=== PATIENT | female | born 1970 | race Caucasian/White ===

== ENCOUNTER 2016-11-02 13:53 | Emergency (ER) | payer OTHER ==
[2016-11-02] MEDS ORDERED: ASPIRIN 81 MG CHEW PO STA (14:34)
[2016-11-02] MEDS ORDERED: NITROGLYCERIN OINT 1 INCH/GM PACKET TOPICAL STA (14:34)
--- NOTE | 2016-11-02 14:38 | ED ---
Chest Pain HPI - General Chief Complaint: Chest Pain Stated Complaint: chest pain Time Seen by Provider: 11/02/16 14:24 Source: patient Mode of arrival: wheelchair Limitations: no limitations - History of Present Illness Initial Comments: This 46-year-old white female presents complaining of some left sided chest pain. It is described as a pressure type sensation. It initially started in her posterior thorax on the left side and seemed to radiate anteriorly. She denies any shortness of breath, palpitations, or diaphoresis. She states that she took 2 sublingual nitroglycerin and it significantly decreased the pain. She relates a history of having similar incidents periodically over the last year and a half. The last time she had it was approximately 10 days ago. She' s been thoroughly worked up for this in the past at [facility]. She has been there many times for her symptoms. They did not find a cause for it. She did have a stress test approximately 3 months ago and this was her second stress test. She's never had a heart catheterization. She sees Dr. Scott from cardiology. She has not appointment with him this next Saturday. She complains of some diffuse left leg pain over the last month or so. She has a history of previous blood clot in her leg after gallbladder surgery. She is not on any blood thinners currently. She denies any other complaints or modifying factors. - Related Data Home Medications Medication Instructions Recorded Confirmed Albuterol Sulfate [Ventolin Hfa] 1 - 2 puff INHALATION RT-Q6H PRN 11/02/1611/02 Aspirin EC [Ecotrin Low Dose] 81 mg PO DAILY 11/02/16 11/02/16 Atenolol [Tenormin] 25 mg PO HS 11/02/16 11/02/16 Esomeprazole Magnesium [NexIUM] 40 mg PO DAILY 11/02/16 11/02/16 Ibuprofen [Motrin] 400 mg PO Q6HR PRN 11/02/16 11/02/16 Nitroglycerin Sl Tabs [Nitrostat] 0.4 mg SUBLINGUAL Q5M PRN 11/02/16 11/02/16 Ranitidine HCl [Zantac] 75 mg PO DAILY 11/02/16 11/02/16 Allergies Allergy/AdvReac Type Severity Reaction Status Date / Time morphine AdvReac Rapid Verified 11/02/16 14:25 Heart Rate Review of Systems ROS Statement: Those systems with pertinent positive or pertinent negative responses have been documented in the HPI. ROS Other: All systems not noted in ROS Statement are negative. Past Medical History Past Medical History: Chest Pain / Angina, COPD, Hypertension Additional Past Medical History / Comment(s): obesity History of Any Multi-Drug Resistant Organisms: None Reported Past Surgical History: Section, Cholecystectomy, Hernia Repair Past Psychological History: Anxiety Smoking Status: Former smoker Past Alcohol Use History: None Reported Past Drug Use History: None Reported General Exam - General Exam Comments Initial Comments: GENERAL: The patient is well nourished and well hydrated. VITAL SIGNS: Heart rate, blood pressure, respiratory rate reviewed as recorded in nurse's notes. EYES: Pupils are round and reactive. Extraocular movements are intact. No conjunctival / lid redness or swelling. ENT: No external evidence of injury, swelling, or ecchymosis. Airway is patent. Throat is clear. NECK: Nontender. No swelling or evidence of injury. No subcutaneous emphysema. Trachea is midline. No thyroid mass. HEART: Regular rate and rhythm. Good peripheral pulses. LUNGS/CHEST: Breath sounds clear and equal bilaterally. No rales, rhonchi, or wheezes. No ecchymosis, subcutaneous emphysema, or tenderness. ABDOMEN: Abdomen soft without tenderness. No palpable masses or organomegaly. No peritoneal signs. No abdominal wall swelling or ecchymosis. EXTREMITIES: No extremity tenderness. Normal muscle tone and function. No thoracolumbar tenderness. NEUROLOGIC: Sensation is grossly intact. Cranial nerve exam reveals face is symmetrical, tongue is midline, speech is clear. SKIN: No abrasions or ecchymosis is noted. No induration or masses noted. PSYCHIATRIC: Alert and oriented. Appropriate behavior and judgment. Limitations: no limitations Course Vital Signs 11/02/16 11/02/16 11/02/16 13:56 14:15 15:26 Temperature 97.9 F 98.6 F 97.7 F Pulse Rate 78 75 78 Respiratory 18 16 17 Rate Blood Pressure 129/70 132/65 120/69 O2 Sat by Pulse 98 100 95 Oximetry 11/02/16 16:28 Temperature 98.1 F Pulse Rate 82 Respiratory 17 Rate Blood Pressure 110/62 O2 Sat by Pulse 96 Oximetry Chest Pain [facility] - MDM The patient is seen and examined. All diagnostics were reviewed. An IV is established she is placed on a cardiac cath tech. The EKG shows a normal sinus rhythm at a rate of 72. There is no acute ST-T wave changes noted. The [place] interval is 194, QRS duration is 92, and QTC intervals 429. She does receive aspirin as well as Nitropaste. The cardiac profile labs are all essentially within normal limits. The d-dimer was negative. Her lower extremity venous Doppler studies are negative for DVT. The chest x-ray does not show any acute processes. She is in no distress on recheck. It is felt as though she benefit from admission to the hospital. She refuses. She relates that she just had a negative stress test 3 months ago and she has an appointment with her operations engineer on Saturday. Risks and benefits are discussed and ultimately detail but she would still want to leave without any further inpatient workup or treatment. The exact cause of her symptoms are not definitively determined but the possibility of acute coronary syndrome still is possible that she leaves against my advice in regards to inpatient workup. Disposition Clinical Impression: Chest pain, Left leg pain Disposition: HOME SELF-CARE Condition: Good Instructions: Chest Pain (ED) Referrals: Karyn Esteban MD [Primary Care Provider] - 1-2 days Suma Scott MD [STAFF PHYSICIAN] - 11/06/16 Time of Disposition: 17:28
[2016-11-02 15:10] LABS: Basophils % (A) 0 %; CH 24.4; CHCM 30.6; Eosinophils # (A) 0.2 k/uL (0-0.7); Eosinophils % (A) 3 %; HCT 37.2 % (34.0-46.0); HDW 2.92; HGB 11.4 gm/dL (11.4-16.0); Hypochromasia Moderate; Luc # (Auto) 0.18; Luc % (Auto) 3; Lymphocytes # (A) 1.8 k/uL (1.0-4.8); Lymphocytes % (A) 26 %; MCH 24.5 pg (25.0-35.0); MCHC 30.7 g/dL (31.0-37.0); MCV 79.7 fL (80.0-100.0); Mean Platelet Volume 7.1; Monocytes # (A) 0.3 k/uL (0-1.0); Monocytes % (A) 4 %; Neutrophils # (A) 4.3 k/uL (1.3-7.7); Neutrophils % (A) 63 %; RBC 4.67 m/uL (3.80-5.40); RDW 15.3 % (11.5-15.5); WBC 6.8 k/uL (3.8-10.6); WBC (Perox) 7.24
[2016-11-02 15:19] LABS: ALT 45 U/L (9-52); AST 35 U/L (14-36); Alkaline Phosphatase 101 U/L (38-126); Anion Gap 8 mmol/L; Blood Urea Nitrogen 14 mg/dL (7-17); Carbon Dioxide 24 mmol/L (22-30); Chloride 106 mmol/L (98-107); Glucose 85 mg/dL (74-99); Magnesium 1.7 mg/dL (1.6-2.3); Non-African American GFR(MDRD) >60 (>60 ml/min/1.73 sqM); Potassium 4.4 mmol/L (3.5-5.1); Sodium 138 mmol/L (137-145); Total Bilirubin 0.4 mg/dL (0.2-1.3); Total Protein 6.8 g/dL (6.3-8.2)
[2016-11-02 15:23] LABS: Partial Thromboplastin Time 23.5 sec (22.0-30.0); Prothrombin Time 10.2 sec (9.0-12.0)
[2016-11-02 15:31] LABS: Creatine Kinase 131 U/L (30-135)
--- NOTE | 2016-11-02 15:34 | XR ---
EXAMINATION TYPE: XR chest 2V DATE OF EXAM: 11/02/2016 COMPARISON: CXR from 08-17-2011. HISTORY: Chest pain today. TECHNIQUE: Frontal and lateral views of the chest are obtained. FINDINGS: Low lung volumes are present. There is no focal air space opacity, pleural effusion, or pn eumothorax seen. The cardiac silhouette size is within normal limits. The osseous structures are i ntact. IMPRESSION: No acute cardiopulmonary process.
[2016-11-02 15:43] LABS: Creatine Kinase MB 1.3 ng/mL (0.0-2.4); Troponin I <0.012 ng/mL (0.000-0.034)
[2016-11-02] MEDS ORDERED: ACETAMINOPHEN TAB 500 MG TAB PO STA (16:33)
--- NOTE | 2016-11-02 16:39 | US ---
EXAMINATION TYPE: US venous doppler duplex LE BI DATE OF EXAM: 11/02/2016 4:13 PM COMPARISON: NONE CLINICAL HISTORY: Pain. Left leg pain x 1 month, bilateral ankle swelling x 1 month, hx of DVT 10 ye ars ago but doesn't remember which leg, no blood thinners SIDE PERFORMED: Bilateral TECHNIQUE: The lower extremity deep venous system is examined utilizing real time linear array sonog jennifer with graded compression, doppler sonography and color-flow sonography. VESSELS IMAGED: External Iliac Vein (EIV) Common Femoral Vein Deep Femoral Vein Greater Saphenous Vein * Femoral Vein Popliteal Vein Small Saphenous Vein * Proximal Calf Veins (* superficial vessels) Right Leg: Appears negative for acute DVT Left Leg: Appears negative for acute DVT IMPRESSION: Negative exam. No evidence of deep venous thrombosis in both legs.
[2016-11-02 17:28] VITALS: BP 117/59; PULSE 78; RESP 16; TEMP 97.6
== END 2016-11-02 17:55 | disposition home or self-care (01) ==
LOC: EC 13:53
DX: R07.9 Chest pain, unspecified (principal); M79.605 Pain in left leg; I10 Essential (primary) hypertension; Z87.891 Personal history of nicotine dependence; Z88.5 Allergy status to narcotic agent; Z79.82 Long term (current) use of aspirin; Z79.899 Other long term (current) drug therapy
CPT/HCPCS: 36415; 71020; 80053; 82550; 82553; 83735; 84484; 85025; 85379; 85610; 85730; 93005; 93970; 99285

== ENCOUNTER 2018-07-16 09:30 | Observation (INO) | payer OTHER ==
[2018-07-16] MEDS ORDERED: ASPIRIN 81 MG PO STA (10:23)
[2018-07-16] MEDS ORDERED: NITROGLYCERIN OINT 1 INCH/GM PACKET TOPICAL STA (10:23)
--- NOTE | 2018-07-16 10:26 | ED ---
General Adult HPI - General Chief complaint: Chest Pain Stated complaint: Chest discomfort Time Seen by Provider: 07/16/18 09:37 Source: patient, RN notes reviewed Mode of arrival: ambulatory Limitations: no limitations - History of Present Illness Initial comments: Patient is a pleasant 48-year-old female presenting to the emergency Department with complaints of chest discomfort. Onset of symptoms was around 910 this morning. Patient did take one of her nitroglycerin with resolution of symptoms. Patient is currently symptom-free. Patient states discomfort was 5/ 10. Patient has a difficult time describing her discomfort. No associated dyspnea, nausea, or diaphoresis. Discomfort was mid sternal. No radiation. Patient has had similar symptoms previously and has been diagnosed with angina. Last stress test was around 1 year ago. Patient adds she also feels like her heart rate was going high. Patient does have chronic history of tachycardia and has been evaluated for that as well. - Related Data Home Medications Medication Instructions Recorded Confirmed Aspirin EC [Ecotrin Low Dose] 81 mg PO DAILY 11/02/16 07/16/18 Atenolol [Tenormin] 25 mg PO DAILY 11/02/16 07/16/18 Nitroglycerin Sl Tabs [Nitrostat] 0.4 mg SUBLINGUAL Q5M PRN 11/02/16 07/16/18 Esomeprazole Magnesium [NexIUM] 20 mg PO DAILY 07/16/18 07/16/18 Ferrous Sulfate [Feosol] 325 mg PO DAILY 07/16/18 07/16/18 HYDROcodone/APAP 5-325MG [[place] 1 tab PO DAILY PRN 07/16/18 07/16/18 5-325] Naproxen Sodium 440 mg PO DAILY PRN 07/16/18 07/16/18 Ranitidine HCl [Zantac] 150 mg PO DAILY PRN 07/16/18 07/16/18 Allergies Allergy/AdvReac Type Severity Reaction Status Date / Time morphine AdvReac Rapid Verified 07/16/18 10:07 Heart Rate Review of Systems ROS Statement: Those systems with pertinent positive or pertinent negative responses have been documented in the HPI. ROS Other: All systems not noted in ROS Statement are negative. Constitutional: Denies: fever Eyes: Denies: eye pain ENT: Denies: ear pain Respiratory: Denies: cough, dyspnea Cardiovascular: Reports: as per HPI, chest pain, palpitations Endocrine: Denies: fatigue Gastrointestinal: Denies: abdominal pain Genitourinary: Denies: dysuria Musculoskeletal: Denies: back pain Skin: Denies: rash Neurological: Denies: weakness Past Medical History Past Medical History: Chest Pain / Angina, COPD, Hypertension Additional Past Medical History / Comment(s): obesity History of Any Multi-Drug Resistant Organisms: None Reported Past Surgical History: Section, Cholecystectomy, Hernia Repair Past Psychological History: Anxiety Smoking Status: Former smoker Past Alcohol Use History: None Reported Past Drug Use History: None Reported General Exam Limitations: no limitations General appearance: alert, in no apparent distress Head exam: Present: atraumatic Eye exam: Present: normal appearance Neck exam: Present: normal inspection Respiratory exam: Present: normal lung sounds bilaterally Cardiovascular Exam: Present: regular rate, normal rhythm Expanded Peripheral pulses: 2+: Radial (R), Radial (L), Posterior Tibialis (R), Posterior Tibialis (L), Dorsalis Pedis (R), Dorsalis Pedis (L) GI/Abdominal exam: Present: soft. Absent: tenderness Extremities exam: Present: normal inspection. Absent: pedal edema, calf tenderness Neurological exam: Present: alert Psychiatric exam: Present: normal affect, normal mood Skin exam: Present: normal color Course Vital Signs 07/16/18 09:33 Temperature 98.4 F Pulse Rate 117 H Respiratory 18 Rate Blood Pressure 136/76 O2 Sat by Pulse 98 Oximetry - Reevaluation(s) Reevaluation #1: 07/16/18 10:26 park maintenance technician: Normal sinus rhythm at 90. Patient was placed on manager cardiac cath for chest discomfort and palpitations and to evaluate for arrhythmias. EKG Findings - EKG Comments: EKG Findings:: Sinus tachycardia 102. [place] 182. QRS 82. QT 344. QTC 448. Normal axis. Normal QRS. No acute ST change. Medical Decision Making - Medical Decision Making Patient reevaluated and resting comfortably in bed. Patient symptom-free. Patient updated on results and plan. Dr. Casanova has been paged for admission for Dr. Raygoza. - Lab Data Result diagrams: 07/16/18 10:20 07/16/18 10:20 Lab Results 07/16/18 07/16/18 07/16/18 Range/Units 10:20 10:20 10:20 WBC 5.2 (3.8-10.6) k/uL RBC 4.62 (3.80-5.40) m/uL Hgb 9.0 L (11.4-16.0) gm/dL Hct 31.3 L (34.0-46.0) % MCV 67.8 L (80.0-100.0) fL MCH 19.5 L (25.0-35.0) pg MCHC 28.8 L (31.0-37.0) g/dL RDW 17.2 H (11.5-15.5) % Plt Count 410 (150-450) k/uL Neutrophils % 68 % Lymphocytes % 22 % Monocytes % 5 % Eosinophils % 3 % Basophils % 1 % Neutrophils # 3.5 (1.3-7.7) k/uL Lymphocytes # 1.2 (1.0-4.8) k/uL Monocytes # 0.2 (0-1.0) k/uL Eosinophils # 0.1 (0-0.7) k/uL Basophils # 0.0 (0-0.2) k/uL Hypochromasia Marked Anisocytosis Slight Microcytosis Marked PT 10.3 (9.0-12.0) sec INR 1.0 (<1.2) APTT 19.9 L (22.0-30.0) sec D-Dimer 0.41 (<0.60) mg/L FEU Sodium 139 (137-145) mmol/L Potassium 4.3 (3.5-5.1) mmol/L Chloride 106 (98-107) mmol/L Carbon Dioxide 26 (22-30) mmol/L Anion Gap 7 mmol/L BUN 11 (7-17) mg/dL Creatinine 0.72 (0.52-1.04) mg/dL Est GFR (CKD-EPI)AfAm >90 (>60 ml/min/1.73 sqM) Est GFR (CKD-EPI)NonAf >90 (>60 ml/min/1.73 sqM) Glucose 101 H (74-99) mg/dL Calcium 9.2 (8.4-10.2) mg/dL Magnesium 1.7 (1.6-2.3) mg/dL Total Bilirubin 0.4 (0.2-1.3) mg/dL AST 22 (14-36) U/L ALT 33 (9-52) U/L Alkaline Phosphatase 98 (38-126) U/L Troponin I (0.000-0.034) ng/mL NT-Pro-B Natriuret Pep pg/mL Total Protein 7.2 (6.3-8.2) g/dL Albumin 4.1 (3.5-5.0) g/dL 07/16/18 07/16/18 Range/Units 10:20 10:20 WBC (3.8-10.6) k/uL RBC (3.80-5.40) m/uL Hgb (11.4-16.0) gm/dL Hct (34.0-46.0) % MCV (80.0-100.0) fL MCH (25.0-35.0) pg MCHC (31.0-37.0) g/dL RDW (11.5-15.5) % Plt Count (150-450) k/uL Neutrophils % % Lymphocytes % % Monocytes % % Eosinophils % % Basophils % % Neutrophils # (1.3-7.7) k/uL Lymphocytes # (1.0-4.8) k/uL Monocytes # (0-1.0) k/uL Eosinophils # (0-0.7) k/uL Basophils # (0-0.2) k/uL Hypochromasia Anisocytosis Microcytosis PT (9.0-12.0) sec INR (<1.2) APTT (22.0-30.0) sec D-Dimer (<0.60) mg/L FEU Sodium (137-145) mmol/L Potassium (3.5-5.1) mmol/L Chloride (98-107) mmol/L Carbon Dioxide (22-30) mmol/L Anion Gap mmol/L BUN (7-17) mg/dL Creatinine (0.52-1.04) mg/dL Est GFR (CKD-EPI)AfAm (>60 ml/min/1.73 sqM) Est GFR (CKD-EPI)NonAf (>60 ml/min/1.73 sqM) Glucose (74-99) mg/dL Calcium (8.4-10.2) mg/dL Magnesium (1.6-2.3) mg/dL Total Bilirubin (0.2-1.3) mg/dL AST (14-36) U/L ALT (9-52) U/L Alkaline Phosphatase (38-126) U/L Troponin I <0.012 (0.000-0.034) ng/mL NT-Pro-B Natriuret Pep 56 pg/mL Total Protein (6.3-8.2) g/dL Albumin (3.5-5.0) g/dL - Radiology Data Interpreted by me: Chest x-ray reveals no acute process. Disposition Clinical Impression: Chest pain Disposition: ADMITTED IP TO THIS HOSP Is patient prescribed a controlled substance at d/c from ED?: No Referrals: Arya Raygzoa DO [Primary Care Provider] - 1-2 days Decision Time: 11:39
[2018-07-16 10:33] LABS: Anisocytosis Slight; Basophils % (A) 1 %; Eosinophils # (A) 0.1 k/uL (0-0.7); Eosinophils % (A) 3 %; HCT 31.3 % (34.0-46.0); Hypochromasia Marked; Lymphocytes # (A) 1.2 k/uL (1.0-4.8); Lymphocytes % (A) 22 %; MCH 19.5 pg (25.0-35.0); MCHC 28.8 g/dL (31.0-37.0); MCV 67.8 fL (80.0-100.0); Microcytosis Marked; Monocytes # (A) 0.2 k/uL (0-1.0); Monocytes % (A) 5 %; Neutrophils # (A) 3.5 k/uL (1.3-7.7); Neutrophils % (A) 68 %; Platelet Count 410 k/uL (150-450); RBC 4.62 m/uL (3.80-5.40); RDW 17.2 % (11.5-15.5); WBC 5.2 k/uL (3.8-10.6)
[2018-07-16 10:50] LABS: ALT 33 U/L (9-52); AST 22 U/L (14-36); Albumin 4.1 g/dL (3.5-5.0); Alkaline Phosphatase 98 U/L (38-126); Anion Gap 7 mmol/L; Blood Urea Nitrogen 11 mg/dL (7-17); Calcium 9.2 mg/dL (8.4-10.2); Carbon Dioxide 26 mmol/L (22-30); Chloride 106 mmol/L (98-107); Glucose 101 mg/dL (74-99); Magnesium 1.7 mg/dL (1.6-2.3); Potassium 4.3 mmol/L (3.5-5.1); Sodium 139 mmol/L (137-145); Total Bilirubin 0.4 mg/dL (0.2-1.3); Total Protein 7.2 g/dL (6.3-8.2)
[2018-07-16 10:54] LABS: D-Dimer 0.41 mg/L FEU (<0.60); Prothrombin Time 10.3 sec (9.0-12.0)
[2018-07-16 10:58] LABS: Partial Thromboplastin Time 19.9 sec (22.0-30.0)
[2018-07-16] MEDS ORDERED: LORazepam 1 MG TAB PO STA (11:30)
[2018-07-16] MEDS ORDERED: NITROGLYCERIN SL TABS 0.4 MG TAB SUBLINGUAL PRN ×2 (11:38→21:20)
--- NOTE | 2018-07-16 11:44 | XR ---
EXAMINATION TYPE: XR chest 2V DATE OF EXAM: 07/16/2018 COMPARISON: Prior chest x-ray 11/02/2016 HISTORY: Chest pain and tachycardia TECHNIQUE: Frontal and lateral views of the chest are obtained. FINDINGS: There is no focal air space opacity, pleural effusion, or pneumothorax seen. The cardiac silhouette size is within normal limits. The osseous structures are intact. There are cardiac leads . Eventration of right hemidiaphragm. IMPRESSION: No acute cardiopulmonary process.
--- NOTE | 2018-07-16 13:56 | P.CRDCN ---
History of Present Illness History of present illness: This is a pleasant 48-year-old female past medical history significant for hypertension, dyslipidemia, asthma, gastroesophageal reflux and morbid obesity. She follows in the office with Dr. Gimenez. She has no history of known coronary artery disease. We have been asked to see her in consultation for symptoms of chest discomfort. She states this morning while she was talking on the phone with her friend they were having a somewhat stressful conversation and she started feeling a tightness in her chest in the midsternal region radiating up into the neck into her jaw. This lasted approximately 3-4 minutes. She has been told in the past that she has angina and he has a prescription for sublingual nitroglycerin. She took one tablet and her pain seemed to subside. She denies radiation down the arm or into the back. She states while she was having the chest discomfort she felt her heart was racing. She states it was fast and hard but felt regular. She denies associated shortness of breath, dizziness, nausea, vomiting or diaphoresis. EKG reveals sinus mechanism with no acute ST or T wave abnormalities noted. Chest x-ray is negative for an acute cardiopulmonary process. Cardiac enzymes negative 1, creatinine 0.72, NT proBNP 56, the be VC 5.2, hemoglobin 9, platelets 410, d-dimer 0.41, sodium 139, potassium 4.3, magnesium 1.7. Current cardiac medications include aspirin 81 mg daily and atenolol 25 mg daily. Most recent stress test performed in the office July 2016 with a dobutamine stress echocardiogram that was negative for stress-induced ischemia. At the time of my exam: CONSTITUTIONAL: Denies fever. Denies chills. EYES: Denies blurred vision. Denies vision changes. Denies eye pain. EARS, NOSE, MOUTH & THROAT: Denies headache. Denies sore throat. Denies ear pain. CARDIOVASCULAR: Denies chest pain. Denies shortness of breath. Denies orthopnea. Denies PND. Denies palpitations. RESPIRATORY: Denies cough. GASTROINTESTINAL: Denies abdominal pain. Denies diarrhea. Denies constipation. Denies nausea. Denies vomiting. MUSCULOSKELETAL: Denies myalgias. INTEGUMENTARY: Denies pruitis. Denies rash. NEUROLOGIC: Denies numbness. Denies tingling. Denies weakness. PSYCHIATRIC: Denies anxiety. Denies depression. ENDOCRINE: Denies fatigue. Denies weight change. Denies polydipsia. Denies polyurina. GENITOURINARY: Denies burning, hematuria or urgency with micturation. HEMATOLOGIC: Denies history of anemia. Denies bleeding. Blood pressure 169/105 heart rate 96 afebrile maintaining oxygen saturation on room air GENERAL: This is a 48-year-old female in no apparent distress at the time of my examination. Obese. HEENT: Head is atraumatic, normocephalic. Pupils are equal, round. Sclerae anicteric. Conjunctivae are clear. Mucous membranes of the mouth are moist. Neck is supple. There is no jugular venous distention. No carotid bruit is heard. LUNGS: Clear to auscultation no wheezes, rales or rhonchi. No chest wall tenderness is noted on palpation or with deep breathing. HEART: Regular rate and rhythm without murmurs, rubs or gallops. S1 and S2 heard. ABDOMEN: Soft, nontender. Bowel sounds are heard. No organomegaly noted. EXTREMITIES: No evidence of peripheral edema and no calf tenderness noted. VASCULAR: Radial and dorsalis pedis pulses palpated, no evidence of clubbing. NEUROLOGIC: Patient is awake, alert and oriented x3. ASSESSMENT Chest pain, atypical for angina. Hypertension, uncontrolled Morbid obesity, BMI 53 PLAN Continue to obtain serial cardiac enzymes to rule out an acute coronary event. Obtain 2-D echocardiogram and Doppler study to assess cardiac structure and function. Check TSH and lipid panel. Initiate on lisinopril 5 mg daily. NPO after midnight for possible stress testing in the morning. Further recommendations to follow based on clinical course. Thank you kindly for this consultation. Nurse Practitioner note has been reviewed, I agree with a documented findings and plan of care. Patient was seen and examined. Past Medical History Past Medical History: Asthma, Chest Pain / Angina, COPD, GERD/Reflux, Hyperlipidemia, Hypertension, Pneumonia Additional Past Medical History / Comment(s): Bronchitis, severe GERD, esophageal spasms, problems with abdominal pain/cramps/constipation and diarrhea , diverticular disease, fatigued for 5-6 yrs, anemia, UTI, urinary incontinence at times, arthritis multiple joints, chronic back and neck pain, bilateral leg sciatica, fatty liver, being checked for thyroid disease, menorrhagia, pt states she had one physician tell her she was "pre" diabetic. History of Any Multi-Drug Resistant Organisms: None Reported Past Surgical History: Section, Cholecystectomy, Hernia Repair Additional Past Surgical History / Comment(s): EGD, umbilical hernia repair, wisdom teeth extractions. Past Anesthesia/Blood Transfusion Reactions: Postoperative Nausea & Vomiting ( PONV) Additional Past Anesthesia/Blood Transfusion Reaction / Comment(s): Difficulty waking. Smoking Status: Former smoker - Past Family History Father Additional Family Medical History / Comment(s): Pt was adopted and does not know natural father's medical hx. Mother Additional Family Medical History / Comment(s): Pt is adopted and does not know natural mother's medical hx. Brother(s) Family Medical History: Myocardial Infarction (NM) Additional Family Medical History / Comment(s): Pt does know that her half brother had a NM at the age of 45yrs. Medications and Allergies Home Medications Medication Instructions Recorded Confirmed Type Aspirin EC [Ecotrin Low Dose] 81 mg PO DAILY 11/02/16 07/16/18 History Atenolol [Tenormin] 25 mg PO DAILY 11/02/16 07/16/18 History Nitroglycerin Sl Tabs [Nitrostat] 0.4 mg SUBLINGUAL Q5M PRN 11/02/16 07/16/18 History Esomeprazole Magnesium [NexIUM] 20 mg PO DAILY 07/16/18 07/16/18 History Ferrous Sulfate [Feosol] 325 mg PO DAILY 07/16/18 07/16/18 History HYDROcodone/APAP 5-325MG [[place] 1 tab PO DAILY PRN 07/16/18 07/16/18 History 5-325] Naproxen Sodium 440 mg PO DAILY PRN 07/16/18 07/16/18 History Ranitidine HCl [Zantac] 150 mg PO DAILY PRN 07/16/18 07/16/18 History Allergies Allergy/AdvReac Type Severity Reaction Status Date / Time morphine AdvReac Rapid Verified 07/16/18 10:07 Heart Rate Physical Exam Vitals: Vital Signs Temp Pulse Pulse Resp BP BP Pulse Ox 07/16/18 12:39 96 07/16/18 12:05 98.6 F 96 18 169/105 100 07/16/18 11:30 86 136/90 100 07/16/18 10:00 103 H 132/81 97 07/16/18 09:51 107 H 97 07/16/18 09:33 98.4 F 117 H 18 136/76 98 Intake and Output 07/15/18 07/16/18 07/16/18 22:59 06:59 14:59 Other: # Voids 1 Weight 140.614 kg Results 07/16/18 10:20 07/16/18 10:20 Cardiac Enzymes 07/16/18 07/16/18 Range/Units 10:20 10:20 AST 22 (14-36) U/L Troponin I <0.012 (0.000-0.034) ng/mL Coagulation 07/16/18 Range/Units 10:20 PT 10.3 (9.0-12.0) sec APTT 19.9 L (22.0-30.0) sec CBC 07/16/18 Range/Units 10:20 WBC 5.2 (3.8-10.6) k/uL RBC 4.62 (3.80-5.40) m/uL Hgb 9.0 L (11.4-16.0) gm/dL Hct 31.3 L (34.0-46.0) % Plt Count 410 (150-450) k/uL Comprehensive Metabolic Panel 07/16/18 Range/Units 10:20 Sodium 139 (137-145) mmol/L Potassium 4.3 (3.5-5.1) mmol/L Chloride 106 (98-107) mmol/L Carbon Dioxide 26 (22-30) mmol/L BUN 11 (7-17) mg/dL Creatinine 0.72 (0.52-1.04) mg/dL Glucose 101 H (74-99) mg/dL Calcium 9.2 (8.4-10.2) mg/dL AST 22 (14-36) U/L ALT 33 (9-52) U/L Alkaline Phosphatase 98 (38-126) U/L Total Protein 7.2 (6.3-8.2) g/dL Albumin 4.1 (3.5-5.0) g/dL Current Medications Generic Name Dose Route Start Last Admin Trade Name Freq PRN Reason Stop Dose Admin Aspirin 325 mg 07/17/18 09:00 Aspirin PO DAILY JUDITH Nitroglycerin 1 inch 07/16/18 18:00 Nitro-Bid Oint TOPICAL Q6HR JUDITH Nitroglycerin 0.4 mg 07/16/18 11:38 Nitrostat SUBLINGUAL Q5M PRN Chest Pain Sodium Chloride 10 ml 07/16/18 21:00 Saline Flush IV BID [facility] Intake and Output 07/15/18 07/16/18 07/16/18 22:59 06:59 14:59 Other: # Voids 1 Weight 140.614 kg Patient Weight 07/17/18 06:59 Weight 140.614 kg 07/16/18 10:20 07/16/18 10:20
[2018-07-16] MEDS ORDERED: LISINOPRIL 5 MG TAB PO SCH (14:00)
[2018-07-16] MEDS ORDERED: NITROGLYCERIN OINT 1 INCH/GM PACKET TOPICAL SCH (18:00)
--- NOTE | 2018-07-16 18:40 | ECHOF ---
Referral Reason:cp, htn MEASUREMENTS -------- HEIGHT: 162.6 cm WEIGHT: 140.6 kg BP: IVSd: 1.7 cm (0.6 - 1.1) LVIDd: 3.8 cm (3.9 - 5.3) LVPWd: 1.7 cm (0.6 - 1.1) IVSs: 2.0 cm LVIDs: 2.4 cm LVPWs: 1.6 cm LA Diam: 5.0 cm (2.7 - 3.8) Ao Diam: 3.0 cm (2.0 - 3.7) AV Cusp: 1.9 cm (1.5 - 2.6) LA Diam: 3.2 cm (2.7 - 3.8) MV EXCURSION: 20.824 mm (> 18.000) MV EF SLOPE: 97 mm/s (70 - 150) EPSS: 1.1 cm MV E Gus: 0.69 m/s MV DecT: 247 ms MV A Gus: 1.35 m/s MV E/A Ratio: 0.51 RAP: 5.00 mmHg RVSP: 16.42 mmHg FINDINGS -------- Sinus rhythm. Morbid Obesity The left ventricular size is normal. There is severe concentric left ventricular hypertrophy. Ove rall left ventricular systolic function is normal with, an EF between 55 - 60 %. The right ventricle is normal in size. The left atrium is moderately dilated. The right atrial size is normal. The aortic valve is trileaflet, and appears structurally normal. No aortic stenosis or regurgitation. Mild mitral regurgitation is present. No regurgitation noted There is no evidence of pulmonary hypertension. The right ventricular syst olic pressure, as measured by Doppler, is 16.42mmHg. The pulmonic valve was not well visualized. The aortic root size is normal. There is no pericardial effusion. CONCLUSIONS -------- 1. Morbid Obesity 2. The left ventricular size is normal. 3. There is severe concentric left ventricular hypertrophy. 4. Overall left ventricular systolic function is normal with, an EF between 55 - 60 %. 5. The right ventricle is normal in size. 6. The left atrium is moderately dilated. 7. The right atrial size is normal. 8. The aortic valve is trileaflet, and appears structurally normal. No aortic stenosis or regurgitati on. 9. Mild mitral regurgitation is present. 10. No regurgitation noted 11. There is no evidence of pulmonary hypertension. 12. The right ventricular systolic pressure, as measured by Doppler, is 16.42mmHg. 13. The pulmonic valve was not well visualized. 14. The aortic root size is normal. 15. There is no pericardial effusion. FLORIST: Elizabeth Man RDCS
[2018-07-16] MEDS ORDERED: FAMOTIDINE 20 MG TAB PO PRN (21:20)
[2018-07-16] MEDS ORDERED: NAPROXEN 250 MG TAB PO PRN (21:20)
[2018-07-16] MEDS ORDERED: HYDROcodone/APAP 5-325MG 1 EACH TAB PO PRN (21:20)
--- NOTE | 2018-07-16 22:26 | HP ---
HISTORY AND PHYSICAL DATE OF ADMISSION AND SERVICE: 07/16/2018 PRESENTING COMPLAINT: Chest pain. HISTORY OF PRESENTING COMPLAINT: This is a pleasant 48-year-old patient of Dr. Raygoza. She also follows with container crane operator Dr. Gimenez. Patient has been having episodes of chest pain on and off for the last 3 years of different frequencies. Patient gets pain across the chest which can be rather severe and sometimes very painful, sometimes going to the back. It is unclear if the nitroglycerin really helps the pain. There is no associated shortness of breath, dizziness, lightheadedness, perspiration. Patient had a stress test a year ago that was negative. Patient has also severe GERD. Patient has not had a cardiac catheterization. Patient yet again presents with one of the above episodes precipitating her admission. She does follow with Dr. Gimenez from Cardiology, who is planning a stress test. Patient's pain is variable in nature and can come on on its own and sometimes go away on its own. The duration is also variable. It does not go to the neck or arm, but sometimes to the back. REVIEW OF SYSTEMS: CONSTITUTIONAL: None. HEENT: None. RESPIRATORY: None. CARDIOVASCULAR: As above. GASTROINTESTINAL: Heartburn. GENITOURINARY: None. MUSCULOSKELETAL: Some pain in the joints. DERMATOLOGICAL: None. HEMATOLOGICAL: None. LYMPHATICS: None. PSYCHIATRY: None. NEUROLOGICAL: None. PAST MEDICAL HISTORY: 1. Asthma. 2. COPD. 3. GERD. 4. Hyperlipidemia. 5. Hypertension. 6. Severe GERD. 7. Questionable esophageal spasms. 8. Diverticular disease. 9. Urinary incontinence. 10.Arthritis in multiple joints. 11.Chronic back and neck pain. 12.Bilateral leg sciatica. 13.Fatty liver. 14.Menorrhagia. PAST SURGICAL HISTORY: 1. . 2. Cholecystectomy. 3. Hernia repair. 4. EGD. 5. Umbilical hernia repair. PSYCH HISTORY: Anxiety, panic attack. SOCIAL HISTORY: . Lives with her spouse and 15-year-old son. Unemployed. Does not drive. Patient smoked for close to 30 years, 3 packs a day; stopped 2 years ago. No alcohol. FAMILY HISTORY: Patient is adopted. HOME MEDICATIONS: 1. Zantac 150 mg p.o. daily p.r.n. 2. Nitrostat 0.4 sublingually q.5 p.r.n. 3. Naproxen 440 mg p.o. daily p.r.n. 4. [place] 5 one tablet p.o. daily p.r.n. 5. Iron 325 p.o. daily. 6. Nexium 20 mg p.o. daily. 7. Tenormin 25 mg p.o. daily. 8. Aspirin 81 mg p.o. daily. ALLERGIES: MORPHINE. PHYSICAL EXAMINATION: VITAL SIGNS: Temperature 98.3, pulse 109, respiration 15, blood pressure 122/61, pulse ox 98% on room air. GENERAL APPEARANCE: Well built; BMI 53.2. Sitting up, awake. EYES: Pupils equal. Conjunctivae normal. HEENT: External appearance of nose and ears normal. Oral cavity normal. NECK: JVD not raised. Mass not palpable. RESPIRATORY: Effort normal. Lungs are clear. CARDIOVASCULAR: First and second sounds normal. No edema. ABDOMEN: Soft, non-tender. Liver and spleen not palpable. LYMPHATIC: No lymph node palpable in neck or axillae. PSYCHIATRY: Alert and oriented x3. Mood and affect normal. NEUROLOGICAL: Pupils equal. Cranial nerves grossly intact. Power and sensation grossly intact. INVESTIGATIONS: White count 5.2, hemoglobin 9.0. MCV 67.8, potassium 4.3. BUN and creatinine are normal. Troponin x2 negative. EKG tracing, personally reviewed by me, shows normal sinus rhythm. Chest x-ray film, personally reviewed by me, shows slight elevation of right diaphragm. Lung youngblood are clear. Two-D echocardiogram shows EF of 55% to 60%, severe concentric left ventricular hypertrophy. PHYSICAL EXAMINATION: Temperature 98.3, pulse 109, respiration 15, blood pressure 120/61, pulse ox 98% on room air. GENERAL APPEARANCE: Well built; BMI 53.2. Sitting up, awake. EYES: Pupils equal. Conjunctivae normal. HEENT: External appearance of nose and ears normal. Oral cavity normal. NECK: JVD not raised. Mass not palpable. RESPIRATORY: Effort normal. LUNGS: Fair air entry. CARDIOVASCULAR: First and second sounds normal. No edema. ABDOMEN: Soft, non-tender. Liver and spleen not palpable. PSYCHIATRY: Alert and oriented x3. Mood and affect normal. NEUROLOGICAL: Pupils equal. Cranial nerves grossly intact. Power and sensation grossly intact. ASSESSMENT: 1. Episodes of recurrent chest pain in a patient with known severe gastroesophageal reflux disease. Patient may have underlying esophageal spasm. Also cannot rule out coronary vasospasm and underlying coronary artery disease. To put the matter at rest, patient should have a cardiac catheterization, which would be more definitive. 2. Severe gastroesophageal reflux disease in a patient who also takes non-steroidal anti-inflammatories. 3. Chronic obstructive pulmonary disease in an ex-smoker. 4. Hyperlipidemia. 5. Essential hypertension. 6. Colonic diverticulosis. 7. Chronic urinary stress incontinence. 8. Primary osteoarthritis in multiple joints. 9. Hepatic steatosis. 10.Morbid obesity; body mass index 53.2. 11.Anxiety not otherwise specified. PLAN: Home medications are resumed. Cardiology is being consulted. They are considering a stress test. Will increase patient's Nexium to 20 mg twice a day. Will also add Tums around the clock 3 times a day. Patient should see a dietitian and lose weight. Patient also, because of microcytic anemia, should get an EGD done. Will consult GI for the same. Cardiology was also consulted. MMODL / IJN: [id number] /
[2018-07-16 22:53] LABS: Cholesterol 170 mg/dL (<200); HDL Cholesterol 44 mg/dL (40-60); LDL Cholesterol,Calculated 99 mg/dL (0-99); Triglycerides 134 mg/dL (<150)
[2018-07-17] MEDS ORDERED: PANTOPRAZOLE 40 MG TABLET PO SCH (07:30)
[2018-07-17 07:40] VITALS: RESP 18
--- NOTE | 2018-07-17 07:55 | P.PN ---
Progress Note - Text Progress Note Date: 07/17/18 This is a pleasant 48-year-old female patient who was admitted to the hospital with a chest discomfort and ruled out for acute coronary event. She also does have sinus tachycardia. In the past she was started on verapamil and that was not well tolerated because of constipation. For some reason she was started on atenolol and she does not seems to be doing good on it as well. On follow-up with her today, she denies having any chest pain or chest discomfort. I discussed with her the need to rule out any severe underlying coronary artery disease. She does not want to have any stress test or coronary angiogram and she is interested in having coronary CTA which will be scheduled as an outpatient. Meanwhile I am going to DC the atenolol and start the patient on Cardizem CD. From the cardiac standpoint, if she is chest pain-free, she might be able to be discharged home.
[2018-07-17] MEDS ORDERED: ATENOLOL 25 MG TAB PO SCH (09:00)
[2018-07-17] MEDS ORDERED: ASPIRIN 325 MG TAB PO SCH (09:00)
[2018-07-17] MEDS ORDERED: ASPIRIN 81 MG PO SCH ×2 (09:00)
[2018-07-17] MEDS ORDERED: DILTIAZEM CD 120 MG CAP.ER.24H PO SCH (09:00)
[2018-07-17 12:29] VITALS: BP 124/82; PULSE 98; TEMP 98.6
--- NOTE | 2018-07-20 08:34 | DS ---
DISCHARGE SUMMARY DATE OF ADMISSION: July 16, 2018 DATE OF DISCHARGE: July 17, 2018. FINAL DIAGNOSES: 1. Recurrent chest pain probably from severe gastroesophageal reflux disease. 2. Possible esophageal spasm from severe gastroesophageal reflux disease. 3. Chronic obstructive pulmonary disease in an ex-smoker. 4. Hyperlipidemia. 5. Essential hypertension. 6. Colonic diverticulosis. 7. Chronic urinary stress incontinence. 8. Primary osteoarthritis multiple joints. 9. Hepatic steatosis. 10.Morbid obesity BMI 53.2. 11.Anxiety not otherwise specified. 12.Underlying coronary artery disease to be ruled out as an outpatient. 13.Chest pain could be also be from coronary vasospasms. HOSPITAL COURSE: This patient presented with recurrent chest pain. Patient has known severe GERD, does not want to have a cardiac cath. Dr. Gimenez is planning to do a coronary CT angiogram as an outpatient. I am also setting up patient to see Gastroenterology. The patient was seen by Dr. Gimenez from Cardiology. He is going to arrange for a coronary CTA. The patient is started on Cardizem CD and atenolol was discontinued. The patient is feeling better at the time of discharge. PHYSICAL EXAMINATION: VITAL SIGNS: Temperature 98.6, pulse 98, respiratory 18, blood pressure 124/82, pulse ox 98% on room air. Lungs are clear. Cardiovascular: 1st and 2nd sounds normal. INVESTIGATIONS: White count 5.2, hemoglobin 9, troponin negative. LDL 99. TSH normal. CONSULTATION: Dr. Gimenez from Cardiology. DISCHARGE MEDICATIONS: 1. Aspirin 81 mg a day. 2. Nitrostat 0.4 sublingual q.5 p.r.n. 3. Iron 325 p.o. daily. 4. [place] 5 one tablet p.o. daily p.r.n. 5. Naproxen 440 mg p.o. daily p.r.n. 6. Cardizem CD 120 mg daily. 7. Nexium 20 mg b.i.d. 8. Atenolol has been discontinued. FOLLOWUP: Follow up with Dr. Raygoza in 3 days. Follow up with Dr. Gimenez in 1 week. Follow up with Dr. Cody Gan in [address] Raygoza. MMODL / IJN: [id number] /
== END 2018-07-17 14:45 | disposition home or self-care (01) ==
LOC: EC 09:30 → 1SOBS 11:39
PROVIDERS: ADMIT Hospitalist; ATTEND Hospitalist
DX: R07.89 Other chest pain (principal); K21.9 Gastro-esophageal reflux disease without esophagitis; J44.9 Chronic obstructive pulmonary disease, unspecified; E78.5 Hyperlipidemia, unspecified; I10 Essential (primary) hypertension; G89.29 Other chronic pain; M54.2 Cervicalgia; M54.9 Dorsalgia, unspecified; R00.0 Tachycardia, unspecified; K76.0 Fatty (change of) liver, not elsewhere classified; K57.30 Diverticulosis of large intestine without perforation or abscess without bleeding; M54.32 Sciatica, left side; M54.31 Sciatica, right side; I20.9 Angina pectoris, unspecified; F41.0 Panic disorder [episodic paroxysmal anxiety]; N39.3 Stress incontinence (female) (male); M15.9 Polyosteoarthritis, unspecified; D50.9 Iron deficiency anemia, unspecified; K22.4 Dyskinesia of esophagus; Z90.49 Acquired absence of other specified parts of digestive tract; Z87.891 Personal history of nicotine dependence; Z79.899 Other long term (current) drug therapy; Z79.82 Long term (current) use of aspirin; Z88.5 Allergy status to narcotic agent; E66.01 Morbid (severe) obesity due to excess calories; Z68.43 Body mass index [BMI] 50.0-59.9, adult; Z87.01 Personal history of pneumonia (recurrent); Z87.440 Personal history of urinary (tract) infections; Z87.09 Personal history of other diseases of the respiratory system; Z82.49 Family history of ischemic heart disease and other diseases of the circulatory system
CPT/HCPCS: 99285; 36415; 93005; 93306; 85379; 83880; 80061; 80053; 84443; 83735; 84484; 85025; 85610; 85730; 71046; G0378 ×2

== ENCOUNTER 2018-09-26 08:48 | Emergency (ER) | payer OTHER ==
[2018-09-26 08:52] VITALS: BP 137/75; PULSE 103; RESP 20; TEMP 98.2
--- NOTE | 2018-09-26 09:14 | ED ---
Chest Pain HPI - General Chief Complaint: Chest Pain Stated Complaint: Chest pain Time Seen by Provider: 09/26/18 08:56 Source: patient Mode of arrival: ambulatory Limitations: no limitations - History of Present Illness Initial Comments: The patient was brought in by wheelchair and ambulated out she left without explanation without being seen by me. - Related Data Home Medications Medication Instructions Recorded Confirmed Aspirin EC [Ecotrin Low Dose] 81 mg PO DAILY 11/02/16 07/16/18 Nitroglycerin Sl Tabs [Nitrostat] 0.4 mg SUBLINGUAL Q5M PRN 11/02/16 07/16/18 Ferrous Sulfate [Iron (65 MG 325 mg PO DAILY 07/16/18 07/16/18 Elemental)] HYDROcodone/APAP 5-325MG [[place] 1 tab PO DAILY PRN 07/16/18 07/16/18 5-325] Naproxen Sodium 440 mg PO DAILY PRN 07/16/18 07/16/18 Previous Rx's Medication Instructions Recorded Diltiazem Cd [Cardizem CD] 120 mg PO DAILY #30 cap.er.24h 07/17/18 Esomeprazole Magnesium [NexIUM] 20 mg PO BID #60 capsule. 07/17/18 Allergies Allergy/AdvReac Type Severity Reaction Status Date / Time morphine AdvReac Rapid Verified 09/26/18 08:51 Heart Rate Review of Systems ROS Statement: Those systems with pertinent positive or pertinent negative responses have been documented in the HPI. ROS Other: All systems not noted in ROS Statement are negative. Past Medical History Past Medical History: Asthma, Chest Pain / Angina, COPD, GERD/Reflux, Hyperlipidemia, Hypertension, Pneumonia Additional Past Medical History / Comment(s): Bronchitis, severe GERD, esop hageal spasms, problems with abdominal pain/cramps/constipation and diarrhea, diverticular disease, fatigued for 5-6 yrs, anemia, UTI, urinary incontinence at times, arthritis multiple joints, chronic back and neck pain, bilateral leg sciatica, fatty liver, being checked for thyroid disease, menorrhagia, pt states she had one physician tell her she was "pre" diabetic. History of Any Multi-Drug Resistant Organisms: None Reported Past Surgical History: Section, Cholecystectomy, Hernia Repair Additional Past Surgical History / Comment(s): EGD, umbilical hernia repair, wisdom teeth extractions. Past Anesthesia/Blood Transfusion Reactions: Postoperative Nausea & Vomiting (PONV) Additional Past Anesthesia/Blood Transfusion Reaction / Comment(s): Difficulty waking. Past Psychological History: Anxiety, Panic Disorder Smoking Status: Former smoker Past Alcohol Use History: None Reported Past Drug Use History: None Reported - Past Family History Father Additional Family Medical History / Comment(s): Pt was adopted and does not know natural father's medical hx. Mother Additional Family Medical History / Comment(s): Pt is adopted and does not know natural mother's medical hx. Brother(s) Family Medical History: Myocardial Infarction ([place]) Additional Family Medical History / Comment(s): Pt does know that her half brother had a DE at the age of 45yrs. General Exam Limitations: no limitations Course Vital Signs 09/26/18 08:50 Temperature 98.2 F Pulse Rate 103 H Respiratory 20 Rate Blood Pressure 137/75 O2 Sat by Pulse 99 Oximetry Disposition Clinical Impression: Chest pain Disposition: Left W/O Being Seen by Phys Condition: Stable Referrals: Arya Raygoza DO [Primary Care Provider] - 1-2 days
== END 2018-09-26 09:05 | disposition left against medical advice (07) ==
LOC: EC 08:48
DX: R07.9 Chest pain, unspecified (principal); Z53.21 Procedure and treatment not carried out due to patient leaving prior to being seen by health care provider
CPT/HCPCS: 99499

== ENCOUNTER 2021-07-10 23:40 | Inpatient (IN) | payer BC ==
[2021-07-11] MEDS ORDERED: SODIUM CHLORIDE 0.9% 1,000 ML IV STA (00:07)
--- NOTE | 2021-07-11 00:08 | ED ---
Arrhythmia/Palpitations HPI - General Chief Complaint: Arrhythmia/Palpitations Stated Complaint: High Heart rate Time Seen by Provider: 07/11/21 00:06 Source: patient, RN notes reviewed, old records reviewed Mode of arrival: wheelchair Limitations: no limitations - History of Present Illness Initial Comments: This is a 51-year-old female DF for evaluation. Patient's presentation today for evaluation of elevated heart rate. Patient does have significantly elevated heart rate here in the ER is feeling palpitations. Otherwise patient has no travel history no sick contacts no fevers no other complaints. Patient has no recent change in medications. No recent drug or alcohol use. Patient states she's having symptoms episodically for most of her life. She's been evaluated before multiple times for cause of these symptoms unable to find a cause but has felt palpitations and tachycardia multiple times. MD Complaint: rapid heart beat, "heart racing", palpitations -: year(s) Context: occurred during rest, occurred during exertion Arrhythmia History: other (none) Associated Symptoms: shortness of breath, anxiety Treatments Prior to Arrival: other (none) - Related Data Home Medications Medication Instructions Recorded Confirmed Aspirin EC [Ecotrin Low Dose] 81 mg PO DAILY 11/02/16 07/16/18 Nitroglycerin Sl Tabs [Nitrostat] 0.4 mg SUBLINGUAL Q5M PRN 11/02/16 07/16/18 Ferrous Sulfate [Iron (65 MG 325 mg PO DAILY 07/16/18 07/16/18 Elemental)] HYDROcodone/APAP 5-325MG [[place] 1 tab PO DAILY PRN 07/16/18 07/16/18 5-325] Naproxen Sodium 440 mg PO DAILY PRN 07/16/18 07/16/18 Previous Rx's Medication Instructions Recorded Diltiazem Cd [Cardizem CD] 120 mg PO DAILY #30 cap.er.24h 07/17/18 Esomeprazole Magnesium [NexIUM] 20 mg PO BID #60 capsule. 07/17/18 Allergies Allergy/AdvReac Type Severity Reaction Status Date / Time morphine AdvReac Rapid Verified 07/10/21 23:52 Heart Rate Review of Systems ROS Statement: Those systems with pertinent positive or pertinent negative responses have been documented in the HPI. ROS Other: All systems not noted in ROS Statement are negative. Past Medical History Past Medical History: Asthma, Chest Pain / Angina, COPD, GERD/Reflux, Hyperlipidemia, Hypertension, Pneumonia Additional Past Medical History / Comment(s): Bronchitis, severe GERD, esophageal spasms, problems with abdominal pain/cramps/constipation and diarrhea, diverticular disease, fatigued for 5-6 yrs, anemia, UTI, urinary incontinence at times, arthritis multiple joints, chronic back and neck pain, bilateral leg sciatica, fatty liver, being checked for thyroid disease, menorrhagia, pt states she had one physician tell her she was "pre" diabetic., immunocompromised ([place]). History of Any Multi-Drug Resistant Organisms: None Reported Past Surgical History: Section, Cholecystectomy, Hernia Repair Additional Past Surgical History / Comment(s): EGD, umbilical hernia repair, wisdom teeth extractions. Past Anesthesia/Blood Transfusion Reactions: Postoperative Nausea & Vomiting (PONV) Additional Past Anesthesia/Blood Transfusion Reaction / Comment(s): Difficulty waking. Past Psychological History: Anxiety, Panic Disorder Smoking Status: Never smoker Past Alcohol Use History: None Reported Past Drug Use History: None Reported - Past Family History Father Additional Family Medical History / Comment(s): Pt was adopted and does not know natural father's medical hx. Mother Additional Family Medical History / Comment(s): Pt is adopted and does not know natural mother's medical hx. Brother(s) Family Medical History: Myocardial Infarction ([place]) Additional Family Medical History / Comment(s): Pt does know that her half brother had a AL at the age of 45yrs. General Exam General appearance: alert, in no apparent distress, anxious Head exam: Present: atraumatic, normocephalic, normal inspection Eye exam: Present: normal appearance, PERRL, EOMI. Absent: scleral icterus, conjunctival injection, periorbital swelling ENT exam: Present: normal exam, mucous membranes moist Neck exam: Present: normal inspection. Absent: tenderness, meningismus, lymphadenopathy Respiratory exam: Present: normal lung sounds bilaterally. Absent: respiratory distress, wheezes, rales, rhonchi, stridor Cardiovascular Exam: Present: tachycardia, irregular rhythm, normal heart sounds. Absent: systolic murmur, diastolic murmur, rubs, gallop, clicks GI/Abdominal exam: Present: soft, normal bowel sounds. Absent: distended, tenderness, guarding, rebound, rigid Extremities exam: Present: normal inspection, full ROM, normal capillary refill. Absent: tenderness, pedal edema, joint swelling, calf tenderness Back exam: Present: normal inspection Neurological exam: Present: alert, oriented X3, CN II-XII intact Psychiatric exam: Present: normal affect, normal mood Skin exam: Present: warm, dry, intact, normal color. Absent: rash Course Vital Signs 07/10/21 07/11/21 23:48 00:58 Temperature 98.6 F Pulse Rate 98 Respiratory 18 15 Rate Blood Pressure 135/99 113/73 O2 Sat by Pulse 98 97 Oximetry - Reevaluation(s) Reevaluation #1: 07/11/21 00:25 Medical record is reviewed Reevaluation #2: 07/11/21 00:25 Patient does have heart rates in the 140s Reevaluation #3: 07/11/21 03:24 Patient symptoms are significantly improved Reevaluation #4: 07/11/21 03:24 Patient continues to feel well - Consultations Consultation #1: Spoke with sound physicians who agree to admit the patient EKG Findings - EKG Comments: EKG Findings:: EKG is A. fib with RVR 104 QRS 94 QTC 381 - EKG Results: EKG: interpreted by ERMD (Repeat EKG shows a flutter rate of 72 QRS 92 QTC 391) Medical Decision Making - Medical Decision Making 51 female to the ED co palpitations, found to be in significant Atrial Fib w RVR, a she has not feeling well. Patient has significant lightheadedness and dizziness at times especially with exertion but heart rate is significantly improved here in the ER. Patient has no other complaints no fevers or travel history no sick contacts - Lab Data Result diagrams: 07/11/21 00:22 07/11/21 00:22 Lab Results 07/11/21 07/11/21 07/11/21 Range/Units 00: 00: 00:22 WBC 6.9 (3.8-10.6) k/uL RBC 4.86 (3.80-5.40) m/uL Hgb 9.0 L (11.4-16.0) gm/dL Hct 33.3 L (34.0-46.0) % MCV 68.5 L (80.0-100.0) fL MCH 18.4 L (25.0-35.0) pg MCHC 26.9 L (31.0-37.0) g/dL RDW 18.2 H (11.5-15.5) % Plt Count 377 (150-450) k/uL MPV 6.7 Neutrophils % 64 % Lymphocytes % 25 % Monocytes % 6 % Eosinophils % 3 % Basophils % 1 % Neutrophils # 4.4 (1.3-7.7) k/uL Lymphocytes # 1.7 (1.0-4.8) k/uL Monocytes # 0.4 (0-1.0) k/uL Eosinophils # 0.2 (0-0.7) k/uL Basophils # 0.1 (0-0.2) k/uL Hypochromasia Marked Anisocytosis Slight Microcytosis Marked PT 10.6 (9.0-12.0) sec INR 1.0 (<1.2) APTT 24.0 (22.0-30.0) sec Sodium 137 (137-145) mmol/L Potassium 4.6 (3.5-5.1) mmol/L Chloride 103 (98-107) mmol/L Carbon Dioxide 24 (22-30) mmol/L Anion Gap 10 mmol/L BUN 15 (7-17) mg/dL Creatinine 0.53 (0.52-1.04) mg/dL Est GFR (CKD-EPI)AfAm >90 (>60 ml/min/1.73 sqM) Est GFR (CKD-EPI)NonAf >90 (>60 ml/min/1.73 sqM) Glucose 120 H (74-99) mg/dL Calcium 9.0 (8.4-10.2) mg/dL Phosphorus 3.5 (2.5-4.5) mg/dL Magnesium 1.7 (1.6-2.3) mg/dL Total Bilirubin 0.6 (0.2-1.3) mg/dL AST 48 H (14-36) U/L ALT 21 (4-34) U/L Alkaline Phosphatase 92 (38-126) U/L Troponin I (0.000-0.034) ng/mL Total Protein 8.0 (6.3-8.2) g/dL Albumin 4.3 (3.5-5.0) g/dL TSH 6.100 H (0.465-4.680) mIU/L Urine Color Urine Appearance (Clear) Urine pH (5.0-8.0) Ur Specific [place] (1.001-1.035) Urine Protein (Negative) Urine Glucose (UA) (Negative) Urine Ketones (Negative) Urine Blood (Negative) Urine Nitrite (Negative) Urine Bilirubin (Negative) Urine Urobilinogen (<2.0) mg/dL Ur Leukocyte Esterase (Negative) 07/11/21 07/11/21 Range/Units 00:22 01:00 WBC (3.8-10.6) k/uL RBC (3.80-5.40) m/uL Hgb (11.4-16.0) gm/dL Hct (34.0-46.0) % MCV (80.0-100.0) fL MCH (25.0-35.0) pg MCHC (31.0-37.0) g/dL RDW (11.5-15.5) % Plt Count (150-450) k/uL MPV Neutrophils % % Lymphocytes % % Monocytes % % Eosinophils % % Basophils % % Neutrophils # (1.3-7.7) k/uL Lymphocytes # (1.0-4.8) k/uL Monocytes # (0-1.0) k/uL Eosinophils # (0-0.7) k/uL Basophils # (0-0.2) k/uL Hypochromasia Anisocytosis Microcytosis PT (9.0-12.0) sec INR (<1.2) APTT (22.0-30.0) sec Sodium (137-145) mmol/L Potassium (3.5-5.1) mmol/L Chloride (98-107) mmol/L Carbon Dioxide (22-30) mmol/L Anion Gap mmol/L BUN (7-17) mg/dL Creatinine (0.52-1.04) mg/dL Est GFR (CKD-EPI)AfAm (>60 ml/min/1.73 sqM) Est GFR (CKD-EPI)NonAf (>60 ml/min/1.73 sqM) Glucose (74-99) mg/dL Calcium (8.4-10.2) mg/dL Phosphorus (2.5-4.5) mg/dL Magnesium (1.6-2.3) mg/dL Total Bilirubin (0.2-1.3) mg/dL AST (14-36) U/L ALT (4-34) U/L Alkaline Phosphatase (38-126) U/L Troponin I <0.012 (0.000-0.034) ng/mL Total Protein (6.3-8.2) g/dL Albumin (3.5-5.0) g/dL TSH (0.465-4.680) mIU/L Urine Color Colorless Urine Appearance Clear (Clear) Urine pH 6.0 (5.0-8.0) Ur Specific [place] 1.002 (1.001-1.035) Urine Protein Trace H (Negative) Urine Glucose (UA) Negative (Negative) Urine Ketones Negative (Negative) Urine Blood Negative (Negative) Urine Nitrite Negative (Negative) Urine Bilirubin Negative (Negative) Urine Urobilinogen <2.0 (<2.0) mg/dL Ur Leukocyte Esterase Negative (Negative) Critical Care Time Critical Care Time: Yes Total Critical Care Time: 31 Disposition Clinical Impression: Atrial fibrillation, New onset atrial fibrillation, Atrial fibrillation with RVR, Tachycardia, Palpitations Disposition: ADMITTED IP TO THIS HOSP Condition: Good Is patient prescribed a controlled substance at d/c from ED?: No
[2021-07-11] MEDS ORDERED: DILTIAZEM DRIP BOLUS FROM BAG 1 MG SOLN IV ONE (00:25)
[2021-07-11 00:45] LABS: Anisocytosis Slight; Basophils # (A) 0.1 k/uL (0-0.2); Basophils % (A) 1 %; Eosinophils # (A) 0.2 k/uL (0-0.7); Eosinophils % (A) 3 %; HCT 33.3 % (34.0-46.0); Hypochromasia Marked; Lymphocytes # (A) 1.7 k/uL (1.0-4.8); Lymphocytes % (A) 25 %; MCH 18.4 pg (25.0-35.0); MCHC 26.9 g/dL (31.0-37.0); MCV 68.5 fL (80.0-100.0); Mean Platelet Volume 6.7; Microcytosis Marked; Monocytes # (A) 0.4 k/uL (0-1.0); Monocytes % (A) 6 %; Neutrophils # (A) 4.4 k/uL (1.3-7.7); Neutrophils % (A) 64 %; Platelet Count 377 k/uL (150-450); RBC 4.86 m/uL (3.80-5.40); RDW 18.2 % (11.5-15.5); WBC 6.9 k/uL (3.8-10.6)
[2021-07-11] MEDS ORDERED: DILTIAZEM 125 MG in SODIUM CHLORIDE 0.9% 100 ML IV SCH (00:45)
[2021-07-11 00:56] LABS: ALT 21 U/L (4-34); AST 48 U/L (14-36); African American GFR (CKD) >90 (>60 ml/min/1.73 sqM); Albumin 4.3 g/dL (3.5-5.0); Alkaline Phosphatase 92 U/L (38-126); Anion Gap 10 mmol/L; Blood Urea Nitrogen 15 mg/dL (7-17); Carbon Dioxide 24 mmol/L (22-30); Chloride 103 mmol/L (98-107); Glucose 120 mg/dL (74-99); Magnesium 1.7 mg/dL (1.6-2.3); Non-African American GFR(CKD) >90 (>60 ml/min/1.73 sqM); Phosphorus 3.5 mg/dL (2.5-4.5); Potassium 4.6 mmol/L (3.5-5.1); Sodium 137 mmol/L (137-145); Total Bilirubin 0.6 mg/dL (0.2-1.3)
[2021-07-11 00:58] LABS: Prothrombin Time 10.6 sec (9.0-12.0)
[2021-07-11 01:11] LABS: Appearance,Urine Clear (Clear); Bilirubin,Urine Negative (Negative); Blood,Urine Negative (Negative); Color,Urine Colorless; Glucose,Urine (UA) Negative (Negative); Ketones,Urine Negative (Negative); Leukocyte Esterase,Urine Negative (Negative); Nitrite,Urine Negative (Negative); Protein,Urine Trace (Negative); Specific Gravity,Urine 1.002 (1.001-1.035); Urobilinogen,Urine <2.0 mg/dL (<2.0)
[2021-07-11] MEDS ORDERED: HEPARIN SODIUM 1,000 UN/ML (10ML VL) IV ONE (01:26)
[2021-07-11] MEDS ORDERED: ASPIRIN 81 MG PO STA (01:26)
[2021-07-11] MEDS ORDERED: HEPARIN SOD,PORK IN 0.45% NACL 25,000 UNIT in 0.45% NACL 1 250ML.BAG IV SCH (01:45)
[2021-07-11] MEDS ORDERED: NALOXONE 0.4 MG/ML 1 ML VIAL IVP PRN (03:19)
--- NOTE | 2021-07-11 03:23 | P.HPIM ---
History of Present Illness H&P Date: 07/11/21 The patient is a 51-year-old female with a PMH of COPD, hypertension, hyperlipidemia who presents to the emergency room with complaints of sudden onset of palpitations. The patient reports that she was in her usual state of health when she suddenly developed severe palpitations around 10 PM last night. She reports associated shortness of breath and nausea. Denied experiencing chest discomfort, diaphoresis, or dizziness. Reports a long-standing history of palpitations for which she has undergone multiple events/Holter monitors which were all unremarkable as per the patient. Denies ever being on a blood thinner ever being diagnosed with A. fib. EKG emergency room revealed A. fib with RVR at 104 bpm. Laboratory evaluation remarkable for hemoglobin of 9.0 (at baseline), troponin less than 0.012, TSH 6.1, lactic acid 1.2. Review of systems: Pertinent positives and negatives as discussed in HPI, a complete review of systems was performed and all other systems are negative. Physical examination: General: non toxic, no distress, appears older than stated age, morbidly obese Derm: no unusual rashes/lesions no unusual ecchymoses, warm, dry Head: atraumatic, normocephalic, symmetric Eyes: EOMI, no lid lag, anicteric sclera, pupils equal round reactive to light ENT: Nose and ears atraumatic, no thrush, no pharyngeal erythema Neck: No thyromegaly, no cervical lymphadenopathy, trachea midline, supple Mouth: no lip lesion, mucus membranes moist Cardiovascular: Irregularly irregular, no murmur, positive posterior tibial pulse bilateral, no edema, capillary refill less than 2 seconds Lungs: CTA bilateral, no rhonchi, no rales , no accessory muscle use Abdominal: soft, nontender to palpation, no guarding, no appreciable organomegaly, normal bowel sounds Ext: no gross muscle atrophy, muscle strength 5 out of 5 in all 4 extremities grossly, no contractures, Neuro: CN II-XI grossly intact, light touch intact all 4 extremities, finger to nose within normal limits, Psych: Alert, oriented, appropriate affect Assessment/plan New-onset A. fib with RVR -Continue Cardizem infusion -Continue with heparin infusion -Echocardiogram -Cardiac monitoring -Cardiology consult Chronic conditions: Hypertension, hyperlipidemia, COPD -Continue with home meds DVT prophylaxis -Heparin infusion The patient is admitted with an anticipated less than 2 midnight stay for evaluation of afib. CODE STATUS: Full Code Discussed with: Patient Anticipated discharge date: in am Anticipated discharge place: Home Past Medical History Past Medical History: Asthma, Chest Pain / Angina, COPD, GERD/Reflux, Hyperlipidemia, Hypertension, Pneumonia Additional Past Medical History / Comment(s): Bronchitis, severe GERD, esophageal spasms, problems with abdominal pain/cramps/constipation and diarrhea, diverticular disease, fatigued for 5-6 yrs, anemia, UTI, urinary incontinence at times, arthritis multiple joints, chronic back and neck pain, bilateral leg sciatica, fatty liver, being checked for thyroid disease, menorrhagia, pt states she had one physician tell her she was "pre" diabetic., immunocompromised (Lupas). History of Any Multi-Drug Resistant Organisms: None Reported Past Surgical History: Section, Cholecystectomy, Hernia Repair Additional Past Surgical History / Comment(s): EGD, umbilical hernia repair, wisdom teeth extractions. Past Anesthesia/Blood Transfusion Reactions: Postoperative Nausea & Vomiting (PONV) Additional Past Anesthesia/Blood Transfusion Reaction / Comment(s): Difficulty waking. Past Psychological History: Anxiety, Panic Disorder Smoking Status: Never smoker Past Alcohol Use History: None Reported Past Drug Use History: None Reported - Past Family History Father Additional Family Medical History / Comment(s): Pt was adopted and does not know natural father's medical hx. Mother Additional Family Medical History / Comment(s): Pt is adopted and does not know natural mother's medical hx. Brother(s) Family Medical History: Myocardial Infarction ([place]) Additional Family Medical History / Comment(s): Pt does know that her half brother had a [place] at the age of 45yrs. Medications and Allergies Home Medications Medication Instructions Recorded Confirmed Type Aspirin EC [Ecotrin Low Dose] 81 mg PO DAILY 11/02/16 07/16/18 History Nitroglycerin Sl Tabs [Nitrostat] 0.4 mg SUBLINGUAL Q5M PRN 11/02/16 07/16/18 History Ferrous Sulfate [Iron (65 MG 325 mg PO DAILY 07/16/18 07/16/18 History Elemental)] HYDROcodone/APAP 5-325MG [[place] 1 tab PO DAILY PRN 07/16/18 07/16/18 History 5-325] Naproxen Sodium 440 mg PO DAILY PRN 07/16/18 07/16/18 History Diltiazem Cd [Cardizem CD] 120 mg PO DAILY #30 cap.er.24h 07/17/18 Rx Esomeprazole Magnesium [NexIUM] 20 mg PO BID #60 capsule. 07/17/18 Rx Allergies Allergy/AdvReac Type Severity Reaction Status Date / Time morphine AdvReac Rapid Verified 07/10/21 23:52 Heart Rate Physical Exam Vitals: Vital Signs Temp Pulse Resp BP Pulse Ox 07/11/21 00:58 15 113/73 97 07/10/21 23:48 98.6 F 98 18 135/99 98 Intake and Output 07/10/21 07/10/21 07/11/21 14:59 22:59 06:59 Intake Total 0.5 Balance 0.5 Intake: Intake, IV Titration 0.5 Amount Diltiazem 125 mg In 0.5 Sodium Chloride 0.9% 100 ml @ 5 MG/HR 5 mls/hr IV .Q24H [facility] Rx#:[id number] Other: Weight 145.15 kg Results CBC & Chem 7: 07/11/21 00:22 07/11/21 00:22 Labs: Abnormal Lab Results - Last 24 Hours (Table) 07/11/21 07/11/21 07/11/21 Range/Units 00:22 00:22 01:00 Hgb 9.0 L (11.4-16.0) gm/dL Hct 33.3 L (34.0-46.0) % MCV 68.5 L (80.0-100.0) fL MCH 18.4 L (25.0-35.0) pg MCHC 26.9 L (31.0-37.0) g/dL RDW 18.2 H (11.5-15.5) % Glucose 120 H (74-99) mg/dL AST 48 H (14-36) U/L TSH 6.100 H (0.465-4.680) mIU/L Urine Protein Trace H (Negative)
[2021-07-11] MEDS ORDERED: DILTIAZEM ORAL 30 MG TAB PO ONE (03:30)
[2021-07-11] MEDS: SODIUM CHLORIDE 0.9% 1,000 ML IV SCH ×3 (03:47→19:26)
[2021-07-11] MEDS ORDERED: HYDROcodone/APAP 5-325MG 1 EACH TAB PO PRN (07:53)
[2021-07-11] MEDS: DILTIAZEM ORAL 60 MG TAB PO SCH ×3 (08:31→22:38)
[2021-07-11 08:57] LABS: Mean Platelet Volume 8.2; Platelet Count 317 k/uL (150-450)
[2021-07-11] MEDS ORDERED: HEPARIN SODIUM 1,000 UN/ML (10ML VL) IVP STA (09:44)
[2021-07-11 09:51] LABS: Anisocytosis Slight; Basophils % (A) 0 %; Eosinophils # (A) 0.1 k/uL (0-0.7); Eosinophils % (A) 2 %; HCT 30.8 % (34.0-46.0); HGB 8.4 gm/dL (11.4-16.0); Hypochromasia Marked; Lymphocytes % (A) 19 %; MCH 18.9 pg (25.0-35.0); MCHC 27.4 g/dL (31.0-37.0); MCV 69.2 fL (80.0-100.0); Mean Platelet Volume 7.3; Microcytosis Marked; Monocytes # (A) 0.2 k/uL (0-1.0); Monocytes % (A) 4 %; Neutrophils # (A) 3.8 k/uL (1.3-7.7); Neutrophils % (A) 72 %; Platelet Count 320 k/uL (150-450); RBC 4.45 m/uL (3.80-5.40); RDW 18.2 % (11.5-15.5); WBC 5.2 k/uL (3.8-10.6)
--- NOTE | 2021-07-11 09:54 | P.CRDCN ---
History of Present Illness History of present illness: HISTORY OF PRESENTING ILLNESS This is a pleasant 51-year-old female past medical history significant for hypertension, COPD, hyperlipidemia, sciatica, anxiety, former smoker, Lupus, anemia. History of palpitations. She follows in the office with Dr. Hubbard at [facility]. She has also seen Dr. Gimenez in 11/2019. We have been asked to see in consultation for atrial fibrillation. Patient presents emergency department with complaints of palpitations that started at 10:30 PM last night while patient was watching TV. She had an acute episode of chest palpitations and fluttering. She associated mild shortness of breath. She presents to emergency department for further evaluation. She denies any chest pain, lightheadedness, dizziness, syncope or near syncope. She denies any symptoms of orthopnea or PND. She denies any history of bleeding, GI bleed, gastric ulcers. She denies any history of diabetes, stroke, [place], coronary artery disease. She denies any tobacco use, alcohol use or illicit drug use. She states she has been anemic for some time but has not able to follow up with the specialist she's been referred to due to cost. She states she follow up with Dr. Hubbard at [facility] and 2020 and had an echocardiogram completed which she was told that it was normal. On admission patient was started on IV heparin drip and IV Cardizem drip. She converted to sinus mechanism heart rate in the 70s DIAGNOSTICS EKG on admission revealed atrial fibrillation, heart rate 104, T wave inversion in lead III, no acute ST ST-T wave abnormalities. Prior EKG in 2019 patient was in sinus rhythm. Most recent echocardiogram 07/2018 revealed EF 5560 percent, mild mitral regurgitation Telemetry tracings indicate sinus mechanism, heart rate in the 70s Laboratory reviewed, hemoglobin 9.0, platelets 377, sodium 137, potassium 4.6, BUN 15, serum creatinine 0.5, magnesium 1.7, troponin negative 3, TSH 6.1 Current home medications include metoprolol 50 mg twice a day REVIEW OF SYSTEMS At the time of my exam: CONSTITUTIONAL: Denies fever or chills. CARDIOVASCULAR: Denies chest pain, shortness of breath, orthopnea, PND or palpitations. RESPIRATORY: Denies cough. GASTROINTESTINAL: Denies abdominal pain, diarrhea, constipation, nausea or vomiting. MUSCULOSKELETAL: Denies myalgias. NEUROLOGIC: Denies numbness, tingling, headacbe or weakness. ENDOCRINE: Denies fatigue, weight change, polydipsia or polyurina. GENITOURINARY: Denies burning, hematuria or urgency with micturation. HEMATOLOGIC: Denies history of anemia or bleeding. PHYSICAL EXAMINATION Vitals 124/69, heart rate 76, afebrile, saturations 90% on room air CONSTITUTIONAL: No apparent distress. HEENT: Head is normocephalic. Pupils are equal, round. Sclerae anicteric. Mucous membranes of the mouth are moist. No JVD. No carotid bruit. CHEST EXAMINATION: Lungs are clear to auscultation. No chest wall tenderness is noted on palpation or with deep breathing. HEART EXAMINATION: Regular rate and rhythm. S1, S2 heard. No murmurs, gallops or rub. ABDOMEN: Soft, nontender. Positive bowel sounds. EXTREMITIES: 2+ peripheral pulses, no lower extremity edema and no calf tenderness. SKIN: warm, dry NEUROLOGIC EXAMINATION: Patient is awake, alert and oriented x3. ASSESSMENT Paroxysmal atrial fibrillation [id number] score 2 History of hypertension Microcytic anemia History of lupus History of COPD History of dyslipidemia History of sciatica History of anxiety Former smoker PLAN Stop IV Cardizem Continue PO Cardizem 60mg TID and metoprolol tartrate 50mg BID Start Flecainide 100mg BID Continue cardiac telemetry Recommend anemia workup, patient will require custodial anticoagulation Continue heparin drip for now, check cost of Eliquis 5mg BID Obtain 2D echocardiogram Further recommendations based on clinical course Nurse practitioner note has been reviewed by physician. Signing provider agrees with the documented findings, assessment, and plan of care. Past Medical History Past Medical History: Asthma, Chest Pain / Angina, COPD, GERD/Reflux, Hyperlipidemia, Hypertension, Pneumonia Additional Past Medical History / Comment(s): Bronchitis, severe GERD, esophageal spasms, problems with abdominal pain/cramps/constipation and diarrhea, diverticular disease, fatigued for 5-6 yrs, anemia, UTI, urinary incontinence at times, arthritis multiple joints, chronic back and neck pain, bilateral leg sciatica, fatty liver, being checked for thyroid disease, menorrhagia, pt states she had one physician tell her she was "pre" diabetic., immunocompromised (Lupas). History of Any Multi-Drug Resistant Organisms: None Reported Past Surgical History: Section, Cholecystectomy, Hernia Repair Additional Past Surgical History / Comment(s): EGD, umbilical hernia repair, wisdom teeth extractions. Past Anesthesia/Blood Transfusion Reactions: Postoperative Nausea & Vomiting (PONV) Additional Past Anesthesia/Blood Transfusion Reaction / Comment(s): Difficulty waking. Past Psychological History: Anxiety, Panic Disorder Smoking Status: Never smoker Past Alcohol Use History: None Reported Past Drug Use History: None Reported - Past Family History Father Additional Family Medical History / Comment(s): Pt was adopted and does not know natural father's medical hx. Mother Additional Family Medical History / Comment(s): Pt is adopted and does not know natural mother's medical hx. Brother(s) Family Medical History: Myocardial Infarction ([place]) Additional Family Medical History / Comment(s): Pt does know that her half brother had a [place] at the age of 45yrs. Medications and Allergies Home Medications Medication Instructions Recorded Confirmed Type HYDROcodone/APAP 5-325MG [[place] 1 tab PO DAILY PRN 07/16/18 07/11/21 History 5-325] Naproxen Sodium 440 mg PO DAILY PRN 07/16/18 07/11/21 History Apixaban [Eliquis] 5 mg PO BID 30 Days #60 tab 07/11/21 Rx Clotrimazole [Lotrimin AF] 1 applic TOPICAL DAILY PRN 07/11/21 07/11/21 History Esomeprazole Magnesium [NexIUM] 40 mg PO HS 07/11/21 07/11/21 History Hydrocortisone Cream 1 applic TOPICAL BID PRN 07/11/21 07/11/21 History [Hydrocortisone 1% Cream] Metoprolol Tartrate [Lopressor] 50 mg PO BID 07/11/21 07/11/21 History Allergies Allergy/AdvReac Type Severity Reaction Status Date / Time Sulfa (Sulfonamide Allergy See Verified 07/11/21 06:47 Antibiotics) comments morphine AdvReac Rapid Verified 07/10/21 23:52 Heart Rate Physical Exam Vitals: Vital Signs Temp Pulse Resp BP Pulse Ox 07/11/21 06:00 97.8 F 71 19 122/58 07/11/21 04:00 114 H 27 H 142/81 07/11/21 03:50 82 19 142/81 07/11/21 03:40 68 23 149/81 95 07/11/21 03:30 80 23 141/98 97 07/11/21 03:20 85 38 H 141/98 96 07/11/21 03:10 87 28 H 139/95 100 07/11/21 02:50 80 19 135/94 94 L 07/11/21 02:40 92 19 126/77 97 07/11/21 02:30 86 20 145/95 96 07/11/21 02:00 87 22 133/87 07/11/21 01:40 71 22 133/87 96 07/11/21 01:20 84 22 146/78 96 07/11/21 01:10 70 22 142/85 96 07/11/21 01:00 84 22 113/73 07/11/21 00:58 15 113/73 97 07/11/21 00:20 152 H 14 07/11/21 00:15 28 H 07/10/21 23:48 98.6 F 98 18 135/99 98 Intake and Output 07/10/21 07/11/21 07/11/21 22:59 06:59 14:59 Intake Total 10.833 Balance 10.833 Intake: Intake, IV Titration 10.833 Amount Diltiazem 125 mg In 10.833 Sodium Chloride 0.9% 100 ml @ 5 MG/HR 5 mls/hr IV .Q24H [facility] Rx#:[id number] Other: Weight 145.15 kg Results 07/11/21 08:44 07/11/21 00:22 Cardiac Enzymes 07/11/21 07/11/21 07/11/21 Range/Units 00:22 00:22 03:14 AST 48 H (14-36) U/L Troponin I <0.012 <0.012 (0.000-0.034) ng/mL Coagulation 07/11/21 Range/Units 00:22 PT 10.6 (9.0-12.0) sec APTT 24.0 (22.0-30.0) sec CBC 07/11/21 Range/Units 00:22 WBC 6.9 (3.8-10.6) k/uL RBC 4.86 (3.80-5.40) m/uL Hgb 9.0 L (11.4-16.0) gm/dL Hct 33.3 L (34.0-46.0) % Plt Count 377 (150-450) k/uL Comprehensive Metabolic Panel 07/11/21 Range/Units 00:22 Sodium 137 (137-145) mmol/L Potassium 4.6 (3.5-5.1) mmol/L Chloride 103 (98-107) mmol/L Carbon Dioxide 24 (22-30) mmol/L BUN 15 (7-17) mg/dL Creatinine 0.53 (0.52-1.04) mg/dL Glucose 120 H (74-99) mg/dL Calcium 9.0 (8.4-10.2) mg/dL AST 48 H (14-36) U/L ALT 21 (4-34) U/L Alkaline Phosphatase 92 (38-126) U/L Total Protein 8.0 (6.3-8.2) g/dL Albumin 4.3 (3.5-5.0) g/dL Current Medications Generic Name Dose Route Start Last Admin Trade Name Freq PRN Reason Stop Dose Admin Aspirin 325 mg 07/12/21 09:00 Aspirin 325 Mg Tab PO DAILY [facility] Diltiazem HCl 60 mg 07/11/21 09:00 Diltiazem Oral 60 Mg Tab PO TID [facility] Diltiazem HCl 125 mg/ Sodium 125 mls @ 5 mls/hr 07/11/21 00:45 07/11/21 03:43 Chloride IV 0 mg/hr .Q24H [facility] 0 mls/hr Infusion 5 MG/HR Sodium Chloride 1,000 mls @ 100 mls/hr 07/11/21 01:30 07/11/21 03:47 Saline 0.9% IV 100 mls/hr .Q10H [facility] Administration Heparin Sodium/Sodium Chloride 250 mls @ 9.986 mls/hr 07/11/21 01:45 07/11/21 02:20 25,000 unit/ Sodium Chloride IV 6.88 units/kg/hr .Q24H [facility] 9.986 mls/hr Administration Protocol 6.88 UNITS/KG/HR Naloxone HCl 0.2 mg 07/11/21 03:19 Naloxone 0.4 Mg/Ml 1 Ml Vial IVP Q2M PRN Opioid Reversal Intake and Output 07/10/21 07/11/21 07/11/21 22:59 06:59 14:59 Intake Total 10.833 Balance 10.833 Intake: Intake, IV Titration 10.833 Amount Diltiazem 125 mg In 10.833 Sodium Chloride 0.9% 100 ml @ 5 MG/HR 5 mls/hr IV .Q24H [facility] Rx#:[id number] Other: Weight 145.15 kg 07/11/21 00:22 07/11/21 00:22
[2021-07-11] MEDS: FLECAINIDE 50 MG TAB PO SCH ×2 (10:03→20:42)
[2021-07-11] MEDS: METOPROLOL TARTRATE 50 MG TAB PO SCH ×2 (10:03→20:43)
[2021-07-11] MEDS ORDERED: HEPARIN SODIUM 1,000 UN/ML (10ML VL) IV STA (10:05)
[2021-07-11 12:40] LABS: T4, Free (Free Thyroxine) 1.01 ng/dL (0.800-1.800)
--- NOTE | 2021-07-11 13:56 | P.PN ---
<Marlon Piper - Last Filed: 07/11/21 13:40> Subjective Progress Note Date: 07/11/21 Hospital course: Patient is a very pleasant 51-year-old female with a past medical history of COPD, hypertension, hyperlipidemia, iron deficiency anemia and obesity. She presented to the emergency department with a chief complaint of palpitations. She was seen and fully evaluated. Blood work consistent with iron deficiency anemia with hemoglobin of 9.0 with baseline hemoglobin of 8.1. TSH elevated at 6.1 with normal free T4 of 1.010 and free T3 of 3.00. EKG completed revealed atrial fibrillation with a rapid ventricular rate of 104 bpm and repeat EKG revealed atrial flutter with a controlled ventricular rate at 72 bpm. Patient was initially given Cardizem bolus followed by infusion and started on heparin infusion for anticoagulation. Rate was controlled and patient transitioned over to oral Cardizem 60 mg 3 times a day in addition to her daily medication regimen of metoprolol 50 mg twice daily. She was seen and evaluated by cardiology. Cardiology added on flecainide 100 mg twice a day and transitioned patient over to oral anticoagulation with Eliquis. Echocardiogram has been completed pending results. Physical exam: Vital signs reviewed and stable. General: Nontoxic, no distress and appears stated age. Derm: Skin warm and dry, normal coloration for ethnicity. Head: Atraumatic, normocephalic and symmetric. Eyes: EOMs intact, no lid lag, and anicteric sclera Mouth: no lip lesions, mucus membranes moist Cardiovascular: regular rate and rhythm with normal S1S2, no murmur, positive posterior tibial pulses bilaterally, and cap refill < 2 seconds. Lungs: Respirations even, regular, and unlabored on room air. Lungs CTA bilaterally, no rhonchi, no rales, no wheezing, and no accessory muscle usage. Abdominal: soft, nontender to palpation, no guarding, no appreciable organomeg desire Ext: ROM intact. No gross muscle atrophy, no edema, no contractures Neuro: Speech clear, face symmetrical and CN II-XII grossly intact with no noted focal neuro deficits Psych: Alert and oriented to person, place, time, and situation. Appropriate and pleasant affect. Assessment and Plan of Care: New-onset atrial fibrillation with RVR -Continue daily medication regimen with Cardizem 60 mg 3 times daily, metoprolol 50 mg twice daily, and flecainide 100 mg twice Daily. -Continue oral anticoagulation with Eliquis. -Continuous telemetry monitoring -Echocardiogram pending Iron deficiency anemia -Hemoglobin stable at 8.4. Baseline 8.1. -Ferritin and TIBC ordered and pending results. -We will continue to monitor. Hypertension -Monitor vital signs and continue daily medication regimen. Hyperlipidemia -Continue daily medication regimen CODE STATUS: Full code DVT prophylaxis: Eliquis Discussed with: pt and RN Anticipated discharge date: tomorrow morning. Anticipated discharge place: home A total of 35 minutes was spent on the care of this complex patient more than 50% of the time was spent in counseling and care coordination. Objective - Vital Signs Vital signs: Vital Signs Temp 97.8 F 07/11/21 06:00 Pulse 76 07/11/21 08:32 Resp 18 07/11/21 08:32 BP 124/69 07/11/21 08:32 Pulse Ox 98 07/11/21 08:32 Intake & Output 07/10/21 07/11/21 07/11/21 18:59 06:59 18:59 Intake Total 10.833 Balance 10.833 Weight 145.15 kg Intake: Intake, IV Titration 10.833 Amount Diltiazem 125 mg In 10.833 Sodium Chloride 0.9% 100 ml @ 5 MG/HR 5 mls/hr IV .Q24H [facility] Rx#:[id number] - Labs CBC & Chem 7: 07/11/21 09:32 07/11/21 00:22 Labs: Abnormal Lab Results - Last 24 Hours (Table) 07/11/21 07/11/21 07/11/21 Range/Units 00:22 00:22 01:00 Hgb 9.0 L (11.4-16.0) gm/dL Hct 33.3 L (34.0-46.0) % MCV 68.5 L (80.0-100.0) fL MCH 18.4 L (25.0-35.0) pg MCHC 26.9 L (31.0-37.0) g/dL RDW 18.2 H (11.5-15.5) % Glucose 120 H (74-99) mg/dL AST 48 H (14-36) U/L TSH 6.100 H (0.465-4.680) mIU/L Urine Protein Trace H (Negative) <MarianGisel Mayco - Last Filed: 07/11/21 19:14> Subjective Marlon Piper NP rendered care for this patient independently, reviewed the findings and plan as documented in the note above. I did not physically speak with or examine the patient on this date. Iron studies reviewed. Severe iron deficiency anemia with T-Stat less then 10. We will start IV iron 1 tonight and then again in a.m. Will need a formal outpatient evaluation regarding causes of iron deficiency anemia. The patient has not had a colonoscopy she will need to follow-up for colonoscopy. If any signs of postmenopausal bleeding will need follow-up with PHYSICIAN PRESIDENT. We'll discuss with [facility]UT[facility]. Objective - Vital Signs Vital signs: Vital Signs Temp 98.3 F 07/11/21 18:30 Pulse 63 07/11/21 18:30 Resp 20 07/11/21 18:30 BP 116/69 07/11/21 18:30 Pulse Ox 97 07/11/21 18:30 Intake & Output 07/11/21 07/11/21 07/12/21 06:59 18:59 06:59 Intake Total 10.833 152.619 Balance 10.833 152.619 Weight 145.15 kg 145.15 kg Intake: Intake, IV Titration 10.833 152.619 Amount Diltiazem 125 mg In 10.833 Sodium Chloride 0.9% 100 ml @ 5 MG/HR 5 mls/hr IV .Q24H [facility] Rx#:[id number] Heparin Sod,Pork in 0.45% 152.619 NaCl 25,000 unit In 0.45 % NaCl 1 250ml.bag @ 6.88 UNITS/KG/HR 9.986 mls/hr IV .Q24H [facility] Rx#: [id number] - Labs CBC & Chem 7: 07/11/21 09:32 07/11/21 00:22 Labs: Abnormal Lab Results - Last 24 Hours (Table) 07/11/21 07/11/21 07/11/21 Range/Units 00:22 00:22 01:00 Hgb 9.0 L (11.4-16.0) gm/dL Hct 33.3 L (34.0-46.0) % MCV 68.5 L (80.0-100.0) fL MCH 18.4 L (25.0-35.0) pg MCHC 26.9 L (31.0-37.0) g/dL RDW 18.2 H (11.5-15.5) % Glucose 120 H (74-99) mg/dL Iron (50-170) ug/dL TIBC (228-460) ug/dL % Saturation (12.00-45.00) AST 48 H (14-36) U/L TSH 6.100 H (0.465-4.680) mIU/L Urine Protein Trace H (Negative) 07/11/21 07/11/21 Range/Units 09:32 09:32 Hgb 8.4 L (11.4-16.0) gm/dL Hct 30.8 L (34.0-46.0) % MCV 69.2 L (80.0-100.0) fL MCH 18.9 L (25.0-35.0) pg MCHC 27.4 L (31.0-37.0) g/dL RDW 18.2 H (11.5-15.5) % Glucose (74-99) mg/dL Iron 13 L (50-170) ug/dL TIBC 486 H (228-460) ug/dL % Saturation 2.61 L (12.00-45.00) AST (14-36) U/L TSH (0.465-4.680) mIU/L Urine Protein (Negative)
[2021-07-11] MEDS: ACETAMINOPHEN TAB 325 MG TAB PO PRN ×2 (15:04→21:00)
[2021-07-11 16:40] LABS: % Iron Saturation 2.61 (12.00-45.00)
[2021-07-11] MEDS ORDERED: HEPARIN SODIUM 1,000 UN/ML (10ML VL) IV PRN (17:27)
[2021-07-11] MEDS: PANTOPRAZOLE 40 MG TABLET PO SCH (20:43)
[2021-07-11] MEDS: APIXABAN 5 MG TAB PO SCH (20:44)
[2021-07-11] MEDS: SODIUM FERRIC GLUCONAT-SUCROSE 125 MG in SODIUM CHLORIDE 0.9% 100 ML IVPB SCH (20:45)
[2021-07-11] MEDS ORDERED: MELATONIN 5 MG TABLET PO PRN (23:01)
[2021-07-12] MEDS: APIXABAN 5 MG TAB PO SCH (07:40)
[2021-07-12] MEDS: METOPROLOL TARTRATE 50 MG TAB PO SCH ×2 (07:41→21:13)
[2021-07-12] MEDS: DILTIAZEM ORAL 60 MG TAB PO SCH (07:41)
[2021-07-12] MEDS: FLECAINIDE 50 MG TAB PO SCH ×2 (07:41→21:13)
[2021-07-12] MEDS ORDERED: ASPIRIN 325 MG TAB PO SCH (09:00)
[2021-07-12 09:42] LABS: Chol/HDL Ratio 3.27 Ratio; LDL Cholesterol,Calculated 72.1 mg/dL (0.0-131.0)
[2021-07-12 09:50] LABS: Basophils # (A) 0.04 X 10*3/uL (0.00-0.10); Basophils % (A) 0.9 %; Eosinophils # (A) 0.15 X 10*3/uL (0.04-0.35); Eosinophils % (A) 3.5 %; HCT 27.9 % (37.2-46.3); Immature Grans, Automated 0.5 %; Lymphocytes # (A) 1.21 X 10*3/uL (0.90-5.00); Lymphocytes % (A) 27.9 %; MCH 17.8 pg (27.0-32.0); MCHC 25.1 g/dL (32.0-37.0); MCV 70.8 fL (80.0-97.0); Monocytes # (A) 0.36 X 10*3/uL (0.20-1.00); Monocytes % (A) 8.3 %; NRBC Per 100 WBC 0 /100 WBCS (0.0-0.0); Neutrophils # (A) 2.56 X 10*3/uL (1.80-7.70); Neutrophils % (A) 58.9 %; Platelet Count 294 X 10*3/uL (140-440); RBC 3.94 X 10*6/uL (4.10-5.20); RDW 20.4 % (11.5-14.5); WBC 4.34 X 10*3/uL (4.50-10.00)
[2021-07-12] MEDS: SODIUM FERRIC GLUCONAT-SUCROSE 125 MG in SODIUM CHLORIDE 0.9% 100 ML IVPB SCH (11:19)
--- NOTE | 2021-07-12 11:31 | P.PN ---
Subjective HISTORY OF PRESENTING ILLNESS This is a pleasant 51-year-old female past medical history significant for hypertension, COPD, hyperlipidemia, sciatica, anxiety, former smoker, Lupus, anemia. History of palpitations. She follows in the office with Dr. Hubbard at [facility]. She has also seen Dr. Gimenez in 11/2019. We have been asked to see in consultation for atrial fibrillation. Patient presents emergency department with complaints of palpitations that started at 10:30 PM last night while patient was watching TV. She had an acute episode of chest palpitations and fluttering. She associated mild shortness of breath. She presents to em ergency department for further evaluation. She was found to be in atrial fibrillation HR 100s. On admission patient was started on IV heparin drip and IV Cardizem drip. She converted to sinus mechanism heart rate in the 70s Patient seen and examined at bedside, no acute distress. She denies any p alpitations chest pain or shortness of breath. Telemetry reviewed patient is maintaining sinus mechanism heart rate 5560s. Overnight patient with heart rate of 52 and blood pressure 107/68 and her Cardizem was held. She is currently in sinus mechanism heart rate in the 60s. Echocardiogram revealed a normal ejection fraction. Yesterday she was started on Eliquis 5 mg twice a day, flecainide 100 mg twice a day, and Cardizem 60 mg TID, also on her home metoprolol tartrate 50mg BID Labs, WBC 4.3, Hgb decreased to 7.0 from 8.4 yesterday. Plt 294 , iron 13, TIBC 486, PHYSICAL EXAMINATION Vitals reviewed GENERAL: Well-appearing, well-nourished and in no acute distress. NECK: Supple without JVD or thyromegaly. LUNGS: Breath sounds clear to auscultation bilaterally. Respiration equal and unlabored. No wheezes, rales or rhonchi. HEART: Regular rate and rhythm without murmurs, rubs or gallops. S1 and S2 heard. EXTREMITIES: Normal range of motion, no edema. No clubbing or cyanosis. Per ipheral pulses intact. ASSESSMENT Paroxysmal atrial fibrillation [id number] score 2 History of hypertension Microcytic anemia History of lupus History of COPD History of dyslipidemia History of sciatica History of anxiety Former smoker PLAN Discontinue cardizem Continue metoprolol tartrate and Flecainide From a cardiology perspective, patient is stable, possible discharge today however due to drop in hemoglobin, Eliquis will be placed on hold today due to drop in hemoglobin and plan for possible GI consult per primary Eliquis is unfortunately $500/month, patient will receive a free month, and most likely need to be transition to coumadin in the outpatient setting pending anemia workup Further recommendations based on clinical course Nurse practitioner note has been reviewed by physician. Signing provider agrees with the documented findings, assessment, and plan of care. Objective - Vital Signs Vital signs: Vital Signs Temp 97.6 F 07/12/21 06:00 Pulse 61 07/12/21 07:36 Resp 20 07/12/21 06:00 BP 119/74 07/12/21 06:00 Pulse Ox 93 L 07/12/21 06:00 Intake & Output 07/11/21 07/12/21 07/12/21 18:59 06:59 18:59 Intake Total 152.619 48.52 118 Balance 152.619 48.52 118 Weight 145.15 kg Intake: Intake, IV Titration 152.619 48.52 Amount Heparin Sod,Pork in 0.45% 152.619 48.52 NaCl 25,000 unit In 0.45 % NaCl 1 250ml.bag @ 6.88 UNITS/KG/HR 9.986 mls/hr IV .Q24H [facility] Rx#: [id number] Oral 118 Other: # Voids 1 - Labs CBC & Chem 7: 07/12/21 06:23 07/11/21 00:22 Labs: Abnormal Lab Results - Last 24 Hours (Table) 07/11/21 07/12/21 Range/Units 09:32 06:23 WBC 4.34 L (4.50-10.00) X 10*3/uL RBC 3.94 L (4.10-5.20) X 10*6/uL Hgb 7.0 L (12.0-15.0) g/dL Hct 27.9 L (37.2-46.3) % MCV 70.8 L (80.0-97.0) fL MCH 17.8 L (27.0-32.0) pg MCHC 25.1 L (32.0-37.0) g/dL RDW 20.4 H (11.5-14.5) % Iron 13 L (50-170) ug/dL TIBC 486 H (228-460) ug/dL % Saturation 2.61 L (12.00-45.00)
--- NOTE | 2021-07-12 12:36 | P.PN ---
Subjective Progress Note Date: 07/12/21 Hospital course: Patient is a very pleasant 51-year-old female with a past medical history of COPD, hypertension, hyperlipidemia, iron deficiency anemia and obesity. She presented to the emergency department with a chief complaint of palpitations. She was seen and fully evaluated. Blood work consistent with iron deficiency anemia with hemoglobin of 9.0 with baseline hemoglobin of 8.1. TSH elevated at 6.1 with normal free T4 of 1.010 and free T3 of 3.00. EKG completed revealed atrial fibrillation with a rapid ventricular rate of 104 bpm and repeat EKG r evealed atrial flutter with a controlled ventricular rate at 72 bpm. Patient was initially given Cardizem bolus followed by infusion and started on heparin infusion for anticoagulation. Rate was controlled and patient transitioned over to oral Cardizem 60 mg 3 times a day in addition to her daily medication regimen of metoprolol 50 mg twice daily. She was seen and evaluated by cardiology. Cardiology added on flecainide 100 mg twice a day and transitioned patient over to oral anticoagulation with Eliquis. Echocardiogram has been completed pending results/read. Anemia profile revealed iron of 13, TIBC 486, and iron saturation percentage of 2.61. Patient was started on IV iron 2 doses with plans to transition over to daily oral iron supplements. Morning labs done revealed Hemoglobin has dropped from 9.0 upon arrival down to 7.0 status post initiation of anticoagulation. Cardiology was notified and anticoagulant discontinued at this time. GI consulted to rule out GI bleed as patient also reports history of ulcers. Patient transferred from observation to inpatient status. Physical exam: Patient seen and fully evaluated at the bedside this morning. She reports feeling well this morning with no further episodes of palpitations. She denies having any headache, lightheadedness, dizziness, chest pain, shortness of breath, or experiencing any numbness/tingling/weakness in her extremities. Hemoglobin has dropped from 9.0 upon arrival down to 7.0, orders placed for admission to inpatient and GI has been consulted. Patient denies noting any active bleeding including hematemesis, hematochezia, melena, or hematuria. Patient does report history of ulcers. Vital signs reviewed and stable. General: Nontoxic, no distress and appears stated age. Morbidly obese. Derm: Skin warm and dry, normal coloration for ethnicity. Head: Atraumatic, normocephalic and symmetric. Eyes: EOMs intact, no lid lag, and anicteric sclera Mouth: no lip lesions, mucus membranes moist Cardiovascular: regular rate and rhythm with normal S1S2, no murmur, positive posterior tibial pulses bilaterally, and cap refill < 2 seconds. Lungs: Respirations even, regular, and unlabored on room air. Lungs diminished possibly secondary to body habitus, no rhonchi, no rales, no wheezing, and no accessory muscle usage. Abdominal: Obese abdomen soft, nontender to palpation, no guarding, no appreciable organomegaly Ext: ROM intact. No gross muscle atrophy, no edema, no contractures Neuro: Speech clear, face symmetrical and CN II-XII grossly intact with no noted focal neuro deficits Psych: Alert and oriented to person, place, time, and situation. Appropriate and pleasant affect. Assessment and Plan of Care: New-onset atrial fibrillation with RVR -Cardiology following, appreciate further recommendations -Continue daily medication regimen with metoprolol 50 mg twice daily and flecainide 100 mg twice Daily. -Anticoagulation discontinued secondary to drop in hemoglobin from 9.0 down to 7.0, SCDs for DVT prophylaxis pending evaluation and recommendations from GI -Continuous telemetry monitoring -Echocardiogram pending Acute on chronic anemia, suspect acute blood loss anemia secondary to GI bleed Iron deficiency anemia -Hemoglobin 7.0. -Anemia profile revealed iron of 13, TIBC 486, and iron saturation percentage of 2.61. -Patient placed on IV iron supplement with plans to transition to oral iron supplementation. -GI consulted to rule out GI bleed, appreciate further recommendations -Protonix 40 mg daily -We will continue to monitor. -Clear liquid diet pending evaluation by GI. -Monitor CBC every 6 hours and transfuse as needed for hemoglobin less than 6.5. Hypertension -Monitor vital signs and continue daily medication regimen. Hyperlipidemia -Continue daily medication regimen Morbid obesity with BMI 53.3 kg/m -Recommend outpatient weight management program upon discharge. CODE STATUS: Full code DVT prophylaxis: SCDs Discussed with: Pt, patient's and RN Anticipated discharge date: Clinical course to determine Anticipated discharge place: Home A total of 40 minutes was spent on the care of this complex patient more than 50% of the time was spent in counseling and care coordination. Objective - Vital Signs Vital signs: Vital Signs Temp 97.6 F 07/12/21 06:00 Pulse 61 07/12/21 07:36 Resp 20 07/12/21 06:00 BP 119/74 07/12/21 06:00 Pulse Ox 93 L 07/12/21 06:00 Intake & Output 07/11/21 07/12/21 07/12/21 18:59 06:59 18:59 Intake Total 152.619 48.52 Balance 152.619 48.52 Weight 145.15 kg Intake: Intake, IV Titration 152.619 48.52 Amount Heparin Sod,Pork in 0.45% 152.619 48.52 NaCl 25,000 unit In 0.45 % NaCl 1 250ml.bag @ 6.88 UNITS/KG/HR 9.986 mls/hr IV .Q24H [facility] Rx#: [id number] Other: # Voids 1 - Labs CBC & Chem 7: 07/12/21 06:23 07/11/21 00:22 Labs: Abnormal Lab Results - Last 24 Hours (Table) 07/11/21 07/12/21 Range/Units 09:32 06:23 WBC 4.34 L (4.50-10.00) X 10*3/uL RBC 3.94 L (4.10-5.20) X 10*6/uL Hgb 7.0 L (12.0-15.0) g/dL Hct 27.9 L (37.2-46.3) % MCV 70.8 L (80.0-97.0) fL MCH 17.8 L (27.0-32.0) pg MCHC 25.1 L (32.0-37.0) g/dL RDW 20.4 H (11.5-14.5) % Iron 13 L (50-170) ug/dL TIBC 486 H (228-460) ug/dL % Saturation 2.61 L (12.00-45.00)
--- NOTE | 2021-07-12 14:44 | P.CONS ---
History of Present Illness - Reason for Consult Consult date: 07/12/21 Anemia, possible GI Requesting physician: Marlon Piper - Chief Complaint heart palpitations, weakness - History of Present Illness This is [id number] female with a history of asthma, COPD, GERD, hyperlipidemia, hypertension diverticulosis, and chronic anemia who presented to the emergency room with complaints of heart palpitations, shortness of breath and weakness.she was noted to be in atrial fibrillation on admission and was started on a heparin drip. patient was noted to be anemic on admission. Cardiology has seen patient recommended anemia workup. They recommended starting Eliquis, her last dose with this morning. She had a drop in herhemoglobin to 7.0. Labs are consistent with a microcytic iron deficiency anemia. Patient states she has chronic anemia for 40 years. States she has required only one transfusion in the past. She's not had any colonoscopies in the past. States she had an EGD with Dr. Martinez she believes in 2017 at [facility] states that nothing was found to be abnormal. She states she has a lot of stomach issues including heartburn which she states is hard to control. She is currently on Nexium. States that she gets a lot of epigastric pain and diffuse abdominal pain. She's had constipation for years where she has to use suppositories and enemas as well as milk of magnesia. States she was diagnosed with diverticulitis in the 1990s again she has not had any colonoscopies in the past for follow-up. She is currently denying any nausea or vomiting. Pain is no worse than normal in her abdomen. Patient states she wants to go home and was told she was going to be discharged. At this time she is refusing any endoscopic evaluation and wants to talk with the primary care team. Review of Systems REVIEW OF SYSTEMS: CARDIOPULMONARY: No chest pain or shortness of breath. Gastrointestinal: Burning sensation in epigastric region, diffuse abdominal pain, symptoms are all chronic No nausea or vomiting. No hematemesis, coffee- ground emesis. No rectal bleeding, or melena. chronic constipation. GENITOURINARY: No dysuria or hematuria. MUSCULOSKELETAL: Reports normal range of motion., Joint pain. SKIN: No rashes. No jaundice. ENDOCRINE: No chills, fevers. No excessive weight gain or loss. No polydipsia or polyuria. PSYCHIATRIC: Unremarkable. NEUROLOGY: No change in mental status. Denies dizziness, headache. ENT: Vision unremarkable. CONSTITUTIONAL: No recent weight loss. No fever, chills, night sweats. Past Medical History Past Medical History: Asthma, Chest Pain / Angina, COPD, GERD/Reflux, Hyperlipidemia, Hypertension, Pneumonia Additional Past Medical History / Comment(s): Bronchitis, severe GERD, esophageal spasms, problems with abdominal pain/cramps/constipation and diarrhea, diverticular disease, fatigued for 5-6 yrs, anemia, UTI, urinary incontinence at times, arthritis multiple joints, chronic back and neck pain, bilateral leg sciatica, fatty liver, being checked for thyroid disease, menorrhagia, pt states she had one physician tell her she was "pre" diabetic., immunocompromised (Lupas). Lump in groin. History of Any Multi-Drug Resistant Organisms: None Reported Past Surgical History: Section, Cholecystectomy, Hernia Repair Additional Past Surgical History / Comment(s): EGD, umbilical hernia repair, wisdom teeth extractions. Past Anesthesia/Blood Transfusion Reactions: Postoperative Nausea & Vomiting (PONV) Additional Past Anesthesia/Blood Transfusion Reaction / Comm: Difficulty waking. Past Psychological History: Anxiety, Panic Disorder Additional Psychological History / Comment(s): Pt resides with her spouse and a 15 yr old son. She is unemployed. She does not drive, her spouse drives. She is otherwise independent. She states there has been increased stress d/t neighbors that she states are drug deallers/traffic and noise all night long. Smoking Status: Never smoker Past Alcohol Use History: None Reported Additional Past Alcohol Use History / Comment(s): Pt started smoking in 1985 and was a 3 ppd smoker. She quit smoking in 2016. Past Drug Use History: None Reported - Past Family History Father Additional Family Medical History / Comment(s): Pt was adopted and does not know natural father's medical hx. Mother Additional Family Medical History / Comment(s): Pt is adopted and does not know natural mother's medical hx. Brother(s) Family Medical History: Myocardial Infarction (UT) Additional Family Medical History / Comment(s): Pt does know that her half brother had a UT at the age of 45yrs. Medications and Allergies Home Medications Medication Instructions Recorded Confirmed Type HYDROcodone/APAP 5-325MG [[place] 1 tab PO DAILY PRN 07/16/18 07/11/21 History 5-325] Apixaban [Eliquis] 5 mg PO BID 30 Days #60 tab 07/11/21 Rx Clotrimazole [Lotrimin AF] 1 applic TOPICAL DAILY PRN 07/11/21 07/11/21 History Esomeprazole Magnesium [NexIUM] 40 mg PO HS 07/11/21 07/11/21 History Hydrocortisone Cream 1 applic TOPICAL BID PRN 07/11/21 07/11/21 History [Hydrocortisone 1% Cream] Metoprolol Tartrate [Lopressor] 50 mg PO BID 07/11/21 07/11/21 History Ferrous Sulfate [Feosol] 325 mg PO DAILY 30 Days #30 tab 07/12/21 Rx Flecainide [Tambocor] 100 mg PO Q12HR 30 Days #120 tab 07/12/21 Rx Allergies Allergy/AdvReac Type Severity Reaction Status Date / Time Sulfa (Sulfonamide Allergy See Verified 07/11/21 06:47 Antibiotics) comments morphine AdvReac Rapid Verified 07/10/21 23:52 Heart Rate Physical Exam Vitals: Vital Signs Temp Pulse Pulse Pulse Resp BP BP 07/12/21 07:36 61 07/12/21 06:00 97.6 F 61 20 119/74 07/12/21 01:14 97.8 F 60 18 129/74 07/11/21 22:37 52 L 107/68 07/11/21 19:28 98.4 F 64 16 112/74 07/11/21 18:30 98.3 F 63 20 116/69 07/11/21 17:38 69 18 136/99 Pulse Ox 07/12/21 07:36 07/12/21 06:00 93 L 07/12/21 01:14 94 L 07/11/21 22:37 07/11/21 19:28 95 07/11/21 18:30 97 07/11/21 17:38 98 Intake and Output 07/11/21 07/12/21 07/12/21 22:59 06:59 14:59 Intake Total 201.139 118 Balance 201.139 118 Intake: Intake, IV Titration 201.139 Amount Heparin Sod,Pork in 0.45% 201.139 NaCl 25,000 unit In 0.45 % NaCl 1 250ml.bag @ 6.88 UNITS/KG/HR 9.986 mls/hr IV .Q24H [facility] Rx#: [id number] Oral 118 Other: # Voids 1 1 General appearance: The patient is alert, oriented, appears in no acute distress. Morbidly obese. HET: Head is normocephalic and atraumatic. Conjunctiva pink. Sclera anicteric. Neck: Supple without lymphadenopathy. Trachea midline. Heart: S1 S2. Regular rate and rhythm. Lungs: Clear to auscultation. Abdomen: Soft, nontender, nondistended with bowel sounds. No guarding or rigidity. Skin: No rashes. No jaundice. Extremities: Normal skin color and turgor. No pedal edema. Neurological: No focal deficits. Alert and oriented x3. Results CBC & Chem 7: 07/12/21 06:23 07/11/21 00:22 Labs: Abnormal Lab Results - Last 24 Hours (Table) 07/11/21 07/12/21 Range/Units 09:32 06:23 WBC 4.34 L (4.50-10.00) X 10*3/uL RBC 3.94 L (4.10-5.20) X 10*6/uL Hgb 7.0 L (12.0-15.0) g/dL Hct 27.9 L (37.2-46.3) % MCV 70.8 L (80.0-97.0) fL MCH 17.8 L (27.0-32.0) pg MCHC 25.1 L (32.0-37.0) g/dL RDW 20.4 H (11.5-14.5) % Iron 13 L (50-170) ug/dL TIBC 486 H (228-460) ug/dL % Saturation 2.61 L (12.00-45.00) Assessment and Plan (1) Iron deficiency anemia Narrative/Plan: 51-year-old female who presented to the emergency room with complaints of palpitations shortness of breath and weakness found to be in new onset atrial fibrillation. She was initially treated with heparin drip and then transitioned to Eliquis. She has a history of chronic anemia and was noted to have a hemoglobin of 8.4 with a drop today to 7.0. Gastroenterology was consulted regarding her drop in hemoglobin with concerns of possible GI bleed. Iron profile was consistent with iron deficiency anemia. She was given one bag of IV iron. States she does have a long history of stomach issues with severe GERD, epigastric pain and abdominal pain along with constipation. She did undergo an EGD in [address] [facility] for which she states was normal. She has no previous history of colonoscopy however reports that she was diagnosed with diverticulitis in the . She states her pain is chronic, she denies any black stool or blood in her stool. Denies any nausea or vomiting. She denies any chronic NSAID use. Current Visit: Yes Status: Acute Code(s): D50.9 - IRON DEFICIENCY ANEMIA, UNSPECIFIED SNOMED Code(s): 53325138 (2) New onset atrial fibrillation Narrative/Plan: Being followed by cardiology Current Visit: Yes Status: Acute Code(s): I48.91 - UNSPECIFIED ATRIAL FIBRILLATION SNOMED Code(s): 08150826 Plan: 1. Continue symptomatic and supportive care 2. Hold Eliquis 3. Heart healthy diet, clear liquids tomorrow 4. Daily CBC, transfuse per protocol 5. Will schedule tentatively for EGD and colonoscopy for Saturday 6. Recommend EGD and colonoscopy for further evaluation of anemia. At this arianna e patient is refusing to wanting to go home and have outpatient endoscopic evaluation. The risks of being discharged without formal evaluation for anemia was discussed with patient and continued to recommend inpatient observation and endoscopic evaluation. Thank you for this consultation, we will continue to follow. Dr. Oumou Varma I agree with the dictator's note, documented as a scribe by Camila Welch.
[2021-07-12] MEDS: SODIUM CHLORIDE 0.9% 1,000 ML IV SCH ×2 (17:16→21:48)
[2021-07-12 18:54] LABS: HGB 7.9 g/dL (12.0-15.0); MCH 17.7 pg (27.0-32.0); MCHC 25.5 g/dL (32.0-37.0); MCV 69.4 fL (80.0-97.0); Mean Platelet Volume 9.6 fL (9.5-12.2); NRBC Per 100 WBC 0 /100 WBCS (0.0-0.0); Platelet Count 355 X 10*3/uL (140-440); RBC 4.47 X 10*6/uL (4.10-5.20); RDW 20.7 % (11.5-14.5); WBC 5.73 X 10*3/uL (4.50-10.00)
[2021-07-12 19:05] LABS: Anisocytosis Slight; HCT 31.1 % (34.0-46.0); HGB 8.4 gm/dL (11.4-16.0); Hypochromasia Marked; MCH 18.8 pg (25.0-35.0); MCHC 26.9 g/dL (31.0-37.0); MCV 69.7 fL (80.0-100.0); Mean Platelet Volume 6.8; Microcytosis Marked; Platelet Count 356 k/uL (150-450); RBC 4.47 m/uL (3.80-5.40); RDW 18.6 % (11.5-15.5); WBC 6.3 k/uL (3.8-10.6)
[2021-07-12] MEDS: PANTOPRAZOLE 40 MG TABLET PO SCH (21:12)
[2021-07-13 01:13] LABS: Anisocytosis Slight; HCT 28.4 % (34.0-46.0); HGB 7.8 gm/dL (11.4-16.0); Hypochromasia Marked; MCHC 27.3 g/dL (31.0-37.0); MCV 69.5 fL (80.0-100.0); Mean Platelet Volume 7.1; Microcytosis Marked; Platelet Count 286 k/uL (150-450); RBC 4.09 m/uL (3.80-5.40); RDW 18.5 % (11.5-15.5); WBC 5.9 k/uL (3.8-10.6)
[2021-07-13] MEDS: SODIUM CHLORIDE 0.9% 1,000 ML IV SCH ×2 (04:18→13:36)
[2021-07-13] MEDS: METOPROLOL TARTRATE 50 MG TAB PO SCH (08:56)
[2021-07-13] MEDS: FLECAINIDE 50 MG TAB PO SCH ×2 (08:56→09:10)
[2021-07-13 09:13] LABS: HGB 7.5 g/dL (12.0-15.0); MCH 17.9 pg (27.0-32.0); MCHC 25.9 g/dL (32.0-37.0); Mean Platelet Volume 10.1 fL (9.5-12.2); NRBC Per 100 WBC 0 /100 WBCS (0.0-0.0); Platelet Count 317 X 10*3/uL (140-440); RDW 20.8 % (11.5-14.5); WBC 5.27 X 10*3/uL (4.50-10.00)
[2021-07-13] MEDS: ACETAMINOPHEN TAB 325 MG TAB PO PRN (10:17)
[2021-07-13] MEDS: SODIUM FERRIC GLUCONAT-SUCROSE 125 MG in SODIUM CHLORIDE 0.9% 100 ML IVPB SCH (11:40)
--- NOTE | 2021-07-13 12:31 | P.PN ---
Subjective HISTORY OF PRESENTING ILLNESS This is a pleasant 51-year-old female past medical history significant for hypertension, COPD, hyperlipidemia, sciatica, anxiety, former smoker, Lupus, anemia. History of palpitations. She follows in the office with Dr. Hubbard at [facility]. She has also seen Dr. Gimenez in 11/2019. We have been asked to see in consultation for atrial fibrillation. Patient presents emergency department with complaints of palpitations that started at 10:30 PM last night while patient was watching TV. She had an acute episode of chest palpitations and fluttering. She associated mild shortness of breath. She presents to em ergency department for further evaluation. She was found to be in atrial fibrillation HR 100s. On admission patient was started on IV heparin drip and IV Cardizem drip. She converted to sinus mechanism heart rate in the 70s Patient seen and examined at bedside, no acute distress. She denies any p alpitations chest pain or shortness of breath. Telemetry reviewed patient is maintaining sinus mechanism heart rate 60s. Echocardiogram revealed a normal ejection fraction. She is maintained on flecainide 100 mg twice a day, metoprolol tartrate 50mg BID. Eliquis on hold due to anemia and GI workup Labs, WBC 5.2, hemoglobin 7.5, platelets 317 PHYSICAL EXAMINATION Vitals reviewed GENERAL: Well-appearing, well-nourished and in no acute distress. NECK: Supple without JVD or thyromegaly. LUNGS: Breath sounds clear to auscultation bilaterally. Respiration equal and unlabored. No wheezes, rales or rhonchi. HEART: Regular rate and rhythm without murmurs, rubs or gallops. S1 and S2 heard. EXTREMITIES: Normal range of motion, no edema. No clubbing or cyanosis. Peripheral pulses intact. ASSESSMENT Paroxysmal atrial fibrillation [id number] score 2, maintaining sinus mechanism History of hypertension Microcytic anemia History of lupus History of COPD History of dyslipidemia History of sciatica History of anxiety Former smoker PLAN Continue metoprolol tartrate and Flecainide From a cardiology perspective, patient is stable, GI is following and plan for tentatively EGD/Colonoscopy tomorrow Eliquis is unfortunately $500/month, patient will receive a free month, and most likely need to be transition to coumadin in the outpatient setting pending anemia workup Further recommendations based on clinical course Nurse practitioner note has been reviewed by physician. Ashleying provider agrees with the documented findings, assessment, and plan of care. Objective - Vital Signs Vital signs: Vital Signs Temp 97.6 F 07/13/21 08:10 Pulse 70 07/13/21 08:10 Resp 18 07/13/21 08:10 BP 133/64 07/13/21 08:10 Pulse Ox 100 07/13/21 08:10 Intake & Output 07/12/21 07/13/21 07/13/21 18:59 06:59 18:59 Intake Total 236 360 Balance 236 360 Intake: Oral 236 360 Other: Voiding Method Toilet # Voids 1 # Bowel Movements 2 - Labs CBC & Chem 7: 07/13/21 05:14 07/11/21 00:22 Labs: Abnormal Lab Results - Last 24 Hours (Table) 07/12/21 07/12/21 07/12/21 Range/Units 06:23 12:58 18:30 WBC 4.34 L (4.50-10.00) X 10*3/uL RBC 3.94 L (4.10-5.20) X 10*6/uL Hgb 7.0 L 7.9 L 8.4 L (12.0-15.0) g/dL Hct 27.9 L 31.0 L 31.1 L (37.2-46.3) % MCV 70.8 L 69.4 L 69.7 L (80.0-97.0) fL MCH 17.8 L 17.7 L 18.8 L (27.0-32.0) pg MCHC 25.1 L 25.5 L 26.9 L (32.0-37.0) g/dL RDW 20.4 H 20.7 H 18.6 H (11.5-14.5) % 07/13/21 Range/Units 00:24 WBC (4.50-10.00) X 10*3/uL RBC (4.10-5.20) X 10*6/uL Hgb 7.8 L (12.0-15.0) g/dL Hct 28.4 L (37.2-46.3) % MCV 69.5 L (80.0-97.0) fL MCH 19.0 L (27.0-32.0) pg MCHC 27.3 L (32.0-37.0) g/dL RDW 18.5 H (11.5-14.5) %
[2021-07-13] MEDS ORDERED: PEG 3350-NA SULF,BICARB,CL/KCL 4,000 ML BOTTLE PO ONE (13:00)
[2021-07-13] MEDS ORDERED: SODIUM FERRIC GLUCONAT-SUCROSE 125 MG in SODIUM CHLORIDE 0.9% 100 ML IVPB SCH (13:00)
--- NOTE | 2021-07-13 13:17 | P.PN ---
Subjective Progress Note Date: 07/13/21 Principal diagnosis: Anemia She was seen and examined today as a follow-up. Gastroenterology was consulted for anemia. Patient denied any black stool or blood in her stool. Denies any nausea or vomiting, hematemesis or coffee-ground emesis. States she has a history of chronic anemia. States she's had previous EGDs in the past Dr. Owen. She states there was no abnormal findings. She has multiple GI complaints including abdominal pain, chronic constipation, chronic GERD. Patient had a drop in her hemoglobin so gastroenterology was consulted. Today's repeat hemoglobin is 7.5. Patient has a history of atrial fibrillation and was on Eliquis which is currently on hold. Tentative plan is for EGD and colonoscopy tomorrow. She denies any pain, she is concerned with proceeding with endoscopic evaluation as an inpatient. Objective - Vital Signs Vital signs: Vital Signs Temp 98.5 F 07/13/21 02:35 Pulse 65 07/13/21 02:35 Resp 19 07/13/21 02:35 BP 102/57 07/13/21 02:35 Pulse Ox 93 L 07/13/21 02:35 Intake & Output 07/12/21 07/13/21 07/13/21 18:59 06:59 18:59 Intake Total 236 Balance 236 Intake: Oral 236 Other: Voiding Method Toilet # Voids 1 # Bowel Movements 2 - Exam General appearance: The patient is alert, oriented, appears in no acute distress. Morbidly obese HET: Head is normocephalic and atraumatic. Conjunctiva pink. Sclera anicteric. Neck: Supple without lymphadenopathy. Abdomen: Soft, epigastric tenderness, nondistended with bowel sounds. No guarding or rigidity. Extremities: Normal skin color and turgor. No pedal edema Skin: No rashes, no jaundice Neurological: No focal deficits. Alert and oriented -3. - Labs CBC & Chem 7: 07/13/21 05:14 07/11/21 00:22 Labs: Abnormal Lab Results - Last 24 Hours (Table) 07/12/21 07/12/21 07/12/21 Range/Units 06:23 12:58 18:30 WBC 4.34 L (4.50-10.00) X 10*3/uL RBC 3.94 L (4.10-5.20) X 10*6/uL Hgb 7.0 L 7.9 L 8.4 L (12.0-15.0) g/dL Hct 27.9 L 31.0 L 31.1 L (37.2-46.3) % MCV 70.8 L 69.4 L 69.7 L (80.0-97.0) fL MCH 17.8 L 17.7 L 18.8 L (27.0-32.0) pg MCHC 25.1 L 25.5 L 26.9 L (32.0-37.0) g/dL RDW 20.4 H 20.7 H 18.6 H (11.5-14.5) % 07/13/21 Range/Units 00:24 WBC (4.50-10.00) X 10*3/uL RBC (4.10-5.20) X 10*6/uL Hgb 7.8 L (12.0-15.0) g/dL Hct 28.4 L (37.2-46.3) % MCV 69.5 L (80.0-97.0) fL MCH 19.0 L (27.0-32.0) pg MCHC 27.3 L (32.0-37.0) g/dL RDW 18.5 H (11.5-14.5) % Assessment and Plan (1) Iron deficiency anemia Narrative/Plan: 51-year-old female who presented to the emergency room with complaints of palpitations shortness of breath and weakness found to be in new onset atrial fibrillation. She was initially treated with heparin drip and then transitioned to Eliquis. She has a history of chronic anemia and was noted to have a hemoglobin of 8.4 with a drop today to 7.0. Gastroenterology was consulted regarding her drop in hemoglobin with concerns of possible GI bleed. Iron profile was consistent with iron deficiency anemia. She was given one bag of IV iron. States she does have a long history of stomach issues with severe GERD, epigastric pain and abdominal pain along with constipation. She did undergo an EGD in [address] Owen [facility] for which she states was normal. She has no previous history of colonoscopy however reports that she was diagnosed with diverticulitis in the . She states her pain is chronic, she denies any black stool or blood in her stool. Denies any nausea or vomiting. She denies any chronic NSAID use. Current Visit: Yes Status: Acute Code(s): D50.9 - IRON DEFICIENCY ANEMIA, UNSPECIFIED SNOMED Code(s): 31351226 (2) New onset atrial fibrillation Narrative/Plan: Being followed by cardiologyJose on hold. Current Visit: Yes Status: Acute Code(s): I48.91 - UNSPECIFIED ATRIAL FIBRILLATION SNOMED Code(s): 28694271 Plan: 1. Continue symptomatic and supportive care 2. May resume Eliquis 3. Clear liquid diet, nothing by mouth after midnight 4. Daily CBC, transfuse per protocol 5. Patient may be discharged with outpatient follow up, recommend outpatinet EGD/Colonoscopy Thank you for this consultation, we will continue to follow. Dr. Oumou Varma I agree with the dictator's note, documented as a scribe by Camila Welch.
[2021-07-13 13:46] VITALS: BP 116/78; PULSE 60; RESP 16; TEMP 99.3
--- NOTE | 2021-07-13 16:01 | P.DS ---
Providers Date of admission: 07/12/21 11:34 Expected date of discharge: 07/13/21 Attending physician: Vicki Rome Consults: 07/11/21 01:26 Consult Physician Urgent Consulting Provider: Anu Joseph Consult Reason/Comments: NewAfib Do you want consulting provider notified?: Yes 07/12/21 11:57 Consult Physician Routine Consulting Provider: Merly Varma Consult Reason/Comments: Pt w/ hx of ulcers, low iron percentage and drop in hgb, r/o GI bleed Do you want consulting provider notified?: Yes [facility] care [facility] Course: Final diagnosis New-onset atrial fibrillation with RVR Acute on chronic anemia, suspect acute blood loss anemia secondary to GI bleed hypertension hyperlipidemia Iron deficiency anemia Morbid obesity with BMI 53.3 kg/m Full code Discharge disposition Patient is being discharged in a stable condition with guarded prognosis to home. Patient will follow-up with Dr. Marshall in the outpatient setting upon discharge. Patient is to also follow up with GI, hematology, and cardiology in the outpatient setting. Total time taken is greater than 35 minutes. Hospital Course This is a 51-year-old female who was recently admitted with heart racing and palpitations and found to be in afib with RVR, new onset. Cardiology evaluated the patient and patient was started on medications prescribed below. Patient also started on anticoagulation and was discovered to have anemia, possible GI bleed and GI was consulted. Patient has JOCELYNE and needs follow up with hematology in the outpatient setting. Ok to resume Eliquis. Patient will see cardiology as well outpatient. Possible outpatient colonoscopy. Patient would like to go home. Currently no reports of chest pain, shortness of breath, or palpitations. Patient is afebrile. No reports of nausea or vomiting and patient is tolerating diet. Patient will be discharged home today. Guarded prognosis. Ok to resume eliquis. Patient to follow up outpatient with GI, cardio, and hematology. Physical Exam: Vital signs reviewed and stable. General: Nontoxic, no distress and appears stated age. Morbidly obese. Derm: Skin warm and dry, normal coloration for ethnicity. Head: Atraumatic, normocephalic and symmetric. Eyes: EOMs intact, no lid lag, and anicteric sclera Mouth: no lip lesions, mucus membranes moist Cardiovascular: regular rate and rhythm with normal S1S2, no murmur, positive posterior tibial pulses bilaterally, and cap refill < 2 seconds. Lungs: Respirations even, regular, and unlabored on room air. Lungs diminished possibly secondary to body habitus, no rhonchi, no rales, no wheezing, and no accessory muscle usage. Abdominal: Obese abdomen soft, nontender to palpation, no guarding, no appr eciable organomegaly Ext: ROM intact. No gross muscle atrophy, no edema, no contractures Neuro: Speech clear, face symmetrical and CN II-XII grossly intact with no noted focal neuro deficits Psych: Alert and oriented to person, place, time, and situation. Appropriate and pleasant affect. Please refer to medication reconciliation sheet for a list of medications. The impression and plan of care has been dictated by Jael Glover, nurse practitioner as directed. Dr. Wild MD I have performed a history and examination and MDM of this patient, discussed the same with the dictator, and agree with the dictator's assessment and plan as written ,documented as a scribe. Based on total visit time, I have performed more than 50% of the visit. Number of minutes spent on this visit, 20 minutes. Patient Condition at Discharge: Good Plan - Discharge Summary New Discharge Prescriptions: New Apixaban [Eliquis] 5 mg PO BID 30 Days #60 tab Ferrous Sulfate [Feosol] 325 mg PO DAILY 30 Days #30 tab Flecainide [Tambocor] 100 mg PO Q12HR 30 Days #120 tab Continue HYDROcodone/APAP 5-325MG [[place] 5-325] 1 tab PO DAILY PRN PRN Reason: Pain Esomeprazole Magnesium [NexIUM] 40 mg PO HS Hydrocortisone Cream [Hydrocortisone 1% Cream] 1 applic TOPICAL BID PRN PRN Reason: itching/rash Clotrimazole [Lotrimin AF] 1 applic TOPICAL DAILY PRN PRN Reason: itch/rash Metoprolol Tartrate [Lopressor] 50 mg PO BID Discontinued Naproxen Sodium 440 mg PO DAILY PRN PRN Reason: Pain Discharge Medication List HYDROcodone/APAP 5-325MG [[place] 5-325] 1 tab PO DAILY PRN 07/16/18 [History] Apixaban [Eliquis] 5 mg PO BID 30 Days #60 tab 07/11/21 [Rx] Clotrimazole [Lotrimin AF] 1 applic TOPICAL DAILY PRN 07/11/21 [History] Esomeprazole Magnesium [NexIUM] 40 mg PO HS 07/11/21 [History] Hydrocortisone Cream [Hydrocortisone 1% Cream] 1 applic TOPICAL BID PRN 07/11/21 [History] Metoprolol Tartrate [Lopressor] 50 mg PO BID 07/11/21 [History] Ferrous Sulfate [Feosol] 325 mg PO DAILY 30 Days #30 tab 07/12/21 [Rx] Flecainide [Tambocor] 100 mg PO Q12HR 30 Days #120 tab 07/12/21 [Rx] Follow up Appointment(s)/Referral(s): Hyacinth Marshall MD [Primary Care Provider] - 1-2 days Shay Gimenez MD [STAFF PHYSICIAN] - 1 Week Merly Varma MD [STAFF PHYSICIAN] - 2 Weeks [facility] [NON-STAFF] - 1 Week Brayden Drummond MD [STAFF PHYSICIAN] - 1 Week Patient Instructions/Handouts: A-fib (Atrial Fibrillation) (DC), Iron Rich Diet (DC), Iron Deficiency Anemia (GEN) Activity/Diet/Wound Care/Special Instructions: Activity: As tolerated. Take breaks as needed. Diet: Heart healthy and carb consistent diet. Avoid salts, or foods with hidden salts such as canned or boxed foods and frozen dinners. Extra salt makes your heart work harder and traps the fluid in your body for longer. Special Instructions: Take all of your medications as directed and remember to keep all of your doctor's appointments and follow-up as needed. Your iron is extremely low, which is a concern for blood loss. It is very important for you to follow up with further testing. If you have experienced post-menopausal bleeding then you need to see a OB-BROKE WORKER and if you have not had a colonoscopy you need to follow up with a bowling ball molder and schedule an appointment for a colonoscopy as soon as possible for screening. Also recommended follow-up with hematology and resources were provided Thank you for allowing us to participate in your care, it was truly a pleasure having you for our patient!!! Discharge/Stand Alone Forms: Community Resources, Personal Mill Operator Discharge Disposition: HOME SELF-CARE
== END 2021-07-13 16:16 | disposition home or self-care (01) | DRG 309 ==
LOC: EC 23:40 → 6NMEDSUR 07-11 01:26 → OBSVTOIN 07-12 11:34
PROVIDERS: ADMIT Internal Medicine; ATTEND Internal Medicine
DX: I48.0 Paroxysmal atrial fibrillation (principal); D84.9 Immunodeficiency, unspecified; Z68.43 Body mass index [BMI] 50.0-59.9, adult; D62 Acute posthemorrhagic anemia; K92.2 Gastrointestinal hemorrhage, unspecified; I48.92 Unspecified atrial flutter; E78.5 Hyperlipidemia, unspecified; M32.9 Systemic lupus erythematosus, unspecified; I10 Essential (primary) hypertension; R73.03 Prediabetes; R00.0 Tachycardia, unspecified; E66.01 Morbid (severe) obesity due to excess calories; F41.0 Panic disorder [episodic paroxysmal anxiety]; J44.9 Chronic obstructive pulmonary disease, unspecified; K21.9 Gastro-esophageal reflux disease without esophagitis; K59.09 Other constipation; K76.0 Fatty (change of) liver, not elsewhere classified; Z79.01 Long term (current) use of anticoagulants; Z79.82 Long term (current) use of aspirin; Z79.899 Other long term (current) drug therapy; Z82.49 Family history of ischemic heart disease and other diseases of the circulatory system; Z87.891 Personal history of nicotine dependence; Z88.5 Allergy status to narcotic agent; Z88.2 Allergy status to sulfonamides; Z87.19 Personal history of other diseases of the digestive system; G89.29 Other chronic pain; Z87.440 Personal history of urinary (tract) infections; Z87.11 Personal history of peptic ulcer disease; Z90.49 Acquired absence of other specified parts of digestive tract
CPT/HCPCS: 36415; 80053; 80061; 81003; 83540; 83550; 83605; 83735; 84100; 84439; 84443; 84481; 84484; 85025; 85027; 85049; 85610; 85730; 93005; 93306; 96365; 96375; 96376; 99291

== ENCOUNTER → 2021-09-04 | Outpatient (CLI) | payer BC ==
--- NOTE | 2021-09-04 22:42 | US ---
EXAMINATION TYPE: US extremity nonvasc mass LT DATE OF EXAM: 09/04/2021 COMPARISON: NONE CLINICAL HISTORY: R22.32 SOFT TISSUE MASS LT FOREARM. Left forearm palpable/painful lump x couple yea rs Left medial forearm at patient's area of concern: appears wnl Targeted ultrasound shows normal dermal layer along with subcutaneous fat below this and deeper muscl e fibers. No suspicious solid or cystic mass or abnormal fluid collection is seen. Patent vessel docu mented by technologist. IMPRESSION: Unremarkable study.
== END | disposition home or self-care (01) ==
LOC: RADUSWWP 15:32
PROVIDERS: ATTEND Internal Medicine
DX: R22.32 Localized swelling, mass and lump, left upper limb (principal)

== ENCOUNTER → 2022-01-29 | Outpatient (CLI) | payer BC ==
--- NOTE | 2022-01-29 20:18 | CT ---
EXAMINATION TYPE: CT upper extremity LT wo con CT DLP: 842.1 mGycm, Automated exposure control for dose reduction was used. DATE OF EXAM: 01/29/2022 5:25 PM COMPARISON: Ultrasound 09/04/2021 CLINICAL INDICATION:Female, 51 years old with history of D17.20 Lipoma of Upper Arm, Lipoma of Upper Arm TECHNIQUE: Axial images were obtained of the left upper extremity . Additional coronal and sagittal reformatted images and soft tissue and bone window were obtained for review. 3-D reconstruction was c reated on a separate workstation. Contrast used: None Oral contrast used: None FINDINGS: There is no evidence of fracture, subluxation, or dislocation. No significant soft tissue swelling o r joint effusion is identified. No focal muscular atrophy or edema is identified. No radiopaque forei gn body identified. There is subtle septated fat lobule in the medial aspect of the forearm measuring 4.4 x 2.9 x 3.8 cm . IMPRESSION: 1. Proximal left forearm subtle lipoma within the subcutaneous tissues measuring up to 4.4 cm in the cubital fossa. 2. No evidence of fracture.
--- NOTE | 2022-01-29 20:28 | CTL ---
EXAMINATION TYPE: CT Low Dose Lung DATE OF EXAM ORDERED: 01/29/2022 HISTORY: Lung cancer screening CT DLP: 132.[address] CTDI: 4.0 mGy Automated exposure control for dose reduction was used. SCREENING VISIT: Initial screening visit COMPARISON: None TECHNIQUE: Low dose computed tomography scan was performed through the chest at 1 mm thick sections a nd reconstructed images in multiple planes at 1 mm and [address] DIAGNOSTIC QUALITY: Satisfactory FINDINGS: LUNG NODULES: None. LUNGS: COPD: Severity: Mild Fibrosis: Severity: None Lymph nodes: None Other findings: None RIGHT PLEURAL SPACE: Effusion: None Calcification: None Thickening: None Pneumothorax: None LEFT PLEURAL SPACE: Effusion: None Calcification: None Thickening: None Pneumothorax: None HEART: Heart Size: Normal Coronary Calcification: None Pericardial Effusion: None OTHER FINDINGS: Upper abdomen: None Bony thorax: None Supraclavicular region: None Other: The gallbladder surgically absent. Focal eventration of the left diaphragm containing fat. IMPRESSION: 1. No clinically significant pulmonary nodules. 2. Mild emphysema changes. CT LUNG RAD AND CT CHEST RECOMMENDATION: Lung-Rad 1 Negative: Continue annual screening with LDCT in 12 months. S Modifier (other clinically significant findings): None
--- NOTE | 2022-01-30 09:25 | US ---
EXAMINATION TYPE: US thyroid st tissue head/neck DATE OF EXAM: 01/29/2022 COMPARISON: NONE CLINICAL HISTORY: E03.8 SUBCLINICAL HYPOTHYROIDISM. hypothyroidism. Patient states she feels lump GLAND SIZE: Right Lobe: 4.3 x 1.8 x 1.7 cm Overall Parenchyma: heterogenous Left Lobe: 4.2 x 1.8 x 1.6 cm Overall Parenchyma: heterogeneous Isthmus Thickness: 0.6 cm NODULES RIGHT: # of nodules measured on right: 0 LEFT: # of nodules measured on left: 1 1. 0.6 X 0.6 x 0.5 cm, mid mid, solid or almost completely solid, hypoechoic nodule, which is wider than tall, with smooth margins, without echogenic foci. ISTHMUS: # of nodules measured in the isthmus: 0 Bilateral neck scanned, no evidence of lymphadenopathy. The gland shows heterogeneous echotexture. IMPRESSION: There may be an underlying thyroiditis. 2017 ACR TI-RADS LEVEL: TR 3 *Highest TI-RADS level nodule reported
== END | disposition home or self-care (01) ==
LOC: RADCTMAIN 15:55
PROVIDERS: ATTEND Internal Medicine
DX: Z12.2 Encounter for screening for malignant neoplasm of respiratory organs (principal); J43.9 Emphysema, unspecified; E03.8 Other specified hypothyroidism; D17.22 Benign lipomatous neoplasm of skin and subcutaneous tissue of left arm
CPT/HCPCS: 71271; 76536

== ENCOUNTER → 2022-04-06 | Outpatient (CLI) | payer BC ==
--- NOTE | 2022-04-06 11:22 | XR ---
EXAMINATION TYPE: XR wrist complete RT DATE OF EXAM: 04/06/2022 COMPARISON: NONE HISTORY: Pain TECHNIQUE: Four views submitted. FINDINGS: The osseous structures are intact. The joint spaces are preserved and there is no acute fracture or dislocation. IMPRESSION: 1. No definite acute fracture or dislocation. If symptoms persist follow up exam in 7-10 days recomm ended.
--- NOTE | 2022-04-06 11:27 | FL ---
EXAMINATION TYPE: FL sniff test without CXR DATE OF EXAM: 04/06/2022 Comparison: Low-dose CT chest 01/29/2022 Clinical History: 51-year-old female shortness of breath, J98.6 DISORDERS OF DIAPHRAGM Total fluoroscopy time: 1 minute 3 seconds. Total images: 16. Findings: Real-time fluoroscopy is performed during normal white breathing, deep inspiration/expiration, a snif fing maneuver. And baseline, there is asymmetric elevation of the right hemidiaphragm. During quiet breathing, there is slight delay in initiation of movement of the right hemidiaphragm bu t with overall symmetric direction of movement and excursion. During deep inspirations, we again note a slight delay in initiation of movement of right hemidiaphra gm. During sniffing maneuver, there is either no movement or a single initial episode of paradoxical move ment of the right hemidiaphragm. Impression: Asymmetrically elevated right hemidiaphragm. Sniffing maneuver shows no movement and one episode of p aradoxical movement of the right hemidiaphragm. Findings compatible with right hemidiaphragmatic pare sis.
--- NOTE | 2022-04-06 11:43 | XR ---
EXAMINATION TYPE: XR knee 4V bilateral DATE OF EXAM: 04/06/2022 11:31 AM INDICATION: Patient age:Female; 51 years old; Reason for study: W19.XXXA; pain COMPARISON: None. TECHNIQUE: The Bilateral knee(s) was examined in Frontal, lateral and oblique projections. FINDINGS: Osteophyte formation of the patellas as well as the tibial plateaus. There is mild joint sp rula narrowing most pronounced in the medial aspect of the knees. No evidence of fracture. Soft tissue s are grossly unremarkable. No joint effusion visualized. IMPRESSION: 1. No acute osseous pathology. 2. Mild tricompartmental osteoarthritic changes.
== END | disposition home or self-care (01) ==
LOC: RADFLMAIN 10:29
PROVIDERS: ATTEND Internal Medicine Critical Care Medicine
DX: J98.6 Disorders of diaphragm (principal)
CPT/HCPCS: 76000

== ENCOUNTER 2022-07-30 14:02 | Emergency (ER) | payer BC ==
[2022-07-30 14:14] VITALS: BP 203/122; PULSE 66; RESP 20; TEMP 97.8
--- NOTE | 2022-07-30 14:43 | ED ---
Recheck HPI - General Chief Complaint: Recheck/Abnormal Lab/Rx Stated Complaint: High BP Time Seen by Provider: 07/30/22 14:43 Source: patient, RN notes reviewed Mode of arrival: ambulatory Limitations: no limitations - History of Present Illness Initial Comments: This is a 52-year-old female who presents to the emergency Department with concerns of elevated blood pressure. She is being treated for hypertension and taking medications as prescribed. Denies any chest pain, shortness of breath, headaches, or dizziness. MD Complaint: other (Elevated BP) - Related Data Home Medications Medication Instructions Recorded Confirmed HYDROcodone/APAP 5-325MG [[place] 1 tab PO DAILY PRN 07/16/18 07/11/21 5-325] Clotrimazole [Lotrimin AF] 1 applic TOPICAL DAILY PRN 07/11/21 07/11/21 Esomeprazole Magnesium [NexIUM] 40 mg PO HS 07/11/21 07/11/21 Hydrocortisone Cream 1 applic TOPICAL BID PRN 07/11/21 07/11/21 [Hydrocortisone 1% Cream] Metoprolol Tartrate [Lopressor] 50 mg PO BID 07/11/21 07/11/21 Previous Rx's Medication Instructions Recorded Apixaban [Eliquis] 5 mg PO BID 30 Days #60 tab 07/11/21 Ferrous Sulfate [Feosol] 325 mg PO DAILY 30 Days #30 tab 07/12/21 Flecainide [Tambocor] 100 mg PO Q12HR 30 Days #120 tab 07/12/21 Allergies Allergy/AdvReac Type Severity Reaction Status Date / Time Sulfa (Sulfonamide Allergy See Verified 07/30/22 14:13 Antibiotics) comments morphine AdvReac Rapid Verified 07/30/22 14:13 Heart Rate Review of Systems ROS Statement: Those systems with pertinent positive or pertinent negative responses have been documented in the HPI. ROS Other: All systems not noted in ROS Statement are negative. Past Medical History Past Medical History: Asthma, Chest Pain / Angina, COPD, GERD/Reflux, Hyperlipidemia, Hypertension, Pneumonia Additional Past Medical History / Comment(s): Bronchitis, severe GERD, esophageal spasms, problems with abdominal pain/cramps/constipation and diarrhea, diverticular disease, fatigued for 5-6 yrs, anemia, UTI, urinary incontinence at times, arthritis multiple joints, chronic back and neck pain, bilateral leg sciatica, fatty liver, being checked for thyroid disease, menorrhagia, pt states she had one physician tell her she was "pre" diabetic., immunocompromised (Lupas). Lump in groin. History of Any Multi-Drug Resistant Organisms: None Reported Past Surgical History: Section, Cholecystectomy, Hernia Repair Additional Past Surgical History / Comment(s): EGD, umbilical hernia repair, wisdom teeth extractions. Past Anesthesia/Blood Transfusion Reactions: Postoperative Nausea & Vomiting (PONV) Additional Past Anesthesia/Blood Transfusion Reaction / Comment(s): Difficulty waking. Past Psychological History: Anxiety, Panic Disorder Smoking Status: Never smoker Past Alcohol Use History: None Reported Past Drug Use History: None Reported - Past Family History Father Additional Family Medical History / Comment(s): Pt was adopted and does not know natural father's medical hx. Mother Additional Family Medical History / Comment(s): Pt is adopted and does not know natural mother's medical hx. Brother(s) Family Medical History: Myocardial Infarction (MA) Additional Family Medical History / Comment(s): Pt does know that her half brother had a MA at the age of 45yrs. General Exam - General Exam Comments Initial Comments: Visual Physical Exam Vital signs reviewed General: Well-appearing, nontoxic, no acute distress. Head: Normocephalic, atraumatic Eyes: PERRLA, EOMI ENT: Airway patent Chest: Nonlabored breathing Skin: No visual rash, normal skin tone Neuro: Alert and oriented 3 Musculoskeletal: No gross abnormalities Limitations: no limitations Course Vital Signs 07/30/22 14:11 Temperature 97.8 F Pulse Rate 66 Respiratory 20 Rate Blood Pressure 203/122 O2 Sat by Pulse 97 Oximetry Medical Decision Making - Medical Decision Making Patient eloped from the emergency department prior to completion and review of the ordered testing. - Lab Data Lab Results 07/30/22 Range/Units 14:31 Urine Color Yellow Urine Appearance Clear (Clear) Urine pH 6.0 (5.0-8.0) Ur Specific [place] 1.011 (1.001-1.035) Urine Protein Trace H (Negative) Urine Glucose (UA) Negative (Negative) Urine Ketones Negative (Negative) Urine Blood Large H (Negative) Urine Nitrite Negative (Negative) Urine Bilirubin Negative (Negative) Urine Urobilinogen <2.0 (<2.0) mg/dL Ur Leukocyte Esterase Negative (Negative) Urine RBC >182 H (0-5) /hpf Urine WBC 1 (0-5) /hpf Ur Squamous Epith Cells 2 (0-4) /hpf Urine Mucus Rare H (None) /hpf Disposition Clinical Impression: Hypertension Disposition: Left Against Medical Advice Referrals: None,Stated [Primary Care Provider] - 1-2 days
[2022-07-30 15:03] LABS: Appearance,Urine Clear (Clear); Bilirubin,Urine Negative (Negative); Blood,Urine Large (Negative); Color,Urine Yellow; Glucose,Urine (UA) Negative (Negative); Ketones,Urine Negative (Negative); Leukocyte Esterase,Urine Negative (Negative); Mucus,Urine Rare /hpf; Nitrite,Urine Negative (Negative); Protein,Urine Trace (Negative); RBC,Urine >182 /hpf (0-5); Specific Gravity,Urine 1.011 (1.001-1.035); Squamous Epithelial Cell,Urine 2 /hpf (0-4); Urobilinogen,Urine <2.0 mg/dL (<2.0); WBC,Urine 1 /hpf (0-5)
== END 2022-07-30 16:05 | disposition left against medical advice (07) ==
LOC: EC 14:02
DX: I10 Essential (primary) hypertension (principal); J44.9 Chronic obstructive pulmonary disease, unspecified; K21.9 Gastro-esophageal reflux disease without esophagitis; E11.9 Type 2 diabetes mellitus without complications; F41.9 Anxiety disorder, unspecified; Z88.2 Allergy status to sulfonamides; Z88.5 Allergy status to narcotic agent; Z79.899 Other long term (current) drug therapy; Z53.29 Procedure and treatment not carried out because of patient's decision for other reasons
CPT/HCPCS: 81001; 99283

== ENCOUNTER 2022-07-31 08:12 | Emergency (ER) | payer BC ==
[2022-07-31 08:22] VITALS: RESP 18; TEMP 98
[2022-07-31 09:02] LABS: Basophils % (A) 1 %; Eosinophils # (A) 0.1 k/uL (0-0.7); Eosinophils % (A) 3 %; HCT 45.9 % (34.0-46.0); HGB 15.5 gm/dL (11.4-16.0); Lymphocytes # (A) 0.8 k/uL (1.0-4.8); Lymphocytes % (A) 18 %; MCH 29.2 pg (25.0-35.0); MCHC 33.8 g/dL (31.0-37.0); MCV 86.4 fL (80.0-100.0); Mean Platelet Volume 7.9; Monocytes # (A) 0.2 k/uL (0-1.0); Monocytes % (A) 5 %; Neutrophils # (A) 3.2 k/uL (1.3-7.7); Neutrophils % (A) 72 %; Platelet Count 211 k/uL (150-450); RBC 5.31 m/uL (3.80-5.40); WBC 4.5 k/uL (3.8-10.6)
[2022-07-31] MEDS ORDERED: amLODIPine 5 MG TAB PO STA ×2 (09:04→11:09)
[2022-07-31] MEDS ORDERED: METOPROLOL TARTRATE 25 MG TAB PO STA (09:04)
--- NOTE | 2022-07-31 09:07 | ED ---
General Adult HPI - General Chief complaint: Recheck/Abnormal Lab/Rx Stated complaint: high blood pressure Time Seen by Provider: 07/31/22 08:49 Source: patient, family, RN notes reviewed Mode of arrival: ambulatory Limitations: no limitations - History of Present Illness Initial comments: Patient is a pleasant 52-year-old female presenting to the emergency department with concerns for high blood pressure. Patient does have history of high blood pressure. Patient states frequently her blood pressure runs high in the past week has been approximately 160/100. No chest pain or dyspnea. Patient has tried to follow-up with cardiology however they have not made changes. Patient is on flexion night as well as Lopressor 25 twice a day. Patient did have some mild leg swelling last week, none since that time. No calf pain. no palpitations. Patient did not take her blood pressure medicine this morning. - Related Data Home Medications Medication Instructions Recorded Confirmed Albuterol Sulfate [Albuterol 2 puff INHALATION RT-Q4H PRN 07/31/22 07/31/22 Sulfate Hfa] Esomeprazole Magnesium [NexIUM] 40 mg PO DAILY 07/31/22 07/31/22 Flecainide Acetate [Tambocor] 100 mg PO BID 07/31/22 07/31/22 Fluticasone/Umeclidin/Vilanter 1 puff INHALATION RT-DAILY PRN 07/31/22 07/31/22 [Trelegy Ellipta 200-62.5-25] HYDROcodone/APAP 10-325MG [Gardiner 1 tab PO DAILY 07/31/22 07/31/22 10-325] Ibuprofen [Advil] 400 mg PO Q8H PRN 07/31/22 07/31/22 Iron Infusion(Unknown) 1 dose IVPB DIRECTED 07/31/22 07/31/22 Magnesium Hydroxide [Milk of 2,400 mg PO DAILY PRN 07/31/22 07/31/22 Magnesia] Metoprolol Tartrate [Lopressor] 25 mg PO BID 07/31/22 07/31/22 Naproxen Sodium [Aleve] 440 mg PO DAILY PRN 07/31/22 07/31/22 Psyllium Husk [Fiber Capsule] 0.4 gm PO DAILY PRN 07/31/22 07/31/22 polyethylene glycoL 3350 [Miralax] 17 gm PO DAILY PRN 07/31/22 07/31/22 Previous Rx's Medication Instructions Recorded amLODIPine [Norvasc] 5 mg PO DAILY #7 tab 07/31/22 Allergies Allergy/AdvReac Type Severity Reaction Status Date / Time Sulfa (Sulfonamide Allergy See Verified 07/31/22 09:55 Antibiotics) comments morphine AdvReac Rapid Verified 07/31/22 09:53 Heart Rate Review of Systems ROS Statement: Those systems with pertinent positive or pertinent negative responses have been documented in the HPI. ROS Other: All systems not noted in ROS Statement are negative. Constitutional: Denies: fever Eyes: Denies: eye pain ENT: Denies: ear pain Respiratory: Denies: cough, dyspnea Cardiovascular: Reports: as per HPI Endocrine: Denies: fatigue Gastrointestinal: Denies: abdominal pain Genitourinary: Denies: dysuria Musculoskeletal: Denies: back pain Past Medical History Past Medical History: Asthma, Chest Pain / Angina, COPD, GERD/Reflux, Hyperlipidemia, Hypertension, Pneumonia Additional Past Medical History / Comment(s): Bronchitis, severe GERD, esophageal spasms, problems with abdominal pain/cramps/constipation and diarrhea, diverticular disease, fatigued for 5-6 yrs, anemia, UTI, urinary incontinence at times, arthritis multiple joints, chronic back and neck pain, bilateral leg sciatica, fatty liver, being checked for thyroid disease, men orrhagia, pt states she had one physician tell her she was "pre" diabetic., immunocompromised (Lup[place]). Lump in groin. paralyzed diaphram. History of Any Multi-Drug Resistant Organisms: None Reported Past Surgical History: Section, Cholecystectomy, Hernia Repair Additional Past Surgical History / Comment(s): EGD, umbilical hernia repair, wisdom teeth extractions. Past Anesthesia/Blood Transfusion Reactions: Postoperative Nausea & Vomiting (PONV) Additional Past Anesthesia/Blood Transfusion Reaction / Comment(s): Difficulty waking. Past Psychological History: Anxiety, Panic Disorder Smoking Status: Never smoker Past Alcohol Use History: None Reported Past Drug Use History: None Reported - Past Family History Father Additional Family Medical History / Comment(s): Pt was adopted and does not know natural father's medical hx. Mother Additional Family Medical History / Comment(s): Pt is adopted and does not know natural mother's medical hx. Brother(s) Family Medical History: Myocardial Infarction ([place]) Additional Family Medical History / Comment(s): Pt does know that her half brother had a [place] at the age of 45yrs. General Exam Limitations: no limitations General appearance: alert, in no apparent distress Head exam: Present: normocephalic Neck exam: Present: normal inspection Respiratory exam: Present: normal lung sounds bilaterally Cardiovascular Exam: Present: regular rate, normal rhythm Extremities exam: Present: normal inspection. Absent: pedal edema, calf tenderness Neurological exam: Present: alert Psychiatric exam: Present: normal affect, normal mood Skin exam: Present: normal color Course Vital Signs 07/31/22 07/31/22 07/31/22 08:19 09:35 10:23 Temperature 98 F Pulse Rate 74 Respiratory 18 Rate Blood Pressure 183/123 170/108 156/95 O2 Sat by Pulse 98 Oximetry EKG Findings - EKG Results: EKG: interpreted by ERMD, sinus rhythm, normal axis, normal QRS, normal ST/T Medical Decision Making - Medical Decision Making Was pt. sent in by a medical professional or institution (, PA, ENRICHMENT TEACHER, urgent care, hospital, or prison...) When possible be specific @ -No Did you speak to anyone other than the patient for history (EMS, parent, family, police, friend...)? What history was obtained from this source @ -No Did you review nursing and triage notes (agree or disagree)? Why? @ -I reviewed and agree with nursing and triage notes Were old charts reviewed (outside hosp., previous admission, EMS record, old EKG, old radiological studies, urgent care reports/EKG's, prison records)? Report findings @ -No old charts were reviewed Differential Diagnosis (chest pain, altered mental status, abdominal pain women, abdominal pain men, vaginal bleeding, weakness, fever, dyspnea, syncope, headache, dizziness, GI bleed, back pain, seizure, CVA, palpatations, mental health)? @ -not applicable EKG interpreted by me (3pts min.). @ -As above X-rays interpreted by me (1pt min.). @ -None done CT interpreted by me (1pt min.). @ -None done U/S interpreted by me (1pt. min.). @ -None done What testing was considered but not performed or refused? (CT, X-rays, U/S, labs )? Why? @ -None What meds were considered but not given or refused? Why? @ -None Did you discuss the management of the patient with other professionals (professionals i.e. , PA, ENRICHMENT TEACHER, lab, RT, psych nurse, aids social worker, coat tailor, teacher, parking enforcement officer, case sealer)? Give summary @ -No Was smoking cessation discussed for >3mins.? @ -No Was critical care preformed (if so, how long)? @ -No Were there social determinants of health that impacted care today? How? (Homelessness, low income, unemployed, alcoholism, drug addiction, transportation, low edu. Level, literacy, decrease access to med. care, retirement, rehab)? @ -No Was there de-escalation of care discussed even if they declined (Discuss DNR or withdrawal of care, Hospice)? DNR status @ -No What co-morbidities impacted this encounter? (DM, HTN, Smoking, COPD, CAD, Cancer, CVA, ARF, Chemo, Hep., AIDS, mental health diagnosis, sleep apnea, morbid obesity)? @ -None Was patient admitted / discharged? Hospital course, mention meds given and route, prescriptions, significant lab abnormalities, going to OR and other pertinent info. @ -Patient reevaluated. Blood pressure has somewhat improved. Patient would like to go home. Patient will be given an additional small dose of Norvasc as well as prescription for when necessary Norvasc. Patient is advised to have close follow-up with both cardiology as well as primary care physician. She will have to establish primary care physician through her insurance based off what she tells me. Undiagnosed new problem with uncertain prognosis? @ -No Drug Therapy requiring intensive monitoring for toxicity (Heparin, Nitro, Insulin, Cardizem)? @ -No Were any procedures done? @ -No Diagnosis/symptom? @ -Hypertensive urgency] Acute, or Chronic, or Acute on Chronic? @ -Acute Uncomplicated (without systemic symptoms) or Complicated (systemic symptoms)? @ -default Side effects of treatment? @ -No Exacerbation, Progression, or Severe Exacerbation? @ -No Poses a threat to life or bodily function? How? (Chest pain, [place], [place], pneumonia, PE, COPD, DKA, ARF, appy, cholecystitis, CVA, Diverticulitis, Homicidal, Suicidal, threat to staff... and all critical care pts) @ -No - Lab Data Result diagrams: 07/31/22 08:40 07/31/22 08:40 Lab Results 07/31/22 07/31/22 Range/Units 08:40 08:40 WBC 4.5 (3.8-10.6) k/uL RBC 5.31 (3.80-5.40) m/uL Hgb 15.5 (11.4-16.0) gm/dL Hct 45.9 (34.0-46.0) % MCV 86.4 (80.0-100.0) fL MCH 29.2 (25.0-35.0) pg MCHC 33.8 (31.0-37.0) g/dL RDW 13.0 (11.5-15.5) % Plt Count 211 (150-450) k/uL MPV 7.9 Neutrophils % 72 % Lymphocytes % 18 % Monocytes % 5 % Eosinophils % 3 % Basophils % 1 % Neutrophils # 3.2 (1.3-7.7) k/uL Lymphocytes # 0.8 L (1.0-4.8) k/uL Monocytes # 0.2 (0-1.0) k/uL Eosinophils # 0.1 (0-0.7) k/uL Basophils # 0.0 (0-0.2) k/uL Sodium 138 (137-145) mmol/L Potassium 4.0 (3.5-5.1) mmol/L Chloride 102 (98-107) mmol/L Carbon Dioxide 27 (22-30) mmol/L Anion Gap 9 mmol/L BUN 10 (7-17) mg/dL Creatinine 0.47 L (0.52-1.04) mg/dL Est GFR (CKD-EPI)AfAm >90 (>60 ml/min/1.73 sqM) Est GFR (CKD-EPI)NonAf >90 (>60 ml/min/1.73 sqM) Glucose 105 H (74-99) mg/dL Calcium 9.2 (8.4-10.2) mg/dL Total Bilirubin 1.0 (0.2-1.3) mg/dL AST 44 H (14-36) U/L ALT 42 H (4-34) U/L Alkaline Phosphatase 98 (38-126) U/L Total Protein 7.6 (6.3-8.2) g/dL Albumin 4.3 (3.5-5.0) g/dL Disposition Clinical Impression: Hypertensive urgency Disposition: HOME SELF-CARE Condition: Stable Instructions (If sedation given, give patient instructions): Hypertension (ED) Additional Instructions: Prescription sent to pharmacy. Please use additional dose of Norvasc and blood pressure is greater than 185/90 despite other medications one hour previously. Return for increased blood pressure, change or worsening symptoms or any other concerns. Please do follow-up with your primary care physician in the next one to 2 days for recheck. Please also follow-up with cardiology in the next couple days for recheck. Prescriptions: amLODIPine [Norvasc] 5 mg PO DAILY #7 tab Is patient prescribed a controlled substance at d/c from ED?: No Referrals: Millie Bella MD [STAFF PHYSICIAN] - 1-2 days Time of Disposition: 11:13
[2022-07-31 09:15] LABS: ALT 42 U/L (4-34); AST 44 U/L (14-36); African American GFR (CKD) >90 (>60 ml/min/1.73 sqM); Albumin 4.3 g/dL (3.5-5.0); Alkaline Phosphatase 98 U/L (38-126); Anion Gap 9 mmol/L; Blood Urea Nitrogen 10 mg/dL (7-17); Calcium 9.2 mg/dL (8.4-10.2); Carbon Dioxide 27 mmol/L (22-30); Chloride 102 mmol/L (98-107); Glucose 105 mg/dL (74-99); Non-African American GFR(CKD) >90 (>60 ml/min/1.73 sqM); Sodium 138 mmol/L (137-145); Total Protein 7.6 g/dL (6.3-8.2)
[2022-07-31] MEDS ORDERED: amLODIPine 2.5 MG TAB PO STA (11:11)
[2022-07-31 11:41] VITALS: BP 159/87
[2022-07-31 11:51] VITALS: PULSE 66
== END 2022-07-31 11:51 | disposition home or self-care (01) ==
LOC: EC 08:12
DX: I16.0 Hypertensive urgency (principal); E11.9 Type 2 diabetes mellitus without complications; E78.5 Hyperlipidemia, unspecified; I10 Essential (primary) hypertension; J44.9 Chronic obstructive pulmonary disease, unspecified; K21.9 Gastro-esophageal reflux disease without esophagitis; Z79.1 Long term (current) use of non-steroidal anti-inflammatories (NSAID); Z79.899 Other long term (current) drug therapy; Z88.1 Allergy status to other antibiotic agents; Z88.2 Allergy status to sulfonamides; Z88.5 Allergy status to narcotic agent
CPT/HCPCS: 36415; 80053; 85025; 93005; 99284

== ENCOUNTER → 2022-08-24 | Outpatient (CLI) | payer BC ==
--- NOTE | 2022-08-25 10:00 | CA ---
Transthoracic Echo Report Name: Sherri Benson Age: 52 Gender: F : 1970 Exam Date: 08/24/2022 14:52 Exam Location: [facility] Ht (in): 65 Wt (lb): 340 Ordering Physician: Alana Vega DO Attending/Referring Phys: Alana Vega DO Radio Commentator Shelby Gray RDCS Procedure CPT: Indications: R06.00 Cardiac Hx: Technical Quality: Fair Contrast 1: Total Dose (mL): Contrast 2: Total Dose (mL): MEASUREMENTS (Male / Female) Normal Values 2D ECHO LV Diastolic Diameter PLAX 4.1 cm 4.2 - 5.9 / 3.9 - 5.3 cm LV Systolic Diameter PLAX 2.4 cm IVS Diastolic Thickness 1.4 cm 0.6 - 1.0 / 0.6 - 0.9 cm LVPW Diastolic Thickness 1.2 cm 0.6 - 1.0 / 0.6 - 0.9 cm LV Relative Wall Thickness 0.6 RV Internal Dim ED PLAX 4.0 cm LA Volume 77.7 cm??? 18 - 58 / 22 - 52 cm??? M-MODE Aortic Root Diameter MM 3.5 cm LA Systolic Diameter MM 5.1 cm LA Ao Ratio MM 1.5 AV Cusp Separation MM 1.6 cm DOPPLER AV Peak Velocity 132.9 cm/s AV Peak Gradient 7.1 mmHg AV Mean Velocity 95.2 cm/s AV Mean Gradient 4.0 mmHg AV Velocity Time Integral 26.8 cm LVOT Peak Velocity 107.7 cm/s LVOT Peak Gradient 4.6 mmHg LVOT Velocity Time Integral 22.1 cm MV Area PHT 5.1 cm??? Mitral E Point Velocity 107.3 cm/s Mitral A Point Velocity 118.1 cm/s Mitral E to A Ratio 0.9 MV Deceleration Time 149.8 ms MV E' Velocity 6.4 cm/s Mitral E to MV E' Ratio 16.8 TR Peak Velocity 150.9 cm/s TR Peak Gradient 9.1 mmHg Right Ventricular Systolic Press 14.1 mmHg FINDINGS Left Ventricle Moderately increased left ventricular wall thickness. Left ventricular cavity size normal. Normal left ventricular systolic function with no obvious regional wall motion abnormalities. Left ventricular ejection fraction is estimated at 50-55 %. Right Ventricle Moderate right ventricular dilatation. Right ventricular systolic pressure within normal limits. Right Atrium Normal right atrial size. Left Atrium Severely increased left atrial volume. Mildly increased left atrial area. Mitral Valve Structurally normal mitral valve. Mild mitral regurgitation. Aortic Valve No aortic valve stenosis or regurgitation. Tricuspid Valve Structurally normal tricuspid valve. Mild tricuspid regurgitation. Pulmonic Valve Structurally normal pulmonic valve. Pericardium No pericardial effusion. Aorta Normal size aortic root and proximal ascending aorta. CONCLUSIONS Moderate increased left ventricular wall thickness Left ventricular ejection fraction 50-55% Moderately dilated left atrium Mild mitral regurgitation Mild tricuspid regurgitation No pericardial effusion Previewed by: Dr. Case Montelongo DO (Electronically Signed) Final Date: 25 August 2022 10:00
== END | disposition home or self-care (01) ==
LOC: RADECHMAIN 14:44
PROVIDERS: ATTEND Internal Medicine Critical Care Medicine
DX: I08.1 Rheumatic disorders of both mitral and tricuspid valves (principal); R06.00 Dyspnea, unspecified
CPT/HCPCS: 93306

== ENCOUNTER → 2022-08-24 | Outpatient (CLI) | payer BC ==
[2022-08-25 01:55] LABS: Basophils # (A) 0.06 X 10*3/uL (0.00-0.10); Eosinophils # (A) 0.16 X 10*3/uL (0.04-0.35); Eosinophils % (A) 2.6 %; HCT 48.4 % (37.2-46.3); HGB 15.7 g/dL (12.0-15.0); Immature Grans, Automated 0.3 %; Lymphocytes # (A) 1.36 X 10*3/uL (0.90-5.00); Lymphocytes % (A) 21.9 %; MCH 28.4 pg (27.0-32.0); MCHC 32.4 g/dL (32.0-37.0); MCV 87.7 fL (80.0-97.0); Mean Platelet Volume 10.4 fL (9.5-12.2); Monocytes # (A) 0.39 X 10*3/uL (0.20-1.00); Monocytes % (A) 6.3 %; NRBC Per 100 WBC 0 /100 WBCS (0.0-0.0); Neutrophils # (A) 4.21 X 10*3/uL (1.80-7.70); Neutrophils % (A) 67.9 %; Platelet Count 247 X 10*3/uL (140-440); RBC 5.52 X 10*6/uL (4.10-5.20); RDW 13.4 % (11.5-14.5)
[2022-08-25 02:28] LABS: Immunoglobulin E 3.62 IU/mL (0.00-114.00)
== END | disposition home or self-care (01) ==
LOC: LABWHC1 15:22
PROVIDERS: ATTEND Internal Medicine Critical Care Medicine
DX: J44.9 Chronic obstructive pulmonary disease, unspecified (principal)
CPT/HCPCS: 36415; 82103; 82785; 85025

== ENCOUNTER 2022-09-18 12:16 | Emergency (ER) | payer BC ==
[2022-09-18 12:51] LABS: Basophils % (A) 1 %; Eosinophils # (A) 0.1 k/uL (0-0.7); Eosinophils % (A) 2 %; HGB 15.5 gm/dL (11.4-16.0); Lymphocytes % (A) 14 %; MCH 28.7 pg (25.0-35.0); MCHC 33.8 g/dL (31.0-37.0); MCV 85.1 fL (80.0-100.0); Mean Platelet Volume 8.1; Monocytes # (A) 0.2 k/uL (0-1.0); Monocytes % (A) 3 %; Neutrophils # (A) 5.5 k/uL (1.3-7.7); Neutrophils % (A) 79 %; Platelet Count 246 k/uL (150-450); RBC 5.41 m/uL (3.80-5.40); RDW 13.7 % (11.5-15.5)
[2022-09-18 13:01] LABS: ALT 35 U/L (4-34); AST 41 U/L (14-36); African American GFR (CKD) >90 (>60 ml/min/1.73 sqM); Albumin 4.3 g/dL (3.5-5.0); Alkaline Phosphatase 108 U/L (38-126); Anion Gap 9 mmol/L; Blood Urea Nitrogen 10 mg/dL (7-17); Calcium 9.1 mg/dL (8.4-10.2); Carbon Dioxide 27 mmol/L (22-30); Chloride 100 mmol/L (98-107); Glucose 101 mg/dL (74-99); Non-African American GFR(CKD) >90 (>60 ml/min/1.73 sqM); Potassium 4.2 mmol/L (3.5-5.1); Sodium 136 mmol/L (137-145); Total Bilirubin 0.9 mg/dL (0.2-1.3); Total Protein 7.7 g/dL (6.3-8.2)
[2022-09-18 13:08] LABS: Appearance,Urine Clear (Clear); Bilirubin,Urine Negative (Negative); Blood,Urine Negative (Negative); Color,Urine Colorless; Glucose,Urine (UA) Negative (Negative); Ketones,Urine Negative (Negative); Leukocyte Esterase,Urine Negative (Negative); Nitrite,Urine Negative (Negative); Protein,Urine Negative (Negative); Specific Gravity,Urine 1.002 (1.001-1.035); Urobilinogen,Urine <2.0 mg/dL (<2.0)
[2022-09-18 13:21] LABS: Partial Thromboplastin Time 27.8 sec (22.0-30.0)
[2022-09-18] MEDS ORDERED: SODIUM CHLORIDE 0.9% 500 ML 500 ML IV STA (13:35)
[2022-09-18 14:05] LABS: Magnesium 1.8 mg/dL (1.6-2.3)
--- NOTE | 2022-09-18 14:09 | ED ---
General Adult HPI - General Chief complaint: Weakness Stated complaint: Hypertension Time Seen by Provider: 09/18/22 13:15 Source: patient, EMS, RN notes reviewed, old records reviewed Mode of arrival: EMS Limitations: no limitations - History of Present Illness Initial comments: This is a 52-year-old female who presents to the emergency department comp laining of multiple complaints. I asked her what was wrong patient states she's been sick her whole life. And she states for the last 3 years she's been feeling weak and tired. Patient states she stopped seeing her primary medical care doctor 6 months ago. Patient states she went and saw an flask maker they told her that she was supposed to take Synthroid which she has not taken any Synthroid. Patient comes in today because she's feeling weaker and just doesn't feel well. Patient states she hasn't felt well in years. Patient states her heart rate got down to 52 today so that was concerning to her as well. Patient states her blood pressure was high it was 147/94. Patient also states she feels dehydrated so she drank a lot of water today. Patient also states she had some burning in urination. - Related Data Home Medications Medication Instructions Recorded Confirmed Albuterol Sulfate [Albuterol 2 puff INHALATION RT-Q4H PRN 07/31/22 07/31/22 Sulfate Hfa] Esomeprazole Magnesium [NexIUM] 40 mg PO DAILY 07/31/22 07/31/22 Flecainide Acetate [Tambocor] 100 mg PO BID 07/31/22 07/31/22 Fluticasone/Umeclidin/Vilanter 1 puff INHALATION RT-DAILY PRN 07/31/22 07/31/22 [Trelegy Ellipta 200-62.5-25] HYDROcodone/APAP 10-325MG [Mystic 1 tab PO DAILY 07/31/22 07/31/22 10-325] Ibuprofen [Advil] 400 mg PO Q8H PRN 07/31/22 07/31/22 Iron Infusion(Unknown) 1 dose IVPB DIRECTED 07/31/22 07/31/22 Magnesium Hydroxide [Milk of 2,400 mg PO DAILY PRN 07/31/22 07/31/22 Magnesia] Metoprolol Tartrate [Lopressor] 25 mg PO BID 07/31/22 07/31/22 Naproxen Sodium [Aleve] 440 mg PO DAILY PRN 07/31/22 07/31/22 Psyllium Husk [Fiber Capsule] 0.4 gm PO DAILY PRN 07/31/22 07/31/22 polyethylene glycoL 3350 [Miralax] 17 gm PO DAILY PRN 07/31/22 07/31/22 Previous Rx's Medication Instructions Recorded amLODIPine [Norvasc] 5 mg PO DAILY #7 tab 07/31/22 Allergies Allergy/AdvReac Type Severity Reaction Status Date / Time Sulfa (Sulfonamide Allergy See Verified 07/31/22 09:55 Antibiotics) comments morphine AdvReac Rapid Verified 07/31/22 09:53 Heart Rate Review of Systems ROS Statement: Those systems with pertinent positive or pertinent negative responses have been documented in the HPI. ROS Other: All systems not noted in ROS Statement are negative. Past Medical History Past Medical History: Asthma, Chest Pain / Angina, COPD, GERD/Reflux, Hyperlipidemia, Hypertension, Pneumonia Additional Past Medical History / Comment(s): Bronchitis, severe GERD, esophageal spasms, problems with abdominal pain/cramps/constipation and diarrhea, diverticular disease, fatigued for 5-6 yrs, anemia, UTI, urinary in continence at times, arthritis multiple joints, chronic back and neck pain, bilateral leg sciatica, fatty liver, being checked for thyroid disease, menorrhagia, pt states she had one physician tell her she was "pre" diabetic., immunocompromised (Lup[place]). Lump in groin. paralyzed diaphram. History of Any Multi-Drug Resistant Organisms: None Reported Past Surgical History: Section, Cholecystectomy, Hernia Repair Additional Past Surgical History / Comment(s): EGD, umbilical hernia repair, wisdom teeth extractions. Past Anesthesia/Blood Transfusion Reactions: Postoperative Nausea & Vomiting (PONV) Additional Past Anesthesia/Blood Transfusion Reaction / Comment(s): Difficulty waking. Past Psychological History: Anxiety, Panic Disorder Smoking Status: Never smoker Past Alcohol Use History: None Reported Past Drug Use History: None Reported - Past Family History Father Additional Family Medical History / Comment(s): Pt was adopted and does not know natural father's medical hx. Mother Additional Family Medical History / Comment(s): Pt is adopted and does not know natural mother's medical hx. Brother(s) Family Medical History: Myocardial Infarction ([place]) Additional Family Medical History / Comment(s): Pt does know that her half brother had a OH at the age of 45yrs. General Exam - General Exam Comments Initial Comments: GENERAL: Patient is well-developed and well-nourished. Patient is nontoxic and well- hydrated and is in no acute distress ENT: Neck is soft and supple. No significant lymphadenopathy is noted. Oropharynx is clear. Moist mucous membranes. Neck has full range of motion without eliciting any pain. EYES: The sclera were anicteric and conjunctiva were pink and moist. Extraocular movements were intact and pupils were equal round and reactive to light. Eyelids were unremarkable. PULMONARY: Unlabored respirations. Good breath sounds bilaterally. No audible rales rhonchi or wheezing was noted. CARDIOVASCULAR: There is a regular rate and rhythm without any murmurs gallops or rubs. ABDOMEN: Soft and nontender with normal bowel sounds. SKIN: Skin is clear with no lesions or rashes and otherwise unremarkable. NEUROLOGIC: Patient is alert and oriented x3. Cranial nerves II through XII are grossly intact. Motor and sensory are also intact. Normal speech, volume and content. Symmetrical smile. MUSCULOSKELETAL: Normal extremities with adequate strength and full range of motion. LYMPHATICS: No significant lymphadenopathy is noted PSYCHIATRIC: Normal psychiatric evaluation. Limitations: no limitations Course Vital Signs 09/18/22 12:26 Temperature 98.2 F Pulse Rate 75 Respiratory 20 Rate Blood Pressure 149/90 O2 Sat by Pulse 100 Oximetry Medical Decision Making - Medical Decision Making I interpreted EKG shows a sinus rhythm at 66 bpm FL interval is 253 QRS is 107 QT interval 436 QTC is 417. Patient's EKG shows no ST segment elevation or de pression Was pt. sent in by a medical professional or institution (, PA, GAS CONTROLLER, urgent care, hospital, or [facility]...) When possible be specific @ -No Did you speak to anyone other than the patient for history (EMS, parent, family, police, friend...)? What history was obtained from this source @ -No Did you review nursing and triage notes (agree or disagree)? Why? @ -I reviewed and agree with nursing and triage notes Were old charts reviewed (outside hosp., previous admission, EMS record, old EKG, old radiological studies, urgent care reports/EKG's, [facility] records)? Report findings @ -I reviewed prior lab work in prior charts of this patient. Differential Diagnosis (chest pain, altered mental status, abdominal pain women, abdominal pain men, vaginal bleeding, weakness, fever, dyspnea, syncope, headache, dizziness, GI bleed, back pain, seizure, CVA, palpatations, mental health, musculoskeletal)? @ -Differential Weakness: Hypoglycemia, shock, sepsis, hyponatremia, anemia, infection, OH, ETOH, adverse medicine reaction, overdose, stroke, this is not meant to be an all-inclusive li st. EKG interpreted by me (3pts min.). @ -As above X-rays interpreted by me (1pt min.). @ -Chest x-ray is interpreted by myself. Chest x-ray shows no acute abnormality. CT interpreted by me (1pt min.). @ -None done U/S interpreted by me (1pt. min.). @ -None done What testing was considered but not performed or refused? (CT, X-rays, U/S, labs)? Why? @ -None What meds were considered but not given or refused? Why? @ -None Did you discuss the management of the patient with other professionals (professionals i.e. , PA, GAS CONTROLLER, lab, RT, psych nurse, child welfare social worker, dish technician, teacher, probation officer, case monitor)? Give summary @ -No Was smoking cessation discussed for >3mins.? @ -No Was critical care preformed (if so, how long)? @ -No Were there social determinants of health that impacted care today? How? (Homelessness, low income, unemployed, alcoholism, drug addiction, transportation, low edu. Level, literacy, decrease access to med. care, senior care, rehab)? @ -No Was there de-escalation of care discussed even if they declined (Discuss DNR or withdrawal of care, Hospice)? DNR status @ -No What co-morbidities impacted this encounter? (DM, HTN, Smoking, COPD, CAD, Cancer, CVA, ARF, Chemo, Hep., AIDS, mental health diagnosis, sleep apnea, morbid obesity)? @ -None Was patient admitted / discharged? Hospital course, mention meds given and route, prescriptions, significant lab abnormalities, going to OR and other pertinent info. @ -Patient continued to feel tired in the emergency department however she states this is a 3 year episode. Patient states that it was a little worse over the last couple of days. It is no time did she seem in any distress and she is able to move around quite easily in bed. Patient was informed of all of her lab results and she was willing to go home and follow-up with Dr. Romero Undiagnosed new problem with uncertain prognosis? @ -No Drug Therapy requiring intensive monitoring for toxicity (Heparin, Nitro, Insulin, Cardizem)? @ -No Were any procedures done? @ -No Diagnosis/symptom? @ -Weakness Acute, or Chronic, or Acute on Chronic? @ -Acute Uncomplicated (without systemic symptoms) or Complicated (systemic symptoms)? @ -Uncomplicated Side effects of treatment? @ -No Exacerbation, Progression, or Severe Exacerbation? @ -No Poses a threat to life or bodily function? How? (Chest pain, [place], [place], pneumonia, PE, COPD, DKA, ARF, appy, cholecystitis, CVA, Diverticulitis, Homicidal, Suicidal, threat to staff... and all critical care pts) @ -No - Lab Data Result diagrams: 09/18/22 12:43 09/18/22 12:42 Lab Results 09/18/22 09/18/22 09/18/22 Range/Units 12:42 12:42 12:42 WBC (3.8-10.6) k/uL RBC (3.80-5.40) m/uL Hgb (11.4-16.0) gm/dL Hct (34.0-46.0) % MCV (80.0-100.0) fL MCH (25.0-35.0) pg MCHC (31.0-37.0) g/dL RDW (11.5-15.5) % Plt Count (150-450) k/uL MPV Neutrophils % % Lymphocytes % % Monocytes % % Eosinophils % % Basophils % % Neutrophils # (1.3-7.7) k/uL Lymphocytes # (1.0-4.8) k/uL Monocytes # (0-1.0) k/uL Eosinophils # (0-0.7) k/uL Basophils # (0-0.2) k/uL PT 11.0 (9.0-12.0) sec INR 1.0 (<1.2) APTT 27.8 (22.0-30.0) sec Sodium 136 L (137-145) mmol/L Potassium 4.2 (3.5-5.1) mmol/L Chloride 100 (98-107) mmol/L Carbon Dioxide 27 (22-30) mmol/L Anion Gap 9 mmol/L BUN 10 (7-17) mg/dL Creatinine 0.45 L (0.52-1.04) mg/dL Est GFR (CKD-EPI)AfAm >90 (>60 ml/min/1.73 sqM) Est GFR (CKD-EPI)NonAf >90 (>60 ml/min/1.73 sqM) Glucose 101 H (74-99) mg/dL Plasma Lactic Acid Tono 1.1 (0.7-2.0) mmol/L Calcium 9.1 (8.4-10.2) mg/dL Magnesium (1.6-2.3) mg/dL Total Bilirubin 0.9 (0.2-1.3) mg/dL AST 41 H (14-36) U/L ALT 35 H (4-34) U/L Alkaline Phosphatase 108 (38-126) U/L Troponin I (0.000-0.034) ng/mL Total Protein 7.7 (6.3-8.2) g/dL Albumin 4.3 (3.5-5.0) g/dL TSH (0.465-4.680) mIU/L Urine Color Urine Appearance (Clear) Urine pH (5.0-8.0) Ur Specific [place] (1.001-1.035) Urine Protein (Negative) Urine Glucose (UA) (Negative) Urine Ketones (Negative) Urine Blood (Negative) Urine Nitrite (Negative) Urine Bilirubin (Negative) Urine Urobilinogen (<2.0) mg/dL Ur Leukocyte Esterase (Negative) 09/18/22 09/18/22 09/18/22 Range/Units 12:42 12:43 12:43 WBC 7.0 (3.8-10.6) k/uL RBC 5.41 H (3.80-5.40) m/uL Hgb 15.5 (11.4-16.0) gm/dL Hct 46.0 (34.0-46.0) % MCV 85.1 (80.0-100.0) fL MCH 28.7 (25.0-35.0) pg MCHC 33.8 (31.0-37.0) g/dL RDW 13.7 (11.5-15.5) % Plt Count 246 (150-450) k/uL MPV 8.1 Neutrophils % 79 % Lymphocytes % 14 % Monocytes % 3 % Eosinophils % 2 % Basophils % 1 % Neutrophils # 5.5 (1.3-7.7) k/uL Lymphocytes # 1.0 (1.0-4.8) k/uL Monocytes # 0.2 (0-1.0) k/uL Eosinophils # 0.1 (0-0.7) k/uL Basophils # 0.0 (0-0.2) k/uL PT (9.0-12.0) sec INR (<1.2) APTT (22.0-30.0) sec Sodium (137-145) mmol/L Potassium (3.5-5.1) mmol/L Chloride (98-107) mmol/L Carbon Dioxide (22-30) mmol/L Anion Gap mmol/L BUN (7-17) mg/dL Creatinine (0.52-1.04) mg/dL Est GFR (CKD-EPI)AfAm (>60 ml/min/1.73 sqM) Est GFR (CKD-EPI)NonAf (>60 ml/min/1.73 sqM) Glucose (74-99) mg/dL Plasma Lactic Acid Tono (0.7-2.0) mmol/L Calcium (8.4-10.2) mg/dL Magnesium (1.6-2.3) mg/dL Total Bilirubin (0.2-1.3) mg/dL AST (14-36) U/L ALT (4-34) U/L Alkaline Phosphatase (38-126) U/L Troponin I <0.012 (0.000-0.034) ng/mL Total Protein (6.3-8.2) g/dL Albumin (3.5-5.0) g/dL TSH (0.465-4.680) mIU/L Urine Color Colorless Urine Appearance Clear (Clear) Urine pH 6.0 (5.0-8.0) Ur Specific [place] 1.002 (1.001-1.035) Urine Protein Negative (Negative) Urine Glucose (UA) Negative (Negative) Urine Ketones Negative (Negative) Urine Blood Negative (Negative) Urine Nitrite Negative (Negative) Urine Bilirubin Negative (Negative) Urine Urobilinogen <2.0 (<2.0) mg/dL Ur Leukocyte Esterase Negative (Negative) 09/18/22 Range/Units 13:53 WBC (3.8-10.6) k/uL RBC (3.80-5.40) m/uL Hgb (11.4-16.0) gm/dL Hct (34.0-46.0) % MCV (80.0-100.0) fL MCH (25.0-35.0) pg MCHC (31.0-37.0) g/dL RDW (11.5-15.5) % Plt Count (150-450) k/uL MPV Neutrophils % % Lymphocytes % % Monocytes % % Eosinophils % % Basophils % % Neutrophils # (1.3-7.7) k/uL Lymphocytes # (1.0-4.8) k/uL Monocytes # (0-1.0) k/uL Eosinophils # (0-0.7) k/uL Basophils # (0-0.2) k/uL PT (9.0-12.0) sec INR (<1.2) APTT (22.0-30.0) sec Sodium (137-145) mmol/L Potassium (3.5-5.1) mmol/L Chloride (98-107) mmol/L Carbon Dioxide (22-30) mmol/L Anion Gap mmol/L BUN (7-17) mg/dL Creatinine (0.52-1.04) mg/dL Est GFR (CKD-EPI)AfAm (>60 ml/min/1.73 sqM) Est GFR (CKD-EPI)NonAf (>60 ml/min/1.73 sqM) Glucose (74-99) mg/dL Plasma Lactic Acid Tono (0.7-2.0) mmol/L Calcium (8.4-10.2) mg/dL Magnesium 1.8 (1.6-2.3) mg/dL Total Bilirubin (0.2-1.3) mg/dL AST (14-36) U/L ALT (4-34) U/L Alkaline Phosphatase (38-126) U/L Troponin I (0.000-0.034) ng/mL Total Protein (6.3-8.2) g/dL Albumin (3.5-5.0) g/dL TSH 3.360 (0.465-4.680) mIU/L Urine Color Urine Appearance (Clear) Urine pH (5.0-8.0) Ur Specific [place] (1.001-1.035) Urine Protein (Negative) Urine Glucose (UA) (Negative) Urine Ketones (Negative) Urine Blood (Negative) Urine Nitrite (Negative) Urine Bilirubin (Negative) Urine Urobilinogen (<2.0) mg/dL Ur Leukocyte Esterase (Negative) Disposition Clinical Impression: Weakness Disposition: HOME SELF-CARE Condition: Good Is patient prescribed a controlled substance at d/c from ED?: No Referrals: None,Stated [Primary Care Provider] - 1-2 days Forms: Area PCPs Time of Disposition: 14:48
--- NOTE | 2022-09-18 14:15 | XR ---
EXAMINATION TYPE: XR chest 2V DATE OF EXAM: 09/18/2022 2:07 PM COMPARISON: Chest radiographs from 07/16/2018, suggestive test 04/06/2022 TECHNIQUE: XR chest 2V Frontal and lateral views of the chest. CLINICAL INDICATION:Female, 52 years old with history of Weakness; FINDINGS: Lungs/Pleura: There is no evidence of pleural effusion, focal consolidation, or pneumothorax. Elevat ed right hemidiaphragm compatible with known right hemidiaphragmatic paralysis. Pulmonary vascularity: Unremarkable. Heart/mediastinum: Cardiomediastinal silhouette is unremarkable. Musculoskeletal: No acute osseous pathology. IMPRESSION: Chronic changes without evidence for acute process.
[2022-09-18 15:20] VITALS: BP 132/90; PULSE 75; RESP 12; TEMP 98
== END 2022-09-18 15:20 | disposition home or self-care (01) ==
LOC: EC 12:16
DX: R53.1 Weakness (principal); I10 Essential (primary) hypertension; E11.9 Type 2 diabetes mellitus without complications; E78.5 Hyperlipidemia, unspecified; J44.9 Chronic obstructive pulmonary disease, unspecified; K21.9 Gastro-esophageal reflux disease without esophagitis; F41.9 Anxiety disorder, unspecified; Z79.899 Other long term (current) drug therapy; Z88.1 Allergy status to other antibiotic agents; Z88.2 Allergy status to sulfonamides; Z88.5 Allergy status to narcotic agent; Z90.49 Acquired absence of other specified parts of digestive tract
CPT/HCPCS: 36415; 71046; 80053; 81003; 83605; 83735; 84443; 84484; 85025; 85610; 85730; 93005; 96360; 99285

== ENCOUNTER 2023-03-27 11:42 | Emergency (ER) | payer BC ==
[2023-03-27 11:57] VITALS: BP 146/87; PULSE 63; TEMP 98.7
[2023-03-27 12:15] LABS: Appearance,Urine Clear (Clear); Bilirubin,Urine Negative (Negative); Blood,Urine Negative (Negative); Color,Urine Colorless; Glucose,Urine (UA) Negative (Negative); Ketones,Urine Negative (Negative); Leukocyte Esterase,Urine Negative (Negative); Nitrite,Urine Negative (Negative); PH, Urine 5.5 (5.0-8.0); Protein,Urine Negative (Negative); Specific Gravity,Urine 1.002 (1.001-1.035); Urobilinogen,Urine <2.0 mg/dL (<2.0)
[2023-03-27] MEDS ORDERED: KETOROLAC 15 MG/ML 1 ML VIAL IVP STA (12:30)
--- NOTE | 2023-03-27 12:59 | ED ---
Abdominal Pain HPI - General Chief Complaint: Abdominal Pain Stated Complaint: Abd Pain Source: patient Mode of arrival: ambulatory Limitations: no limitations - History of Present Illness Initial Comments: This 52-year-old female presents with complaint of abdominal pain. She states that it is in her mid abdominal region as well as her left lower quadrant. It is intermittent in nature. She states that it feels sharp when it comes on and is fairly severe. It started this past evening. She was just here 2 months ago for acute diverticulitis but states that her current symptomatology is somewhat different. She has had constipation problems chronically noted has been s omewhat worse over the past one week. She's taken medications for her constipation and also states that she has to take herself of regularly congested so a couple days ago. She denies any urinary symptomatology. She does note occasional blood but is unsure if this is related to her periods versus hematuria. She denies any fevers or chills. She has had occasional mild nausea but no vomiting. No flank pain. She does relate a history of previous umbilical hernia which was repaired in 2005 with mesh. No other complaints or modifying factors. - Related Data Home Medications Medication Instructions Recorded Confirmed Esomeprazole Magnesium [NexIUM] 40 mg PO DAILY 07/31/22 03/27/23 Flecainide Acetate [Tambocor] 100 mg PO BID 07/31/22 03/27/23 Metoprolol Tartrate [Lopressor] 25 mg PO BID 07/31/22 03/27/23 Naproxen Sodium [Aleve] 440 mg PO DAILY PRN 07/31/22 03/27/23 Famotidine [Pepcid AC] 10 mg PO BID PRN 03/27/23 03/27/23 Fluticasone/Umeclidin/Vilanter 1 puff INHALATION RT-DAILY 03/27/23 03/27/23 [Trelegy Ellipta 100-62.5-25] HYDROcodone/APAP 10-325MG [[place] 1 tab PO DAILY PRN 03/27/23 03/27/23 10-325] Hydrocortisone Cream 1 applic TOPICAL BID PRN 03/27/23 03/27/23 [Hydrocortisone 2.5% Cream] Ketoconazole 2% Cream [Nizoral 2%] 1 applic TOPICAL DAILY PRN 03/27/23 03/27/23 amLODIPine [Norvasc] 5 mg PO BID 03/27/23 03/27/23 Previous Rx's Medication Instructions Recorded Levofloxacin [Levaquin] 500 mg PO DAILY 1 Days #10 tab 03/27/23 metroNIDAZOLE [Flagyl] 500 mg PO BID #20 tab 03/27/23 Allergies Allergy/AdvReac Type Severity Reaction Status Date / Time Sulfa (Sulfonamide Allergy See Verified 03/27/23 13:49 Antibiotics) comments morphine AdvReac Rapid Verified 03/27/23 13:49 Heart Rate Review of Systems ROS Statement: Those systems with pertinent positive or pertinent negative responses have been documented in the HPI. ROS Other: All systems not noted in ROS Statement are negative. Past Medical History Past Medical History: Asthma, Chest Pain / Angina, COPD, GERD/Reflux, Hyperlipidemia, Hypertension, Pneumonia Additional Past Medical History / Comment(s): Bronchitis, severe GERD, esophageal spasms, problems with abdominal pain/cramps/constipation and diarrhea, diverticular disease, fatigued for 5-6 yrs, anemia, UTI, urinary incontinence at times, arthritis multiple joints, chronic back and neck pain, bilateral leg sciatica, fatty liver, being checked for thyroid disease, m enorrhagia, pt states she had one physician tell her she was "pre" diabetic., immunocompromised (Lupas). Lump in groin. paralyzed diaphram. History of Any Multi-Drug Resistant Organisms: None Reported Past Surgical History: Section, Cholecystectomy, Hernia Repair Additional Past Surgical History / Comment(s): EGD, umbilical hernia repair, wisdom teeth extractions. Past Anesthesia/Blood Transfusion Reactions: Postoperative Nausea & Vomiting (PONV) Additional Past Anesthesia/Blood Transfusion Reaction / Comment(s): Difficulty waking. Past Psychological History: Anxiety, Panic Disorder Smoking Status: Never smoker Past Alcohol Use History: None Reported Past Drug Use History: None Reported - Past Family History Father Additional Family Medical History / Comment(s): Pt was adopted and does not know natural father's medical hx. Mother Additional Family Medical History / Comment(s): Pt is adopted and does not know natural mother's medical hx. Brother(s) Family Medical History: Myocardial Infarction (OR) Additional Family Medical History / Comment(s): Pt does know that her half brother had a OR at the age of 45yrs. General Exam - General Exam Comments Initial Comments: GENERAL: The patient is well nourished and well hydrated. VITAL SIGNS: Heart rate, blood pressure, respiratory rate reviewed as recorded in nurse's notes. EYES: Pupils are round and reactive. Extraocular movements are intact. No conjunctival / lid redness or swelling. ENT: No external evidence of injury, swelling, or ecchymosis. Airway is patent. Throat is clear. NECK: Nontender. No swelling or evidence of injury. No subcutaneous emphysema. Trachea is midline. No thyroid mass. HEART: Regular rate and rhythm. Good peripheral pulses. LUNGS/CHEST: Breath sounds clear and equal bilaterally. No rales, rhonchi, or wheezes. No ecchymosis, subcutaneous emphysema, or tenderness. ABDOMEN: Abdomen soft mild tenderness noted left lower abdomen and mid abdomen. No palpable masses or organomegaly. No peritoneal signs. No abdominal wall swelling or ecchymosis. EXTREMITIES: No extremity tenderness. Normal muscle tone and function. No thoracolumbar tenderness. NEUROLOGIC: Sensation is grossly intact. Cranial nerve exam reveals face is symmetrical, tongue is midline, speech is clear. SKIN: No abrasions or ecchymosis is noted. No induration or masses noted. PSYCHIATRIC: Alert and oriented. Appropriate behavior and judgment. Limitations: no limitations Course Vital Signs 03/27/23 03/27/23 11:52 15:40 Temperature 98.7 F Pulse Rate 63 Respiratory 18 22 Rate Blood Pressure 146/87 O2 Sat by Pulse 96 Oximetry Medical Decision Making - Medical Decision Making The patient was seen and examined. All diagnostics are reviewed. IV is established. Toradol is given intravenously. The laboratory does show a mild t ransaminitis but no other acute abnormalities. Computed tomography scan of the abdomen and pelvis does show evidence of acute uncomplicated diverticulitis. It also shows hepatosplenomegaly which patient is aware of. It also shows an abnormality of the uterus possibly related to either an abnormal fibroid versus other. Radiologist recommends possible MRI or other specific testing of the uterus. Patient is recommended to follow up with primary care and LEGAL NURSE CONSULTANT in regards to further evaluation of the uterine abnormality. She overall appears to be quite stable for outpatient treatment. She was just seen her a couple months ago and was treated with Augmentin for the diverticulitis. She states that it seemed to take longer to resolve with this medication as compared to prior medications. She states that she cannot take Cipro for some reason but can take Levaquin and she also was prescribed Flagyl. Close follow-up with her primary care physician is recommended. Return parameters are discussed. Follow up with her GI physician recommended for hepatosplenomegaly. Was pt. sent in by a medical professional or institution (, [facility]ZZIE, WIND SITE MANAGER, urgent care, hospital, or correction...) When possible be specific @ -No Did you speak to anyone other than the patient for history (EMS, parent, family, police, friend...)? What history was obtained from this source @ -No Did you review nursing and triage notes (agree or disagree)? Why? @ -I reviewed and agree with nursing and triage notes Were old charts reviewed (outside hosp., previous admission, EMS record, old EKG, old radiological studies, urgent care reports/EKG's, correction records)? Report findings @ -Old records were reviewed from previous ER visit 2 months ago which does show uncomplicated diverticulitis was treated on outpatient basis. Differential Diagnosis (chest pain, altered mental status, abdominal pain women, abdominal pain men, vaginal bleeding, weakness, fever, dyspnea, syncope, headache, dizziness, GI bleed, back pain, seizure, CVA, palpatations, mental health, musculoskeletal)? @ -Diverticulitis, abdominal pain, urinary tract infection, colitis EKG interpreted by me (3pts min.). @ -None done X-rays interpreted by me (1pt min.). @ -None done CT interpreted by me (1pt min.). @ -CT is interpreted by myself and radiologist and is as above. U/S interpreted by me (1pt. min.). @ -None done What testing was considered but not performed or refused? (CT, X-rays, U/S, labs)? Why? @ -None What meds were considered but not given or refused? Why? @ -Outpatient pain medications were considered but patient relates that she takes Ellerslie as needed for pain. Did you discuss the management of the patient with other professionals (professionals i.e. LIZZIE Manley, WIND SITE MANAGER, lab, RT, psych nurse, social work therapist, home care associate, teacher, fourth officer, vocational case manager)? Give summary @ -No Was smoking cessation discussed for >3mins.? @ -No Was critical care preformed (if so, how long)? @ -No Were there social determinants of health that impacted care today? How? (Homelessness, low income, unemployed, alcoholism, drug addiction, transportation, low edu. Level, literacy, decrease access to med. care, halfway, rehab)? @ -No Was there de-escalation of care discussed even if they declined (Discuss DNR or withdrawal of care, Hospice)? DNR status @ -No What co-morbidities impacted this encounter? (DM, HTN, Smoking, COPD, CAD, Cancer, CVA, ARF, Chemo, Hep., AIDS, mental health diagnosis, sleep apnea, morbi d obesity)? @ -Diverticulitis, diverticulosis Was patient admitted / discharged? Hospital course, mention meds given and route, prescriptions, significant lab abnormalities, going to OR and other pertinent info. @ -Patient was discharged home but is instructed to return if symptoms do worsen. Undiagnosed new problem with uncertain prognosis? @ -No Drug Therapy requiring intensive monitoring for toxicity (Heparin, Nitro, Insulin, Cardizem)? @ -No Were any procedures done? @ -No Diagnosis/symptom? @ -Diverticulitis, uterine abnormality, hepatosplenomegaly, abdominal pain Acute, or Chronic, or Acute on Chronic? @ -Acute Uncomplicated (without systemic symptoms) or Complicated (systemic symptoms)? @ -Uncomplicated Side effects of treatment? @ -No Exacerbation, Progression, or Severe Exacerbation? @ -No Poses a threat to life or bodily function? How? (Chest pain, USA, OR, pneumonia, PE, COPD, DKA, ARF, appy, cholecystitis, CVA, Diverticulitis, Homicidal, Suicidal, threat to staff... and all critical care pts) @ -No - Lab Data Result diagrams: 03/27/23 13:01 03/27/23 13:01 Lab Results 03/27/23 03/27/23 03/27/23 Range/Units 11:55 13:01 13:01 WBC 8.2 (3.8-10.6) k/uL RBC 5.25 (3.80-5.40) m/uL Hgb 15.4 (11.4-16.0) gm/dL Hct 45.6 (34.0-46.0) % MCV 87.0 (80.0-100.0) fL MCH 29.4 (25.0-35.0) pg MCHC 33.8 (31.0-37.0) g/dL RDW 12.9 (11.5-15.5) % Plt Count 236 (150-450) k/uL MPV 8.1 Neutrophils % 81 % Lymphocytes % 12 % Monocytes % 4 % Eosinophils % 2 % Basophils % 0 % Neutrophils # 6.6 (1.3-7.7) k/uL Lymphocytes # 1.0 (1.0-4.8) k/uL Monocytes # 0.3 (0-1.0) k/uL Eosinophils # 0.2 (0-0.7) k/uL Basophils # 0.0 (0-0.2) k/uL Sodium 137 (137-145) mmol/L Potassium 4.3 (3.5-5.1) mmol/L Chloride 102 (98-107) mmol/L Carbon Dioxide 29 (22-30) mmol/L Anion Gap 6 mmol/L BUN 12 (7-17) mg/dL Creatinine 0.51 L (0.52-1.04) mg/dL Est GFR (CKD-EPI)AfAm >90 (>60 ml/min/1.73 sqM) Est GFR (CKD-EPI)NonAf >90 (>60 ml/min/1.73 sqM) Glucose 102 H (74-99) mg/dL Calcium 9.3 (8.4-10.2) mg/dL Total Bilirubin 0.8 (0.2-1.3) mg/dL AST 40 H (14-36) U/L ALT 38 H (4-34) U/L Alkaline Phosphatase 102 (38-126) U/L Total Protein 7.6 (6.3-8.2) g/dL Albumin 4.3 (3.5-5.0) g/dL Lipase 28 (23-300) U/L TSH (0.465-4.680) mIU/L Urine Color Colorless Urine Appearance Clear (Clear) Urine pH 5.5 (5.0-8.0) Ur Specific [place] 1.002 (1.001-1.035) Urine Protein Negative (Negative) Urine Glucose (UA) Negative (Negative) Urine Ketones Negative (Negative) Urine Blood Negative (Negative) Urine Nitrite Negative (Negative) Urine Bilirubin Negative (Negative) Urine Urobilinogen <2.0 (<2.0) mg/dL Ur Leukocyte Esterase Negative (Negative) Urine HCG, Qual (Not Detectd) 03/27/23 03/27/23 Range/Units 13:01 13:17 WBC (3.8-10.6) k/uL RBC (3.80-5.40) m/uL Hgb (11.4-16.0) gm/dL Hct (34.0-46.0) % MCV (80.0-100.0) fL MCH (25.0-35.0) pg MCHC (31.0-37.0) g/dL RDW (11.5-15.5) % Plt Count (150-450) k/uL MPV Neutrophils % % Lymphocytes % % Monocytes % % Eosinophils % % Basophils % % Neutrophils # (1.3-7.7) k/uL Lymphocytes # (1.0-4.8) k/uL Monocytes # (0-1.0) k/uL Eosinophils # (0-0.7) k/uL Basophils # (0-0.2) k/uL Sodium (137-145) mmol/L Potassium (3.5-5.1) mmol/L Chloride (98-107) mmol/L Carbon Dioxide (22-30) mmol/L Anion Gap mmol/L BUN (7-17) mg/dL Creatinine (0.52-1.04) mg/dL Est GFR (CKD-EPI)AfAm (>60 ml/min/1.73 sqM) Est GFR (CKD-EPI)NonAf (>60 ml/min/1.73 sqM) Glucose (74-99) mg/dL Calcium (8.4-10.2) mg/dL Total Bilirubin (0.2-1.3) mg/dL AST (14-36) U/L ALT (4-34) U/L Alkaline Phosphatase (38-126) U/L Total Protein (6.3-8.2) g/dL Albumin (3.5-5.0) g/dL Lipase (23-300) U/L TSH 2.530 (0.465-4.680) mIU/L Urine Color Urine Appearance (Clear) Urine pH (5.0-8.0) Ur Specific [place] (1.001-1.035) Urine Protein (Negative) Urine Glucose (UA) (Negative) Urine Ketones (Negative) Urine Blood (Negative) Urine Nitrite (Negative) Urine Bilirubin (Negative) Urine Urobilinogen (<2.0) mg/dL Ur Leukocyte Esterase (Negative) Urine HCG, Qual Not Detected (Not Detectd) Disposition Clinical Impression: Abdominal pain, Diverticulitis, Uterine fibroid, Hepatomegaly, Splenomegaly Disposition: HOME SELF-CARE Condition: Good Instructions (If sedation given, give patient instructions): Diverticulitis (ED), Acute Abdominal Pain (ED), Abdominal Pain (ED) Additional Instructions: The radiologist does note evidence of a uterine abnormality and they recommend additional imaging. Please follow-up with your primary care physician for further evaluation of this and referral to LEGAL NURSE CONSULTANT. Prescriptions: metroNIDAZOLE [Flagyl] 500 mg PO BID #20 tab Levofloxacin [Levaquin] 500 mg PO DAILY 1 Days #10 tab Is patient prescribed a controlled substance at d/c from ED?: No Referrals: Yung Romero MD [Primary Care Provider] - 1-2 days Time of Disposition: 15:36
[2023-03-27 13:28] LABS: Basophils % (A) 0 %; Eosinophils # (A) 0.2 k/uL (0-0.7); Eosinophils % (A) 2 %; HCT 45.6 % (34.0-46.0); HGB 15.4 gm/dL (11.4-16.0); Lymphocytes % (A) 12 %; MCH 29.4 pg (25.0-35.0); MCHC 33.8 g/dL (31.0-37.0); Mean Platelet Volume 8.1; Monocytes # (A) 0.3 k/uL (0-1.0); Monocytes % (A) 4 %; Neutrophils # (A) 6.6 k/uL (1.3-7.7); Neutrophils % (A) 81 %; Platelet Count 236 k/uL (150-450); RBC 5.25 m/uL (3.80-5.40); RDW 12.9 % (11.5-15.5); WBC 8.2 k/uL (3.8-10.6)
[2023-03-27 13:35] LABS: ALT 38 U/L (4-34); AST 40 U/L (14-36); African American GFR (CKD) >90 (>60 ml/min/1.73 sqM); Albumin 4.3 g/dL (3.5-5.0); Alkaline Phosphatase 102 U/L (38-126); Anion Gap 6 mmol/L; Blood Urea Nitrogen 12 mg/dL (7-17); Calcium 9.3 mg/dL (8.4-10.2); Carbon Dioxide 29 mmol/L (22-30); Chloride 102 mmol/L (98-107); Glucose 102 mg/dL (74-99); Lipase 28 U/L (23-300); Non-African American GFR(CKD) >90 (>60 ml/min/1.73 sqM); Potassium 4.3 mmol/L (3.5-5.1); Sodium 137 mmol/L (137-145); Total Bilirubin 0.8 mg/dL (0.2-1.3); Total Protein 7.6 g/dL (6.3-8.2)
--- NOTE | 2023-03-27 15:19 | CT ---
EXAMINATION TYPE: CT abdomen pelvis w con DATE OF EXAM: 03/27/2023 COMPARISON: 02/03/2023 HISTORY: 52-year-old female Pt c/o unspecified abdominal pain since last night, denies n/v/d and no f ever. TECHNIQUE: Contiguous axial scanning of the abdomen and pelvis following administration of 100 ml Iso johnny 300 IV contrast. Delayed images through the kidneys and coronal/sagittal reconstructions perform ed. CT DLP: 3074.4 mGycm Automated exposure control for dose reduction was used. FINDINGS: Heart normal size without pericardial effusion. Lung bases clear without pleural effusion. Liver enlarged at 19.3 cm with diffuse low-attenuation in keeping with fatty infiltration. Portal tanisha ous system is patent. No biliary ductal dilatation. Cholecystectomy clips. Adrenal glands, kidneys, pancreas within normal limits. Spleen mildly enlarged at 14.1 cm. No dilated small bowel, free fluid, or free air. No mesenteric or retroperitoneal lymphadenopathy. Normal appendix. Mild stool burden. Left-sided colonic diverticulosis. There is focal fat stranding a long the proximal sigmoid colon with mild wall thickening, axial image 72. Bladder nondistended. Uterus anteverted. There is a large right fundal lobulation from the uterus negro suring 5.4 cm versus 5.2 cm previously. Likely a large fundal subserosal fibroid. Left ovary is visua lized. Right ovary not clearly delineated from adjacent bowel. Pelvic phlebolith. No abnormal fluid c ollections or pelvis or pelvic lymphadenopathy. Bones: Some facet arthropathy lower lumbar spine. No osseous destructive process. Detailed assessment limited due to artifact from large body habitus. IMPRESSION: 1. LEFT-SIDED COLONIC DIVERTICULOSIS. FINDINGS POSITIVE FOR ACUTE DIVERTICULITIS ALONG THE PROXIMAL S IGMOID COLON WITH MILD INFLAMMATION. NO ABSCESS OR FREE AIR. 2. A 5.4 CM LOBULATION FROM THE RIGHT UTERINE FUNDUS VERSUS 5.2 CM, PREVIOUSLY. SUSPECT A PROMINENT S UBSEROSAL UTERINE FIBROID. CONSIDER CONFIRMATION WITH A FEMALE PELVIC MRI OR ULTRASOUND ON AN OUTPATI ENT BASIS. 3. HEPATOSPLENOMEGALY (LIVER 19.3 CM AND SPLEEN 14.1 CM) WITH CONCURRENT MODERATE HEPATIC STEATOSIS.
[2023-03-27 16:02] VITALS: RESP 22
== END 2023-03-27 15:42 | disposition home or self-care (01) ==
LOC: EC 11:42
DX: D25.9 Leiomyoma of uterus, unspecified (principal); K42.9 Umbilical hernia without obstruction or gangrene; K57.32 Diverticulitis of large intestine without perforation or abscess without bleeding; K76.0 Fatty (change of) liver, not elsewhere classified; J44.89 Other specified chronic obstructive pulmonary disease; I10 Essential (primary) hypertension; E11.9 Type 2 diabetes mellitus without complications; F41.9 Anxiety disorder, unspecified; Z79.899 Other long term (current) drug therapy; Z88.5 Allergy status to narcotic agent; Z88.2 Allergy status to sulfonamides; Z90.49 Acquired absence of other specified parts of digestive tract
CPT/HCPCS: 36415; 80053; 84443; 83690; 85025; 81003; 81025; 74177; 99284; Q9967

== ENCOUNTER → 2023-06-18 | Outpatient (CLI) | payer BC ==
--- NOTE | 2023-06-18 14:48 | FL ---
EXAMINATION TYPE: FL sniff test without CXR DATE OF EXAM: 04/06/2022 Comparison: 04/06/2020 Clinical History: 51-year-old female shortness of breath, Total fluoroscopy time: 1 minute 3 seconds. Total images: 16. Findings: Real-time fluoroscopy is performed during normal white breathing, deep inspiration/expirati on, a sniffing maneuver. And baseline, there is elevated right hemidiaphragm. During quiet breathing, there is slight delay in initiation of movement of the bilateral hemidiaphragm but with overall symm etric direction of movement and excursion. During deep inspirations, we again note a slight delay in initiation of movement of bilateral hemidiaphragm greater on the right. During sniffing maneuver, the re is either no movement or a single initial episode of paradoxical movement of the bilateral hemidia phragm greater on the right. IMPRESSION: 1. There is mild bilateral symmetric reduced hemidiaphragm movement.
== END | disposition home or self-care (01) ==
LOC: RADFLMAIN 13:50
PROVIDERS: ATTEND Thoracic Surgery (Cardiothoracic Vascular Surgery)
DX: J98.6 Disorders of diaphragm (principal)
CPT/HCPCS: 76000

== ENCOUNTER → 2023-08-27 | Outpatient (CLI) | payer BC | LOC: CPPFTMAIN 15:22 | PROVIDERS: ATTEND Thoracic Surgery (Cardiothoracic Vascular Surgery) | DX: Z12.2 Encounter for screening for malignant neoplasm of respiratory organs (principal); J98.6 Disorders of diaphragm; Z87.891 Personal history of nicotine dependence; Z88.5 Allergy status to narcotic agent; Z88.2 Allergy status to sulfonamides | CPT/HCPCS: 94060; 94726; 94729 ==

== ENCOUNTER → 2023-08-27 | Outpatient (CLI) | payer BC ==
--- NOTE | 2023-08-27 22:50 | CTL ---
EXAMINATION TYPE: CT Low Dose Lung DATE OF EXAM ORDERED: 08/27/2023 HISTORY: Former smoker. Lung cancer screening CT DLP: 136.[address] CTDI: 4.3 mGy Automated exposure control for dose reduction was used. SCREENING VISIT: Subsequent COMPARISON: 01/29/2022 TECHNIQUE: Low dose computed tomography scan was performed through the chest at 1 mm thick sections a nd reconstructed images in the coronal plane at [address] DIAGNOSTIC QUALITY: Satisfactory FINDINGS: LUNG NODULES: None. LUNGS: COPD: Severity: None Fibrosis: Severity: None Lymph nodes: None Other findings: None RIGHT PLEURAL SPACE: Effusion: None Calcification: None Thickening: None Pneumothorax: None LEFT PLEURAL SPACE: Effusion: None Calcification: None Thickening: None Pneumothorax: None HEART: Heart Size: Normal Coronary calcification: None Pericardial effusion: None OTHER FINDINGS: Upper abdomen: Normal Bony thorax: Normal Supraclavicular region: Normal Other: Ascending thoracic aorta at the level the main pulmonary artery measures 3.4 cm. The main pul monary artery at the bifurcation measures 2.4 cm. IMPRESSION: No suspicious changes to suggest primary or metastatic neoplasm FOLLOW UP CT CHEST RECOMMENDATION: Follow-up low-dose CT chest one year CT LUNG RAD: Lung-Rad 1 Negative
== END | disposition home or self-care (01) ==
LOC: RADCTMAIN 15:16
PROVIDERS: ATTEND Internal Medicine
DX: Z12.2 Encounter for screening for malignant neoplasm of respiratory organs (principal); Z87.891 Personal history of nicotine dependence
CPT/HCPCS: 71271

== ENCOUNTER 2023-11-23 12:59 | Emergency (ER) | payer BC ==
[2023-11-23 13:03] VITALS: RESP 20; TEMP 98.5
--- NOTE | 2023-11-23 13:21 | ED ---
Female Urogenital HPI - General Chief complaint: Vaginal Bleeding Stated complaint: Vaginal bleeding Source: patient, RN notes reviewed, old records reviewed Mode of arrival: ambulatory Limitations: no limitations - History of Present Illness Initial comments: This is a 53-year-old female to the ER today. This patient presents today for evaluation of persistent vaginal bleeding for a long time. Patient states she has had a vaginal bleed for quite a long time now. 2 weeks at least with feelings of lightheadedness, patient does not feel syncopal or near syncopal no blood thinners MD Complaint: vaginal bleeding, pelvic pain -: week(s) (2) Location: suprapubic Severity: moderate Severity scale (1-10): 4 Consistency: constant, intermittent Worsens with: none Patient : No Associated Symptoms: vaginal bleeding, abdominal pain, weakness - Related Data Sexually active: No Home Medications Medication Instructions Recorded Confirmed Esomeprazole Magnesium [NexIUM] 40 mg PO DAILY 07/31/22 03/27/23 Flecainide Acetate [Tambocor] 100 mg PO BID 07/31/22 03/27/23 Metoprolol Tartrate [Lopressor] 25 mg PO BID 07/31/22 03/27/23 Naproxen Sodium [Aleve] 440 mg PO DAILY PRN 07/31/22 03/27/23 Famotidine [Pepcid AC] 10 mg PO BID PRN 03/27/23 03/27/23 Fluticasone/Umeclidin/Vilanter 1 puff INHALATION RT-DAILY 03/27/23 03/27/23 [Trelegy Ellipta 100-62.5-25] HYDROcodone/APAP 10-325MG [[place] 1 tab PO DAILY PRN 03/27/23 03/27/23 10-325] Hydrocortisone Cream 1 applic TOPICAL BID PRN 03/27/23 03/27/23 [Hydrocortisone 2.5% Cream] Ketoconazole 2% Cream [Nizoral 2%] 1 applic TOPICAL DAILY PRN 03/27/23 03/27/23 amLODIPine [Norvasc] 5 mg PO BID 03/27/23 03/27/23 Previous Rx's Medication Instructions Recorded Levofloxacin [Levaquin] 500 mg PO DAILY 1 Days #10 tab 03/27/23 metroNIDAZOLE [Flagyl] 500 mg PO BID #20 tab 03/27/23 Allergies Allergy/AdvReac Type Severity Reaction Status Date / Time Sulfa (Sulfonamide Allergy See Verified 11/23/23 13:03 Antibiotics) comments morphine AdvReac Rapid Verified 11/23/23 13:03 Heart Rate Review of Systems ROS Statement: Those systems with pertinent positive or pertinent negative responses have been documented in the HPI. ROS Other: All systems not noted in ROS Statement are negative. Past Medical History Past Medical History: Asthma, Chest Pain / Angina, COPD, GERD/Reflux, Hyperlipidemia, Hypertension, Pneumonia Additional Past Medical History / Comment(s): Bronchitis, severe GERD, esophageal spasms, problems with abdominal pain/cramps/constipation and diarrhea, diverticular disease, fatigued for 5-6 yrs, anemia, UTI, urinary incontinence at times, arthritis multiple joints, chronic back and neck pain, bilateral leg sciatica, fatty liver, being checked for thyroid disease, menorrhagia, pt states she had one physician tell her she was "pre" diabetic., immunocompromised ([place]). Lump in groin. paralyzed diaphram. History of Any Multi-Drug Resistant Organisms: None Reported Past Surgical History: Section, Cholecystectomy, Hernia Repair Additional Past Surgical History / Comment(s): EGD, umbilical hernia repair, wisdom teeth extractions. Past Anesthesia/Blood Transfusion Reactions: Postoperative Nausea & Vomiting (PONV) Additional Past Anesthesia/Blood Transfusion Reaction / Comment(s): Difficulty waking. Past Psychological History: Anxiety, Panic Disorder Smoking Status: Never smoker Past Alcohol Use History: None Reported Past Drug Use History: None Reported - Past Family History Father Additional Family Medical History / Comment(s): Pt was adopted and does not know natural father's medical hx. Mother Additional Family Medical History / Comment(s): Pt is adopted and does not know natural mother's medical hx. Brother(s) Family Medical History: Myocardial Infarction (DC) Additional Family Medical History / Comment(s): Pt does know that her half brother had a DC at the age of 45yrs. General Exam Limitations: no limitations General appearance: alert, in no apparent distress Head exam: Present: atraumatic, normocephalic, normal inspection Eye exam: Present: normal appearance, PERRL, EOMI. Absent: scleral icterus, conjunctival injection, periorbital swelling ENT exam: Present: normal exam, mucous membranes moist Neck exam: Present: normal inspection. Absent: tenderness, meningismus, lymphadenopathy Respiratory exam: Present: normal lung sounds bilaterally. Absent: respiratory distress, wheezes, rales, rhonchi, stridor Cardiovascular Exam: Present: regular rate, normal rhythm, normal heart sounds. Absent: systolic murmur, diastolic murmur, rubs, gallop, clicks GI/Abdominal exam: Present: soft, normal bowel sounds. Absent: distended, tenderness, guarding, rebound, rigid Extremities exam: Present: normal inspection, full ROM, normal capillary refill. Absent: tenderness, pedal edema, joint swelling, calf tenderness Back exam: Present: normal inspection Neurological exam: Present: alert, oriented X3, CN II-XII intact Psychiatric exam: Present: normal affect, normal mood Skin exam: Present: warm, dry, intact, normal color. Absent: rash Course Vital Signs 11/23/23 11/23/23 13:01 17:37 Temperature 98.5 F Pulse Rate 65 66 Respiratory 20 20 Rate Blood Pressure 174/106 133/69 O2 Sat by Pulse 99 94 L Oximetry - Reevaluation(s) Reevaluation #1: Medical records reviewed Reevaluation #2: Patient symptoms unchanged Reevaluation #3: Patient informed of results and questions answered Reevaluation #4: Was pt. sent in by a medical professional or institution (Dr. PA, PRODUCTION SUPPORT CONSULTANT, urgent care, hospital, or fdc...) When possible be specific @ -no Did you speak to anyone other than the patient for history (EMS, parent, family, police, friend...)? What history was obtained from this source @ -no Did you review nursing and triage notes (agree or disagree)? Why? @ -agree Are old charts reviewed (outside hosp., previous admission, EMS record, old EKG, old radiological studies, urgent care reports/EKG's, fdc records)? Report findings @ -yes Differential Diagnosis (chest pain, altered mental status, abdominal pain women, abdominal pain men, vaginal bleeding, weakness, fever, dyspnea, syncope, headache, dizziness, GI bleed, back pain, seizure, CVA, palpatations, mental health, musculoskeletal)? @ -prior EKG interpreted by me (3pts min.). @ -yes X-rays interpreted by me (1pt min.). @ -nio CT interpreted by me (1pt min.). @ -Yes negative for acute disease U/S interpreted by me (1pt. min.). @ -Yes negative for acute disease What testing was considered but not performed or refused? (CT, X-rays, U/S, labs)? Why? @ -none What meds were considered but not given or refused? Why? @ -none Did you discuss the management of the patient with other professionals (professionals i.e. , PA, PRODUCTION SUPPORT CONSULTANT, lab, RT, psych nurse, foster care social worker, director adult, teacher, correctional officer lieutenant, egg caser)? Give summary @ -no Was smoking cessation discussed for >3mins.? @ -no Was critical care preformed (if so, how long)? @ -no Were there social determinants of health that impacted care today? How? (Homelessness, low income, unemployed, alcoholism, drug addiction, transportation, low edu. Level, literacy, decrease access to med. care, nursing home, rehab)? @ -none Was there de-escalation of care discussed even if they declined (Discuss DNR or withdrawal of care, Hospice)? DNR status @ -no What co-morbidities impacted this encounter? (DM, HTN, Smoking, COPD, CAD, Cancer, CVA, ARF, Chemo, Hep., AIDS, mental health diagnosis, sleep apnea, morbid obesity)? @ -none Was patient admitted / discharged? Hospital course, mention meds given and route, prescriptions, significant lab abnormalities, going to OR and other pertinent info. @ -53 female to the ER for evaluation of acute vaginal bleeding, no acute cause found here in the emergency room. Patient has no syncopal or presyncopal symptoms. Normal hemoglobin patient can be discharged to follow-up with outpatient gynecology, patient feels good for discharge home Discharge Undiagnosed new problem with uncertain prognosis? @ -no Drug Therapy requiring intensive monitoring for toxicity (Heparin, Nitro, Insulin, Cardizem)? @ -no Were any procedures done? @ -no Diagnosis/symptom? @ -Dysfunctional vaginal bleeding Acute, or Chronic, or Acute on Chronic? @ -Acute Uncomplicated (without systemic symptoms) or Complicated (systemic symptoms)? @ -Complicated Side effects of treatment? @ -no Exacerbation, Progression, or Severe Exacerbation? @ -exacerbation Poses a threat to life or bodily function? How? (Chest pain, [place], DC, pneumonia, PE, COPD, DKA, ARF, appy, cholecystitis, CVA, Diverticulitis, Homicidal, Suicidal, threat to staff... and all critical care pts) @ -yes acute bleed Medical Decision Making - Medical Decision Making 53 female to the ER for evaluation of acute vaginal bleeding, no acute cause found here in the emergency room. Patient has no syncopal or presyncopal symptoms. Normal hemoglobin patient can be discharged to follow-up with outpatient gynecology, patient feels good for discharge home - Lab Data Result diagrams: 11/23/23 13:25 11/23/23 16:00 Lab Results 11/23/23 11/23/23 11/23/23 Range/Units 13:25 13:25 13:25 WBC 5.9 (3.8-10.6) k/uL RBC 4.71 (3.80-5.40) m/uL Hgb 13.9 (11.4-16.0) gm/dL Hct 42.6 (34.0-46.0) % MCV 90.3 (80.0-100.0) fL MCH 29.6 (25.0-35.0) pg MCHC 32.8 (31.0-37.0) g/dL RDW 13.0 (11.5-15.5) % Plt Count 248 (150-450) k/uL MPV 8.1 Neutrophils % 73 % Lymphocytes % 18 % Monocytes % 3 % Eosinophils % 3 % Basophils % 1 % Neutrophils # 4.3 (1.3-7.7) k/uL Lymphocytes # 1.1 (1.0-4.8) k/uL Monocytes # 0.2 (0-1.0) k/uL Eosinophils # 0.2 (0-0.7) k/uL Basophils # 0.0 (0-0.2) k/uL PT 10.5 (10.0-12.5) sec INR 0.9 (<1.2) APTT 24.4 (22.0-30.0) sec Sodium (137-145) mmol/L Potassium (3.5-5.1) mmol/L Chloride (98-107) mmol/L Carbon Dioxide (22-30) mmol/L Anion Gap mmol/L BUN (7-17) mg/dL Creatinine (0.52-1.04) mg/dL Est GFR (CKD-EPI)AfAm (>60 ml/min/1.73 sqM) Est GFR (CKD-EPI)NonAf (>60 ml/min/1.73 sqM) Glucose (74-99) mg/dL Plasma Lactic Acid [place] 1.0 (0.7-2.0) mmol/L Calcium (8.4-10.2) mg/dL Iron (50-170) UG/DL TIBC (228-460) UG/DL % Saturation (12.00-45.00) Transferrin (204.0-354.0) mg/dL Total Bilirubin (0.2-1.3) mg/dL AST (14-36) U/L ALT (4-34) U/L Alkaline Phosphatase (38-126) U/L Total Protein (6.3-8.2) g/dL Albumin (3.5-5.0) g/dL Amylase (30-110) U/L Lipase (23-300) U/L Urine Color Urine Appearance (Clear) Urine pH (5.0-8.0) Ur Specific [place] (1.001-1.035) Urine Protein (Negative) Urine Glucose (UA) (Negative) Urine Ketones (Negative) Urine Blood (Negative) Urine Nitrite (Negative) Urine Bilirubin (Negative) Urine Urobilinogen (<2.0) mg/dL Ur Leukocyte Esterase (Negative) Urine RBC (0-5) /hpf Urine Mucus (None) /hpf 11/23/23 11/23/23 Range/Units 16:00 16:30 WBC (3.8-10.6) k/uL RBC (3.80-5.40) m/uL Hgb (11.4-16.0) gm/dL Hct (34.0-46.0) % MCV (80.0-100.0) fL MCH (25.0-35.0) pg MCHC (31.0-37.0) g/dL RDW (11.5-15.5) % Plt Count (150-450) k/uL MPV Neutrophils % % Lymphocytes % % Monocytes % % Eosinophils % % Basophils % % Neutrophils # (1.3-7.7) k/uL Lymphocytes # (1.0-4.8) k/uL Monocytes # (0-1.0) k/uL Eosinophils # (0-0.7) k/uL Basophils # (0-0.2) k/uL PT (10.0-12.5) sec INR (<1.2) APTT (22.0-30.0) sec Sodium 137 (137-145) mmol/L Potassium 4.2 (3.5-5.1) mmol/L Chloride 105 (98-107) mmol/L Carbon Dioxide 26 (22-30) mmol/L Anion Gap 6 mmol/L BUN 11 (7-17) mg/dL Creatinine 0.45 L (0.52-1.04) mg/dL Est GFR (CKD-EPI)AfAm >90 (>60 ml/min/1.73 sqM) Est GFR (CKD-EPI)NonAf >90 (>60 ml/min/1.73 sqM) Glucose 94 (74-99) mg/dL Plasma Lactic Acid [place] (0.7-2.0) mmol/L Calcium 9.0 (8.4-10.2) mg/dL Iron 75 (50-170) UG/DL TIBC 368 (228-460) UG/DL % Saturation 20.38 (12.00-45.00) Transferrin 263.0 (204.0-354.0) mg/dL Total Bilirubin 0.7 (0.2-1.3) mg/dL AST 36 (14-36) U/L ALT 28 (4-34) U/L Alkaline Phosphatase 94 (38-126) U/L Total Protein 6.9 (6.3-8.2) g/dL Albumin 4.0 (3.5-5.0) g/dL Amylase 34 (30-110) U/L Lipase 30 (23-300) U/L Urine Color Light Red Urine Appearance Clear (Clear) Urine pH 5.5 (5.0-8.0) Ur Specific [place] 1.014 (1.001-1.035) Urine Protein 1+ H (Negative) Urine Glucose (UA) Negative (Negative) Urine Ketones Negative (Negative) Urine Blood Large H (Negative) Urine Nitrite Negative (Negative) Urine Bilirubin Negative (Negative) Urine Urobilinogen <2.0 (<2.0) mg/dL Ur Leukocyte Esterase Negative (Negative) Urine RBC >182 H (0-5) /hpf Urine Mucus Rare H (None) /hpf - Radiology Data Radiology results: report reviewed (CT of the abdomen pelvis ultrasound of the pelvis is negative for acute disease), image reviewed Disposition Clinical Impression: Vaginal bleeding, Dysfunctional uterine bleeding Disposition: HOME SELF-CARE Condition: Fair Instructions (If sedation given, give patient instructions): Abnormal (Dysfunctional) Uterine Bleeding (ED), Dysmenorrhea (ED) Is patient prescribed a controlled substance at d/c from ED?: No Referrals: Yung Romero MD [Primary Care Provider] - 1-2 days Selena Melara MD [STAFF PHYSICIAN] - 1-2 days Time of Disposition: 16:00
[2023-11-23] MEDS: SODIUM CHLORIDE 0.9% 1,000 ML IV STA (14:03)
[2023-11-23 14:11] LABS: Basophils % (A) 1 %; Eosinophils # (A) 0.2 k/uL (0-0.7); Eosinophils % (A) 3 %; HCT 42.6 % (34.0-46.0); HGB 13.9 gm/dL (11.4-16.0); Lymphocytes # (A) 1.1 k/uL (1.0-4.8); Lymphocytes % (A) 18 %; MCH 29.6 pg (25.0-35.0); MCHC 32.8 g/dL (31.0-37.0); MCV 90.3 fL (80.0-100.0); Mean Platelet Volume 8.1; Monocytes # (A) 0.2 k/uL (0-1.0); Monocytes % (A) 3 %; Neutrophils # (A) 4.3 k/uL (1.3-7.7); Neutrophils % (A) 73 %; Platelet Count 248 k/uL (150-450); RBC 4.71 m/uL (3.80-5.40); WBC 5.9 k/uL (3.8-10.6)
[2023-11-23 14:20] LABS: INR 0.9 (<1.2); Partial Thromboplastin Time 24.4 sec (22.0-30.0); Prothrombin Time 10.5 sec (10.0-12.5)
--- NOTE | 2023-11-23 15:44 | CT ---
EXAMINATION TYPE: CT abdomen pelvis wo con DATE OF EXAM: 11/23/2023 COMPARISON: 03/27/2023 HISTORY: Uterine bleeding x3wks. CT DLP: 2261.2 mGycm Examination of the solid and hollow viscera is limited given the lack of contrast. FINDINGS: LUNG BASES: No evidence for nodule. No evidence for infiltrate. LIVER/GB: The gallbladder is surgically absent. No space-occupying hepatic lesion. PANCREAS: No pancreatic mass identified. No inflammatory process seen. SPLEEN: No evidence for splenomegaly. No intrasplenic lesions seen. ADRENALS: No adrenal nodules identified. No evidence for thickening. KIDNEYS: No evidence for renal mass. No nephrolithiasis. No hydronephrosis. BOWEL: Appendix has a normal appearance. No evidence of bowel obstruction. No inflammatory process. Lymph nodes: No evidence for adenopathy greater than 1 cm. Abdominal aorta: Atheromatous changes seen. No evidence for aneurysm. Genital organs: Lobulated uterus which could reflect glenohumeral change however other processes are not excluded. Other: No significant abnormality. IMPRESSION: Lobulated uterus which could reflect glenohumeral change however other processes are not excluded.
--- NOTE | 2023-11-23 15:45 | US ---
EXAMINATION TYPE: US pelvic complete DATE OF EXAM: 11/23/2023 COMPARISON: CT 2022 CLINICAL INDICATION: Female, 53 years old with history of vaginal bleeding; Irregular bleeding x coup le months TECHNIQUE: Transvaginal ER exam Date of LMP: Patient unsure EXAM MEASUREMENTS: Uterus: 10.2 x 5.8 x 6.7 cm Endometrial Stripe: 1.8 cm Right Ovary: not seen Left Ovary: not seen Difficult and limited study due to morbidly obese patient 1. Uterus: anteverted, heterogeneous, bulky, mildly enlarged, 4.3 x 3.9 x 4.2cm fibroid 2. Endometrium: thickened 3. Right Ovary: not seen due to overlying bowel gas 4. Left Ovary: not seen due to overlying bowel gas 5. Bilateral Adnexa: wnl 6. Posterior cul-de-sac: wnl IMPRESSION: Enlarged heterogenous uterus.
[2023-11-23 16:50] LABS: ALT 28 U/L (4-34); AST 36 U/L (14-36); African American GFR (CKD) >90 (>60 ml/min/1.73 sqM); Alkaline Phosphatase 94 U/L (38-126); Amylase 34 U/L (30-110); Anion Gap 6 mmol/L; Blood Urea Nitrogen 11 mg/dL (7-17); Carbon Dioxide 26 mmol/L (22-30); Chloride 105 mmol/L (98-107); Glucose 94 mg/dL (74-99); Lipase 30 U/L (23-300); Non-African American GFR(CKD) >90 (>60 ml/min/1.73 sqM); Potassium 4.2 mmol/L (3.5-5.1); Sodium 137 mmol/L (137-145); Total Bilirubin 0.7 mg/dL (0.2-1.3); Total Protein 6.9 g/dL (6.3-8.2)
[2023-11-23 16:57] LABS: Appearance,Urine Clear (Clear); Bilirubin,Urine Negative (Negative); Blood,Urine Large (Negative); Color,Urine Light Red; Glucose,Urine (UA) Negative (Negative); Ketones,Urine Negative (Negative); Leukocyte Esterase,Urine Negative (Negative); Mucus,Urine Rare /hpf; Nitrite,Urine Negative (Negative); PH, Urine 5.5 (5.0-8.0); Protein,Urine 1+ (Negative); RBC,Urine >182 /hpf (0-5); Specific Gravity,Urine 1.014 (1.001-1.035); Urobilinogen,Urine <2.0 mg/dL (<2.0)
[2023-11-23 17:38] VITALS: BP 133/69; PULSE 66
[2023-11-24 07:44] LABS: % Iron Saturation 20.38 (12.00-45.00); Iron 75 UG/DL (50-170); Total Iron Binding Capacity 368 UG/DL (228-460)
== END 2023-11-23 17:39 | disposition home or self-care (01) ==
LOC: EC 12:59
DX: N93.8 Other specified abnormal uterine and vaginal bleeding (principal); Z88.2 Allergy status to sulfonamides; Z88.5 Allergy status to narcotic agent
CPT/HCPCS: 36415; 74176; 76830; 80053; 81001; 82150; 83540; 83550; 83605; 83690; 85025; 85610; 85730; 99284

== ENCOUNTER 2023-12-09 11:12 | Emergency (ER) | payer BC ==
[2023-12-09 11:21] VITALS: RESP 18; TEMP 97.9
--- NOTE | 2023-12-09 12:05 | ED ---
Abdominal Pain HPI - General Chief Complaint: Abdominal Pain Stated Complaint: Abd pain Time Seen by Provider: 12/09/23 12:02 Source: patient, RN notes reviewed Mode of arrival: ambulatory Limitations: no limitations - History of Present Illness Initial Comments: 53-year-old female presenting with abdominal pain x 3 days. States the pain began suddenly and is described as a dull, achy pain in the lower abdomen, worse on the left side radiating into the left back. Admits some nausea but denies vomiting. She is able to tolerate orals well. States her stools have been loose and mucousy. Denies fever or chills. States she does have a history of diverticulitis and uterine fibroids but she is unsure if this feels similar. She was seen here in the ER 2 weeks ago for uterine bleeding where a CT and pelvic ultrasound was performed which revealed enlarged uterus with uterine fibroid. She denies any vaginal bleeding today. - Related Data Home Medications Medication Instructions Recorded Confirmed Esomeprazole Magnesium [NexIUM] 40 mg PO DAILY 07/31/22 03/27/23 Flecainide Acetate [Tambocor] 100 mg PO BID 07/31/22 03/27/23 Metoprolol Tartrate [Lopressor] 25 mg PO BID 07/31/22 03/27/23 Naproxen Sodium [Aleve] 440 mg PO DAILY PRN 07/31/22 03/27/23 Famotidine [Pepcid AC] 10 mg PO BID PRN 03/27/23 03/27/23 Fluticasone/Umeclidin/Vilanter 1 puff INHALATION RT-DAILY 03/27/23 03/27/23 [Trelegy Ellipta 100-62.5-25] HYDROcodone/APAP 10-325MG [[place] 1 tab PO DAILY PRN 03/27/23 03/27/23 10-325] Hydrocortisone Cream 1 applic TOPICAL BID PRN 03/27/23 03/27/23 [Hydrocortisone 2.5% Cream] Ketoconazole 2% Cream [Nizoral 2%] 1 applic TOPICAL DAILY PRN 03/27/23 03/27/23 amLODIPine [Norvasc] 5 mg PO BID 03/27/23 03/27/23 Previous Rx's Medication Instructions Recorded Levofloxacin [Levaquin] 500 mg PO DAILY 1 Days #10 tab 03/27/23 metroNIDAZOLE [Flagyl] 500 mg PO BID #20 tab 03/27/23 Allergies Allergy/AdvReac Type Severity Reaction Status Date / Time Sulfa (Sulfonamide Allergy See Verified 12/09/23 11:21 Antibiotics) comments morphine AdvReac Rapid Verified 12/09/23 11:21 Heart Rate Review of Systems ROS Statement: Those systems with pertinent positive or pertinent negative responses have been documented in the HPI. ROS Other: All systems not noted in ROS Statement are negative. Past Medical History Past Medical History: Asthma, Chest Pain / Angina, COPD, GERD/Reflux, Hyperli pidemia, Hypertension, Pneumonia Additional Past Medical History / Comment(s): Bronchitis, severe GERD, esophageal spasms, problems with abdominal pain/cramps/constipation and diarrhea, diverticular disease, fatigued for 5-6 yrs, anemia, UTI, urinary incontinence at times, arthritis multiple joints, chronic back and neck pain, bilateral leg sciatica, fatty liver, being checked for thyroid disease, menorrhagia, pt states she had one physician tell her she was "pre" diabetic., immunocompromised (Lupas). Lump in groin. paralyzed diaphram. History of Any Multi-Drug Resistant Organisms: None Reported Past Surgical History: Section, Cholecystectomy, Hernia Repair Additional Past Surgical History / Comment(s): EGD, umbilical hernia repair, wisdom teeth extractions. Past Anesthesia/Blood Transfusion Reactions: Postoperative Nausea & Vomiting (PONV) Additional Past Anesthesia/Blood Transfusion Reaction / Comment(s): Difficulty waking. Past Psychological History: Anxiety, Panic Disorder Smoking Status: Never smoker Past Alcohol Use History: None Reported Past Drug Use History: None Reported - Past Family History Father Additional Family Medical History / Comment(s): Pt was adopted and does not know natural father's medical hx. Mother Additional Family Medical History / Comment(s): Pt is adopted and does not know natural mother's medical hx. Brother(s) Family Medical History: Myocardial Infarction (MS) Additional Family Medical History / Comment(s): Pt does know that her half brother had a MS at the age of 45yrs. General Exam Limitations: no limitations General appearance: alert, in no apparent distress Head exam: Present: atraumatic, normocephalic, normal inspection Eye exam: Present: normal appearance, PERRL, EOMI. Absent: scleral icterus, conjunctival injection, periorbital swelling ENT exam: Present: normal exam, mucous membranes moist Respiratory exam: Present: normal lung sounds bilaterally. Absent: respiratory distress, wheezes, rales, rhonchi, stridor Cardiovascular Exam: Present: regular rate, normal rhythm, normal heart sounds. Absent: systolic murmur, diastolic murmur, rubs, gallop, clicks GI/Abdominal exam: Present: soft, normal bowel sounds, other (Difficult to perform abdominal examination due to patient's body habitus). Absent: distend ed, tenderness, guarding, rebound, rigid Extremities exam: Present: normal inspection, full ROM, normal capillary refill. Absent: tenderness, pedal edema, joint swelling, calf tenderness Back exam: Absent: CVA tenderness (R), CVA tenderness (L) Neurological exam: Present: alert, oriented X3 Psychiatric exam: Present: normal affect, normal mood Skin exam: Present: warm, dry, intact, normal color. Absent: rash Course Vital Signs 12/09/23 12/09/23 12/09/23 11:17 14:12 15:26 Temperature 97.9 F Pulse Rate 64 62 67 Respiratory 18 18 18 Rate Blood Pressure 163/96 141/72 162/99 O2 Sat by Pulse 96 96 100 Oximetry Medical Decision Making - Medical Decision Making Was pt. sent in by a medical professional or institution ([facility], HOME CARE LIAISON, urgent care, hospital, or jail...) When possible be specific @ -No Did you speak to anyone other than the patient for history (EMS, parent, family, police, friend...)? What history was obtained from this source @ -No Did you review nursing and triage notes (agree or disagree)? Why? @ -I reviewed and agree with nursing and triage notes Were old charts reviewed (outside hosp., previous admission, EMS record, old EKG, old radiological studies, urgent care reports/EKG's, jail records)? Report findings @ -No old charts were reviewed Differential Diagnosis (chest pain, altered mental status, abdominal pain women, abdominal pain men, vaginal bleeding, weakness, fever, dyspnea, syncope, headache, dizziness, GI bleed, back pain, seizure, CVA, palpatations, mental health, musculoskeletal)? @ -Differential Abdominal Pain Women: Appendicitis, Cholecystitis, diverticulosis, ischemic bowel, pancreatitis, hepatitis, UTI, gastroenteritis, AAA, incarcerated hernia, bowel obstruction, constipation, inflammatory bowel, hepatitis, peptic ulcer disease, splenic infarction, perforated viscus, vulvitis, ovarian torsion, PID, kidney stone, placenta abruption, this is not meant to be an all-inclusive list EKG interpreted by me (3pts min.). @ -None X-rays interpreted by me (1pt min.). @ -None done CT interpreted by me (1pt min.). @ -CT revealed no acute changes within the abdomen, probable fibroid uterus U/S interpreted by me (1pt. min.). @ -None done What testing was considered but not performed or refused? (CT, X-rays, U/S, labs)? Why? @ -Ultrasound not performed due to performed it was performed October 23 and revealed enlarged uterus and fibroids What meds were considered but not given or refused? Why? @ -None Did you discuss the management of the patient with other professionals (viviana rai i.e. , PA, HOME CARE LIAISON, lab, RT, psych nurse, social work nurse, lawnmower mechanic, teacher, account officer, case finisher)? Give summary @ -No Was smoking cessation discussed for >3mins.? @ -No Was critical care preformed (if so, how long)? @ -No Were there social determinants of health that impacted care today? How? (Homelessness, low income, unemployed, alcoholism, drug addiction, transportation, low edu. Level, literacy, decrease access to med. care, retirement, rehab)? @ -No Was there de-escalation of care discussed even if they declined (Discuss DNR or withdrawal of care, Hospice)? DNR status @ -No What co-morbidities impacted this encounter? (DM, HTN, Smoking, COPD, CAD, Cancer, CVA, ARF, Chemo, Hep., AIDS, mental health diagnosis, sleep apnea, morbid obesity)? @ -None Was patient admitted / discharged? Hospital course, mention meds given and route, prescriptions, significant lab abnormalities, going to OR and other pertinent info. @ -Patient was discharged. Patient was seen and evaluated for lower abdominal pain x 3 days. Vital signs and physical examination is unremarkable. Patient is given IV fluids and Toradol for pain. Lab work including CBC, CMP, lactic acid is unremarkable. Urine is unremarkable. CT revealed no acute changes within the abdomen, probable fibroid uterus. Discussed with patient there are no signs of emergent etiology causing symptoms today. Symptoms are likely due to uterine fibroids. Advised gynecology follow-up. Strict return precautions discussed with patient and patient agrees with plan. Case was discussed with my ED attending Dr. Hernandez. Patient discharged in stable condition. Undiagnosed new problem with uncertain prognosis? @ -No Drug Therapy requiring intensive monitoring for toxicity (Heparin, Nitro, Insulin, Cardizem)? @ -No Were any procedures done? @ -No Diagnosis/symptom? @ -Abdominal pain, uterine fibroids Acute, or Chronic, or Acute on Chronic? @ -Acute Uncomplicated (without systemic symptoms) or Complicated (systemic symptoms)? @ -Complicated Side effects of treatment? @ -No Exacerbation, Progression, or Severe Exacerbation? @ -No Poses a threat to life or bodily function? How? (Chest pain, USA, MS, pneumonia, PE, COPD, DKA, ARF, appy, cholecystitis, CVA, Diverticulitis, Homicidal, Suicidal, threat to staff... and all critical care pts) @ -Unlikely at this time - Lab Data Result diagrams: 12/09/23 12:09 12/09/23 12:09 Lab Results 12/09/23 12/09/23 12/09/23 Range/Units 12:09 12:09 12:09 WBC 5.4 (3.8-10.6) k/uL RBC 4.80 (3.80-5.40) m/uL Hgb 13.7 (11.4-16.0) gm/dL Hct 42.1 (34.0-46.0) % MCV 87.7 (80.0-100.0) fL MCH 28.5 (25.0-35.0) pg MCHC 32.5 (31.0-37.0) g/dL RDW 12.5 (11.5-15.5) % Plt Count 290 (150-450) k/uL MPV 7.7 Neutrophils % 76 % Lymphocytes % 16 % Monocytes % 4 % Eosinophils % 3 % Basophils % 1 % Neutrophils # 4.1 (1.3-7.7) k/uL Lymphocytes # 0.8 L (1.0-4.8) k/uL Monocytes # 0.2 (0-1.0) k/uL Eosinophils # 0.2 (0-0.7) k/uL Basophils # 0.0 (0-0.2) k/uL Sodium 138 (137-145) mmol/L Potassium 4.0 (3.5-5.1) mmol/L Chloride 103 (98-107) mmol/L Carbon Dioxide 26 (22-30) mmol/L Anion Gap 9 mmol/L BUN 11 (7-17) mg/dL Creatinine 0.49 L (0.52-1.04) mg/dL Est GFR (CKD-EPI)AfAm >90 (>60 ml/min/1.73 sqM) Est GFR (CKD-EPI)NonAf >90 (>60 ml/min/1.73 sqM) Glucose 100 H (74-99) mg/dL Plasma Lactic Acid Tono (0.7-2.0) mmol/L Calcium 9.3 (8.4-10.2) mg/dL Total Bilirubin 0.6 (0.2-1.3) mg/dL AST 37 H (14-36) U/L ALT 28 (4-34) U/L Alkaline Phosphatase 108 (38-126) U/L Total Protein 7.5 (6.3-8.2) g/dL Albumin 4.4 (3.5-5.0) g/dL Lipase 44 (23-300) U/L Urine Color Colorless Urine Appearance Clear (Clear) Urine pH 7.0 (5.0-8.0) Ur Specific [place] 1.005 (1.001-1.035) Urine Protein Negative (Negative) Urine Glucose (UA) Negative (Negative) Urine Ketones Negative (Negative) Urine Blood Negative (Negative) Urine Nitrite Negative (Negative) Urine Bilirubin Negative (Negative) Urine Urobilinogen <2.0 (<2.0) mg/dL Ur Leukocyte Esterase Negative (Negative) 12/09/23 Range/Units 12:09 WBC (3.8-10.6) k/uL RBC (3.80-5.40) m/uL Hgb (11.4-16.0) gm/dL Hct (34.0-46.0) % MCV (80.0-100.0) fL MCH (25.0-35.0) pg MCHC (31.0-37.0) g/dL RDW (11.5-15.5) % Plt Count (150-450) k/uL MPV Neutrophils % % Lymphocytes % % Monocytes % % Eosinophils % % Basophils % % Neutrophils # (1.3-7.7) k/uL Lymphocytes # (1.0-4.8) k/uL Monocytes # (0-1.0) k/uL Eosinophils # (0-0.7) k/uL Basophils # (0-0.2) k/uL Sodium (137-145) mmol/L Potassium (3.5-5.1) mmol/L Chloride (98-107) mmol/L Carbon Dioxide (22-30) mmol/L Anion Gap mmol/L BUN (7-17) mg/dL Creatinine (0.52-1.04) mg/dL Est GFR (CKD-EPI)AfAm (>60 ml/min/1.73 sqM) Est GFR (CKD-EPI)NonAf (>60 ml/min/1.73 sqM) Glucose (74-99) mg/dL Plasma Lactic Acid Tono 0.8 (0.7-2.0) mmol/L Calcium (8.4-10.2) mg/dL Total Bilirubin (0.2-1.3) mg/dL AST (14-36) U/L ALT (4-34) U/L Alkaline Phosphatase (38-126) U/L Total Protein (6.3-8.2) g/dL Albumin (3.5-5.0) g/dL Lipase (23-300) U/L Urine Color Urine Appearance (Clear) Urine pH (5.0-8.0) Ur Specific [place] (1.001-1.035) Urine Protein (Negative) Urine Glucose (UA) (Negative) Urine Ketones (Negative) Urine Blood (Negative) Urine Nitrite (Negative) Urine Bilirubin (Negative) Urine Urobilinogen (<2.0) mg/dL Ur Leukocyte Esterase (Negative) Disposition Clinical Impression: Abdominal pain Disposition: HOME SELF-CARE Condition: Stable Instructions (If sedation given, give patient instructions): Abdominal Pain (ED) Additional Instructions: Please follow-up with gynecology as discussed. Please return to the Emergency Department if symptoms worsen or any other concerns. Is patient prescribed a controlled substance at d/c from ED?: No Referrals: Yung Romero MD [Primary Care Provider] - 1-2 days Time of Disposition: 16:40
[2023-12-09] MEDS: KETOROLAC 15 MG/ML 1 ML VIAL IVP STA (12:34)
[2023-12-09] MEDS: SODIUM CHLORIDE 0.9% 1,000 ML IV STA (12:34)
[2023-12-09 12:40] LABS: Appearance,Urine Clear (Clear); Bilirubin,Urine Negative (Negative); Blood,Urine Negative (Negative); Color,Urine Colorless; Glucose,Urine (UA) Negative (Negative); Ketones,Urine Negative (Negative); Leukocyte Esterase,Urine Negative (Negative); Nitrite,Urine Negative (Negative); Protein,Urine Negative (Negative); Specific Gravity,Urine 1.005 (1.001-1.035); Urobilinogen,Urine <2.0 mg/dL (<2.0)
[2023-12-09 12:53] LABS: Basophils % (A) 1 %; Eosinophils # (A) 0.2 k/uL (0-0.7); Eosinophils % (A) 3 %; HCT 42.1 % (34.0-46.0); HGB 13.7 gm/dL (11.4-16.0); Lymphocytes # (A) 0.8 k/uL (1.0-4.8); Lymphocytes % (A) 16 %; MCH 28.5 pg (25.0-35.0); MCHC 32.5 g/dL (31.0-37.0); MCV 87.7 fL (80.0-100.0); Mean Platelet Volume 7.7; Monocytes # (A) 0.2 k/uL (0-1.0); Monocytes % (A) 4 %; Neutrophils # (A) 4.1 k/uL (1.3-7.7); Neutrophils % (A) 76 %; Platelet Count 290 k/uL (150-450); RDW 12.5 % (11.5-15.5); WBC 5.4 k/uL (3.8-10.6)
[2023-12-09 13:26] LABS: ALT 28 U/L (4-34); AST 37 U/L (14-36); African American GFR (CKD) >90 (>60 ml/min/1.73 sqM); Albumin 4.4 g/dL (3.5-5.0); Alkaline Phosphatase 108 U/L (38-126); Anion Gap 9 mmol/L; Blood Urea Nitrogen 11 mg/dL (7-17); Calcium 9.3 mg/dL (8.4-10.2); Carbon Dioxide 26 mmol/L (22-30); Chloride 103 mmol/L (98-107); Glucose 100 mg/dL (74-99); Lipase 44 U/L (23-300); Non-African American GFR(CKD) >90 (>60 ml/min/1.73 sqM); Sodium 138 mmol/L (137-145); Total Bilirubin 0.6 mg/dL (0.2-1.3); Total Protein 7.5 g/dL (6.3-8.2)
[2023-12-09 15:27] VITALS: BP 162/99; PULSE 67
[2023-12-09] MEDS: SODIUM CHLORIDE 0.9% 1,000 ML BAG IV STA (15:30)
--- NOTE | 2023-12-09 15:46 | CT ---
EXAMINATION TYPE: CT abdomen pelvis w con DATE OF EXAM: 12/09/2023 COMPARISON: 11/23/2023 HISTORY: LLQ pain, diverticulitis suspected CT DLP: 3675.4 mGycm Automated exposure control for dose reduction was used. TECHNIQUE: Helical acquisition of images was performed from the lung bases through the pelvis. CONTRAST: Performed without Oral Contrast and with IV Contrast, patient injected with 100 mL of Isovue 300. FINDINGS: The lungs are clear. There is surgical absence of the gallbladder There is no biliary ductal dilatation. There is no organomegaly of the liver, pancreas, spleen or adrenal glands. There are no renal calcifications or hydronephrosis. The caliber of the abdominal aorta is normal and there is no retroperitoneal adenopathy or hemorrhage . The bowel loops are normal in caliber is no evidence of obstruction. No inflammatory changes are iden tified in the mesentery and there is no free intraperitoneal air or fluid. There is no pelvic mass, free fluid, abscess or adenopathy. Uterus is macrolobulated likely indicatin g fibroid uterus. The osseous structures and soft tissues are unremarkable. IMPRESSION: No acute changes within the abdomen. Probable fibroid uterus
== END 2023-12-09 20:14 | disposition home or self-care (01) ==
LOC: EC 11:12
DX: D25.9 Leiomyoma of uterus, unspecified (principal); R10.9 Unspecified abdominal pain; Z88.2 Allergy status to sulfonamides; Z88.5 Allergy status to narcotic agent
CPT/HCPCS: 36415; 80053; 83605; 83690; 85025; 81003; 74177; 99284; 96374; 96361 ×4; J1885; Q9967

== ENCOUNTER 2023-12-11 12:13 | Emergency (ER) | payer BC ==
[2023-12-11 12:18] VITALS: BP 182/96; PULSE 66; RESP 16; TEMP 98.3
--- NOTE | 2023-12-11 12:40 | ED ---
Abdominal Pain HPI - General Chief Complaint: Abdominal Pain Stated Complaint: abd pain Time Seen by Provider: 12/11/23 12:37 Source: patient, RN notes reviewed Mode of arrival: ambulatory Limitations: no limitations - History of Present Illness Initial Comments: Quick Note: This is a 53-year-old female who presents to the emergency permit for abdominal pain. States that this is in the left lower quadrant. She was evaluated here for this 2 days ago and told that it may be related to her known history of uterine fibroids. States that the pain was originally radiating to the back, however that has not resolved and it has remained the left lower quadrant. Pain is occurring intermittently and described as sharp and stabbing in nature. Reports associated nausea and vomiting. - Related Data Home Medications Medication Instructions Recorded Confirmed Esomeprazole Magnesium [NexIUM] 40 mg PO DAILY 07/31/22 03/27/23 Flecainide Acetate [Tambocor] 100 mg PO BID 07/31/22 03/27/23 Metoprolol Tartrate [Lopressor] 25 mg PO BID 07/31/22 03/27/23 Naproxen Sodium [Aleve] 440 mg PO DAILY PRN 07/31/22 03/27/23 Famotidine [Pepcid AC] 10 mg PO BID PRN 03/27/23 03/27/23 Fluticasone/Umeclidin/Vilanter 1 puff INHALATION RT-DAILY 03/27/23 03/27/23 [Trelegy Ellipta 100-62.5-25] HYDROcodone/APAP 10-325MG [[place] 1 tab PO DAILY PRN 03/27/23 03/27/23 10-325] Hydrocortisone Cream 1 applic TOPICAL BID PRN 03/27/23 03/27/23 [Hydrocortisone 2.5% Cream] Ketoconazole 2% Cream [Nizoral 2%] 1 applic TOPICAL DAILY PRN 03/27/23 03/27/23 amLODIPine [Norvasc] 5 mg PO BID 03/27/23 03/27/23 Previous Rx's Medication Instructions Recorded Levofloxacin [Levaquin] 500 mg PO DAILY 1 Days #10 tab 03/27/23 metroNIDAZOLE [Flagyl] 500 mg PO BID #20 tab 03/27/23 Allergies Allergy/AdvReac Type Severity Reaction Status Date / Time Sulfa (Sulfonamide Allergy See Verified 12/11/23 12:18 Antibiotics) comments morphine AdvReac Rapid Verified 12/11/23 12:18 Heart Rate Review of Systems ROS Statement: Those systems with pertinent positive or pertinent negative responses have been documented in the HPI. ROS Other: All systems not noted in ROS Statement are negative. Past Medical History Past Medical History: Asthma, Chest Pain / Angina, COPD, GERD/Reflux, Hyperlipidemia, Hypertension, Pneumonia Additional Past Medical History / Comment(s): Bronchitis, severe GERD, esophageal spasms, problems with abdominal pain/cramps/constipation and diarrhea, diverticular disease, fatigued for 5-6 yrs, anemia, UTI, urinary incontinence at times, arthritis multiple joints, chronic back and neck pain, bilateral leg sciatica, fatty liver, being checked for thyroid disease, menorrhagia, pt states she had one physician tell her she was "pre" diabetic., immunocompromised (Lupas). Lump in groin. paralyzed diaphram. History of Any Multi-Drug Resistant Organisms: None Reported Past Surgical History: Section, Cholecystectomy, Hernia Repair Additional Past Surgical History / Comment(s): EGD, umbilical hernia repair, wisdom teeth extractions. Past Anesthesia/Blood Transfusion Reactions: Postoperative Nausea & Vomiting (PONV) Additional Past Anesthesia/Blood Transfusion Reaction / Comment(s): Difficulty waking. Past Psychological History: Anxiety, Panic Disorder Smoking Status: Never smoker Past Alcohol Use History: None Reported Past Drug Use History: None Reported - Past Family History Father Additional Family Medical History / Comment(s): Pt was adopted and does not know natural father's medical hx. Mother Additional Family Medical History / Comment(s): Pt is adopted and does not know natural mother's medical hx. Brother(s) Family Medical History: Myocardial Infarction (AL) Additional Family Medical History / Comment(s): Pt does know that her half brother had a AL at the age of 45yrs. General Exam - General Exam Comments Initial Comments: Visual Physical Exam Vital signs reviewed General: Well-appearing, nontoxic, no acute distress. Head: Normocephalic, atraumatic Eyes: PERRLA, EOMI ENT: Airway patent Chest: Nonlabored breathing Skin: No visual rash, normal skin tone Neuro: Alert and oriented 3 Musculoskeletal: No gross abnormalities Limitations: no limitations Course Vital Signs 12/11/23 12:16 Temperature 98.3 F Pulse Rate 66 Respiratory 16 Rate Blood Pressure 182/96 O2 Sat by Pulse 97 Oximetry Medical Decision Making - Medical Decision Making I performed the QuickNote portion of this chart. Signed Mariaelena Bustos PA-C. Patient left AMA from the waiting room prior to full evaluation as well as completion and review of ordered testing. - Lab Data Lab Results 12/11/23 Range/Units 12:30 Urine Color Colorless Urine Appearance Clear (Clear) Urine pH 6.0 (5.0-8.0) Ur Specific [place] 1.003 (1.001-1.035) Urine Protein Negative (Negative) Urine Glucose (UA) Negative (Negative) Urine Ketones Negative (Negative) Urine Blood Negative (Negative) Urine Nitrite Negative (Negative) Urine Bilirubin Negative (Negative) Urine Urobilinogen <2.0 (<2.0) mg/dL Ur Leukocyte Esterase Negative (Negative) Disposition Clinical Impression: Abdominal pain Disposition: LEFT AGAINST MEDICAL ADVICE Referrals: Yung Romero MD [Primary Care Provider] - 1-2 days
[2023-12-11 12:44] LABS: Appearance,Urine Clear (Clear); Bilirubin,Urine Negative (Negative); Blood,Urine Negative (Negative); Color,Urine Colorless; Glucose,Urine (UA) Negative (Negative); Ketones,Urine Negative (Negative); Leukocyte Esterase,Urine Negative (Negative); Nitrite,Urine Negative (Negative); Protein,Urine Negative (Negative); Specific Gravity,Urine 1.003 (1.001-1.035); Urobilinogen,Urine <2.0 mg/dL (<2.0)
== END 2023-12-11 13:38 | disposition left against medical advice (07) ==
LOC: EC 12:13
DX: R10.32 Left lower quadrant pain (principal); Z88.2 Allergy status to sulfonamides; Z88.5 Allergy status to narcotic agent; Z53.29 Procedure and treatment not carried out because of patient's decision for other reasons
CPT/HCPCS: 81003; 99283

== ENCOUNTER → 2024-01-22 | Outpatient (CLI) | payer BC ==
--- NOTE | 2024-01-22 13:25 | US ---
EXAMINATION TYPE: US kidneys/renal and bladder DATE OF EXAM: 01/22/2024 COMPARISON: CT 12/09/23, transvaginal ultrasound 11/23/2023 CLINICAL INDICATION: Female, 53 years old with history of N39.0 FREQUENT UTI; Pelvic pain, flank pain , HTN, and pre DM EXAM MEASUREMENTS: Right Kidney: 10.4 x 6.0 x 5.8 cm Left Kidney: 11.5 x 6.0 x 6.7 cm Post Void Residual Volume: NA mL Right Kidney: wnl Left Kidney: wnl Bladder: Not fully distended Bilateral Jets seen: Not able to assess Normal Post Void Residual: NA There is no evidence for hydronephrosis at this point in time. No nephrolithiasis is seen. Corticome dullary differentiation is maintained bilaterally. No masses are identified. The urinary bladder is not fully distended and unable to be assessed. Fibroid uterus changes with a fibroid measuring 3.4 x 4.1 x 3.4 cm corresponding to prior ultrasound. IMPRESSION: 1. No hydronephrosis or nephrolithiasis. 2. Fibroid changes of the uterus.
== END | disposition home or self-care (01) ==
LOC: RADUSWWP 12:28
PROVIDERS: ATTEND Internal Medicine
DX: D25.9 Leiomyoma of uterus, unspecified (principal)
CPT/HCPCS: 76770

== ENCOUNTER → 2024-01-22 | Outpatient (CLI) | payer BC ==
[2024-01-22 13:57] LABS: Appearance,Urine Clear (Clear); Bilirubin,Urine Negative (Negative); Blood,Urine Moderate (Negative); Color,Urine Light Yellow; Glucose,Urine (UA) Negative (Negative); Ketones,Urine Negative (Negative); Leukocyte Esterase,Urine Trace (Negative); Mucus,Urine Rare /hpf; Nitrite,Urine Negative (Negative); Protein,Urine Negative (Negative); RBC,Urine 16 /hpf (0-5); Specific Gravity,Urine 1.019 (1.001-1.035); Squamous Epithelial Cell,Urine 1 /hpf (0-4); Urobilinogen,Urine <2.0 mg/dL (<2.0); WBC,Urine 3 /hpf (0-5)
[2024-01-22 18:55] LABS: Basophils # (A) 0.06 X 10*3/uL (0.00-0.10); Eosinophils # (A) 0.17 X 10*3/uL (0.04-0.35); Eosinophils % (A) 2.8 %; HCT 45.2 % (37.2-46.3); HGB 14.3 g/dL (12.0-15.0); Lymphocytes # (A) 1.28 X 10*3/uL (0.90-5.00); Lymphocytes % (A) 21.1 %; MCH 27.7 pg (27.0-32.0); MCHC 31.6 g/dL (32.0-37.0); MCV 87.4 FL (80.0-97.0); Monocytes # (A) 0.37 X 10*3/uL (0.20-1.00); Monocytes % (A) 6.1 %; NRBC Per 100 WBC 0 X 10*3/uL (0.00-0.01); Neutrophils # (A) 4.18 X 10*3/uL (1.80-7.70); Neutrophils % (A) 68.7 %; Platelet Count 294 X 10*3/uL (140-440); RBC 5.17 X 10*6/uL (4.10-5.20); RDW 12.2 % (11.5-14.5); WBC 6.08 X 10*3/uL (4.50-10.00)
[2024-01-22 19:26] LABS: % Iron Saturation 12.13 (12.00-45.00); ALT 23 U/L (8-44); AST 23 U/L (13-35); Albumin 4.3 g/dL (3.8-4.9); Albumin/Globulin Ratio 1.34 Ratio (1.60-3.17); Alkaline Phosphatase 111 U/L (41-126); BUN/Creat Ratio 22.17 Ratio (12.00-20.00); Blood Urea Nitrogen 13.3 mg/dL (9.0-27.0); Calcium 9.7 mg/dL (8.7-10.3); Carbon Dioxide 26.2 mmol/L (21.6-31.8); Chloride 100 mmol/L (96-109); Chol/HDL Ratio 3.96 Ratio; Ferritin 19.5 ng/mL (10.0-291.0); Globulin 3.2 g/dL (1.6-3.3); Glucose 104 mg/dL (70-110); Iron 54 UG/DL (50-170); Magnesium 1.9 mg/dL (1.5-2.4); Potassium 4.5 mmol/L (3.5-5.5); Sodium 138 mmol/L (135-145); Total Bilirubin 0.4 mg/dL (0.3-1.2); Total Iron Binding Capacity 445 UG/DL (228-460); Total Protein 7.5 g/dL (6.2-8.2); Uric Acid 5.1 mg/dL (2.9-7.7)
== END | disposition home or self-care (01) ==
LOC: LABWHC1 12:13
PROVIDERS: ATTEND Internal Medicine
DX: I10 Essential (primary) hypertension (principal); D50.0 Iron deficiency anemia secondary to blood loss (chronic); E78.2 Mixed hyperlipidemia; R31.9 Hematuria, unspecified
CPT/HCPCS: 36415; 80053; 80061; 81001; 82728; 83036; 83540; 83550; 83735; 84443; 84550; 85025

== ENCOUNTER 2024-01-25 16:36 | Emergency (ER) | payer BC ==
[2024-01-25 16:45] VITALS: RESP 18
--- NOTE | 2024-01-25 16:46 | ED ---
General Adult HPI - General Chief complaint: Recheck/Abnormal Lab/Rx Stated complaint: Weakness,poss UTI Time Seen by Provider: 01/25/24 16:45 Source: patient, EMS Mode of arrival: EMS Limitations: no limitations - History of Present Illness Initial comments: Patient presents to the ED by ambulance for evaluation. Patient states that she has felt cold today, and she states that about an hour ago she developed "uncontrollable shakes". Patient states that she drank a glass of water, and her shaking improved. Patient is noted to have a low-grade fever on arrival to the ED today. Patient states that she has been dealing with a UTI over the past couple of months or so, but she denies having any urinary symptoms at this time. Patient denies having any pain, headache, neck pain or stiffness, sore throat, chest pain or pressure, dyspnea, cough or cold symptoms, palpitations, dizziness, abdominal pain, nausea/vomiting/diarrhea, bloody or melanotic stool, dysuria/urinary frequency/urinary symptoms, or any other symptoms or complaints. Patient denies taking any antipyretic medication today. - Related Data Home Medications Medication Instructions Recorded Confirmed Esomeprazole Magnesium [NexIUM] 40 mg PO DAILY 07/31/22 03/27/23 Flecainide Acetate [Tambocor] 100 mg PO BID 07/31/22 03/27/23 Metoprolol Tartrate [Lopressor] 25 mg PO BID 07/31/22 03/27/23 Naproxen Sodium [Aleve] 440 mg PO DAILY PRN 07/31/22 03/27/23 Famotidine [Pepcid AC] 10 mg PO BID PRN 03/27/23 03/27/23 Fluticasone/Umeclidin/Vilanter 1 puff INHALATION RT-DAILY 03/27/23 03/27/23 [Trelegy Ellipta 100-62.5-25] HYDROcodone/APAP 10-325MG [[place] 1 tab PO DAILY PRN 03/27/23 03/27/23 10-325] Hydrocortisone Cream 1 applic TOPICAL BID PRN 03/27/23 03/27/23 [Hydrocortisone 2.5% Cream] Ketoconazole 2% Cream [Nizoral 2%] 1 applic TOPICAL DAILY PRN 03/27/23 03/27/23 amLODIPine [Norvasc] 5 mg PO BID 03/27/23 03/27/23 Previous Rx's Medication Instructions Recorded Levofloxacin [Levaquin] 500 mg PO DAILY 1 Days #10 tab 03/27/23 metroNIDAZOLE [Flagyl] 500 mg PO BID #20 tab 03/27/23 Allergies Allergy/AdvReac Type Severity Reaction Status Date / Time Sulfa (Sulfonamide Allergy See Verified 01/25/24 16:45 Antibiotics) comments ciprofloxacin [From Cipro] AdvReac Unknown Verified 01/25/24 16:45 morphine AdvReac Rapid Verified 01/25/24 16:45 Heart Rate Review of Systems ROS Statement: Those systems with pertinent positive or pertinent negative responses have been documented in the HPI. ROS Other: All systems not noted in ROS Statement are negative. Past Medical History Past Medical History: Asthma, Chest Pain / Angina, COPD, GERD/Reflux, Hyperlipidemia, Hypertension, Pneumonia Additional Past Medical History / Comment(s): Bronchitis, severe GERD, esophageal spasms, problems with abdominal pain/cramps/constipation and diarrhea, diverticular disease, fatigued for 5-6 yrs, anemia, UTI, urinary incontinence at times, arthritis multiple joints, chronic back and neck pain, bilateral leg sciatica, fatty liver, being checked for thyroid disease, menorrhagia, pt states she had one physician tell her she was "pre" diabetic., immunocompromised ([place]). Lump in groin. paralyzed diaphram. History of Any Multi-Drug Resistant Organisms: None Reported Past Surgical History: Section, Cholecystectomy, Hernia Repair Additional Past Surgical History / Comment(s): EGD, umbilical hernia repair, wisdom teeth extractions. Past Anesthesia/Blood Transfusion Reactions: Postoperative Nausea & Vomiting (PONV) Additional Past Anesthesia/Blood Transfusion Reaction / Comment(s): Difficulty waking. Past Psychological History: Anxiety, Panic Disorder Smoking Status: Never smoker Past Alcohol Use History: None Reported Past Drug Use History: None Reported - Past Family History Father Additional Family Medical History / Comment(s): Pt was adopted and does not know natural father's medical hx. Mother Additional Family Medical History / Comment(s): Pt is adopted and does not know natural mother's medical hx. Brother(s) Family Medical History: Myocardial Infarction (CA) Additional Family Medical History / Comment(s): Pt does know that her half brother had a CA at the age of 45yrs. General Exam Limitations: no limitations General appearance: alert, in no apparent distress Head exam: Present: normocephalic ENT exam: Present: normal oropharynx, mucous membranes moist Neck exam: Present: other (Trachea is in midline). Absent: tenderness, meningismus Respiratory exam: Present: normal lung sounds bilaterally. Absent: respiratory distress, wheezes, rales, rhonchi, stridor Cardiovascular Exam: Present: regular rate, normal rhythm, normal heart sounds, other (Normal radial pulses bilaterally) GI/Abdominal exam: Present: soft, other (Obese abdomen). Absent: tenderness, guarding Extremities exam: Absent: tenderness, pedal edema, calf tenderness Back exam: Absent: CVA tenderness (R), CVA tenderness (L) Neurological exam: Present: alert, oriented X3 Skin exam: Present: warm, dry, normal color Course Vital Signs 01/25/24 01/25/24 16:40 18:54 Temperature 100.4 F H 102.3 F H Pulse Rate 86 Respiratory 18 Rate Blood Pressure 148/87 O2 Sat by Pulse 97 Oximetry - Reevaluation(s) Reevaluation #1: 01/25/24 19:56 Patient states that she is now feeling somewhat better. Patient remains alert and breathing comfortably. Patient and are aware the patient's test results, and patient feels comfortable being discharged home at this time. She was counseled about acute febrile illnesses and fever control. She was clearly explained return and follow-up instructions, and she was instructed to follow-up closely with her primary care provider. She feels comfortable with this plan. EKG Findings - EKG Comments: EKG Findings:: ED physician interpretation (interpreted by me): Sinus rhythm with first-degree AV block, no ectopy, ventricular rate of 92 bpm, WA interval of 242 ms, normal QRS duration, normal QT interval, normal axis, no ST or T wave abnormality Medical Decision Making - Medical Decision Making Was pt. sent in by a medical professional or institution (, PA, [employer], urgent care, hospital, or skilled nursing...) When possible be specific @ -No Did you speak to anyone other than the patient for history (EMS, parent, family, police, friend...)? What history was obtained from this source @ -No Did you review nursing and triage notes (agree or disagree)? Why? @ -I reviewed and agree with nursing and triage notes Were old charts reviewed (outside hosp., previous admission, EMS record, old EKG, old radiological studies, urgent care reports/EKG's, skilled nursing records)? Report findings @ -No old charts were reviewed Differential Diagnosis (chest pain, altered mental status, abdominal pain women, abdominal pain men, vaginal bleeding, weakness, fever, dyspnea, syncope, headache, dizziness, GI bleed, back pain, seizure, CVA, palpatations, mental health, musculoskeletal)? @ -Differential Fever: Pneumonia, viral URI, endocarditis, sinusitis, UTI, pyelonephritis, COVID, influenza, this is not meant to be an all-inclusive list. EKG interpreted by me (3pts min.). @ -As above X-rays interpreted by me (1pt min.). @ -Chest x-ray was reviewed myself and shows no focal infiltrate. I agree with the radiologist's interpretation as above. CT interpreted by me (1pt min.). @ -None done U/S interpreted by me (1pt. min.). @ -None done What testing was considered but not performed or refused? (CT, X-rays, U/S, labs)? Why? @ -None What meds were considered but not given or refused? Why? @ -None Did you discuss the management of the patient with other professionals (professionals i.e. , PA, [employer], lab, RT, psych nurse, medical social worker, auto air conditioning mechanic, teacher, chief talent officer, family independence case manager)? Give summary @ -No Was smoking cessation discussed for >3mins.? @ -No Was critical care preformed (if so, how long)? @ -No Were there social determinants of health that impacted care today? How? (Homelessness, low income, unemployed, alcoholism, drug addiction, transportation, low edu. Level, literacy, decrease access to med. care, long-term, re hab)? @ -No Was there de-escalation of care discussed even if they declined (Discuss DNR or withdrawal of care, Hospice)? DNR status @ -No What co-morbidities impacted this encounter? (DM, HTN, Smoking, COPD, CAD, Cancer, CVA, ARF, Chemo, Hep., AIDS, mental health diagnosis, sleep apnea, morbid obesity)? @ -None Was patient admitted / discharged? Hospital course, mention meds given and route, prescriptions, significant lab abnormalities, going to OR and other pertinent info. @ -Patient's ED workup is fairly unremarkable. Patient's UA is not suggestive of UTI. Patient's chest x-ray does not demonstrate any focal infiltrate. Patient's viral studies are negative. Patient has a normal WBC count and lactic acid level. Blood and urine cultures have been obtained. I suspect that the patient's febrile illness may be viral in etiology. Patient was counseled about acute febrile illnesses/viral illnesses and fever control. Strict return and follow-up instructions were provided. Will discharge patient home with her at this time. Undiagnosed new problem with uncertain prognosis? @ -No Drug Therapy requiring intensive monitoring for toxicity (Heparin, Nitro, Insulin, Cardizem)? @ -No Were any procedures done? @ -No Diagnosis/symptom? @ -Acute febrile illness Acute, or Chronic, or Acute on Chronic? @ -Acute Uncomplicated (without systemic symptoms) or Complicated (systemic symptoms)? @ -Default Side effects of treatment? @ -No Exacerbation, Progression, or Severe Exacerbation? @ -No Poses a threat to life or bodily function? How? (Chest pain, [place], CA, pneumonia, PE, COPD, DKA, ARF, appy, cholecystitis, CVA, Diverticulitis, Homicidal, Suicidal, threat to staff... and all critical care pts) @ -No - Lab Data Result diagrams: 01/25/24 17:44 01/25/24 17:44 Lab Results 01/25/24 01/25/24 01/25/24 Range/Units 17:25 17:44 17:44 WBC 7.2 (3.8-10.6) k/uL RBC 5.05 (3.80-5.40) m/uL Hgb 14.1 (11.4-16.0) gm/dL Hct 43.9 (34.0-46.0) % MCV 87.0 (80.0-100.0) fL MCH 28.0 (25.0-35.0) pg MCHC 32.2 (31.0-37.0) g/dL RDW 12.4 (11.5-15.5) % Plt Count 218 (150-450) k/uL MPV 7.8 Neutrophils % 95 % Lymphocytes % 2 % Monocytes % 1 % Eosinophils % 1 % Basophils % 0 % Neutrophils # 6.9 (1.3-7.7) k/uL Lymphocytes # 0.2 L (1.0-4.8) k/uL Monocytes # 0.1 (0-1.0) k/uL Eosinophils # 0.1 (0-0.7) k/uL Basophils # 0.0 (0-0.2) k/uL PT 11.0 (10.0-12.5) sec INR 1.0 (<1.2) APTT 24.6 (22.0-30.0) sec Sodium (137-145) mmol/L Potassium (3.5-5.1) mmol/L Chloride (98-107) mmol/L Carbon Dioxide (22-30) mmol/L Anion Gap mmol/L BUN (7-17) mg/dL Creatinine (0.52-1.04) mg/dL Est GFR (CKD-EPI)AfAm (>60 ml/min/1.73 sqM) Est GFR (CKD-EPI)NonAf (>60 ml/min/1.73 sqM) Glucose (74-99) mg/dL Plasma Lactic Acid Tono (0.7-2.0) mmol/L Calcium (8.4-10.2) mg/dL Total Bilirubin (0.2-1.3) mg/dL AST (14-36) U/L ALT (4-34) U/L Alkaline Phosphatase (38-126) U/L Total Protein (6.3-8.2) g/dL Albumin (3.5-5.0) g/dL Urine Color Colorless Urine Appearance Clear (Clear) Urine pH 6.0 (5.0-8.0) Ur Specific [place] 1.018 (1.001-1.035) Urine Protein 1+ H (Negative) Urine Glucose (UA) Negative (Negative) Urine Ketones Negative (Negative) Urine Blood Small H (Negative) Urine Nitrite Negative (Negative) Urine Bilirubin Negative (Negative) Urine Urobilinogen <2.0 (<2.0) mg/dL Ur Leukocyte Esterase Negative (Negative) Urine RBC 8 H (0-5) /hpf Urine WBC 2 (0-5) /hpf Ur Squamous Epith Cells 1 (0-4) /hpf Urine Mucus Rare H (None) /hpf Influenza Type A (PCR) (Not Detectd) Influenza Type B (PCR) (Not Detectd) RSV (PCR) (Not Detectd) SARS-CoV-2 (PCR) (Not Detectd) 01/25/24 01/25/24 01/25/24 Range/Units 17:44 17:44 18:54 WBC (3.8-10.6) k/uL RBC (3.80-5.40) m/uL Hgb (11.4-16.0) gm/dL Hct (34.0-46.0) % MCV (80.0-100.0) fL MCH (25.0-35.0) pg MCHC (31.0-37.0) g/dL RDW (11.5-15.5) % Plt Count (150-450) k/uL MPV Neutrophils % % Lymphocytes % % Monocytes % % Eosinophils % % Basophils % % Neutrophils # (1.3-7.7) k/uL Lymphocytes # (1.0-4.8) k/uL Monocytes # (0-1.0) k/uL Eosinophils # (0-0.7) k/uL Basophils # (0-0.2) k/uL PT (10.0-12.5) sec INR (<1.2) APTT (22.0-30.0) sec Sodium 136 L (137-145) mmol/L Potassium 4.2 (3.5-5.1) mmol/L Chloride 100 (98-107) mmol/L Carbon Dioxide 29 (22-30) mmol/L Anion Gap 7 mmol/L BUN 13 (7-17) mg/dL Creatinine 0.58 (0.52-1.04) mg/dL Est GFR (CKD-EPI)AfAm >90 (>60 ml/min/1.73 sqM) Est GFR (CKD-EPI)NonAf >90 (>60 ml/min/1.73 sqM) Glucose 98 (74-99) mg/dL Plasma Lactic Acid Tono 1.2 (0.7-2.0) mmol/L Calcium 9.2 (8.4-10.2) mg/dL Total Bilirubin 1.0 (0.2-1.3) mg/dL AST 38 H (14-36) U/L ALT 25 (4-34) U/L Alkaline Phosphatase 110 (38-126) U/L Total Protein 7.2 (6.3-8.2) g/dL Albumin 4.1 (3.5-5.0) g/dL Urine Color Urine Appearance (Clear) Urine pH (5.0-8.0) Ur Specific [place] (1.001-1.035) Urine Protein (Negative) Urine Glucose (UA) (Negative) Urine Ketones (Negative) Urine Blood (Negative) Urine Nitrite (Negative) Urine Bilirubin (Negative) Urine Urobilinogen (<2.0) mg/dL Ur Leukocyte Esterase (Negative) Urine RBC (0-5) /hpf Urine WBC (0-5) /hpf Ur Squamous Epith Cells (0-4) /hpf Urine Mucus (None) /hpf Influenza Type A (PCR) Not Detected (Not Detectd) Influenza Type B (PCR) Not Detected (Not Detectd) RSV (PCR) Not Detected (Not Detectd) SARS-CoV-2 (PCR) Not Detected (Not Detectd) - Radiology Data Chest x-ray: Interstitial prominence could reflect bronchitis or asthma. No focal infiltrates seen. Disposition Clinical Impression: Acute febrile illness Disposition: HOME SELF-CARE Condition: Stable Instructions (If sedation given, give patient instructions): Fever in Adults (ED), Viral Syndrome (ED) Additional Instructions: Return to the ER immediately should you develop any significant pain, shortness of breath, feeling dizzy or faint, neck stiffness, persistent vomiting, or new or worsening symptoms. Follow-up closely with your primary care provider. Is patient prescribed a controlled substance at d/c from ED?: No Referrals: Yung Romero MD [Primary Care Provider] - 1-2 days Time of Disposition: 20:02
--- NOTE | 2024-01-25 17:21 | XR ---
EXAMINATION TYPE: XR chest 2V DATE OF EXAM: 01/25/2024 COMPARISON: 09/28/2022 HISTORY: 53-year-old female with weakness and fever TECHNIQUE: PA and lateral views FINDINGS: Heart normal size. Aorta and pulmonary vasculature within normal limits. Interstitial prominence with out consolidation or pleural effusion. IMPRESSION: Interstitial prominence could reflect bronchitis or asthma. No focal infiltrates seen. [facility] 01/25/2024 5:17 PM [facility], , 01/25/2024 5:19 PM
[2024-01-25 17:58] LABS: Basophils % (A) 0 %; Eosinophils # (A) 0.1 k/uL (0-0.7); Eosinophils % (A) 1 %; HCT 43.9 % (34.0-46.0); HGB 14.1 gm/dL (11.4-16.0); Lymphocytes # (A) 0.2 k/uL (1.0-4.8); Lymphocytes % (A) 2 %; MCHC 32.2 g/dL (31.0-37.0); Mean Platelet Volume 7.8; Monocytes # (A) 0.1 k/uL (0-1.0); Monocytes % (A) 1 %; Neutrophils # (A) 6.9 k/uL (1.3-7.7); Neutrophils % (A) 95 %; Platelet Count 218 k/uL (150-450); RBC 5.05 m/uL (3.80-5.40); RDW 12.4 % (11.5-15.5); WBC 7.2 k/uL (3.8-10.6)
[2024-01-25 18:00] LABS: Appearance,Urine Clear (Clear); Bilirubin,Urine Negative (Negative); Blood,Urine Small (Negative); Color,Urine Colorless; Glucose,Urine (UA) Negative (Negative); Ketones,Urine Negative (Negative); Leukocyte Esterase,Urine Negative (Negative); Mucus,Urine Rare /hpf; Nitrite,Urine Negative (Negative); Protein,Urine 1+ (Negative); RBC,Urine 8 /hpf (0-5); Specific Gravity,Urine 1.018 (1.001-1.035); Squamous Epithelial Cell,Urine 1 /hpf (0-4); Urobilinogen,Urine <2.0 mg/dL (<2.0); WBC,Urine 2 /hpf (0-5)
[2024-01-25 18:05] LABS: ALT 25 U/L (4-34); AST 38 U/L (14-36); African American GFR (CKD) >90 (>60 ml/min/1.73 sqM); Albumin 4.1 g/dL (3.5-5.0); Alkaline Phosphatase 110 U/L (38-126); Anion Gap 7 mmol/L; Blood Urea Nitrogen 13 mg/dL (7-17); Calcium 9.2 mg/dL (8.4-10.2); Carbon Dioxide 29 mmol/L (22-30); Chloride 100 mmol/L (98-107); Glucose 98 mg/dL (74-99); Non-African American GFR(CKD) >90 (>60 ml/min/1.73 sqM); Potassium 4.2 mmol/L (3.5-5.1); Sodium 136 mmol/L (137-145); Total Protein 7.2 g/dL (6.3-8.2)
[2024-01-25 18:07] LABS: Partial Thromboplastin Time 24.6 sec (22.0-30.0)
[2024-01-25] MEDS: ACETAMINOPHEN TAB 500 MG TAB PO STA (18:54)
[2024-01-25 20:22] VITALS: BP 128/84; PULSE 90; TEMP 100.1
== END 2024-01-25 20:40 | disposition home or self-care (01) ==
LOC: EC 16:36
CPT/HCPCS: 36415; 71046; 80053; 81001; 83605; 85025; 85610; 85730; 87040; 87636; 93005; 99285

== ENCOUNTER 2024-01-31 06:47 | Emergency (ER) | payer BC ==
[2024-01-31 06:52] VITALS: TEMP 97.2
--- NOTE | 2024-01-31 07:34 | ED ---
Fever HPI - General Chief Complaint: Fever Stated Complaint: Fever, sore throat Time Seen by Provider: 01/31/24 06:53 Source: patient, RN notes reviewed Mode of arrival: ambulatory Limitations: no limitations - History of Present Illness Initial Comments: 53 year old female present to the emergency department with chief complaint of sore throat. States that a month ago she was taking antibiotics for UTI and 01/28 she went to the urgent care with similar complaints and received antibiotics for bronchitis. Reports productive cough with guerrero sputum, rib pain from coughing, diarrhea, and fever for which she has been taking acetaminophen, ibuprofen, and cough drops with subpar relief. Denies shortness of breath, chest pain, nausea, and vomiting. - Related Data Home Medications Medication Instructions Recorded Confirmed Esomeprazole Magnesium [NexIUM] 40 mg PO DAILY 07/31/22 03/27/23 Flecainide Acetate [Tambocor] 100 mg PO BID 07/31/22 03/27/23 Metoprolol Tartrate [Lopressor] 25 mg PO BID 07/31/22 03/27/23 Naproxen Sodium [Aleve] 440 mg PO DAILY PRN 07/31/22 03/27/23 Famotidine [Pepcid AC] 10 mg PO BID PRN 03/27/23 03/27/23 Fluticasone/Umeclidin/Vilanter 1 puff INHALATION RT-DAILY 03/27/23 03/27/23 [Trelegy Ellipta 100-62.5-25] HYDROcodone/APAP 10-325MG [[place] 1 tab PO DAILY PRN 03/27/23 03/27/23 10-325] Hydrocortisone Cream 1 applic TOPICAL BID PRN 03/27/23 03/27/23 [Hydrocortisone 2.5% Cream] Ketoconazole 2% Cream [Nizoral 2%] 1 applic TOPICAL DAILY PRN 03/27/23 03/27/23 amLODIPine [Norvasc] 5 mg PO BID 03/27/23 03/27/23 Previous Rx's Medication Instructions Recorded Levofloxacin [Levaquin] 500 mg PO DAILY 1 Days #10 tab 03/27/23 metroNIDAZOLE [Flagyl] 500 mg PO BID #20 tab 03/27/23 Allergies Allergy/AdvReac Type Severity Reaction Status Date / Time Sulfa (Sulfonamide Allergy See Verified 01/31/24 06:52 Antibiotics) comments ciprofloxacin [From Cipro] AdvReac Unknown Verified 01/31/24 06:52 morphine AdvReac Rapid Verified 01/31/24 06:52 Heart Rate Review of Systems ROS Statement: Those systems with pertinent positive or pertinent negative responses have been documented in the HPI. ROS Other: All systems not noted in ROS Statement are negative. Past Medical History Past Medical History: Asthma, Chest Pain / Angina, COPD, GERD/Reflux, Hyperlipidemia, Hypertension, Pneumonia Additional Past Medical History / Comment(s): Bronchitis, severe GERD, esophageal spasms, problems with abdominal pain/cramps/constipation and diarrhea, diverticular disease, fatigued for 5-6 yrs, anemia, UTI, urinary incontinence at times, arthritis multiple joints, chronic back and neck pain, bilateral leg sciatica, fatty liver, being checked for thyroid disease, menorrhagia, pt states she had one physician tell her she was "pre" diabetic., immunocompromised (Lupas). Lump in groin. paralyzed diaphram. History of Any Multi-Drug Resistant Organisms: None Reported Past Surgical History: Section, Cholecystectomy, Hernia Repair Additional Past Surgical History / Comment(s): EGD, umbilical hernia repair, wisdom teeth extractions. Past Anesthesia/Blood Transfusion Reactions: Postoperative Nausea & Vomiting (PONV) Additional Past Anesthesia/Blood Transfusion Reaction / Comment(s): Difficulty waking. Past Psychological History: Anxiety, Panic Disorder Smoking Status: Never smoker Past Alcohol Use History: None Reported Past Drug Use History: None Reported - Past Family History Father Additional Family Medical History / Comment(s): Pt was adopted and does not know natural father's medical hx. Mother Additional Family Medical History / Comment(s): Pt is adopted and does not know natural mother's medical hx. Brother(s) Family Medical History: Myocardial Infarction (ME) Additional Family Medical History / Comment(s): Pt does know that her half brother had a ME at the age of 45yrs. General Exam Limitations: no limitations General appearance: alert, in no apparent distress Head exam: Present: atraumatic, normocephalic, normal inspection Eye exam: Present: normal appearance, PERRL, EOMI. Absent: scleral icterus, conjunctival injection, periorbital swelling ENT exam: Present: normal exam, normal oropharynx, mucous membranes moist, TM's normal bilaterally Expanded Throat exam: other (Pharyngeal erythema) Neck exam: Present: normal inspection. Absent: tenderness, meningismus, lymphadenopathy Respiratory exam: Present: normal lung sounds bilaterally. Absent: respiratory distress, wheezes, rales, rhonchi, stridor Cardiovascular Exam: Present: regular rate, normal rhythm, normal heart sounds. Absent: systolic murmur, diastolic murmur, rubs, gallop, clicks GI/Abdominal exam: Present: soft, normal bowel sounds. Absent: distended, tenderness, guarding, rebound, rigid Extremities exam: Present: normal inspection, full ROM, normal capillary refill. Absent: tenderness, pedal edema, joint swelling, calf tenderness Back exam: Present: normal inspection Neurological exam: Present: alert, oriented X3, CN II-XII intact Psychiatric exam: Present: normal affect, normal mood Skin exam: Present: warm, dry, intact, normal color. Absent: rash Course Vital Signs 01/31/24 06:49 Temperature 97.2 F L Pulse Rate 81 Respiratory 16 Rate Blood Pressure 154/96 O2 Sat by Pulse 93 L Oximetry Medical Decision Making - Medical Decision Making Was pt. sent in by a medical professional or institution (, PA, HUMIDIFIER MAINTENANCE WORKER, urgent care, hospital, or [facility]...) When possible be specific @ -No Did you speak to anyone other than the patient for history (EMS, parent, family, police, friend...)? What history was obtained from this source @ -No Did you review nursing and triage notes (agree or disagree)? Why? @ -I reviewed and agree with nursing and triage notes Were old charts reviewed (outside hosp., previous admission, EMS record, old EKG, old radiological studies, urgent care reports/EKG's, [facility] records)? Report findings @ -No old charts were reviewed Differential Diagnosis (chest pain, altered mental status, abdominal pain women, abdominal pain men, vaginal bleeding, weakness, fever, dyspnea, syncope, headache, dizziness, GI bleed, back pain, seizure, CVA, palpatations, mental health, musculoskeletal)? @COVID 19, RSV, influenza, pneumonia, acute bronchitis, URI, this list is not all inclusive EKG interpreted by me (3pts min.). @ -None X-rays interpreted by me (1pt min.). @ -Chest x-ray shows no acute cardiopulmonary process no evidence of pneumonia CT interpreted by me (1pt min.). @ -None done U/S interpreted by me (1pt. min.). @ -None done What testing was considered but not performed or refused? (CT, X-rays, U/S, labs)? Why? @ -None What meds were considered but not given or refused? Why? @ -None Did you discuss the management of the patient with other professionals (professionals i.e. Dr., PA, HUMIDIFIER MAINTENANCE WORKER, lab, RT, psych nurse, social service liaison, dispute coordinator, teacher, jail officer, pillowcase turner)? Give summary @ -No Was smoking cessation discussed for >3mins.? @ -No Was critical care preformed (if so, how long)? @ -No Were there social determinants of health that impacted care today? How? (Homelessness, low income, unemployed, alcoholism, drug addiction, transportation, low edu. Level, literacy, decrease access to med. care, longterm, rehab)? @ -No Was there de-escalation of care discussed even if they declined (Discuss DNR or withdrawal of care, Hospice)? DNR status @ -No What co-morbidities impacted this encounter? (DM, HTN, Smoking, COPD, CAD, Cancer, CVA, ARF, Chemo, Hep., AIDS, mental health diagnosis, sleep apnea, morbid obesity)? @ -None Was patient admitted / discharged? Hospital course, mention meds given and rout e, prescriptions, significant lab abnormalities, going to OR and other pertinent info. @ -Discharge patient is COVID-19 positive. Patient's had symptoms for 1 week did not meet criteria for Paxlovid. Patient discharged in stable condition return parameters soni. Undiagnosed new problem with uncertain prognosis? @ -No Drug Therapy requiring intensive monitoring for toxicity (Heparin, Nitro, Insul in, Cardizem)? @ -No Were any procedures done? @ -No Diagnosis/symptom? @ -COVID-19 Acute, or Chronic, or Acute on Chronic? @ -Acute Uncomplicated (without systemic symptoms) or Complicated (systemic symptoms)? @ -Uncomplicated Side effects of treatment? @ -No Exacerbation, Progression, or Severe Exacerbation? @ -No Poses a threat to life or bodily function? How? (Chest pain, [place], ME, pneumonia, PE, COPD, DKA, ARF, appy, cholecystitis, CVA, Diverticulitis, Homicidal, Suicidal, threat to staff... and all critical care pts) @ -No - Lab Data Lab Results 01/31/24 01/31/24 Range/Units 07:16 07:16 Influenza Type A (PCR) Not Detected (Not Detectd) Influenza Type B (PCR) Not Detected (Not Detectd) RSV (PCR) Not Detected (Not Detectd) SARS-CoV-2 (PCR) Detected A (Not Detectd) Group A Strep (PCR) NOT DETECTED (Not Detectd) Disposition Clinical Impression: COVID-19 Disposition: HOME SELF-CARE Condition: Stable Instructions (If sedation given, give patient instructions): COVID-19 (Coronavirus Disease 2019) (ED) Additional Instructions: Please return to the Emergency Department if symptoms worsen or any other concerns. Is patient prescribed a controlled substance at d/c from ED?: No Referrals: Yung Romero MD [Primary Care Provider] - 1-2 days Time of Disposition: 08:08
--- NOTE | 2024-01-31 07:35 | XR ---
EXAMINATION TYPE: XR chest 2V DATE OF EXAM: 01/31/2024 COMPARISON: 01/25/2024 INDICATION: Productive cough TECHNIQUE: Frontal and lateral views of the chest are obtained. FINDINGS: The heart size is normal. The pulmonary vasculature is normal. The lungs are clear. IMPRESSION: 1. No acute pulmonary process. [facility] , 01/31/2024 7:32 AM
[2024-01-31 08:25] VITALS: BP 149/93; PULSE 72; RESP 18
== END 2024-01-31 08:25 | disposition home or self-care (01) ==
LOC: EC 06:47
CPT/HCPCS: 71046; 87636; 87651; 99283

== ENCOUNTER 2024-03-04 06:13 | Emergency (ER) | payer BC ==
[2024-03-04] MEDS: DICYCLOMINE 10 MG/ML 2 ML AMP IM STA (06:46)
--- NOTE | 2024-03-04 06:46 | ED ---
Abdominal Pain HPI - General Chief Complaint: Abdominal Pain Stated Complaint: Abdominal Pain Time Seen by Provider: 03/04/24 06:20 Source: patient, RN notes reviewed Mode of arrival: ambulatory Limitations: no limitations - History of Present Illness Initial Comments: This is a 53-year-old female who presents to the emergency department for abdominal pain. States that it started 2 days ago. States that it starts in the epigastric and periumbilical region and then radiates down and across the abdomen. Pain does not radiate into her back. Denies any nausea or vomiting. She was constipated initially and took milk of magnesia. States that this is usually effective right away, however it took several hours and she has only produced very small pieces of loose stool. States that her abdomen is very sensitive to even light touch. She does have a history of diverticulitis and GI problems in general, however this feels different. Denies any pain in her chest or shortness of breath. MD Complaint: abdominal pain - Related Data Home Medications Medication Instructions Recorded Confirmed Esomeprazole Magnesium [NexIUM] 40 mg PO DAILY 07/31/22 03/27/23 Flecainide Acetate [Tambocor] 100 mg PO BID 07/31/22 03/27/23 Metoprolol Tartrate [Lopressor] 25 mg PO BID 07/31/22 03/27/23 Naproxen Sodium [Aleve] 440 mg PO DAILY PRN 07/31/22 03/27/23 Famotidine [Pepcid AC] 10 mg PO BID PRN 03/27/23 03/27/23 Fluticasone/Umeclidin/Vilanter 1 puff INHALATION RT-DAILY 03/27/23 03/27/23 [Trelegy Ellipta 100-62.5-25] HYDROcodone/APAP 10-325MG [[place] 1 tab PO DAILY PRN 03/27/23 03/27/23 10-325] Hydrocortisone Cream 1 applic TOPICAL BID PRN 03/27/23 03/27/23 [Hydrocortisone 2.5% Cream] Ketoconazole 2% Cream [Nizoral 2%] 1 applic TOPICAL DAILY PRN 03/27/23 03/27/23 amLODIPine [Norvasc] 5 mg PO BID 03/27/23 03/27/23 Previous Rx's Medication Instructions Recorded Levofloxacin [Levaquin] 500 mg PO DAILY 1 Days #10 tab 11/15/23 metroNIDAZOLE [Flagyl] 500 mg PO BID #20 tab 03/27/23 Amoxic-Pot Clav 875-125Mg 1 tab PO Q12HR 10 Days #20 tab 03/04/24 [Augmentin 875-125] Hyoscyamine Sulfate [Levsin] 0.125 mg PO Q4H PRN #30 tab 03/04/24 Miconazole 2% Vaginal Cream 1 applicator VAGINAL HS 7 Days #45 03/04/24 [Monistat 7] gm Allergies Allergy/AdvReac Type Severity Reaction Status Date / Time Sulfa (Sulfonamide Allergy See Verified 03/04/24 06:20 Antibiotics) comments ciprofloxacin [From Cipro] AdvReac Unknown Verified 03/04/24 06:20 morphine AdvReac Rapid Verified 03/04/24 06:20 Heart Rate Review of Systems ROS Statement: Those systems with pertinent positive or pertinent negative responses have been documented in the HPI. ROS Other: All systems not noted in ROS Statement are negative. Past Medical History Past Medical History: Asthma, Chest Pain / Angina, COPD, GERD/Reflux, Hyperlipidemia, Hypertension, Pneumonia Additional Past Medical History / Comment(s): Bronchitis, severe GERD, esophageal spasms, problems with abdominal pain/cramps/constipation and diarrhea, diverticular disease, fatigued for 5-6 yrs, anemia, UTI, urinary incontinence at times, arthritis multiple joints, chronic back and neck pain, bilateral leg sciatica, fatty liver, being checked for thyroid disease, menorrhagia, pt states she had one physician tell her she was "pre" diabetic., immunocompromised (Lupas). Lump in groin. paralyzed diaphram. History of Any Multi-Drug Resistant Organisms: None Reported Past Surgical History: Section, Cholecystectomy, Hernia Repair Additional Past Surgical History / Comment(s): EGD, umbilical hernia repair, wisdom teeth extractions. Past Anesthesia/Blood Transfusion Reactions: Postoperative Nausea & Vomiting (PONV) Additional Past Anesthesia/Blood Transfusion Reaction / Comment(s): Difficulty waking. Past Psychological History: Anxiety, Panic Disorder Smoking Status: Never smoker Past Alcohol Use History: None Reported Past Drug Use History: None Reported - Past Family History Father Additional Family Medical History / Comment(s): Pt was adopted and does not know natural father's medical hx. Mother Additional Family Medical History / Comment(s): Pt is adopted and does not know natural mother's medical hx. Brother(s) Family Medical History: Myocardial Infarction (CO) Additional Family Medical History / Comment(s): Pt does know that her half brother had a CO at the age of 45yrs. General Exam Limitations: no limitations General appearance: alert, in no apparent distress Head exam: Present: atraumatic, normocephalic, normal inspection Respiratory exam: Present: normal lung sounds bilaterally. Absent: respiratory distress, wheezes, rales, rhonchi, stridor Cardiovascular Exam: Present: regular rate, normal rhythm, normal heart sounds. Absent: systolic murmur, diastolic murmur, rubs, gallop, clicks GI/Abdominal exam: Present: soft, tenderness (Upper and mid abdomen), normal bowel sounds. Absent: distended External exam: Present: normal external exam. Absent: erythema, swelling, lesions Neurological exam: Present: alert, oriented X3, CN II-XII intact Psychiatric exam: Present: normal affect, normal mood Skin exam: Present: warm, dry, intact, normal color. Absent: rash Course Vital Signs 03/04/24 03/04/24 03/04/24 06:17 08:20 09:07 Temperature 97.9 F 98.1 F Pulse Rate 78 78 65 Respiratory 18 20 20 Rate Blood Pressure 150/89 148/93 135/85 O2 Sat by Pulse 95 96 99 Oximetry Medical Decision Making - Medical Decision Making This is a 53 year old female who presents to the emergency department for abdominal pain. Was pt. sent in by a medical professional or institution? @ -No Did you speak to anyone other than the patient for history? @ -No Did you review nursing and triage notes? @ -Yes, and I agree, it is accurate with regards to the patient's symptoms. Were old charts reviewed? @ -No Differential Diagnosis? @ -Differential Abdominal Pain Women: Appendicitis, Cholecystitis, diverticulosis, ischemic bowel, pancreatitis, hepatitis, UTI, gastroenteritis, AAA, incarcerated hernia, bowel obstruction, constipation, inflammatory bowel, hepatitis, peptic ulcer disease, splenic infarction, perforated viscus, vulvitis, ovarian torsion, PID, kidney stone, placenta abruption, this is not meant to be an all-inclusive list EKG interpreted by me (3pts min.)? @ -EKG interpreted by me demonstrating the following: Sinus rhythm. Ventricular rate 75 bpm, SC interval 223 ms, QRS duration 102 ms, QTc 420 ms. X-rays interpreted by me (1pt min.)? @ -Not obtained CT interpreted by me (1pt min.)? @ -CT scan of the abdomen and pelvis obtained. My interpretation identifies inflammation around the sigmoid colon. U/S interpreted by me (1pt. min.)? @ -Not obtained What testing was considered but not performed? (CT, X-rays, U/S, labs)? Why? @ -None What meds were considered but not given? Why? @ -None Did you discuss the management of the patient with other professionals? @ -No Did you reconcile home meds? @ -No Was smoking cessation discussed for >3mins.? @ -No Was critical care preformed (if so, how long)? @ -No Were there social determinants of health that impacted care today? How? (Homele ssness, low income, unemployed, alcoholism, drug addiction, transportation, low edu. Level, literacy, decrease access to med. care, [facility], rehab)? @ -No Was there de-escalation of care discussed even if they declined? (Discuss DNR or withdrawal of care, Hospice)? @ -No What co-morbidities impacted this encounter? (DM, HTN, Smoking, COPD, CAD, Canc er, CVA, Hep., AIDS, mental health diagnosis, sleep apnea, morbid obesity)? @ -GERD Was patient admitted / discharged? @ -Discharged. Lab work unremarkable. COVID, influenza, and RSV testing negative. Urinalysis demonstrates a large amount of blood and a small amount of leukocyte esterase and elevation in white blood cells. Patient reports problems with ongoing bleeding related to uterine fibroids. Urine sent for culture. CT scan of the abdomen and pelvis demonstrates mild uncomplicated sigmoid diverticulitis. Patient also concerned about an at home vaginal infection test that she states was positive. States that she was given a prescription for Diflucan, but does not want to take this as she was told that she cannot take it with her A-fib. We subsequently sent in a genital culture, however advised that this will not have results for the next couple of days. Miconazole cream prescribed in the meantime to be used in place of the Diflucan. Augmentin prescribed for the diverticulitis. She inquired about something other than Bentyl to help with her ongoing GI symptoms. Advised that we can try something like Levsin and this was prescribed. She will otherwise need to follow-up with GI for further evaluation. Also advise close follow-up with her PCP. Patient discharged home in stable condition. Case discussed with ED attending Dr. Diggs. Return precautions reviewed in depth, the patient is instructed to return to the emergency department with any new, worsening, or concerning symptoms. Patient verbalized understanding. Undiagnosed new problem with uncertain prognosis? @ -None Drug Therapy requiring intensive monitoring for toxicity (Heparin, Nitro, Insulin, Cardizem)? @ -None Were any procedures done? @ -None Diagnosis/symptom? @ -Diverticulitis, vaginal infection Acute, or Chronic, or Acute on Chronic? @ -Acute Uncomplicated (without systemic symptoms) or Complicated (systemic symptoms)? @ -Uncomplicated Side effects of treatment? @ -None Exacerbation, Progression, or Severe Exacerbation] @ -Not applicable Poses a threat to life or bodily function? @ -No - Lab Data Result diagrams: 03/04/24 06:56 03/04/24 06:56 Lab Results 03/04/24 03/04/24 03/04/24 Range/Units 06:56 06:56 06:56 WBC 8.8 (3.8-10.6) k/uL RBC 5.18 (3.80-5.40) m/uL Hgb 14.1 (11.4-16.0) gm/dL Hct 43.0 (34.0-46.0) % MCV 83.0 (80.0-100.0) fL MCH 27.3 (25.0-35.0) pg MCHC 32.8 (31.0-37.0) g/dL RDW 13.2 (11.5-15.5) % Plt Count 279 (150-450) k/uL MPV 7.9 Neutrophils % 80 % Lymphocytes % 13 % Monocytes % 5 % Eosinophils % 2 % Basophils % 0 % Neutrophils # 7.0 (1.3-7.7) k/uL Lymphocytes # 1.1 (1.0-4.8) k/uL Monocytes # 0.4 (0-1.0) k/uL Eosinophils # 0.2 (0-0.7) k/uL Basophils # 0.0 (0-0.2) k/uL Sodium 137 (137-145) mmol/L Potassium 3.9 (3.5-5.1) mmol/L Chloride 101 (98-107) mmol/L Carbon Dioxide 27 (22-30) mmol/L Anion Gap 9 mmol/L BUN 7 (7-17) mg/dL Creatinine 0.54 (0.52-1.04) mg/dL Est GFR (CKD-EPI)AfAm >90 (>60 ml/min/1.73 sqM) Est GFR (CKD-EPI)NonAf >90 (>60 ml/min/1.73 sqM) Glucose 112 H (74-99) mg/dL Plasma Lactic Acid Tono (0.7-2.0) mmol/L Calcium 9.1 (8.4-10.2) mg/dL Total Bilirubin 1.3 (0.2-1.3) mg/dL AST 32 (14-36) U/L ALT 26 (4-34) U/L Alkaline Phosphatase 105 (38-126) U/L Total Protein 7.6 (6.3-8.2) g/dL Albumin 4.2 (3.5-5.0) g/dL Amylase 35 (30-110) U/L Lipase 40 (23-300) U/L Urine Color Yellow Urine Appearance Clear (Clear) Urine pH 6.0 (5.0-8.0) Ur Specific [place] 1.013 (1.001-1.035) Urine Protein Trace H (Negative) Urine Glucose (UA) Negative (Negative) Urine Ketones Trace H (Negative) Urine Blood Large H (Negative) Urine Nitrite Negative (Negative) Urine Bilirubin Negative (Negative) Urine Urobilinogen <2.0 (<2.0) mg/dL Ur Leukocyte Esterase Small H (Negative) Urine RBC 163 H (0-5) /hpf Urine WBC 7 H (0-5) /hpf Ur Squamous Epith Cells 3 (0-4) /hpf Urine Mucus Occasional H (None) /hpf Influenza Type A (PCR) (Not Detectd) Influenza Type B (PCR) (Not Detectd) RSV (PCR) (Not Detectd) SARS-CoV-2 (PCR) (Not Detectd) 03/04/24 03/04/24 Range/Units 06:56 06:56 WBC (3.8-10.6) k/uL RBC (3.80-5.40) m/uL Hgb (11.4-16.0) gm/dL Hct (34.0-46.0) % MCV (80.0-100.0) fL MCH (25.0-35.0) pg MCHC (31.0-37.0) g/dL RDW (11.5-15.5) % Plt Count (150-450) k/uL MPV Neutrophils % % Lymphocytes % % Monocytes % % Eosinophils % % Basophils % % Neutrophils # (1.3-7.7) k/uL Lymphocytes # (1.0-4.8) k/uL Monocytes # (0-1.0) k/uL Eosinophils # (0-0.7) k/uL Basophils # (0-0.2) k/uL Sodium (137-145) mmol/L Potassium (3.5-5.1) mmol/L Chloride (98-107) mmol/L Carbon Dioxide (22-30) mmol/L Anion Gap mmol/L BUN (7-17) mg/dL Creatinine (0.52-1.04) mg/dL Est GFR (CKD-EPI)AfAm (>60 ml/min/1.73 sqM) Est GFR (CKD-EPI)NonAf (>60 ml/min/1.73 sqM) Glucose (74-99) mg/dL Plasma Lactic Acid Tono 0.9 (0.7-2.0) mmol/L Calcium (8.4-10.2) mg/dL Total Bilirubin (0.2-1.3) mg/dL AST (14-36) U/L ALT (4-34) U/L Alkaline Phosphatase (38-126) U/L Total Protein (6.3-8.2) g/dL Albumin (3.5-5.0) g/dL Amylase (30-110) U/L Lipase (23-300) U/L Urine Color Urine Appearance (Clear) Urine pH (5.0-8.0) Ur Specific [place] (1.001-1.035) Urine Protein (Negative) Urine Glucose (UA) (Negative) Urine Ketones (Negative) Urine Blood (Negative) Urine Nitrite (Negative) Urine Bilirubin (Negative) Urine Urobilinogen (<2.0) mg/dL Ur Leukocyte Esterase (Negative) Urine RBC (0-5) /hpf Urine WBC (0-5) /hpf Ur Squamous Epith Cells (0-4) /hpf Urine Mucus (None) /hpf Influenza Type A (PCR) Not Detected (Not Detectd) Influenza Type B (PCR) Not Detected (Not Detectd) RSV (PCR) Not Detected (Not Detectd) SARS-CoV-2 (PCR) Not Detected (Not Detectd) - Radiology Data Radiology results: report reviewed, image reviewed Disposition Clinical Impression: Diverticulitis, Vaginal infection Disposition: HOME SELF-CARE Instructions (If sedation given, give patient instructions): Diverticulitis (ED), Abdominal Pain (ED) Additional Instructions: Return to the emergency department with any new, worsening, or concerning symptoms. Take the antibiotic as prescribed for 10 days. Apply the miconazole cream vaginally each night for 7 days. If your pain gets much worse try taking the [place] you have at home. You can also take the Levsin up to every 4 hours to help with abdominal pain and discomfort. Follow up with your primary care provider in 1-2 days. Prescriptions: Amoxic-Pot Clav 875-125Mg [Augmentin 875-125] 1 tab PO Q12HR 10 Days #20 tab Hyoscyamine Sulfate [Levsin] 0.125 mg PO Q4H PRN #30 tab PRN Reason: Gi Upset Miconazole 2% Vaginal Cream [Monistat 7] 1 applicator VAGINAL HS 7 Days #45 gm Is patient prescribed a controlled substance at d/c from ED?: No Referrals: None,Stated [Primary Care Provider] - 1-2 days Time of Disposition: 08:40
[2024-03-04] MEDS: KETOROLAC 15 MG/ML 1 ML VIAL IVP STA (06:48)
[2024-03-04] MEDS: PANTOPRAZOLE 40 MG/10 ML VIAL IVP STA (06:49)
[2024-03-04] MEDS: SODIUM CHLORIDE 0.9% 1,000 ML IV STA (06:54)
[2024-03-04 07:06] LABS: Basophils % (A) 0 %; Eosinophils # (A) 0.2 k/uL (0-0.7); Eosinophils % (A) 2 %; HGB 14.1 gm/dL (11.4-16.0); Lymphocytes # (A) 1.1 k/uL (1.0-4.8); Lymphocytes % (A) 13 %; MCH 27.3 pg (25.0-35.0); MCHC 32.8 g/dL (31.0-37.0); Mean Platelet Volume 7.9; Monocytes # (A) 0.4 k/uL (0-1.0); Monocytes % (A) 5 %; Neutrophils % (A) 80 %; Platelet Count 279 k/uL (150-450); RBC 5.18 m/uL (3.80-5.40); RDW 13.2 % (11.5-15.5); WBC 8.8 k/uL (3.8-10.6)
[2024-03-04 07:17] LABS: ALT 26 U/L (4-34); AST 32 U/L (14-36); African American GFR (CKD) >90 (>60 ml/min/1.73 sqM); Albumin 4.2 g/dL (3.5-5.0); Alkaline Phosphatase 105 U/L (38-126); Amylase 35 U/L (30-110); Anion Gap 9 mmol/L; Blood Urea Nitrogen 7 mg/dL (7-17); Calcium 9.1 mg/dL (8.4-10.2); Carbon Dioxide 27 mmol/L (22-30); Chloride 101 mmol/L (98-107); Glucose 112 mg/dL (74-99); Lipase 40 U/L (23-300); Non-African American GFR(CKD) >90 (>60 ml/min/1.73 sqM); Potassium 3.9 mmol/L (3.5-5.1); Sodium 137 mmol/L (137-145); Total Bilirubin 1.3 mg/dL (0.2-1.3); Total Protein 7.6 g/dL (6.3-8.2)
[2024-03-04 07:29] LABS: Appearance,Urine Clear (Clear); Bilirubin,Urine Negative (Negative); Blood,Urine Large (Negative); Color,Urine Yellow; Glucose,Urine (UA) Negative (Negative); Ketones,Urine Trace (Negative); Leukocyte Esterase,Urine Small (Negative); Mucus,Urine Occasional /hpf; Nitrite,Urine Negative (Negative); Protein,Urine Trace (Negative); RBC,Urine 163 /hpf (0-5); Specific Gravity,Urine 1.013 (1.001-1.035); Squamous Epithelial Cell,Urine 3 /hpf (0-4); Urobilinogen,Urine <2.0 mg/dL (<2.0); WBC,Urine 7 /hpf (0-5)
--- NOTE | 2024-03-04 07:56 | CT ---
EXAMINATION TYPE: CT abdomen pelvis wo con DATE OF EXAM: 03/04/2024 COMPARISON: 12/09/2023 HISTORY: Abdominal pain, acute, nonlocalized with diarrhea x [address] DLP: 2245 mGycm Examination of the solid and hollow viscera is limited given the lack of contrast. FINDINGS: LUNG BASES: No evidence for nodule. No evidence for infiltrate. LIVER/GB: The gallbladder surgically absent. No space-occupying hepatic lesion. PANCREAS: No pancreatic mass identified. No inflammatory process seen. SPLEEN: No evidence for splenomegaly. No intrasplenic lesions seen. ADRENALS: No adrenal nodules identified. No evidence for thickening. KIDNEYS: No evidence for renal mass. No nephrolithiasis. No hydronephrosis. BOWEL: Appendix has a normal appearance. No evidence of bowel obstruction. Inflammatory change about the sigmoid colon compatible with mild diverticulitis. No evidence for abscess or perforation. Lymph nodes: No evidence for adenopathy greater than 1 cm. Abdominal aorta: Atheromatous changes seen. No evidence for aneurysm. Genital organs: No significant abnormality. Other: No significant abnormality. IMPRESSION: 1. Mild uncomplicated sigmoid diverticulitis. [facility], , 03/04/2024 7:53 AM
[2024-03-04] MEDS: HYDROmorphone 0.5 MG/0.5 ML SYRINGE IVP STA (08:20)
[2024-03-04 08:28] VITALS: RESP 20
[2024-03-04 09:08] VITALS: BP 135/85; PULSE 65; TEMP 98.1
== END 2024-03-04 09:12 | disposition home or self-care (01) ==
LOC: EC 06:13
DX: K57.32 Diverticulitis of large intestine without perforation or abscess without bleeding (principal); N89.8 Other specified noninflammatory disorders of vagina; K21.9 Gastro-esophageal reflux disease without esophagitis; Z88.2 Allergy status to sulfonamides; Z88.1 Allergy status to other antibiotic agents; Z88.5 Allergy status to narcotic agent
CPT/HCPCS: 36415; 93005; 80053; 82150; 83605; 83690; 85025; 81001; 87070; 87086; 87077; 87186; 87636; 74176; 99284; 96374; 96375 ×2; 96361; J1885; J1171; J2470

== ENCOUNTER 2024-04-05 18:37 | Emergency (ER) | payer BC ==
[2024-04-05 18:47] VITALS: TEMP 97.9
[2024-04-05 19:04] VITALS: BP 170/107; PULSE 68; RESP 18
[2024-04-05 20:07] LABS: ALT 29 U/L (4-34); AST 39 U/L (14-36); African American GFR (CKD) >90 (>60 ml/min/1.73 sqM); Albumin 4.1 g/dL (3.5-5.0); Alkaline Phosphatase 95 U/L (38-126); Anion Gap 8 mmol/L; Blood Urea Nitrogen 12 mg/dL (7-17); Carbon Dioxide 21 mmol/L (22-30); Chloride 106 mmol/L (98-107); Glucose 92 mg/dL (74-99); Lipase 36 U/L (23-300); Magnesium 1.7 mg/dL (1.6-2.3); Non-African American GFR(CKD) >90 (>60 ml/min/1.73 sqM); Sodium 135 mmol/L (137-145); Total Bilirubin 0.8 mg/dL (0.2-1.3); Total Protein 7.4 g/dL (6.3-8.2)
[2024-04-05 20:14] LABS: Partial Thromboplastin Time 26.3 sec (22.0-30.0)
[2024-04-05 20:14] LABS: Appearance,Urine Clear (Clear); Bilirubin,Urine Negative (Negative); Blood,Urine Large (Negative); Color,Urine Colorless; Glucose,Urine (UA) Negative (Negative); Ketones,Urine Trace (Negative); Leukocyte Esterase,Urine Trace (Negative); Nitrite,Urine Negative (Negative); PH, Urine 5.5 (5.0-8.0); Protein,Urine Negative (Negative); RBC,Urine 119 /hpf (0-5); Specific Gravity,Urine 1.011 (1.001-1.035); Squamous Epithelial Cell,Urine 1 /hpf (0-4); Urobilinogen,Urine <2.0 mg/dL (<2.0); WBC,Urine 10 /hpf (0-5)
[2024-04-05 20:15] LABS: NT-Pro-B-Type Natriuretic Pept 295 pg/mL
[2024-04-05 20:24] LABS: Potassium 4.3 mmol/L (3.5-5.1)
[2024-04-05 20:29] LABS: Basophils % (A) 1 %; Eosinophils # (A) 0.1 k/uL (0-0.7); Eosinophils % (A) 2 %; HCT 43.7 % (34.0-46.0); HGB 14.1 gm/dL (11.4-16.0); Lymphocytes % (A) 17 %; MCH 27.4 pg (25.0-35.0); MCHC 32.3 g/dL (31.0-37.0); MCV 84.7 fL (80.0-100.0); Mean Platelet Volume 8.9; Monocytes # (A) 0.3 k/uL (0-1.0); Monocytes % (A) 5 %; Neutrophils # (A) 4.3 k/uL (1.3-7.7); Neutrophils % (A) 74 %; Platelet Count 209 k/uL (150-450); RBC 5.16 m/uL (3.80-5.40); RDW 13.5 % (11.5-15.5); WBC 5.9 k/uL (3.8-10.6)
--- NOTE | 2024-04-05 21:07 | CT ---
EXAMINATION TYPE: CT brain wo con DATE OF EXAM: 04/05/2024 8:36 PM COMPARISON: None. CLINICAL INDICATION: Female, 53 years old with history of weakness, confusion TECHNIQUE: Brain: Axial CT images of the brain were obtained with coronal and sagittal reformats created and rev iewed. Contrast used: None. Oral contrast used: None. CT DLP: 1095 mGycm, Automated exposure control for dose reduction was used. FINDINGS: Brain: Extra-axial spaces: No abnormal extra-axial fluid collections. Ventricular system: Within normal limits Cerebral parenchyma: No acute intraparenchymal hemorrhage or mass effect. The baez-white junction is well differentiated. Cerebellum: Unremarkable. Mass effect: No evidence of midline shift. Intracranial vasculature: unremarkable Soft tissues: Normal. Calvarium/osseous structures: No depressed skull fracture. Paranasal sinuses and mastoid air cells: Mild scattered paranasal sinus disease. Visualized orbits: Orbital contents are intact. IMPRESSION: No acute intracranial process. [facility], , 04/05/2024 9:05 PM
--- NOTE | 2024-04-05 21:31 | ED ---
Neuro HPI - General Chief Complaint: Neuro Symptoms/Deficit Stated Complaint: Blurred vision Time Seen by Provider: 04/05/24 18:51 Source: patient Mode of arrival: ambulatory Limitations: no limitations - History of Present Illness Is the patient presenting with stroke symptoms?: No Initial Comments: -year-old female presents emergency department with multiple complaints. Patient reports to left-sided facial swelling which has been going on for the past 2 days. Feels some fullness in her left cheek. Denies any dental pain. Also admits that she is swelling in her bilateral lower extremities, especially around her knees. Patient is additionally complaining of some blurred vision with pain around her left eye. Denies any slurred speech, facial droop, unilateral numbness or weakness. No history of stroke. Does have history of A- fib and is not anticoagulated. Patient does admit that she has been taking naproxen and larger amounts this week due to the pain in the left eye. This has been causing her some left upper quadrant abdominal pain. She does admit to history of ulcer. Denies black or bloody stools. Admits to some dysuria. Denies any fevers. Does have an appointment with her primary care doctor sincere greer. No other alleviating, precipitating modifying factors - Related Data Home Medications: Home Medications Medication Instructions Recorded Confirmed Esomeprazole Magnesium [NexIUM] 40 mg PO DAILY 07/31/22 03/27/23 Flecainide Acetate [Tambocor] 100 mg PO BID 07/31/22 03/27/23 Metoprolol Tartrate [Lopressor] 25 mg PO BID 07/31/22 03/27/23 Naproxen Sodium [Aleve] 440 mg PO DAILY PRN 07/31/22 03/27/23 Famotidine [Pepcid AC] 10 mg PO BID PRN 03/27/23 03/27/23 Fluticasone/Umeclidin/Vilanter 1 puff INHALATION RT-DAILY 03/27/23 03/27/23 [Trelegy Ellipta 100-62.5-25] HYDROcodone/APAP 10-325MG [Stevenson 1 tab PO DAILY PRN 03/27/23 03/27/23 10-325] Hydrocortisone Cream 1 applic TOPICAL BID PRN 03/27/23 03/27/23 [Hydrocortisone 2.5% Cream] Ketoconazole 2% Cream [Nizoral 2%] 1 applic TOPICAL DAILY PRN 03/27/23 03/27/23 amLODIPine [Norvasc] 5 mg PO BID 03/27/23 03/27/23 Previous Rx's Medication Instructions Recorded Levofloxacin [Levaquin] 500 mg PO DAILY 1 Days #10 tab 03/27/23 metroNIDAZOLE [Flagyl] 500 mg PO BID #20 tab 03/27/23 Amoxic-Pot Clav 875-125Mg 1 tab PO Q12HR 10 Days #20 tab 03/04/24 [Augmentin 875-125] Hyoscyamine Sulfate [Levsin] 0.125 mg PO Q4H PRN #30 tab 03/04/24 Miconazole 2% Vaginal Cream 1 applicator VAGINAL HS 7 Days #45 03/04/24 [Monistat 7] gm Allergies/Adverse Reactions: Allergies Allergy/AdvReac Type Severity Reaction Status Date / Time Sulfa (Sulfonamide Allergy See Verified 04/05/24 18:41 Antibiotics) comments ciprofloxacin [From Cipro] AdvReac Unknown Verified 04/05/24 18:41 morphine AdvReac Rapid Verified 04/05/24 18:41 Heart Rate Review of Systems ROS Statement: Those systems with pertinent positive or pertinent negative responses have been documented in the HPI. ROS Other: All systems not noted in ROS Statement are negative. General Exam Limitations: no limitations General appearance: alert, in no apparent distress, obese Head exam: Present: atraumatic, normocephalic, normal inspection Eye exam: Present: normal appearance, PERRL, EOMI. Absent: scleral icterus, conjunctival injection, periorbital swelling ENT exam: Present: normal exam, mucous membranes moist Neck exam: Present: normal inspection. Absent: tenderness, meningismus, lymphadenopathy Respiratory exam: Present: normal lung sounds bilaterally. Absent: respiratory distress, wheezes, rales, rhonchi, stridor Cardiovascular Exam: Present: regular rate, normal rhythm, normal heart sounds. Absent: systolic murmur, diastolic murmur, rubs, gallop, clicks GI/Abdominal exam: Present: soft, normal bowel sounds. Absent: distended, tenderness, guarding, rebound, rigid Extremities exam: Present: normal inspection, full ROM, normal capillary refill. Absent: tenderness, pedal edema, joint swelling, calf tenderness Back exam: Present: normal inspection Neurological exam: Present: alert, oriented X3, CN II-XII intact Psychiatric exam: Present: normal affect, normal mood Skin exam: Present: warm, dry, intact, normal color. Absent: rash Stroke MDM - Lab Data Result diagrams: 04/05/24 19:47 04/05/24 19:47 Lab Results 04/05/24 04/05/24 04/05/24 Range/Units 19:42 19:47 19:47 WBC 5.9 (3.8-10.6) k/uL RBC 5.16 (3.80-5.40) m/uL Hgb 14.1 (11.4-16.0) gm/dL Hct 43.7 (34.0-46.0) % MCV 84.7 (80.0-100.0) fL MCH 27.4 (25.0-35.0) pg MCHC 32.3 (31.0-37.0) g/dL RDW 13.5 (11.5-15.5) % Plt Count 209 (150-450) k/uL MPV 8.9 Neutrophils % 74 % Lymphocytes % 17 % Monocytes % 5 % Eosinophils % 2 % Basophils % 1 % Neutrophils # 4.3 (1.3-7.7) k/uL Lymphocytes # 1.0 (1.0-4.8) k/uL Monocytes # 0.3 (0-1.0) k/uL Eosinophils # 0.1 (0-0.7) k/uL Basophils # 0.0 (0-0.2) k/uL PT 11.0 (10.0-12.5) sec INR 1.0 (<1.2) APTT 26.3 (22.0-30.0) sec Sodium (137-145) mmol/L Potassium (3.5-5.1) mmol/L Chloride (98-107) mmol/L Carbon Dioxide (22-30) mmol/L Anion Gap mmol/L BUN (7-17) mg/dL Creatinine (0.52-1.04) mg/dL Est GFR (CKD-EPI)AfAm (>60 ml/min/1.73 sqM) Est GFR (CKD-EPI)NonAf (>60 ml/min/1.73 sqM) Glucose (74-99) mg/dL Plasma Lactic Acid Tono (0.7-2.0) mmol/L Calcium (8.4-10.2) mg/dL Magnesium (1.6-2.3) mg/dL Total Bilirubin (0.2-1.3) mg/dL AST (14-36) U/L ALT (4-34) U/L Alkaline Phosphatase (38-126) U/L Troponin I (0.000-0.034) ng/mL NT-Pro-B Natriuret Pep pg/mL Total Protein (6.3-8.2) g/dL Albumin (3.5-5.0) g/dL Lipase (23-300) U/L Urine Color Colorless Urine Appearance Clear (Clear) Urine pH 5.5 (5.0-8.0) Ur Specific Cicero 1.011 (1.001-1.035) Urine Protein Negative (Negative) Urine Glucose (UA) Negative (Negative) Urine Ketones Trace H (Negative) Urine Blood Large H (Negative) Urine Nitrite Negative (Negative) Urine Bilirubin Negative (Negative) Urine Urobilinogen <2.0 (<2.0) mg/dL Ur Leukocyte Esterase Trace H (Negative) Urine RBC 119 H (0-5) /hpf Urine WBC 10 H (0-5) /hpf Ur Squamous Epith Cells 1 (0-4) /hpf 04/05/24 04/05/24 04/05/24 Range/Units 19:47 19:47 19:47 WBC (3.8-10.6) k/uL RBC (3.80-5.40) m/uL Hgb (11.4-16.0) gm/dL Hct (34.0-46.0) % MCV (80.0-100.0) fL MCH (25.0-35.0) pg MCHC (31.0-37.0) g/dL RDW (11.5-15.5) % Plt Count (150-450) k/uL MPV Neutrophils % % Lymphocytes % % Monocytes % % Eosinophils % % Basophils % % Neutrophils # (1.3-7.7) k/uL Lymphocytes # (1.0-4.8) k/uL Monocytes # (0-1.0) k/uL Eosinophils # (0-0.7) k/uL Basophils # (0-0.2) k/uL PT (10.0-12.5) sec INR (<1.2) APTT (22.0-30.0) sec Sodium 135 L (137-145) mmol/L Potassium 4.3 (3.5-5.1) mmol/L Chloride 106 (98-107) mmol/L Carbon Dioxide 21 L (22-30) mmol/L Anion Gap 8 mmol/L BUN 12 (7-17) mg/dL Creatinine 0.54 (0.52-1.04) mg/dL Est GFR (CKD-EPI)AfAm >90 (>60 ml/min/1.73 sqM) Est GFR (CKD-EPI)NonAf >90 (>60 ml/min/1.73 sqM) Glucose 92 (74-99) mg/dL Plasma Lactic Acid Tono 0.9 (0.7-2.0) mmol/L Calcium 9.0 (8.4-10.2) mg/dL Magnesium 1.7 (1.6-2.3) mg/dL Total Bilirubin 0.8 (0.2-1.3) mg/dL AST 39 H (14-36) U/L ALT 29 (4-34) U/L Alkaline Phosphatase 95 (38-126) U/L Troponin I <0.012 (0.000-0.034) ng/mL NT-Pro-B Natriuret Pep 295 pg/mL Total Protein 7.4 (6.3-8.2) g/dL Albumin 4.1 (3.5-5.0) g/dL Lipase 36 (23-300) U/L Urine Color Urine Appearance (Clear) Urine pH (5.0-8.0) Ur Specific Cicero (1.001-1.035) Urine Protein (Negative) Urine Glucose (UA) (Negative) Urine Ketones (Negative) Urine Blood (Negative) Urine Nitrite (Negative) Urine Bilirubin (Negative) Urine Urobilinogen (<2.0) mg/dL Ur Leukocyte Esterase (Negative) Urine RBC (0-5) /hpf Urine WBC (0-5) /hpf Ur Squamous Epith Cells (0-4) /hpf - Medical Decision Making Was pt. sent in by a medical professional or institution (, PA, [employer], urgent care, hospital, or skilled nursing...) When possible be specific @ -[No] Did you speak to anyone other than the patient for history (EMS, parent, family, police, friend...)? What history was obtained from this source @ -[No] Did you review nursing and triage notes (agree or disagree)? Why? @ -[I reviewed and agree with nursing and triage notes] Were old charts reviewed (outside hosp., previous admission, EMS record, old EKG, old radiological studies, urgent care reports/EKG's, skilled nursing records)? Report findings @ -[No old charts were reviewed] Differential Diagnosis (chest pain, altered mental status, abdominal pain women, abdominal pain men, vaginal bleeding, weakness, fever, dyspnea, syncope, headache, dizziness, GI bleed, back pain, seizure, CVA, palpatations, mental health, musculoskeletal)? @ -Congestive heart failure, DVT, UTI, pneumonia EKG interpreted by me (3pts min.). @ -Yes and demonstrates sinus rhythm with rate of 74. DE interval 234. QRS 102. QTc of 406. No acute ST segment elevations or depressions X-rays interpreted by me (1pt min.). @ -[None done] CT interpreted by me (1pt min.). @ -Yes and demonstrates no acute intracranial process U/S interpreted by me (1pt. min.). @ -[None done] What testing was considered but not performed or refused? (CT, X-rays, U/S, labs)? Why? @ -[None] What meds were considered but not given or refused? Why? @ -[None] Did you discuss the management of the patient with other professionals (professionals i.e. , PA, [employer], lab, RT, psych nurse, social sciences department chair, hospital admissions clerk, teacher, parking regulation enforcement officer, case assistant)? Give summary @ -[No] Was smoking cessation discussed for >3mins.? @ -[No] Was critical care preformed (if so, how long)? @ -[No] Were there social determinants of health that impacted care today? How? (Homelessness, low income, unemployed, alcoholism, drug addiction, trans portation, low edu. Level, literacy, decrease access to med. care, assisted, rehab)? @ -[No] Was there de-escalation of care discussed even if they declined (Discuss DNR or withdrawal of care, Hospice)? DNR status @ -[No] What co-morbidities impacted this encounter? (DM, HTN, Smoking, COPD, CAD, Cance r, CVA, ARF, Chemo, Hep., AIDS, mental health diagnosis, sleep apnea, morbid obesity)? @ -Lupus, paralyzed diaphragm, A-fib Was patient admitted / discharged? Hospital course, mention meds given and route, prescriptions, significant lab abnormalities, going to OR and other pertinent info. @ -Upon arrival patient seen and evaluated in bed 5. Thorough history and physical exam was performed. IV access was established. Laboratory studies were conducted. Patient is sent for CT as she reports that her visual disturbance has been going on for greater than [address] is negative. I did discuss the diagnosis, differential and treatment options. Majority of patient's symptoms are chronic issues. No identification of any life- threatening process at this time. Patient will be discharged home. She follow- up with a primary care appointment tomorrow to discuss her care further and return for any new or worsening symptoms. Patient was agreeable plan was discharged home in stable condition Undiagnosed new problem with uncertain prognosis? @ -Yes Drug Therapy requiring intensive monitoring for toxicity (Heparin, Nitro, Insulin, Cardizem)? @ -[No] Were any procedures done? @ -[No] Diagnosis/symptom? @ -Acute cephalgia Acute, or Chronic, or Acute on Chronic? @ -[default] Uncomplicated (without systemic symptoms) or Complicated (systemic symptoms)? @ -[default] Side effects of treatment? @ -[No] Exacerbation, Progression, or Severe Exacerbation? @ -[No] Poses a threat to life or bodily function? How? (Chest pain, USA, LA, pneumonia, PE, COPD, DKA, ARF, appy, cholecystitis, CVA, Diverticulitis, Homicidal, Suicidal, threat to staff... and all critical care pts) @ -[No] Past Medical History Past Medical History: Atrial Fibrillation, Asthma, Chest Pain / Angina, COPD, GERD/Reflux, Hyperlipidemia, Hypertension, Pneumonia Additional Past Medical History / Comment(s): Bronchitis, severe GERD, esophageal spasms, problems with abdominal pain/cramps/constipation and diarrhea, diverticular disease, fatigued for 5-6 yrs, anemia, UTI, urinary incontinence at times, arthritis multiple joints, chronic back and neck pain, bilateral leg sciatica, fatty liver, being checked for thyroid disease, menorrhagia, pt states she had one physician tell her she was "pre" diabetic., immunocompromised (Lupus). Lump in groin. paralyzed diaphram. History of Any Multi-Drug Resistant Organisms: None Reported Past Surgical History: Section, Cholecystectomy, Hernia Repair Additional Past Surgical History / Comment(s): EGD, umbilical hernia repair, wisdom teeth extractions. Past Anesthesia/Blood Transfusion Reactions: Postoperative Nausea & Vomiting (PONV) Additional Past Anesthesia/Blood Transfusion Reaction / Comment(s): Difficulty waking. Past Psychological History: Anxiety, Panic Disorder Smoking Status: Never smoker Past Alcohol Use History: None Reported Past Drug Use History: None Reported - Past Family History Father Additional Family Medical History / Comment(s): Pt was adopted and does not know natural father's medical hx. Mother Additional Family Medical History / Comment(s): Pt is adopted and does not know natural mother's medical hx. Brother(s) Family Medical History: Myocardial Infarction (LA) Additional Family Medical History / Comment(s): Pt does know that her half brother had a LA at the age of 45yrs. Course Vital Signs 04/05/24 04/05/24 18:42 19:02 Temperature 97.9 F Pulse Rate 75 68 Respiratory 20 18 Rate Blood Pressure 157/88 170/107 O2 Sat by Pulse 97 99 Oximetry Disposition Clinical Impression: Facial swelling, Leg swelling, Cephalgia Disposition: HOME SELF-CARE Condition: Stable Instructions (If sedation given, give patient instructions): Blurred Vision (ED) Additional Instructions: Please follow-up with your primary care at your scheduled appointment tomorrow for further evaluation of your symptoms. Return for any new or worsening symptoms. They may consider placing you on a PPI for your symptoms. I would avoid any NSAIDs at this time Is patient prescribed a controlled substance at d/c from ED?: No Referrals: None,Stated [Primary Care Provider] - 1-2 days Time of Disposition: 21:46
== END 2024-04-05 21:58 | disposition home or self-care (01) ==
LOC: EC 18:37
DX: M79.89 Other specified soft tissue disorders (principal); R51.9 Headache, unspecified; R22.0 Localized swelling, mass and lump, head; I48.91 Unspecified atrial fibrillation; Z88.1 Allergy status to other antibiotic agents; Z88.2 Allergy status to sulfonamides; Z88.5 Allergy status to narcotic agent; Z90.49 Acquired absence of other specified parts of digestive tract
CPT/HCPCS: 36415; 70450; 80053; 81001; 83605; 83690; 83735; 83880; 84484; 85025; 85610; 85730; 93005; 99284

== ENCOUNTER 2024-10-25 15:49 | Emergency (ER) | payer BC ==
[2024-10-25] MEDS: SODIUM CHLORIDE 0.9% 1,000 ML IV STA (16:35)
--- NOTE | 2024-10-25 16:49 | XR ---
EXAMINATION TYPE: XR chest 2V DATE OF EXAM: 10/25/2024 4:45 PM COMPARISON: Chest radiographs from 5 CLINICAL INDICATION: Female, 54 years old with history of dysrhythmia; [facility] TECHNIQUE: XR chest 2V Frontal and lateral views of the chest. FINDINGS: Lungs/Pleura: There is no evidence of pleural effusion, focal consolidation, or pneumothorax. Pulmonary vascularity: Unremarkable. Heart/mediastinum: Cardiomediastinal silhouette is unremarkable. Musculoskeletal: No acute osseous pathology. IMPRESSION: No acute cardiopulmonary disease/process. [facility], , 10/25/2024 4:47 PM
[2024-10-25 16:56] LABS: Basophils # (A) 0.06 10*3/uL (0.00-0.10); Basophils % (A) 1.1 %; Eosinophils # (A) 0.14 10*3/uL (0.04-0.35); Eosinophils % (A) 2.7 %; HCT 41.3 % (37.2-46.3); HGB 13.9 g/dL (12.0-15.0); Lymphocytes # (A) 1.08 10*3/uL (0.90-5.00); Lymphocytes % (A) 20.5 %; MCH 27.7 pg (27.0-32.0); MCHC 33.7 g/dL (32.0-37.0); MCV 82.3 fL (80.0-97.0); Mean Platelet Volume 11.2 fL (9.5-12.2); Monocytes # (A) 0.24 10*3/uL (0.20-1.00); Monocytes % (A) 4.6 %; Neutrophils # (A) 3.74 10*3/uL (1.80-7.70); Neutrophils % (A) 70.9 %; Platelet Count 236 10*3/uL (140-440); RBC 5.02 10*6/uL (4.10-5.20); RDW 12.9 % (11.5-14.5); WBC 5.27 10*3/uL (4.50-10.00)
[2024-10-25 17:10] LABS: ALT 20 U/L (4-34); AST 26 U/L (14-36); African American GFR (CKD) >90 (>60 ml/min/1.73 sqM); Albumin 4.3 g/dL (3.5-5.0); Alkaline Phosphatase 109 U/L (38-126); Anion Gap 10 mmol/L; Blood Urea Nitrogen 14 mg/dL (7-17); Calcium 9.8 mg/dL (8.4-10.2); Carbon Dioxide 26 mmol/L (22-30); Chloride 100 mmol/L (98-107); Glucose 86 mg/dL (74-99); Magnesium 1.7 mg/dL (1.6-2.3); Non-African American GFR(CKD) >90 (>60 ml/min/1.73 sqM); Sodium 136 mmol/L (137-145); Total Bilirubin 0.7 mg/dL (0.2-1.3); Total Protein 7.3 g/dL (6.3-8.2)
[2024-10-25 17:14] LABS: INR 1.1 (<1.2); Partial Thromboplastin Time 27.5 sec (22.0-30.0); Prothrombin Time 11.6 sec (10.0-12.5)
--- NOTE | 2024-10-25 17:47 | ED ---
Arrhythmia/Palpitations HPI - General Chief Complaint: Arrhythmia/Palpitations Stated Complaint: tiredness, headahce Time Seen by Provider: 10/25/24 16:17 Source: patient, EMS - History of Present Illness Initial Comments: 54-year-old female presenting with chief complaint of an episode of A-fib. Patient has history of A-fib. She is on metoprolol but states that she does not take her blood thinner because she has to take anti-inflammatories often because of her various joint pain. She reports that she was laying in bed talking with her when she felt her heart start to race. This felt consistent with previous episodes of A-fib. She states that it lasted longer than usual so she came here to the ER. She was having no chest pain or difficulty breathing. No fever or chills. No URI-like symptoms. No abdominal pain nausea or vomiting. She feels fine at this time. - Related Data Home Medications Medication Instructions Recorded Confirmed Esomeprazole Magnesium [NexIUM] 40 mg PO DAILY 07/31/22 03/27/23 Flecainide Acetate [Tambocor] 100 mg PO BID 07/31/22 03/27/23 Metoprolol Tartrate [Lopressor] 25 mg PO BID 07/31/22 03/27/23 Naproxen Sodium [Aleve] 440 mg PO DAILY PRN 07/31/22 03/27/23 Famotidine [Pepcid AC] 10 mg PO BID PRN 03/27/23 03/27/23 Fluticasone/Umeclidin/Vilanter 1 puff INHALATION RT-DAILY 03/27/23 03/27/23 [Trelegy Ellipta 100-62.5-25] HYDROcodone/APAP 10-325MG [Prosperity 1 tab PO DAILY PRN 03/27/23 03/27/23 10-325] Hydrocortisone Cream 1 applic TOPICAL BID PRN 03/27/23 03/27/23 [Hydrocortisone 2.5% Cream] Ketoconazole 2% Cream [Nizoral 2%] 1 applic TOPICAL DAILY PRN 03/27/23 03/27/23 amLODIPine [Norvasc] 5 mg PO BID 03/27/23 03/27/23 Previous Rx's Medication Instructions Recorded Levofloxacin [Levaquin] 500 mg PO DAILY 1 Days #10 tab 03/27/23 metroNIDAZOLE [Flagyl] 500 mg PO BID #20 tab 03/27/23 Amoxic-Pot Clav 875-125Mg 1 tab PO Q12HR 10 Days #20 tab 03/04/24 [Augmentin 875-125] Hyoscyamine Sulfate [Levsin] 0.125 mg PO Q4H PRN #30 tab 03/04/24 Miconazole 2% Vaginal Cream 1 applicator VAGINAL HS 7 Days #45 03/04/24 [Monistat 7] gm Oseltamivir [Tamiflu] 75 mg PO Q12HR #10 cap 06/27/24 Allergies Allergy/AdvReac Type Severity Reaction Status Date / Time Sulfa (Sulfonamide Allergy See Verified 10/25/24 16:07 Antibiotics) comments ciprofloxacin [From Cipro] AdvReac Unknown Verified 10/25/24 16:07 morphine AdvReac Rapid Verified 10/25/24 16:07 Heart Rate Review of Systems ROS Statement: Those systems with pertinent positive or pertinent negative responses have been documented in the HPI. ROS Other: All systems not noted in ROS Statement are negative. Past Medical History Past Medical History: Atrial Fibrillation, Asthma, Chest Pain / Angina, Heart Failure, COPD, GERD/Reflux, Hyperlipidemia, Hypertension, Pneumonia Additional Past Medical History / Comment(s): Bronchitis, severe GERD, esophageal spasms, problems with abdominal pain/cramps/constipation and diarrhea, diverticular disease, fatigued for 5-6 yrs, anemia, UTI, urinary incontinence at times, arthritis multiple joints, chronic back and neck pain, bilateral leg sciatica, fatty liver, being checked for thyroid disease, menorrhagia, pt states she had one physician tell her she was "pre" diabetic., immunocompromised (Lupus). Lump in groin. paralyzed diaphram. History of Any Multi-Drug Resistant Organisms: None Reported Past Surgical History: Section, Cholecystectomy, Hernia Repair Additional Past Surgical History / Comment(s): EGD, umbilical hernia repair, wisdom teeth extractions. Past Anesthesia/Blood Transfusion Reactions: Postoperative Nausea & Vomiting (PO NV) Additional Past Anesthesia/Blood Transfusion Reaction / Comment(s): Difficulty waking. Past Psychological History: Anxiety, Panic Disorder Smoking Status: Never smoker Past Alcohol Use History: None Reported Past Drug Use History: None Reported - Past Family History Father Additional Family Medical History / Comment(s): Pt was adopted and does not know natural father's medical hx. Mother Additional Family Medical History / Comment(s): Pt is adopted and does not know natural mother's medical hx. Brother(s) Family Medical History: Myocardial Infarction (AK) Additional Family Medical History / Comment(s): Pt does know that her half brother had a AK at the age of 45yrs. General Exam Limitations: no limitations General appearance: alert, in no apparent distress Head exam: Present: atraumatic, normocephalic, normal inspection Eye exam: Present: normal appearance, EOMI Neck exam: Present: normal inspection. Absent: meningismus Respiratory exam: Present: normal lung sounds bilaterally. Absent: respiratory distress, wheezes, rales, rhonchi, stridor Cardiovascular Exam: Present: regular rate, normal rhythm, normal heart sounds. Absent: systolic murmur, diastolic murmur, rubs, gallop, clicks Neurological exam: Present: alert, oriented X3 Psychiatric exam: Present: normal affect, normal mood Skin exam: Present: warm, dry, normal color Course Vital Signs 10/25/24 10/25/24 10/25/24 16:01 16:08 17:09 Temperature 98.0 F Pulse Rate 71 71 Pulse Rate [ 74 Supine Integrated Specialist] Respiratory 16 19 Rate Blood Pressure 144/97 135/81 O2 Sat by Pulse 97 98 Oximetry 10/25/24 17:54 Temperature 98.3 F Pulse Rate 74 Pulse Rate [ Supine Integrated Specialist] Respiratory 16 Rate Blood Pressure 143/89 O2 Sat by Pulse 98 Oximetry Medical Decision Making - Medical Decision Making Was pt. sent in by a medical professional or institution (, PA, GROUP WORK PROGRAM DIRECTOR, urgent care, hospital, or alf...) When possible be specific @ -No Did you speak to anyone other than the patient for history (EMS, parent, family, police, friend...)? What history was obtained from this source @ -No Did you review nursing and triage notes (agree or disagree)? Why? @ -I reviewed and agree with nursing and triage notes Were old charts reviewed (outside hosp., previous admission, EMS record, old EKG, old radiological studies, urgent care reports/EKG's, alf records)? Report findings @ -No old charts were reviewed Differential Diagnosis (chest pain, altered mental status, abdominal pain women, abdominal pain men, vaginal bleeding, weakness, fever, dyspnea, syncope, headache, dizziness, GI bleed, back pain, seizure, CVA, palpatations, mental health, musculoskeletal)? @ -Differential Palpitations Ventricular arrhythmias, atrial arrhythmias, myocardial infarction, anemia, thyrotoxicosis, electrolyte imbalance, hypokalemia, pulmonary embolism, pulmonary disease, drugs, alcohol, anxiety, stress.... This is not meant to be an all-inclusive list. EKG interpreted by me (3pts min.). @ -EKG shows sinus rhythm with first-degree AV block ventricular rate 72. CA interval 246. QRS 108. QT 394. QTc 419 X-rays interpreted by me (1pt min.). @ -Chest x-ray shows no acute process CT interpreted by me (1pt min.). @ -None done U/S interpreted by me (1pt. min.). @ -None done What testing was considered but not performed or refused? (CT, X-rays, U/S, labs)? Why? @ -None What meds were considered but not given or refused? Why? @ -None Did you discuss the management of the patient with other professionals (professionals i.e. , PA, GROUP WORK PROGRAM DIRECTOR, lab, RT, psych nurse, social services director, health evaluator, teacher, chief sales officer, housing case manager)? Give summary @ -No Was smoking cessation discussed for >3mins.? @ -No Was critical care preformed (if so, how long)? @ -No Were there social determinants of health that impacted care today? How? (Homelessness, low income, unemployed, alcoholism, drug addiction, trans portation, low edu. Level, literacy, decrease access to med. care, senior care, rehab)? @ -No Was there de-escalation of care discussed even if they declined (Discuss DNR or withdrawal of care, Hospice)? DNR status @ -No What co-morbidities impacted this encounter? (DM, HTN, Smoking, COPD, CAD, Cancer, CVA, ARF, Chemo, Hep., AIDS, mental health diagnosis, sleep apnea, morbid obesity)? @ -None Was patient admitted / discharged? Hospital course, mention meds given and route, prescriptions, significant lab abnormalities, going to OR and other pertinent info. @ -54-year-old female presenting with chief complaint of palpitations. Patient has history of A-fib, she reports that she was having it episode of A-fib that was lasting longer than usual. At no point was she having any chest pain or difficulty breathing. Patient has been in sinus rhythm while here. Labs are unremarkable chest x-ray shows no acute process EKG shows sinus rhythm. Patient is feeling well and vital signs are stable. She is educated on today's findings. 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 Follow-up with PCP. Report back to ER with any new or worsening symptoms. Discussed return parameters and answered all questions. Patient conveyed verbal understanding and agreed to the plan. I discussed this case in detail with my attending Dr. Gonzalez Undiagnosed new problem with uncertain prognosis? @ -No Drug Therapy requiring intensive monitoring for toxicity (Heparin, Nitro, Insulin, Cardizem)? @ -No Were any procedures done? @ -No Diagnosis/symptom? @ -Palpitations Acute, or Chronic, or Acute on Chronic? @ -Acute Uncomplicated (without systemic symptoms) or Complicated (systemic symptoms)? @ -Uncomplicated Side effects of treatment? @ -No Exacerbation, Progression, or Severe Exacerbation? @ -No Poses a threat to life or bodily function? How? (Chest pain, USA, AK, pneumonia, PE, COPD, DKA, ARF, appy, cholecystitis, CVA, Diverticulitis, Homicidal, Suicidal, threat to staff... and all critical care pts) @ -Unlikely - Lab Data Result diagrams: 10/25/24 16:39 10/25/24 16:39 Lab Results 10/25/24 10/25/24 10/25/24 Range/Units 16:39 16:39 16:39 WBC 5.27 (4.50-10.00) 10*3/uL RBC 5.02 (4.10-5.20) 10*6/uL Hgb 13.9 (12.0-15.0) g/dL Hct 41.3 (37.2-46.3) % MCV 82.3 (80.0-97.0) fL MCH 27.7 (27.0-32.0) pg MCHC 33.7 (32.0-37.0) g/dL Plt Count 236 (140-440) 10*3/uL MPV 11.2 (9.5-12.2) fL Immature Gran % (Auto) 0.2 % Neutrophils % 70.9 % Lymphocytes % 20.5 % Monocytes % 4.6 % Eosinophils % 2.7 % Basophils % 1.1 % Immature Gran # 0.01 (0.00-0.04) 10*3/uL Neutrophils # 3.74 (1.80-7.70) 10*3/uL Lymphocytes # 1.08 (0.90-5.00) 10*3/uL Monocytes # 0.24 (0.20-1.00) 10*3/uL Eosinophils # 0.14 (0.04-0.35) 10*3/uL Basophils # 0.06 (0.00-0.10) 10*3/uL PT 11.6 (10.0-12.5) sec INR 1.1 (<1.2) APTT 27.5 (22.0-30.0) sec Sodium 136 L (137-145) mmol/L Potassium 4.0 (3.5-5.1) mmol/L Chloride 100 (98-107) mmol/L Carbon Dioxide 26 (22-30) mmol/L Anion Gap 10 mmol/L BUN 14 (7-17) mg/dL Creatinine 0.51 L (0.52-1.04) mg/dL Est GFR (CKD-EPI)AfAm >90 (>60 ml/min/1.73 sqM) Est GFR (CKD-EPI)NonAf >90 (>60 ml/min/1.73 sqM) Glucose 86 (74-99) mg/dL Calcium 9.8 (8.4-10.2) mg/dL Magnesium 1.7 (1.6-2.3) mg/dL Total Bilirubin 0.7 (0.2-1.3) mg/dL AST 26 (14-36) U/L ALT 20 (4-34) U/L Alkaline Phosphatase 109 (38-126) U/L Troponin I (0.000-0.034) ng/mL Total Protein 7.3 (6.3-8.2) g/dL Albumin 4.3 (3.5-5.0) g/dL 10/25/24 Range/Units 16:39 WBC (4.50-10.00) 10*3/uL RBC (4.10-5.20) 10*6/uL Hgb (12.0-15.0) g/dL Hct (37.2-46.3) % MCV (80.0-97.0) fL MCH (27.0-32.0) pg MCHC (32.0-37.0) g/dL Plt Count (140-440) 10*3/uL MPV (9.5-12.2) fL Immature Gran % (Auto) % Neutrophils % % Lymphocytes % % Monocytes % % Eosinophils % % Basophils % % Immature Gran # (0.00-0.04) 10*3/uL Neutrophils # (1.80-7.70) 10*3/uL Lymphocytes # (0.90-5.00) 10*3/uL Monocytes # (0.20-1.00) 10*3/uL Eosinophils # (0.04-0.35) 10*3/uL Basophils # (0.00-0.10) 10*3/uL PT (10.0-12.5) sec INR (<1.2) APTT (22.0-30.0) sec Sodium (137-145) mmol/L Potassium (3.5-5.1) mmol/L Chloride (98-107) mmol/L Carbon Dioxide (22-30) mmol/L Anion Gap mmol/L BUN (7-17) mg/dL Creatinine (0.52-1.04) mg/dL Est GFR (CKD-EPI)AfAm (>60 ml/min/1.73 sqM) Est GFR (CKD-EPI)NonAf (>60 ml/min/1.73 sqM) Glucose (74-99) mg/dL Calcium (8.4-10.2) mg/dL Magnesium (1.6-2.3) mg/dL Total Bilirubin (0.2-1.3) mg/dL AST (14-36) U/L ALT (4-34) U/L Alkaline Phosphatase (38-126) U/L Troponin I <0.012 (0.000-0.034) ng/mL Total Protein (6.3-8.2) g/dL Albumin (3.5-5.0) g/dL Disposition Clinical Impression: Palpitations Disposition: HOME SELF-CARE Condition: Good Instructions (If sedation given, give patient instructions): Heart Palpitations (ED) Additional Instructions: 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 Report back to ER with any new or worsening symptoms. Is patient prescribed a controlled substance at d/c from ED?: No Referrals: Yung Romero MD [Primary Care Provider] - 1-2 days Time of Disposition: 17:47
[2024-10-25 17:56] VITALS: BP 143/89; PULSE 74; RESP 16; TEMP 98.3
== END 2024-10-25 18:04 | disposition home or self-care (01) ==
LOC: EC 15:49
DX: R00.2 Palpitations (principal); Z88.2 Allergy status to sulfonamides; Z88.5 Allergy status to narcotic agent; Z88.1 Allergy status to other antibiotic agents
CPT/HCPCS: 36415; 71046; 80053; 83735; 84484; 85025; 85610; 85730; 93005; 96360; 99285

== ENCOUNTER 2024-11-03 06:09 | Emergency (ER) | payer BC ==
[2024-11-03 06:21] VITALS: TEMP 98
--- NOTE | 2024-11-03 06:37 | ED ---
Female Urogenital HPI - General Chief complaint: Vaginal Bleeding Stated complaint: Vaginal Bleeding Time Seen by Provider: 11/03/24 06:15 Source: patient, family, RN notes reviewed, old records reviewed Mode of arrival: wheelchair Limitations: no limitations - History of Present Illness Initial comments: 54-year-old female presented to ER for evaluation of vaginal bleeding. Patient reports for approximately 5 years she has been having daily vaginal spotting. She states typically this is very light and does occasionally increase to what she describes as a "menstrual cycle" flow. She reports she has been evaluated for this and had CT scan and ultrasound completed and significant for uterine fibroid. She has been unable to follow-up with any [facility] REPAIRER HELPER given comorbidities and need for cardiac clearance. Patient states she is currently following up with a copyright expert out of [facility] to obtain cardiac clearance. Patient reports around 5 AM today she started to have heavy vaginal bleeding along with clots present. She admits yesterday to abdominal cramping. Denies blood thinner use. Patient is . History of iron deficiency anemia and has received iron infusions in the past. Patient does report mild dizziness upon waking this morning. She states this is since resolved. She denies any fevers, chills, nausea, vomiting, constipation/diarrhea, chest pain, shortness of breath or urinary complaints. - Related Data Home Medications Medication Instructions Recorded Confirmed Esomeprazole Magnesium [NexIUM] 40 mg PO DAILY 07/31/22 03/27/23 Flecainide Acetate [Tambocor] 100 mg PO BID 07/31/22 03/27/23 Metoprolol Tartrate [Lopressor] 25 mg PO BID 07/31/22 03/27/23 Naproxen Sodium [Aleve] 440 mg PO DAILY PRN 07/31/22 03/27/23 Famotidine [Pepcid AC] 10 mg PO BID PRN 03/27/23 03/27/23 Fluticasone/Umeclidin/Vilanter 1 puff INHALATION RT-DAILY 03/27/23 03/27/23 [Trelegy Ellipta 100-62.5-25] HYDROcodone/APAP 10-325MG [[place] 1 tab PO DAILY PRN 03/27/23 03/27/23 10-325] Hydrocortisone Cream 1 applic TOPICAL BID PRN 03/27/23 03/27/23 [Hydrocortisone 2.5% Cream] Ketoconazole 2% Cream [Nizoral 2%] 1 applic TOPICAL DAILY PRN 03/27/23 03/27/23 amLODIPine [Norvasc] 5 mg PO BID 03/27/23 03/27/23 Previous Rx's Medication Instructions Recorded Levofloxacin [Levaquin] 500 mg PO DAILY 1 Days #10 tab 03/27/23 metroNIDAZOLE [Flagyl] 500 mg PO BID #20 tab 03/27/23 Amoxic-Pot Clav 875-125Mg 1 tab PO Q12HR 10 Days #20 tab 03/04/24 [Augmentin 875-125] Hyoscyamine Sulfate [Levsin] 0.125 mg PO Q4H PRN #30 tab 03/04/24 Miconazole 2% Vaginal Cream 1 applicator VAGINAL HS 7 Days #45 03/04/24 [Monistat 7] gm Oseltamivir [Tamiflu] 75 mg PO Q12HR #10 cap 06/27/24 Allergies Allergy/AdvReac Type Severity Reaction Status Date / Time Sulfa (Sulfonamide Allergy See Verified 11/03/24 06:21 Antibiotics) comments ciprofloxacin [From Cipro] AdvReac Unknown Verified 11/03/24 06:21 morphine AdvReac Rapid Verified 11/03/24 06:21 Heart Rate Review of Systems ROS Statement: Those systems with pertinent positive or pertinent negative responses have been documented in the HPI. ROS Other: All systems not noted in ROS Statement are negative. Past Medical History Past Medical History: Atrial Fibrillation, Asthma, Chest Pain / Angina, Heart Failure, COPD, GERD/Reflux, Hyperlipidemia, Hypertension, Pneumonia Additional Past Medical History / Comment(s): Bronchitis, severe GERD, esophageal spasms, problems with abdominal pain/cramps/constipation and d iarrhea, diverticular disease, fatigued for 5-6 yrs, anemia, UTI, urinary incontinence at times, arthritis multiple joints, chronic back and neck pain, bilateral leg sciatica, fatty liver, being checked for thyroid disease, menorrhagia, pt states she had one physician tell her she was "pre" diabetic., immunocompromised (Lupus). Lump in groin. paralyzed diaphram. History of Any Multi-Drug Resistant Organisms: None Reported Past Surgical History: Section, Cholecystectomy, Hernia Repair Additional Past Surgical History / Comment(s): EGD, umbilical hernia repair, wisdom teeth extractions. Past Anesthesia/Blood Transfusion Reactions: Postoperative Nausea & Vomiting (PONV) Additional Past Anesthesia/Blood Transfusion Reaction / Comment(s): Difficulty waking. Past Psychological History: Anxiety, Panic Disorder Smoking Status: Never smoker Past Alcohol Use History: None Reported Past Drug Use History: None Reported - Past Family History Father Additional Family Medical History / Comment(s): Pt was adopted and does not know natural father's medical hx. Mother Additional Family Medical History / Comment(s): Pt is adopted and does not know natural mother's medical hx. Brother(s) Family Medical History: Myocardial Infarction (PR) Additional Family Medical History / Comment(s): Pt does know that her half brother had a PR at the age of 45yrs. General Exam Limitations: no limitations General appearance: alert, in no apparent distress Respiratory exam: Present: normal lung sounds bilaterally. Absent: respiratory distress, wheezes, rales, rhonchi, stridor Cardiovascular Exam: Present: regular rate, normal rhythm, normal heart sounds. Absent: systolic murmur, diastolic murmur, rubs, gallop, clicks GI/Abdominal exam: Present: soft, normal bowel sounds. Absent: distended, tenderness, guarding, rebound, rigid Extremities exam: Present: normal inspection, full ROM, normal capillary refill. Absent: tenderness, pedal edema, joint swelling, calf tenderness Neurological exam: Present: alert, oriented X3, CN II-XII intact Skin exam: Present: warm, dry, intact, normal color. Absent: rash Course Vital Signs 11/03/24 11/03/24 06:18 08:48 Temperature 98 F Pulse Rate 79 73 Respiratory 19 20 Rate Blood Pressure 179/102 144/86 O2 Sat by Pulse 96 96 Oximetry Medical Decision Making - Medical Decision Making Was pt. sent in by a medical professional or institution (, PA, DIVERSIFIED CROPS SUPERVISOR, urgent care, hospital, or half-way...) When possible be specific @ -No Did you speak to anyone other than the patient for history (EMS, parent, family, police, friend...)? What history was obtained from this source @ -No Did you review nursing and triage notes (agree or disagree)? Why? @ -I reviewed and agree with nursing and triage notes Were old charts reviewed (outside hosp., previous admission, EMS record, old EKG, old radiological studies, urgent care reports/EKG's, half-way records)? Report findings @ -Prior medical records Differential Diagnosis (chest pain, altered mental status, abdominal pain women, abdominal pain men, vaginal bleeding, weakness, fever, dyspnea, syncope, headache, dizziness, GI bleed, back pain, seizure, CVA, palpatations, mental health, musculoskeletal)? @ -Differential Vaginal Bleeding:Spontaneous , threatened , molar , ectopic , bloody show, incompetent cervix, abruptioplacenta, placenta previa, uterine rupture, dysfunctional uterine bleeding, hemorrhage, uterine fibroids, this is not meant to be an all-inclusive list. EKG interpreted by me (3pts min.). @ - None done X-rays interpreted by me (1pt min.). @ -None done CT interpreted by me (1pt min.). @ -None done U/S interpreted by me (1pt. min.). @ -Transvaginal ultrasound showing marked excessive thickening of endometrium measuring up to 3.3 cm. Endometrial hyperplasia and endometrial carcinoma in differential. Couple fundal fibroids measuring up to 4.8cm. What testing was considered but not performed or refused? (CT, X-rays, U/S, labs)? Why? @ -None What meds were considered but not given or refused? Why? @ -None Did you discuss the management of the patient with other professionals (professionals i.e. , PA, DIVERSIFIED CROPS SUPERVISOR, lab, RT, psych nurse, social insurance adviser, sterilization tech, teacher, retail loss prevention officer, casework manager)? Give summary @ -No Was smoking cessation discussed for >3mins.? @ -No Was critical care preformed (if so, how long)? @ -No Were there social determinants of health that impacted care today? How? (Homelessness, low income, unemployed, alcoholism, drug addiction, transportation, low edu. Level, literacy, decrease access to med. care, longterm, rehab)? @ -No Was there de-escalation of care discussed even if they declined (Discuss DNR or withdrawal of care, Hospice)? DNR status @ -No What co-morbidities impacted this encounter? (DM, HTN, Smoking, COPD, CAD, Cancer, CVA, ARF, Chemo, Hep., AIDS, mental health diagnosis, sleep apnea, morbid obesity)? @ -None Was patient admitted / discharged? Hospital course, mention meds given and route, prescriptions, significant lab abnormalities, going to OR and other pertinent info. @ -Discharged. 54-year-old female presented the ER for evaluation of vaginal bleeding. Vital signs stable. Patient no signs of acute distress nontoxic- appearing. Laboratory studies remarkable for stable hemoglobin of 13.9. CMP unimpressive. Urinalysis hemorrhagic likely contaminated from vaginal bleeding. Urine sent for culture. Urine hCG negative. Transvaginal ultrasound showing marked excessive thickening of endometrium measuring up to 3.3 cm. Fibroids noted measuring up to 4.8 cm. Endometrial hyperplasia versus endometrial carcinoma should be considered. Upon reevaluation, patient resting comfortably on stretcher no signs of acute distress. Patient educated on today's findings including concern of malignancy as this cannot be ruled out. Given stable hemoglobin, stable vital signs and patient's ability to follow-up outpatient I believe she is stable for discharge and close outpatient follow-up I advised her to follow-up closely with [facility]PA[facility]PER outpatient. I also recommended she follow-up closely with PCP for recheck hemoglobin. Lengthy discussion regarding return parameters. Patient discharged in stable condition. Patient verbally expressed understanding and agreement with care plan. Case discussed with ED attending, Elizabeth Grant. Undiagnosed new problem with uncertain prognosis? @ -No Drug Therapy requiring intensive monitoring for toxicity (Heparin, Nitro, Insulin, Cardizem)? @ -No Were any procedures done? @ -No Diagnosis/symptom? @ -Thickened endometrium r/o endometrial carcinoma/ dysfunctional uterine bleeding Acute, or Chronic, or Acute on Chronic? @ -Acute Uncomplicated (without systemic symptoms) or Complicated (systemic symptoms)? @ -Uncomplicated Side effects of treatment? @ -No Exacerbation, Progression, or Severe Exacerbation? @ -No Poses a threat to life or bodily function? How? (Chest pain, [place], PR, pneumonia, PE, COPD, DKA, ARF, appy, cholecystitis, CVA, Diverticulitis, Homicidal, Suicidal, threat to staff... and all critical care pts) @ -Possibly, cannot rule out malignancy - Lab Data Result diagrams: 11/03/24 06:36 11/03/24 06:36 Lab Results 11/03/24 11/03/24 11/03/24 Range/Units 06:36 06:36 06:36 WBC 5.89 (4.50-10.00) 10*3/uL RBC 5.06 (4.10-5.20) 10*6/uL Hgb 13.9 (12.0-15.0) g/dL Hct 42.2 (37.2-46.3) % MCV 83.4 (80.0-97.0) fL MCH 27.5 (27.0-32.0) pg MCHC 32.9 (32.0-37.0) g/dL Plt Count 258 (140-440) 10*3/uL MPV 10.1 (9.5-12.2) fL Immature Gran % (Auto) 0.5 % Neutrophils % 69.8 % Lymphocytes % 19.7 % Monocytes % 6.8 % Eosinophils % 2.5 % Basophils % 0.7 % Immature Gran # 0.03 (0.00-0.04) 10*3/uL Neutrophils # 4.11 (1.80-7.70) 10*3/uL Lymphocytes # 1.16 (0.90-5.00) 10*3/uL Monocytes # 0.40 (0.20-1.00) 10*3/uL Eosinophils # 0.15 (0.04-0.35) 10*3/uL Basophils # 0.04 (0.00-0.10) 10*3/uL PT 11.0 (10.0-12.5) sec INR 1.0 (<1.2) APTT 26.2 (22.0-30.0) sec Sodium 137 (137-145) mmol/L Potassium 3.9 (3.5-5.1) mmol/L Chloride 104 (98-107) mmol/L Carbon Dioxide 25 (22-30) mmol/L Anion Gap 8 mmol/L BUN 15 (7-17) mg/dL Creatinine 0.49 L (0.52-1.04) mg/dL Est GFR (CKD-EPI)AfAm >90 (>60 ml/min/1.73 sqM) Est GFR (CKD-EPI)NonAf >90 (>60 ml/min/1.73 sqM) Glucose 111 H (74-99) mg/dL Calcium 9.3 (8.4-10.2) mg/dL Total Bilirubin 0.5 (0.2-1.3) mg/dL AST 22 (14-36) U/L ALT 17 (4-34) U/L Alkaline Phosphatase 97 (38-126) U/L Total Protein 7.1 (6.3-8.2) g/dL Albumin 4.2 (3.5-5.0) g/dL Urine Color Urine Appearance (Clear) Urine RBC (0-5) /hpf Urine WBC (0-5) /hpf Urine Mucus (None) /hpf Urine HCG, Qual (Not Detectd) Blood Type Blood Type Recheck Bld Type Recheck Status Antibody Screen Spec Expiration Date 11/03/24 11/03/24 11/03/24 Range/Units 06:41 07:53 07:53 WBC (4.50-10.00) 10*3/uL RBC (4.10-5.20) 10*6/uL Hgb (12.0-15.0) g/dL Hct (37.2-46.3) % MCV (80.0-97.0) fL MCH (27.0-32.0) pg MCHC (32.0-37.0) g/dL Plt Count (140-440) 10*3/uL MPV (9.5-12.2) fL Immature Gran % (Auto) % Neutrophils % % Lymphocytes % % Monocytes % % Eosinophils % % Basophils % % Immature Gran # (0.00-0.04) 10*3/uL Neutrophils # (1.80-7.70) 10*3/uL Lymphocytes # (0.90-5.00) 10*3/uL Monocytes # (0.20-1.00) 10*3/uL Eosinophils # (0.04-0.35) 10*3/uL Basophils # (0.00-0.10) 10*3/uL PT (10.0-12.5) sec INR (<1.2) APTT (22.0-30.0) sec Sodium (137-145) mmol/L Potassium (3.5-5.1) mmol/L Chloride (98-107) mmol/L Carbon Dioxide (22-30) mmol/L Anion Gap mmol/L BUN (7-17) mg/dL Creatinine (0.52-1.04) mg/dL Est GFR (CKD-EPI)AfAm (>60 ml/min/1.73 sqM) Est GFR (CKD-EPI)NonAf (>60 ml/min/1.73 sqM) Glucose (74-99) mg/dL Calcium (8.4-10.2) mg/dL Total Bilirubin (0.2-1.3) mg/dL AST (14-36) U/L ALT (4-34) U/L Alkaline Phosphatase (38-126) U/L Total Protein (6.3-8.2) g/dL Albumin (3.5-5.0) g/dL Urine Color Red Urine Appearance Bloody H (Clear) Urine RBC >182 H (0-5) /hpf Urine WBC 34 H (0-5) /hpf Urine Mucus Many H (None) /hpf Urine HCG, Qual Not Detected (Not Detectd) Blood Type O Positive Blood Type Recheck O Pos Bld Type Recheck Status No Antibody Screen NEGATIVE Spec Expiration Date 11/06/20242340 - Radiology Data Radiology results: report reviewed, image reviewed Disposition Clinical Impression: Thickened endometrium, Dysfunctional uterine bleeding Disposition: HOME SELF-CARE Condition: Stable Instructions (If sedation given, give patient instructions): Abnormal (Dysfunctional) Uterine Bleeding (ED) Additional Instructions: Follow-up closely with [facility]. Return to the ER for any new or worsening concerns Is patient prescribed a controlled substance at d/c from ED?: No Referrals: Yung Romero MD [Primary Care Provider] - 1-2 days Selena Melara MD [STAFF PHYSICIAN] - 1-2 days Forms: Area PCPs Time of Disposition: 08:34
[2024-11-03] MEDS: SODIUM CHLORIDE 0.9% 1,000 ML IV ONE (06:42)
[2024-11-03 06:48] LABS: Basophils # (A) 0.04 10*3/uL (0.00-0.10); Basophils % (A) 0.7 %; Eosinophils # (A) 0.15 10*3/uL (0.04-0.35); Eosinophils % (A) 2.5 %; HCT 42.2 % (37.2-46.3); HGB 13.9 g/dL (12.0-15.0); Lymphocytes # (A) 1.16 10*3/uL (0.90-5.00); Lymphocytes % (A) 19.7 %; MCH 27.5 pg (27.0-32.0); MCHC 32.9 g/dL (32.0-37.0); MCV 83.4 fL (80.0-97.0); Mean Platelet Volume 10.1 fL (9.5-12.2); Monocytes % (A) 6.8 %; Neutrophils # (A) 4.11 10*3/uL (1.80-7.70); Neutrophils % (A) 69.8 %; Platelet Count 258 10*3/uL (140-440); RBC 5.06 10*6/uL (4.10-5.20); WBC 5.89 10*3/uL (4.50-10.00)
[2024-11-03 06:59] LABS: ALT 17 U/L (4-34); AST 22 U/L (14-36); African American GFR (CKD) >90 (>60 ml/min/1.73 sqM); Albumin 4.2 g/dL (3.5-5.0); Alkaline Phosphatase 97 U/L (38-126); Anion Gap 8 mmol/L; Blood Urea Nitrogen 15 mg/dL (7-17); Calcium 9.3 mg/dL (8.4-10.2); Carbon Dioxide 25 mmol/L (22-30); Chloride 104 mmol/L (98-107); Glucose 111 mg/dL (74-99); Non-African American GFR(CKD) >90 (>60 ml/min/1.73 sqM); Potassium 3.9 mmol/L (3.5-5.1); Sodium 137 mmol/L (137-145); Total Bilirubin 0.5 mg/dL (0.2-1.3); Total Protein 7.1 g/dL (6.3-8.2)
[2024-11-03 07:33] LABS: Partial Thromboplastin Time 26.2 sec (22.0-30.0)
--- NOTE | 2024-11-03 07:55 | US ---
EXAMINATION TYPE: US pelvis complete transvag DATE OF EXAM: 11/03/2024 COMPARISON: CT 03/04/2024 US 11/23/2023 CLINICAL INDICATION: Female, 54 years old with history of vaginal bleeding; Bleeding x 6 years, clots for last 7 days, ? Hx Fibroids. TECHNIQUE: Transvaginal (TV) and Transabdominal (TA) . Transabdominal grayscale sonographic images of the pelvis were medically necessary to better assess t he following anatomy: Uterus and Ovaries Transvaginal sonographic images were originally ordered Doppler imaging: Not performed. FINDINGS: Date of LMP: NA EXAM MEASUREMENTS: Uterus: 13.9 x 7.8 x 8.2 cm Endometrial Stripe: 3.3 cm Right Ovary: 3.2 x 2.1 x 3.0 cm Left Ovary: 2.4 x 2.0 x 2.5 cm 1. Uterus: Anteverted. Fibroids seen Anterior right uterine fundus = 3.9 x 3.4 x 4.5 cm Posterior right uterine fundus = 4.8 x 3.0 x 3.3 cm 2. Endometrium: Thickened 3. Right Ovary: Limited visualization, WNL as visualized 4. Left Ovary: Limited visualization, WNL as visualized 5. Bilateral Adnexa: wnl 6. Posterior cul-de-sac: wnl IMPRESSION: 1. Marked excessive thickening of the endometrium up to 3.3 cm thick. Endometrial hyperplasia and end ometrial carcinoma are both in the differential. Recommend ASSEMBLY MACHINE TENDER referral for further evaluation. Co rrelate with patient's menopausal status. 2. A couple fundal fibroids measuring up to 4.8 cm. [facility], , 11/03/2024 7:53 AM
[2024-11-03 08:33] LABS: Mucus,Urine Many /hpf; RBC,Urine >182 /hpf (0-5); WBC,Urine 34 /hpf (0-5)
[2024-11-03 08:38] LABS: Appearance,Urine Bloody (Clear); Color,Urine Red
[2024-11-03 08:48] VITALS: BP 144/86; PULSE 73; RESP 20
== END 2024-11-03 08:52 | disposition home or self-care (01) ==
LOC: EC 06:09
DX: N93.8 Other specified abnormal uterine and vaginal bleeding (principal); R93.89 Abnormal findings on diagnostic imaging of other specified body structures; Z88.2 Allergy status to sulfonamides; Z88.5 Allergy status to narcotic agent; Z88.1 Allergy status to other antibiotic agents
CPT/HCPCS: 36415; 76830; 76856; 80053; 81001; 81025; 85025; 85610; 85730; 86850; 86900; 86901; 87086; 96360; 96361; 99284

== ENCOUNTER → 2024-11-12 | Outpatient (CLI) | payer BC ==
[2024-11-12 11:56] LABS: Basophils # (A) 0.06 X 10*3/uL (0.00-0.10); Basophils % (A) 0.7 %; Eosinophils # (A) 0.16 X 10*3/uL (0.04-0.35); Eosinophils % (A) 1.9 %; HCT 42.4 % (37.2-46.3); HGB 13.3 g/dL (12.0-15.0); Immature Grans, Automated 0.40 %; Lymphocytes # (A) 1.31 X 10*3/uL (0.90-5.00); Lymphocytes % (A) 15.8 %; MCH 26.8 pg (27.0-32.0); MCHC 31.4 g/dL (32.0-37.0); MCV 85.3 FL (80.0-97.0); Monocytes # (A) 0.48 X 10*3/uL (0.20-1.00); Monocytes % (A) 5.8 %; NRBC Per 100 WBC 0 X 10*3/uL (0.00-0.01); Neutrophils # (A) 6.26 X 10*3/uL (1.80-7.70); Neutrophils % (A) 75.4 %; Platelet Count 283 X 10*3/uL (140-440); RBC 4.97 X 10*6/uL (4.10-5.20); RDW 13.2 % (11.5-14.5); WBC 8.30 X 10*3/uL (4.50-10.00)
[2024-11-12 16:04] LABS: ALT 17 U/L (8-44); AST 19 U/L (13-35); Albumin 4.2 g/dL (3.8-4.9); Albumin/Globulin Ratio 1.50 Ratio (1.60-3.17); Alkaline Phosphatase 109 U/L (41-126); Anion Gap 11.60 mmol/L (4.00-12.00); BUN/Creat Ratio 19.67 Ratio (12.00-20.00); Blood Urea Nitrogen 11.8 mg/dL (9.0-27.0); Calcium 9.3 mg/dL (8.7-10.3); Carbon Dioxide 26.4 mmol/L (21.6-31.8); Chloride 101 mmol/L (96-109); Ferritin 15.0 ng/mL (10.0-291.0); Globulin 2.8 g/dL (1.6-3.3); Glucose 106 mg/dL (70-110); Iron 30 UG/DL (50-170); Magnesium 1.7 mg/dL (1.5-2.4); Potassium 3.9 mmol/L (3.5-5.5); Sodium 139 mmol/L (135-145); Total Iron Binding Capacity 442 UG/DL (228-460); Total Protein 7.0 g/dL (6.2-8.2)
[2024-11-12 16:57] LABS: NT-Pro-B-Type Natriuretic Pept 88 pg/mL (0-125)
== END | disposition home or self-care (01) ==
LOC: LABWHC1 09:32
PROVIDERS: ATTEND Internal Medicine
DX: D50.0 Iron deficiency anemia secondary to blood loss (chronic) (principal); I48.0 Paroxysmal atrial fibrillation; R39.9 Unspecified symptoms and signs involving the genitourinary system
CPT/HCPCS: 36415; 80053; 82728; 83540; 83550; 83735; 83880; 85025; 87086

== ENCOUNTER 2024-11-15 20:05 | Emergency (ER) | payer BC ==
[2024-11-15 21:31] LABS: Basophils # (A) 0.05 10*3/uL (0.00-0.10); Basophils % (A) 0.7 %; Eosinophils # (A) 0.12 10*3/uL (0.04-0.35); Eosinophils % (A) 1.6 %; HCT 42.3 % (37.2-46.3); HGB 14.2 g/dL (12.0-15.0); Lymphocytes # (A) 1.13 10*3/uL (0.90-5.00); Lymphocytes % (A) 14.9 %; MCH 27.8 pg (27.0-32.0); MCHC 33.6 g/dL (32.0-37.0); MCV 82.9 fL (80.0-97.0); Monocytes # (A) 0.39 10*3/uL (0.20-1.00); Monocytes % (A) 5.2 %; Neutrophils # (A) 5.84 10*3/uL (1.80-7.70); Neutrophils % (A) 77.1 %; Platelet Count 289 10*3/uL (140-440); RBC 5.10 10*6/uL (4.10-5.20); RDW 12.8 % (11.5-14.5); WBC 7.57 10*3/uL (4.50-10.00)
[2024-11-15 21:38] LABS: Color,Urine Red
[2024-11-15 21:40] LABS: INR 1.0 (<1.2); Partial Thromboplastin Time 26.1 sec (22.0-30.0); Prothrombin Time 11.1 sec (10.0-12.5)
[2024-11-15 21:43] LABS: RBC,Urine >182 /hpf (0-5); WBC,Urine 8 /hpf (0-5)
[2024-11-15 21:48] LABS: ALT 19 U/L (4-34); AST 24 U/L (14-36); African American GFR (CKD) >90 (>60 ml/min/1.73 sqM); Albumin 4.2 g/dL (3.5-5.0); Alkaline Phosphatase 104 U/L (38-126); Anion Gap 11 mmol/L; Blood Urea Nitrogen 9 mg/dL (7-17); Calcium 9.9 mg/dL (8.4-10.2); Carbon Dioxide 27 mmol/L (22-30); Chloride 99 mmol/L (98-107); Glucose 114 mg/dL (74-99); Non-African American GFR(CKD) >90 (>60 ml/min/1.73 sqM); Potassium 3.7 mmol/L (3.5-5.1); Sodium 137 mmol/L (137-145); Total Protein 7.4 g/dL (6.3-8.2)
--- NOTE | 2024-11-15 22:02 | ED ---
Female Urogenital HPI - General Chief complaint: Vaginal Bleeding Stated complaint: Vaginal Bleeding Time Seen by Provider: 11/15/24 21:30 Source: patient, EMS, RN notes reviewed Mode of arrival: EMS Limitations: no limitations - History of Present Illness Initial comments: 54-year-old female presenting for vaginal bleeding x 8 days. States she was rec ently diagnosed with thickened endometrium secondary to dysfunctional vaginal bleeding versus carcinoma. States she has had intermittent vaginal bleeding for the past 2 years. Denies abdominal pain, fevers, nausea, vomiting. She has an upcoming appointment with a thermocouple tester at [facility] next month to address the thickened endometrium. She has been following closely with her PCP for hemoglobin checks. Denies blood thinners. Last Menstrual Period: 11/07/24 - Related Data Home Medications Medication Instructions Recorded Confirmed Esomeprazole Magnesium [NexIUM] 40 mg PO DAILY 07/31/22 03/27/23 Flecainide Acetate [Tambocor] 100 mg PO BID 07/31/22 03/27/23 Metoprolol Tartrate [Lopressor] 25 mg PO BID 07/31/22 03/27/23 Naproxen Sodium [Aleve] 440 mg PO DAILY PRN 07/31/22 03/27/23 Famotidine [Pepcid AC] 10 mg PO BID PRN 03/27/23 03/27/23 Fluticasone/Umeclidin/Vilanter 1 puff INHALATION RT-DAILY 03/27/23 03/27/23 [Trelegy Ellipta 100-62.5-25] HYDROcodone/APAP 10-325MG [[place] 1 tab PO DAILY PRN 03/27/23 03/27/23 10-325] Hydrocortisone Cream 1 applic TOPICAL BID PRN 03/27/23 03/27/23 [Hydrocortisone 2.5% Cream] Ketoconazole 2% Cream [Nizoral 2%] 1 applic TOPICAL DAILY PRN 03/27/23 03/27/23 amLODIPine [Norvasc] 5 mg PO BID 03/27/23 03/27/23 Previous Rx's Medication Instructions Recorded Levofloxacin [Levaquin] 500 mg PO DAILY 1 Days #10 tab 03/27/23 metroNIDAZOLE [Flagyl] 500 mg PO BID #20 tab 03/27/23 Amoxic-Pot Clav 875-125Mg 1 tab PO Q12HR 10 Days #20 tab 03/04/24 [Augmentin 875-125] Hyoscyamine Sulfate [Levsin] 0.125 mg PO Q4H PRN #30 tab 03/04/24 Miconazole 2% Vaginal Cream 1 applicator VAGINAL HS 7 Days #45 03/04/24 [Monistat 7] gm Oseltamivir [Tamiflu] 75 mg PO Q12HR #10 cap 06/27/24 Allergies Allergy/AdvReac Type Severity Reaction Status Date / Time Sulfa (Sulfonamide Allergy See Verified 11/15/24 20:09 Antibiotics) comments ciprofloxacin [From Cipro] AdvReac Unknown Verified 11/15/24 20:09 morphine AdvReac Rapid Verified 11/15/24 20:09 Heart Rate Review of Systems ROS Statement: Those systems with pertinent positive or pertinent negative responses have been documented in the HPI. ROS Other: All systems not noted in ROS Statement are negative. Past Medical History Past Medical History: Atrial Fibrillation, Asthma, Blood Disorder, Chest Pain / Angina, Heart Failure, COPD, GERD/Reflux, Hyperlipidemia, Hypertension, Pneumonia Additional Past Medical History / Comment(s): Bronchitis, severe GERD, esophageal spasms, problems with abdominal pain/cramps/constipation and diarrhea, diverticular disease, fatigued for 5-6 yrs, anemia, UTI, urinary incontinence at times, arthritis multiple joints, chronic back and neck pain, bilateral leg sciatica, fatty liver, being checked for thyroid disease, menorrhagia, pt states she had one physician tell her she was "pre" diabetic., immunocompromised (Lupus). Lump in groin. paralyzed diaphram. History of Any Multi-Drug Resistant Organisms: None Reported Past Surgical History: Section, Cholecystectomy, Hernia Repair Additional Past Surgical History / Comment(s): EGD, umbilical hernia repair, wisdom teeth extractions. Past Anesthesia/Blood Transfusion Reactions: Postoperative Nausea & Vomiting (PONV) Additional Past Anesthesia/Blood Transfusion Reaction / Comment(s): Difficulty waking. Past Psychological History: Anxiety, Panic Disorder Smoking Status: Never smoker Past Alcohol Use History: None Reported Past Drug Use History: None Reported - Past Family History Father Additional Family Medical History / Comment(s): Pt was adopted and does not know natural father's medical hx. Mother Additional Family Medical History / Comment(s): Pt is adopted and does not know natural mother's medical hx. Brother(s) Family Medical History: Myocardial Infarction (SC) Additional Family Medical History / Comment(s): Pt does know that her half brother had a SC at the age of 45yrs. General Exam Limitations: no limitations General appearance: alert, in no apparent distress Head exam: Present: atraumatic, normocephalic, normal inspection Eye exam: Present: normal appearance, PERRL, EOMI. Absent: scleral icterus, conjunctival injection, periorbital swelling GI/Abdominal exam: Present: soft, normal bowel sounds. Absent: distended, tenderness, guarding, rebound, rigid Neurological exam: Present: alert, oriented X3 Psychiatric exam: Present: normal affect, normal mood Skin exam: Present: warm, dry, intact, normal color. Absent: rash Course Vital Signs 11/15/24 11/15/24 20:10 21:33 Temperature 99.4 F 99.0 F Pulse Rate 89 87 Respiratory 17 17 Rate Blood Pressure 159/92 140/89 O2 Sat by Pulse 98 96 Oximetry Medical Decision Making - Medical Decision Making Was pt. sent in by a medical professional or institution (, PA, SOLICITOR PATENT, urgent care, hospital, or [place] health care facility...) When possible be specific @ -No Did you speak to anyone other than the patient for history (EMS, parent, family, police, friend...)? What history was obtained from this source @ -No Did you review nursing and triage notes (agree or disagree)? Why? @ -I reviewed and agree with nursing and triage notes Were old charts reviewed (outside hosp., previous admission, EMS record, old EKG, old radiological studies, urgent care reports/EKG's, [place] health care facility records)? Report findings @ -Reviewed previous ER chart including pelvic ultrasound which reveals marked excessive thickening of endometrium up to 3.3 cm thick, endometrial carcinoma and hyperplasia both in the differential, couple fungal fibroids up to 4.8 cm Differential Diagnosis (chest pain, altered mental status, abdominal pain women, abdominal pain men, vaginal bleeding, weakness, fever, dyspnea, syncope, headache, dizziness, GI bleed, back pain, seizure, CVA, palpatations, mental health, musculoskeletal)? @ -Not applicable EKG interpreted by me (3pts min.). @ -As above X-rays interpreted by me (1pt min.). @ -None done CT interpreted by me (1pt min.). @ -None done U/S interpreted by me (1pt. min.). @ -None done What testing was considered but not performed or refused? (CT, X-rays, U/S, labs)? Why? @ -None What meds were considered but not given or refused? Why? @ -None Did you discuss the management of the patient with other professionals (professionals i.e. Dr., PA, SOLICITOR PATENT, lab, RT, psych nurse, social service manager, therapist's assistant, teacher, trust officer, manager case)? Give summary @ -No Was smoking cessation discussed for >3mins.? @ -No Was critical care preformed (if so, how long)? @ -No Were there social determinants of health that impacted care today? How? (Homelessness, low income, unemployed, alcoholism, drug addiction, transportation, low edu. Level, literacy, decrease access to med. care, nursing home, rehab)? @ -No Was there de-escalation of care discussed even if they declined (Discuss DNR or withdrawal of care, Hospice)? DNR status @ -No What co-morbidities impacted this encounter? (DM, HTN, Smoking, COPD, CAD, Cancer, CVA, ARF, Chemo, Hep., AIDS, mental health diagnosis, sleep apnea, morbid obesity)? @ -None Was patient admitted / discharged? Hospital course, mention meds given and route, prescriptions, significant lab abnormalities, going to OR and other pertinent info. @ -Discharge. 54-year-old female with history of thickened endometrium presenting for vaginal bleeding. Symptoms are chronic however have worsened over the past hour. No systemic symptoms. Hemoglobin normal at 14. Urinalysis hemorrhagic likely from vaginal bleeding. Patient has follow-up appointment with thermocouple tester next month to address the thickened endometrium. Patient can be safely discharged with close follow-up. Strict return precautions. Case was discussed with my ED attending Dr. Bridges Undiagnosed new problem with uncertain prognosis? @ -No Drug Therapy requiring intensive monitoring for toxicity (Heparin, Nitro, Insulin, Cardizem)? @ -No Were any procedures done? @ -No Diagnosis/symptom? @ -Vaginal bleeding, thickened endometrium Acute, or Chronic, or Acute on Chronic? @ -Default Uncomplicated (without systemic symptoms) or Complicated (systemic symptoms)? @ -Default Side effects of treatment? @ -No Exacerbation, Progression, or Severe Exacerbation? @ -No Poses a threat to life or bodily function? How? (Chest pain, USA, SC, pneumonia, PE, COPD, DKA, ARF, appy, cholecystitis, CVA, Diverticulitis, Homicidal, Suicidal, threat to staff... and all critical care pts) @ -Possibly thickened endometrium cannot rule out carcinoma - Lab Data Result diagrams: 11/15/24 21:23 11/15/24 21:23 Lab Results 11/15/24 11/15/24 11/15/24 Range/Units 21:23 21:23 21:23 WBC 7.57 (4.50-10.00) 10*3/uL RBC 5.10 (4.10-5.20) 10*6/uL Hgb 14.2 (12.0-15.0) g/dL Hct 42.3 (37.2-46.3) % MCV 82.9 (80.0-97.0) fL MCH 27.8 (27.0-32.0) pg MCHC 33.6 (32.0-37.0) g/dL Plt Count 289 (140-440) 10*3/uL MPV 10.1 (9.5-12.2) fL Immature Gran % (Auto) 0.5 % Neutrophils % 77.1 % Lymphocytes % 14.9 % Monocytes % 5.2 % Eosinophils % 1.6 % Basophils % 0.7 % Immature Gran # 0.04 (0.00-0.04) 10*3/uL Neutrophils # 5.84 (1.80-7.70) 10*3/uL Lymphocytes # 1.13 (0.90-5.00) 10*3/uL Monocytes # 0.39 (0.20-1.00) 10*3/uL Eosinophils # 0.12 (0.04-0.35) 10*3/uL Basophils # 0.05 (0.00-0.10) 10*3/uL PT 11.1 (10.0-12.5) sec INR 1.0 (<1.2) APTT 26.1 (22.0-30.0) sec Sodium 137 (137-145) mmol/L Potassium 3.7 (3.5-5.1) mmol/L Chloride 99 (98-107) mmol/L Carbon Dioxide 27 (22-30) mmol/L Anion Gap 11 mmol/L BUN 9 (7-17) mg/dL Creatinine 0.46 L (0.52-1.04) mg/dL Est GFR (CKD-EPI)AfAm >90 (>60 ml/min/1.73 sqM) Est GFR (CKD-EPI)NonAf >90 (>60 ml/min/1.73 sqM) Glucose 114 H (74-99) mg/dL Calcium 9.9 (8.4-10.2) mg/dL Total Bilirubin 0.5 (0.2-1.3) mg/dL AST 24 (14-36) U/L ALT 19 (4-34) U/L Alkaline Phosphatase 104 (38-126) U/L Total Protein 7.4 (6.3-8.2) g/dL Albumin 4.2 (3.5-5.0) g/dL Urine Color Urine Appearance (Clear) Urine RBC (0-5) /hpf Urine WBC (0-5) /hpf Urine HCG, Qual (Not Detectd) 11/15/24 11/15/24 Range/Units 21:29 21:29 WBC (4.50-10.00) 10*3/uL RBC (4.10-5.20) 10*6/uL Hgb (12.0-15.0) g/dL Hct (37.2-46.3) % MCV (80.0-97.0) fL MCH (27.0-32.0) pg MCHC (32.0-37.0) g/dL Plt Count (140-440) 10*3/uL MPV (9.5-12.2) fL Immature Gran % (Auto) % Neutrophils % % Lymphocytes % % Monocytes % % Eosinophils % % Basophils % % Immature Gran # (0.00-0.04) 10*3/uL Neutrophils # (1.80-7.70) 10*3/uL Lymphocytes # (0.90-5.00) 10*3/uL Monocytes # (0.20-1.00) 10*3/uL Eosinophils # (0.04-0.35) 10*3/uL Basophils # (0.00-0.10) 10*3/uL PT (10.0-12.5) sec INR (<1.2) APTT (22.0-30.0) sec Sodium (137-145) mmol/L Potassium (3.5-5.1) mmol/L Chloride (98-107) mmol/L Carbon Dioxide (22-30) mmol/L Anion Gap mmol/L BUN (7-17) mg/dL Creatinine (0.52-1.04) mg/dL Est GFR (CKD-EPI)AfAm (>60 ml/min/1.73 sqM) Est GFR (CKD-EPI)NonAf (>60 ml/min/1.73 sqM) Glucose (74-99) mg/dL Calcium (8.4-10.2) mg/dL Total Bilirubin (0.2-1.3) mg/dL AST (14-36) U/L ALT (4-34) U/L Alkaline Phosphatase (38-126) U/L Total Protein (6.3-8.2) g/dL Albumin (3.5-5.0) g/dL Urine Color Red Urine Appearance Bloody H (Clear) Urine RBC >182 H (0-5) /hpf Urine WBC 8 H (0-5) /hpf Urine HCG, Qual Not Detected (Not Detectd) Disposition Clinical Impression: Vaginal bleeding, Thickened endometrium Disposition: HOME SELF-CARE Condition: Stable Instructions (If sedation given, give patient instructions): Menorrhagia (ED) Additional Instructions: Follow-up for upcoming gynecology appointment. Please return to the Emergency Department if symptoms worsen or any other concerns. Is patient prescribed a controlled substance at d/c from ED?: No Referrals: Yung Romero MD [Primary Care Provider] - 1-2 days Time of Disposition: 22:36
[2024-11-15 23:12] VITALS: BP 132/86; PULSE 70; RESP 18; TEMP 97.6
== END 2024-11-15 23:15 | disposition home or self-care (01) ==
LOC: EC 20:05
DX: N93.9 Abnormal uterine and vaginal bleeding, unspecified (principal); R93.89 Abnormal findings on diagnostic imaging of other specified body structures; Z88.1 Allergy status to other antibiotic agents; Z88.2 Allergy status to sulfonamides; Z88.5 Allergy status to narcotic agent
CPT/HCPCS: 36415; 80053; 81001; 81025; 85025; 85610; 85730; 99284

== ENCOUNTER 2024-12-07 06:35 | Emergency (ER) | payer BC ==
[2024-12-07 06:39] VITALS: TEMP 97.5
--- NOTE | 2024-12-07 06:54 | ED ---
Abdominal Pain HPI - General Chief Complaint: Abdominal Pain Stated Complaint: Rt Side Abd Pain Time Seen by Provider: 12/07/24 06:40 Source: patient, RN notes reviewed Mode of arrival: ambulatory Limitations: no limitations - History of Present Illness Initial Comments: 54-year-old female presents emergency department with chief complaint of left- sided abdominal pain. Patient states pain started overnight has worsened. Patient states sharp stabbing type pain in the left side she does have a history of diverticulitis states that she has felt constipated last couple days she did try some MiraLAX and milk of magnesia she had a bowel movement morning without relief of symptoms no mild hematochezia denies fevers chills no chest pain no shortness of breath no history of kidney stones states that she has had UTIs, kidney infections in the past. Patient denies taking any further discomfort this morning - Related Data Home Medications Medication Instructions Recorded Confirmed Esomeprazole Magnesium [NexIUM] 40 mg PO DAILY 07/31/22 03/27/23 Flecainide Acetate [Tambocor] 100 mg PO BID 07/31/22 03/27/23 Metoprolol Tartrate [Lopressor] 25 mg PO BID 07/31/22 03/27/23 Naproxen Sodium [Aleve] 440 mg PO DAILY PRN 07/31/22 03/27/23 Famotidine [Pepcid AC] 10 mg PO BID PRN 03/27/23 03/27/23 Fluticasone/Umeclidin/Vilanter 1 puff INHALATION RT-DAILY 03/27/23 03/27/23 [Trelegy Ellipta 100-62.5-25] HYDROcodone/APAP 10-325MG [[place] 1 tab PO DAILY PRN 03/27/23 03/27/23 10-325] Hydrocortisone Cream 1 applic TOPICAL BID PRN 03/27/23 03/27/23 [Hydrocortisone 2.5% Cream] Ketoconazole 2% Cream [Nizoral 2%] 1 applic TOPICAL DAILY PRN 03/27/23 03/27/23 amLODIPine [Norvasc] 5 mg PO BID 03/27/23 03/27/23 Previous Rx's Medication Instructions Recorded Levofloxacin [Levaquin] 500 mg PO DAILY 1 Days #10 tab 03/27/23 metroNIDAZOLE [Flagyl] 500 mg PO BID #20 tab 03/27/23 Amoxic-Pot Clav 875-125Mg 1 tab PO Q12HR 10 Days #20 tab 03/04/24 [Augmentin 875-125] Hyoscyamine Sulfate [Levsin] 0.125 mg PO Q4H PRN #30 tab 03/04/24 Miconazole 2% Vaginal Cream 1 applicator VAGINAL HS 7 Days #45 03/04/24 [Monistat 7] gm Oseltamivir [Tamiflu] 75 mg PO Q12HR #10 cap 06/27/24 Amoxic-Pot Clav 875-125Mg 1 tab PO Q12HR #20 tab 12/07/24 [Augmentin 875-125] Allergies Allergy/AdvReac Type Severity Reaction Status Date / Time Sulfa (Sulfonamide Allergy See Verified 12/07/24 06:36 Antibiotics) comments ciprofloxacin [From Cipro] AdvReac Unknown Verified 12/07/24 06:36 morphine AdvReac Rapid Verified 12/07/24 06:36 Heart Rate Review of Systems ROS Statement: Those systems with pertinent positive or pertinent negative responses have been documented in the HPI. ROS Other: All systems not noted in ROS Statement are negative. Past Medical History Past Medical History: Atrial Fibrillation, Asthma, Blood Disorder, Chest Pain / Angina, Heart Failure, COPD, GERD/Reflux, Hyperlipidemia, Hypertension, Pneumonia Additional Past Medical History / Comment(s): Bronchitis, severe GERD, esophageal spasms, problems with abdominal pain/cramps/constipation and diarrhea, diverticular disease, fatigued for 5-6 yrs, anemia, UTI, urinary incontinence at times, arthritis multiple joints, chronic back and neck pain, bilateral leg sciatica, fatty liver, being checked for thyroid disease, menorrhagia, pt states she had one physician tell her she was "pre" diabetic., immunocompromised (Lupus). Lump in groin. paralyzed diaphram. History of Any Multi-Drug Resistant Organisms: None Reported Past Surgical History: Section, Cholecystectomy, Hernia Repair Additional Past Surgical History / Comment(s): EGD, umbilical hernia repair, wisdom teeth extractions. Past Anesthesia/Blood Transfusion Reactions: Postoperative Nausea & Vomiting (PONV) Additional Past Anesthesia/Blood Transfusion Reaction / Comment(s): Difficulty waking. Past Psychological History: Panic Disorder Smoking Status: Never smoker Past Alcohol Use History: None Reported Past Drug Use History: None Reported - Past Family History Father Additional Family Medical History / Comment(s): Pt was adopted and does not know natural father's medical hx. Mother Additional Family Medical History / Comment(s): Pt is adopted and does not know natural mother's medical hx. Brother(s) Family Medical History: Myocardial Infarction (NE) Additional Family Medical History / Comment(s): Pt does know that her half brother had a NE at the age of 45yrs. General Exam Limitations: no limitations General appearance: alert, in no apparent distress Head exam: Present: atraumatic, normocephalic, normal inspection Eye exam: Present: normal appearance, PERRL, EOMI. Absent: scleral icterus, conjunctival injection, periorbital swelling ENT exam: Present: normal exam, normal oropharynx, mucous membranes moist Neck exam: Present: normal inspection, full ROM. Absent: tenderness, m eningismus, lymphadenopathy Respiratory exam: Present: normal lung sounds bilaterally. Absent: respiratory distress, wheezes, rales, rhonchi, stridor Cardiovascular Exam: Present: regular rate, normal rhythm, normal heart sounds. Absent: systolic murmur, diastolic murmur, rubs, gallop, clicks GI/Abdominal exam: Present: soft, tenderness, normal bowel sounds. Absent: distended, guarding, rebound, rigid Back exam: Absent: CVA tenderness (R), CVA tenderness (L) Course Vital Signs 12/07/24 12/07/24 06:37 07:54 Temperature 97.5 F L Pulse Rate 87 81 Respiratory 18 20 Rate Blood Pressure 153/100 136/98 O2 Sat by Pulse 95 98 Oximetry Medical Decision Making - Medical Decision Making Was pt. sent in by a medical professional or institution (, PA, MILL STENC[employer]ER, urgent care, hospital, or [facility]...) When possible be specific @ -No Did you speak to anyone other than the patient for history (EMS, parent, family, police, friend...)? What history was obtained from this source @ -No Did you review nursing and triage notes (agree or disagree)? Why? @ -I reviewed and agree with nursing and triage notes Were old charts reviewed (outside hosp., previous admission, EMS record, old EKG, old radiological studies, urgent care reports/EKG's, [facility] records)? Report findings @ -No old charts were reviewed Differential Diagnosis (chest pain, altered mental status, abdominal pain women, abdominal pain men, vaginal bleeding, weakness, fever, dyspnea, syncope, headache, dizziness, GI bleed, back pain, seizure, CVA, palpatations, mental health, musculoskeletal)? @ -Differential Abdominal Pain Women: Appendicitis, Cholecystitis, diverticulosis, ischemic bowel, pancreatitis, hepatitis, UTI, gastroenteritis, AAA, incarcerated hernia, bowel obstruction, constipation, inflammatory bowel, hepatitis, peptic ulcer disease, splenic infarction, perforated viscus, vulvitis, ovarian torsion, PID, kidney stone, placenta abruption, this is not meant to be an all-inclusive list EKG interpreted by me (3pts min.). @ -[None X-rays interpreted by me (1pt min.). @ -None done CT interpreted by me (1pt min.). @ -CT abdomen pelvis showing evidence of acute uncomplicated diverticulitis U/S interpreted by me (1pt. min.). @ -None done What testing was considered but not performed or refused? (CT, X-rays, U/S, labs)? Why? @ -None What meds were considered but not given or refused? Why? @ -None Did you discuss the management of the patient with other professionals (professionals i.e. , PA, M[employer] STENCILER, lab, RT, psych nurse, social insurance adviser, building admin, teacher, senior compliance officer, caser in)? Give summary @ -No Was smoking cessation discussed for >3mins.? @ -No Was critical care preformed (if so, how long)? @ -No Were there social determinants of health that impacted care today? How? (Ho melessness, low income, unemployed, alcoholism, drug addiction, transportation, low edu. Level, literacy, decrease access to med. care, retirement, rehab)? @ -No Was there de-escalation of care discussed even if they declined (Discuss DNR or withdrawal of care, Hospice)? DNR status @ -No What co-morbidities impacted this encounter? (DM, HTN, Smoking, COPD, CAD, Cancer, CVA, ARF, Chemo, Hep., AIDS, mental health diagnosis, sleep apnea, morbid obesity)? @ -None Was patient admitted / discharged? Hospital course, mention meds given and route, prescriptions, significant lab abnormalities, going to OR and other pertinent info. @ -Discharge patient has acute uncomplicated diverticulitis patient will start clear liquid diet, oral antibiotics with discharge and close follow-up. Undiagnosed new problem with uncertain prognosis? @ -No Drug Therapy requiring intensive monitoring for toxicity (Heparin, Nitro, Insulin, Cardizem)? @ -No Were any procedures done? @ -No Diagnosis/symptom? @ -Acute diverticulitis Acute, or Chronic, or Acute on Chronic? @ -Acute Uncomplicated (without systemic symptoms) or Complicated (systemic symptoms)? @ -Complicated Side effects of treatment? @ -No Exacerbation, Progression, or Severe Exacerbation? @ -No Poses a threat to life or bodily function? How? (Chest pain, [place], NE, pneumonia, PE, COPD, DKA, ARF, appy, cholecystitis, CVA, Diverticulitis, Homicidal, Suicidal, threat to staff... and all critical care pts) @ -Yes low risk diverticulitis causing sepsis - Lab Data Result diagrams: 12/07/24 07:01 12/07/24 07:01 Lab Results 12/07/24 12/07/24 12/07/24 Range/Units 07:01 07:01 07:01 WBC 6.55 (4.50-10.00) 10*3/uL RBC 4.55 (4.10-5.20) 10*6/uL Hgb 12.1 (12.0-15.0) g/dL Hct 37.6 (37.2-46.3) % MCV 82.6 (80.0-97.0) fL MCH 26.6 L (27.0-32.0) pg MCHC 32.2 (32.0-37.0) g/dL Plt Count 327 (140-440) 10*3/uL MPV 9.6 (9.5-12.2) fL Immature Gran % (Auto) 0.3 % Neutrophils % 72.7 % Lymphocytes % 17.7 % Monocytes % 6.1 % Eosinophils % 2.4 % Basophils % 0.8 % Immature Gran # 0.02 (0.00-0.04) 10*3/uL Neutrophils # 4.76 (1.80-7.70) 10*3/uL Lymphocytes # 1.16 (0.90-5.00) 10*3/uL Monocytes # 0.40 (0.20-1.00) 10*3/uL Eosinophils # 0.16 (0.04-0.35) 10*3/uL Basophils # 0.05 (0.00-0.10) 10*3/uL Sodium 139 (137-145) mmol/L Potassium 3.7 (3.5-5.1) mmol/L Chloride 106 (98-107) mmol/L Carbon Dioxide 24 (22-30) mmol/L Anion Gap 9 mmol/L BUN 12 (7-17) mg/dL Creatinine 0.59 (0.52-1.04) mg/dL Est GFR (CKD-EPI)AfAm >90 (>60 ml/min/1.73 sqM) Est GFR (CKD-EPI)NonAf >90 (>60 ml/min/1.73 sqM) Glucose 112 H (74-99) mg/dL Plasma Lactic Acid Tono (0.7-2.0) mmol/L Calcium 9.2 (8.4-10.2) mg/dL Total Bilirubin 0.6 (0.2-1.3) mg/dL AST 17 (14-36) U/L ALT 13 (4-34) U/L Alkaline Phosphatase 89 (38-126) U/L Total Protein 7.0 (6.3-8.2) g/dL Albumin 4.1 (3.5-5.0) g/dL Lipase 45 (23-300) U/L Urine Color Colorless Urine Appearance Clear (Clear) Urine pH 6.0 (5.0-8.0) Ur Specific [place] 1.003 (1.001-1.035) Urine Protein Negative (Negative) Urine Glucose (UA) Negative (Negative) Urine Ketones Negative (Negative) Urine Blood Moderate H (Negative) Urine Nitrite Negative (Negative) Urine Bilirubin Negative (Negative) Urine Urobilinogen <2.0 (<2.0) mg/dL Ur Leukocyte Esterase Negative (Negative) Urine RBC 3 (0-5) /hpf Urine WBC <1 (0-5) /hpf Ur Squamous Epith Cells 1 (0-4) /hpf 12/07/24 Range/Units 07:01 WBC (4.50-10.00) 10*3/uL RBC (4.10-5.20) 10*6/uL Hgb (12.0-15.0) g/dL Hct (37.2-46.3) % MCV (80.0-97.0) fL MCH (27.0-32.0) pg MCHC (32.0-37.0) g/dL Plt Count (140-440) 10*3/uL MPV (9.5-12.2) fL Immature Gran % (Auto) % Neutrophils % % Lymphocytes % % Monocytes % % Eosinophils % % Basophils % % Immature Gran # (0.00-0.04) 10*3/uL Neutrophils # (1.80-7.70) 10*3/uL Lymphocytes # (0.90-5.00) 10*3/uL Monocytes # (0.20-1.00) 10*3/uL Eosinophils # (0.04-0.35) 10*3/uL Basophils # (0.00-0.10) 10*3/uL Sodium (137-145) mmol/L Potassium (3.5-5.1) mmol/L Chloride (98-107) mmol/L Carbon Dioxide (22-30) mmol/L Anion Gap mmol/L BUN (7-17) mg/dL Creatinine (0.52-1.04) mg/dL Est GFR (CKD-EPI)AfAm (>60 ml/min/1.73 sqM) Est GFR (CKD-EPI)NonAf (>60 ml/min/1.73 sqM) Glucose (74-99) mg/dL Plasma Lactic Acid [place]ono 1.0 (0.7-2.0) mmol/L Calcium (8.4-10.2) mg/dL Total Bilirubin (0.2-1.3) mg/dL AST (14-36) U/L ALT (4-34) U/L Alkaline Phosphatase (38-126) U/L Total Protein (6.3-8.2) g/dL Albumin (3.5-5.0) g/dL Lipase (23-300) U/L Urine Color Urine Appearance (Clear) Urine pH (5.0-8.0) Ur Specific [place] (1.001-1.035) Urine Protein (Negative) Urine Glucose (UA) (Negative) Urine Ketones (Negative) Urine Blood (Negative) Urine Nitrite (Negative) Urine Bilirubin (Negative) Urine Urobilinogen (<2.0) mg/dL Ur Leukocyte Esterase (Negative) Urine RBC (0-5) /hpf Urine WBC (0-5) /hpf Ur Squamous Epith Cells (0-4) /hpf Disposition Clinical Impression: Acute diverticulitis Disposition: HOME SELF-CARE Condition: Stable Instructions (If sedation given, give patient instructions): Diverticulitis (ED), Diverticulitis Diet (ED) Additional Instructions: Please return to the Emergency Department if symptoms worsen or any other concerns. Prescriptions: Amoxic-Pot Clav 875-125Mg [Augmentin 875-125] 1 tab PO Q12HR #20 tab Is patient prescribed a controlled substance at d/c from ED?: No Referrals: None,Stated [Primary Care Provider] - 1-2 days Time of Disposition: 08:11
[2024-12-07 07:08] LABS: Basophils # (A) 0.05 10*3/uL (0.00-0.10); Basophils % (A) 0.8 %; Eosinophils # (A) 0.16 10*3/uL (0.04-0.35); Eosinophils % (A) 2.4 %; HCT 37.6 % (37.2-46.3); HGB 12.1 g/dL (12.0-15.0); Lymphocytes # (A) 1.16 10*3/uL (0.90-5.00); Lymphocytes % (A) 17.7 %; MCH 26.6 pg (27.0-32.0); MCHC 32.2 g/dL (32.0-37.0); MCV 82.6 fL (80.0-97.0); Monocytes # (A) 0.40 10*3/uL (0.20-1.00); Monocytes % (A) 6.1 %; Neutrophils # (A) 4.76 10*3/uL (1.80-7.70); Neutrophils % (A) 72.7 %; Platelet Count 327 10*3/uL (140-440); RBC 4.55 10*6/uL (4.10-5.20); RDW 13.2 % (11.5-14.5); WBC 6.55 10*3/uL (4.50-10.00)
[2024-12-07 07:21] LABS: ALT 13 U/L (4-34); AST 17 U/L (14-36); African American GFR (CKD) >90 (>60 ml/min/1.73 sqM); Albumin 4.1 g/dL (3.5-5.0); Alkaline Phosphatase 89 U/L (38-126); Anion Gap 9 mmol/L; Bilirubin,Urine Negative (Negative); Blood Urea Nitrogen 12 mg/dL (7-17); Blood,Urine Moderate (Negative); Calcium 9.2 mg/dL (8.4-10.2); Carbon Dioxide 24 mmol/L (22-30); Chloride 106 mmol/L (98-107); Color,Urine Colorless; Glucose 112 mg/dL (74-99); Glucose,Urine (UA) Negative (Negative); Ketones,Urine Negative (Negative); Leukocyte Esterase,Urine Negative (Negative); Lipase 45 U/L (23-300); Nitrite,Urine Negative (Negative); Non-African American GFR(CKD) >90 (>60 ml/min/1.73 sqM); PH, Urine 6.0 (5.0-8.0); Potassium 3.7 mmol/L (3.5-5.1); Protein,Urine Negative (Negative); RBC,Urine 3 /hpf (0-5); Sodium 139 mmol/L (137-145); Specific Gravity,Urine 1.003 (1.001-1.035); Squamous Epithelial Cell,Urine 1 /hpf (0-4); Total Protein 7.0 g/dL (6.3-8.2); Urobilinogen,Urine <2.0 mg/dL (<2.0); WBC,Urine <1 /hpf (0-5)
[2024-12-07] MEDS: SODIUM CHLORIDE 0.9% 1,000 ML IV ONE (07:57)
[2024-12-07] MEDS: KETOROLAC 15 MG/ML 1 ML VIAL IVP STA (07:58)
--- NOTE | 2024-12-07 08:01 | CT ---
EXAMINATION TYPE: CT abdomen pelvis w con CT DLP: 3762.4 mGycm, Automated exposure control for dose reduction was used. DATE OF EXAM: 12/07/2024 7:45 AM COMPARISON: Pelvic ultrasound 11/03/2024, CT abdomen and pelvis 03/04/2024 CLINICAL INDICATION:Female, 54 years old with history of left side abd pain; Pt to ED for sharp pain in L side of abdomen since last night. TECHNIQUE: Standard CT of the abdomen and pelvis following the administration of 100 cc of Isovue 3 00 IV contrast material. Coronal and sagittal reformats were performed. FINDINGS: LOWER CHEST: Elevation of the right hemidiaphragm. The visualized lung bases are clear. ABDOMEN LIVER: Unremarkable GALLBLADDER AND BILE DUCTS: The gallbladder is surgically absent. No biliary ductal dilatation. PANCREAS: Mildly atrophic. SPLEEN: Unremarkable. ADRENAL GLANDS: Unremarkable. KIDNEYS AND URETERS: No evidence of hydronephrosis or renal calculus. The kidneys enhance symmetrical ly. Contrast is demonstrated within both collecting systems and proximal ureters on the delayed phase . PELVIS BLADDER: Incompletely distended but grossly unremarkable. REPRODUCTIVE: Anteverted uterus with thickened endometrium redemonstrated measuring up to 2.0 cm. Sub serosal right uterine fundus 5.3 cm fibroid. Additional uterine fundus 5.7 cm subserosal fibroid. ABDOMEN & PELVIS STOMACH AND BOWEL: Small hiatal hernia, duodenum is unremarkable. Distal colonic diverticulosis. Ther e is an inflamed dilated tequila with surrounding fat stranding involving the descending colon. (Seri es 201, image 62). No surrounding abscess. No evidence of bowel obstruction. PERITONEUM: No evidence of pneumoperitoneum or free fluid. VASCULATURE: No evidence of aortic aneurysm. Pelvic phleboliths. MUSCULOSKELETAL: No acute osseous abnormalities. Multilevel facet arthropathy of the lower lumbar spi ne. LYMPH NODES: No evidence for lymphadenopathy. SOFT TISSUE/ABDOMINAL WALL: Unremarkable IMPRESSION: 1. Acute uncomplicated diverticulitis of the descending colon. 2. Redemonstration of thickened endometrium. Endometrial hyperplasia and endometrial carcinoma are yaya th in the differential. Correlate with patient's menopausal status. Consider gynecological consult. 3. Fibroid changes of the uterus redemonstrated. [facility], , 12/07/2024 7:59 AM
[2024-12-07 08:40] VITALS: BP 148/93; PULSE 78; RESP 18
== END 2024-12-07 08:40 | disposition home or self-care (01) ==
LOC: EC 06:35
DX: K57.32 Diverticulitis of large intestine without perforation or abscess without bleeding (principal); Z88.1 Allergy status to other antibiotic agents; Z88.2 Allergy status to sulfonamides; Z88.5 Allergy status to narcotic agent
CPT/HCPCS: 36415; 80053; 83605; 83690; 85025; 81001; 74177; 99284; 96374; 96361; J1885; Q9967